=== PATIENT | female | born 1955 | race Caucasian/White ===

== ENCOUNTER → 2018-01-25 15:55 | Outpatient (CLI) | payer SELFPAY | PROVIDERS: Family Provider Physician Assistant; PCP Physician Assistant; Visit Provider Physician Assistant | DX: R30.0 Dysuria (principal) | CPT/HCPCS: 87077; 87086; 87186 ==

== ENCOUNTER → 2018-02-18 15:07 | Outpatient (CLI) | payer SELFPAY | PROVIDERS: Family Provider Physician Assistant; PCP Physician Assistant; Visit Provider Physician Assistant | DX: R30.0 Dysuria (principal); R31.9 Hematuria, unspecified | CPT/HCPCS: 87077; 87086; 87186 ==

== ENCOUNTER → 2019-03-09 11:35 | Outpatient (CLI) | payer OTHER, SELFPAY ==
[2019-03-09 11:50] LABS: Bacteria Urine None Seen; RBC Urine None Seen (0-5/HPF)
[2019-03-09 12:36] LABS: Appearance Urine UA CLEAR; Bilirubin Urine UA NEGATIVE (NEGATIVE); Color Urine UA YELLOW; Glucose Urine UA NEGATIVE (Negative); Ketones Urine UA NEGATIVE (NEGATIVE); Leukocyte Esterase Urine UA NEGATIVE (NEGATIVE); Nitrite Urine UA NEGATIVE (Negative); Occult Blood Urine UA NEGATIVE (Negative); Protein Urine UA NEGATIVE (Negative); Specific Gravity Urine UA >=1.030 (1.000-1.035); Urobilinogen Urine UA 0.2 E.U./dL (0.2)
[2019-03-09 12:46] LABS: Add Manual Diff / Slide Review NO; Basophils Absolute Auto 0 /uL (0-100); Basophils Percent Auto 0.2 % (0-2); Eosinophils Absolute Auto 100 /uL (0-450); Eosinophils Percent Auto 1.2 % (2-4); Hematocrit 41.6 % (36-46); Hemoglobin 14.1 g/dL (12.0-16.0); Lymphocytes Absolute Auto 2500 /uL (1100-4500); Lymphocytes Percent Auto 31.1 % (25-40); Mean Corpuscular HGB Conc 33.9 % (30-36); Mean Corpuscular Hemoglobin 29.9 PG (26-34); Mean Corpuscular Volume 88.2 fL (80-100); Monocytes Absolute Auto 500 /uL (0-900); Monocytes Percent Auto 6.1 % (3-14); Neutrophils Absolute Auto 5000 /uL (1500-7000); Neutrophils Percent Auto 61.4 % (50-75); Platelet Count 252 X10^3/uL (150-400); Red Blood Cell Count 4.71 X10^6/uL (4.0-5.2); White Blood Cell Count 8.2 X10^3/uL (4.5-11.0)
[2019-03-09 13:10] LABS: Squamous Epithelial Cell Urine 0-1 /HPF (0-5/HPF); WBC Urine 0-1/HPF (0-5/HPF)
[2019-03-09 13:11] LABS: Amorphous Sediment Urine 1+; Culture Indicated Urine Cult Not Indicated; Mucus Urine 1+ (Negative)
[2019-03-09 13:36] LABS: BUN Creatinine Ratio 27.1 (6-22); Blood Urea Nitrogen 19 mg/dL (7-17); Calcium 10.1 mg/dL (8.4-10.2); Carbon Dioxide 25 mmol/L (22-32); Chloride 104 mmol/L (98-107); Estimated Glomerular Filt Rate > 60.0 mL/min (>60); Glucose 103 mg/dL (80-110); HEMOLYSIS < 15 (0-50); Potassium 4.2 mmol/L (3.4-5.1); Sodium 139 mmol/L (137-145)
[2019-03-09 13:45] LABS: Hemoglobin A1C% w Est Avg Glu 5.5 % (4.0-6.0)
== END ==
PROVIDERS: Family Provider Physician Assistant; PCP Physician Assistant; Visit Provider Orthopaedic Surgery
DX: Z01.818 Encounter for other preprocedural examination (principal); Z01.812 Encounter for preprocedural laboratory examination; N39.9 Disorder of urinary system, unspecified; Z13.1 Encounter for screening for diabetes mellitus; R73.9 Hyperglycemia, unspecified
CPT/HCPCS: 36415; 80048; 81001; 83036; 85025; 93005; 93010

== ENCOUNTER → 2019-03-22 10:21 | Outpatient (CLI) | payer OTHER, SELFPAY ==
[2019-03-22 13:03] LABS: TSH w/ Reflex to FT4 < 0.02 uIU/mL (0.47-4.68)
[2019-03-22 13:30] LABS: Free T4, Direct Thyroxine 2.42 ng/dL (0.78-2.19)
== END ==
PROVIDERS: Family Provider Physician Assistant; PCP Physician Assistant; Referring Provider Internal Medicine Cardiovascular Disease; Visit Provider Internal Medicine Cardiovascular Disease
DX: E05.90 Thyrotoxicosis, unspecified without thyrotoxic crisis or storm (principal)
CPT/HCPCS: 36415; 84439; 84443

== ENCOUNTER 2019-06-04 09:38 | Emergency (ER) | payer OTHER, SELFPAY ==
[2019-06-04 09:40] VITALS: BP 159/91; PULSE 108; RESP 15; TEMP 36.9; O2SAT 97; BMI 24.7
--- NOTE | 2019-06-04 09:42 | ED.BACK ---
HPI - Back Pain/Injury General Chief Complaint: Back Pain/Injury Stated Complaint: low back pain Time Seen by Provider: 06/04/19 09:42 Source: patient and old records reviewed Mode of arrival: Ambulatory Limitations: no limitations History of Present Illness HPI Narrative: This is a 64-year-old female comes to the emergency department complaint of low back pain bilaterally. Patient states that she has a history of chronic left hip pain and was scheduled for hip replacement on May 16 but this was deferred secondary to the current covid pandemic. Patient states that she has been off work for about a month she does low back to work in the last week. She states that she started having increasing pain in her low back sort of midline but radiates to both sides. She denies any radiation down her legs. She denies any fevers or chills. She denies any chest pain shortness of breath. No nausea, no vomiting, no loss of bowel or bladder control. No saddle anesthesia. She denies any numbness or tingling down her extremities. Her left hip does still give her pain but she states that is been well-controlled. She has been taking 800 mg of ibuprofen as well as 2 Tylenol in the morning which is her usual regimen for her hip. This has not been controlling her back pain. She states she does not recall injuring it. She states that she thinks it may be from sitting around too much rather than actually repetitive injury as it started causing pain while she was at home on isolation and off work. 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 She does have a history of hyperthyroidism and is on methimazole and a beta juan. Patient states this is been well-controlled. She was not able to go to the walk-in clinic today because it is currently closed although she did try. Related Data Home Medications Medication Instructions Recorded Confirmed multivitamin [Multiple Vitamins] 1 tab PO QDAY #0 01/01/16 02/02/19 Probiotic See Rx Instructions .ROUTE .COMPLEX 01/25/18 02/02/19 Previous Rx's Medication Instructions Recorded ipratropium 20 mcg-albuterol 100 1 puff INHALATION Q6H #4 gram 08/25/18 mcg/actuation mist for inhalation hydrocodone 5 mg-acetaminophen 325 1 tab PO Q4-6H PRN #45 tab 02/02/19 mg tablet albuterol sulfate 90 mcg/actuation 1 puff INHALATION Q4-6H PRN #8 gram 03/04/19 aerosol inhaler ibuprofen 800 mg tablet 800 mg PO BID-TID PRN #90 tab 05/12/19 cyclobenzaprine 10 mg PO TID PRN #15 tab 06/04/19 hydrocodone-acetaminophen [Riverside] 1 tab PO Q6H PRN #10 tab 06/04/19 Allergies Allergy/AdvReac Type Severity Reaction Status Date / Time Sulfa (Sulfonamide Allergy Severe SOB/DYSPNEA Verified 06/04/19 09:45 Antibiotics) alprazolam AdvReac Severe MANIC Verified 06/04/19 09:45 SYMPTOMS codeine AdvReac Severe NAUSEA/VOMI Verified 06/04/19 09:45 TING amoxicillin [From AUGMENTIN] AdvReac Intermediate Nausea Verified 06/04/19 09:45 clavulanic acid AdvReac Intermediate Nausea Verified 06/04/19 09:45 [From AUGMENTIN] Review of Systems Review of Systems ROS Unobtainable: All systems reviewed & are unremarkable except as noted in HPI and below Patient History Medical History Depression (Chronic) GERD (gastroesophageal reflux disease) (Chronic) Hip pain (Chronic) Hyperthyroidism (Chronic) Migraines (Chronic) Osteoarthritis (Chronic) Shoulder pain (Resolved ~06/2012) Skin cancer (Resolved 09/2016) Surgical History History of hip replacement (2004) History of tonsillectomy (1959) Status post appendectomy (1988) Social History Smoking Status: Current every day smoker (1 PPD) Tobacco: How many years used: 50 second hand exposure: Yes alcohol intake: never Smoking Status: Current every day smoker (1 PPD) Exam Narrative Exam Narrative: GENERAL: Alert and oriented x three, well-nourished, well-appearing female in mild distress HEENT: Head normocephalic, atraumatic, EOMI, pupils reactive, face symmetric, moist mucous membranes NECK: Supple, full range of motion CARDIOVASCULAR: Regular rate and rhythm without murmurs, rubs or gallops. RESPIRATORY: Breath sounds equal bilaterally, no wheezes rales or rhonchi. ABDOMEN: Soft, nontender. Normoactive bowel sounds all 4 quadrants. No guarding or rebound, rigidity, no mass : No CVA tenderness BACK: No cervical, thoracic or lumbar vertebral point tenderness. Patient has normal range of motion. Patient's gait is normal. Rectal exam is deferred. Muscle strength is 5/5 in lower extremities, DTRs are 2/4 and lower extremities. Dorsalis pedis and tibialis pulses are 2+ and lower extremities. Sensation is intact in the lower extremities. Patient does have some increased pain with straight leg raise bilaterally. EXTREMITIES: Normal range of motion, no clubbing or edema. Neurovascularly intact NEUROLOGICAL: Cranial nerves II through XII grossly intact. Moving all extremities SKIN: Warm, dry, no petechiae, no rashes or lesions. Initial Vital Signs Initial Vital Signs: Vital Signs Temperature 98.5 F 06/04/19 09:40 Pulse Rate 108 H 06/04/19 09:40 Respiratory Rate 15 06/04/19 09:40 Blood Pressure 159/91 H 06/04/19 09:40 Pulse Oximetry 97 06/04/19 09:40 Course Orders Ordered: ED Orders 06/04/19 09:52 XR lumbar spine 2-3V Stat Discontinued Medications Ketorolac Tromethamine (Toradol) 30 mg IM NOW ONE Stop: 06/04/19 09:53 Last Admin: 06/04/19 09:57 Dose: 30 mg Documented by: DORI Vital Signs Vital signs: Vital Signs - 8 hr 06/04/19 09:40 06/04/19 10:37 Temperature 98.5 F Pulse Rate 108 H 87 Respiratory Rate 15 16 Blood Pressure 159/91 H Blood Pressure [Left Arm] 122/64 Pulse Oximetry 97 98 MDM - Back Pain/Injury Imaging Data Lumbar x-ray: Radiologist's Impression: [address] [address] XRay Report Signed Patient: Katlyn Pichardo PRIETOR#: [id number] : 7Acct:[id number] Age/Sex: 64 / FDate of Service: 06/04/19 Loc: ED Accession Number: [id number] Procedure: XR lumbar spine 2-3V Ordering Provider: Brielle Ferreira D.O. PROCEDURE: XR LUMBAR SPINE 2-3V INDICATIONS: low back pain, no trauma, worsening over weeks TECHNIQUE: 3 views of the lumbar spine were acquired. COMPARISON: None. FINDINGS: Bones: There are 5 lumbar-type vertebral bodies. The lowest intervertebral disk space is designated as L5-S1. The vertebral body heights are well-maintained without evidence to suggest an acute compression fracture. The bone mineralization is within normal limits. Mild to moderate degenerative changes involving the mid to lower lumbar facet joints are present. Anterior disc osteophyte complexes at the lumbosacral junction are noted. Mild degenerative changes of the sacroiliac joints appear to be present. Soft tissues: The soft tissues of the imaged abdomen and pelvis are within normal limits. IMPRESSION: [id number] degenerative changes of the lumbar spine. No fractures. Dictated by: Ariel Stiles M.D. on 06/04/2019 at 9:16 Approved by: Ariel Stiles M.D. on 06/04/2019 at 9:17 MDM Narrative Medical decision making narrative: Patient did drive herself today. Was given a single dose of Toradol IM. Xray shows degenerative changes, no fracture or sign of compression fracture. Patient was given a prescription for Flexeril she also requests a prescription for a narcotic and was given a short course of Riverside. Patient was encouraged to follow-up with her primary care for recheck if she is not improving and discussed red flag symptoms. Discharge Plan Departure Patient Disposition: Home Clinical Impression: Low back pain Qualifiers: Chronicity: acute Back pain laterality: bilateral Sciatica presence: without sciatica Qualified Code(s): M54.5 - Low back pain Discharge Date/Time: 06/04/19 10:47 Instructions: DI for Low Back Pain Activity Restrictions/Additional Instructions: Follow-up with your physician in the next week if your symptoms have not started to improve. You may continue taking ibuprofen as needed for pain. Take muscle relaxer every 8 hours as needed, this medication can make you sleepy so do not drive, perform hazardous activities or make any major decisions while taking it. Return to the ER for fevers greater 100.4 F, rapidly worsening pain, loss of bowel or bladder control, new weakness, numbness or loss of sensation or inability your extremities, passing out, persistent vomiting or other new or concerning symptoms. Prescriptions: New cyclobenzaprine 10 mg tablet 10 mg PO TID PRN (Reason: muscle spasm) Qty: 15 RF: 0 hydrocodone-acetaminophen [Riverside] 5-325 mg tablet 1 tab PO Q6H PRN (Reason: pain) Qty: 10 RF: 0 No Action Probiotic See Rx Instructions .ROUTE .COMPLEX RF: 0 multivitamin [Multiple Vitamins] 1 EACH tablet 1 tab PO QDAY Qty: 0 RF: 0 albuterol sulfate [Ventolin HFA] 90 mcg/actuation HFA aerosol inhaler 1 puff INHALATION Q4-6H PRN (Reason: asthma) Qty: 8 RF: 6 ibuprofen 800 mg tablet 800 mg PO BID-TID PRN (Reason: pain) Qty: 90 RF: 1 ipratropium-albuterol 20-100 mcg/actuation mist 1 puff INHALATION Q6H Qty: 4 RF: 3 hydrocodone-acetaminophen 5-325 mg tablet 1 tab PO Q4-6H PRN (Reason: pain) Qty: 45 RF: 0 Referrals: Yuliya Gbibons PA-C [Primary Care Provider] -
--- NOTE | 2019-06-04 09:47 | PC.NURSE ---
pt reports, mid lower back pain sxs for 2 weeks, has been taking tylenol and ibuprofen, denies injury or trauma. denies bladder or bowel issue. ambulate slow but steady.
--- NOTE | 2019-06-04 09:52 | DI.RAD.S_ITS ---
PROCEDURE: XR LUMBAR SPINE 2-3V INDICATIONS: low back pain, no trauma, worsening over weeks TECHNIQUE: 3 views of the lumbar spine were acquired. COMPARISON: None. FINDINGS: Bones: There are 5 lumbar-type vertebral bodies. The lowest intervertebral disk space is designated as L5-S1. The vertebral body heights are well-maintained without evidence to suggest an acute compression fracture. The bone mineralization is within normal limits. Mild to moderate degenerative changes involving the mid to lower lumbar facet joints are present. Anterior disc osteophyte complexes at the lumbosacral junction are noted. Mild degenerative changes of the sacroiliac joints appear to be present. Soft tissues: The soft tissues of the imaged abdomen and pelvis are within normal limits. IMPRESSION: [id number]-[id number] degenerative changes of the lumbar spine. No fractures. Dictated by: Ariel Stiles M.D. on 06/04/2019 at 9:16 Approved by: Ariel Stiles M.D. on 06/04/2019 at 9:17
[2019-06-04] MEDS: KETOROLAC 60 MG/2 ML VIAL 30 MG IM (09:57)
[2019-06-04 10:37] VITALS: BP 122/64; PULSE 87; RESP 16; O2SAT 98
== END 2019-06-04 10:47 | disposition home or self-care (01) ==
PROVIDERS: Emergency Provider Emergency Medicine; Family Provider Physician Assistant; PCP Physician Assistant
DX: M54.5 Low back pain (principal)
CPT/HCPCS: 72100; 96372; 99283; J1885

== ENCOUNTER → 2019-07-12 15:11 | Outpatient (CLI) | payer OTHER, SELFPAY ==
[2019-07-12 15:59] LABS: Add Manual Diff / Slide Review NO; Basophils Absolute Auto 0 /uL (0-100); Basophils Percent Auto 0.3 % (0-2); Eosinophils Absolute Auto 100 /uL (0-450); Eosinophils Percent Auto 1.1 % (2-4); Hematocrit 40.3 % (36-46); Hemoglobin 13.7 g/dL (12.0-16.0); Lymphocytes Absolute Auto 3300 /uL (1100-4500); Lymphocytes Percent Auto 35.8 % (25-40); Mean Corpuscular Hemoglobin 30.6 PG (26-34); Mean Corpuscular Volume 90.2 fL (80-100); Monocytes Absolute Auto 400 /uL (0-900); Monocytes Percent Auto 4.8 % (3-14); Neutrophils Absolute Auto 5400 /uL (1500-7000); Platelet Count 279 X10^3/uL (150-400); Red Blood Cell Count 4.47 X10^6/uL (4.0-5.2); Red Cell Distribution Width 14.7 % (11.6-14.8); White Blood Cell Count 9.2 X10^3/uL (4.5-11.0)
[2019-07-12 16:33] LABS: BUN Creatinine Ratio 20.5 (6-22); Blood Urea Nitrogen 16 mg/dL (7-17); Calcium 9.7 mg/dL (8.4-10.2); Carbon Dioxide 25 mmol/L (22-32); Chloride 103 mmol/L (98-107); Cholesterol 240 mg/dL (140-199); Estimated Glomerular Filt Rate > 60.0 mL/min (>60); Glucose 88 mg/dL (80-110); HDL Cholesterol 57 mg/dL (40-60); HEMOLYSIS < 15 (0-50); LDL Cholesterol Calculated 154 mg/dL (<100); Potassium 4.3 mmol/L (3.4-5.1); Sodium 137 mmol/L (137-145); Triglycerides 147 mg/dL (35-150)
[2019-07-12 16:50] LABS: Free T4, Direct Thyroxine 0.66 ng/dL (0.78-2.19)
== END ==
PROVIDERS: Family Provider Physician Assistant; Referring Provider Nurse Practitioner; Visit Provider Nurse Practitioner
DX: Z00.00 Encounter for general adult medical examination without abnormal findings (principal); I42.9 Cardiomyopathy, unspecified; E05.90 Thyrotoxicosis, unspecified without thyrotoxic crisis or storm
CPT/HCPCS: 36415; 80048; 80061; 84439; 84443; 85025

== ENCOUNTER → 2019-07-13 06:53 | Outpatient (CLI) | payer OTHER, SELFPAY ==
--- NOTE | 2019-07-13 | DI.ECHO.S_ITS ---
[facility] +---------+ : : [address] [place] [address] : : : : [id number] : : : : Phone: [phone]+ Echocardiogram Report + + :Name: DUSTIN ESPINOZA Study Date: 07/13/2019 Height: 64 in : :[facility] Weight: 145 lb : : Gender: Female BSA: 1.7 m2 : :: 1955 Age: 64 yrs BP: 120/82 mmHg: :Reason For Study: Cardiomyopathy : :Ordering Physician: Mignon Kebede : :Dwain Performed By: Julianna Zapien : :Referring: MIGNON PRAKASH : + + Interpretation Summary 1) Normal left ventricular size with moderately to severely reduced systolic function (EF 30-35%). 2) There is moderate global hypokinesis of the left ventricle. Septal motion is consistent with conduction abnormality. 3) There is mild aortic regurgitation. 4) Sinus rhythm with heart rates in the high 70s-80s range present during the study. 5) Compared to the Echo done 04/05/2019, no significant change in cardiac structure. Procedure: A two-dimensional transthoracic echocardiogram with color flow and Doppler was performed. The study quality was technically adequate. Comparison is made with the echocardiogram of 04/05/2019. Most of the acoustic windows were suboptimal, but the best imaging was obtained from the apical window. The patient was in normal sinus rhythm during the exam. The heart rate ranged between 78-83 bpm during the study. Left Ventricle: The left ventricle is normal in size and wall thickness. The ejection fraction is estimated to be 30-35%. Septal motion is consistent with conduction abnormality. Diastolic parameters suggest a relaxation abnormality of the left ventricle, consistent with probable normal filling pressures. Right Ventricle: The right ventricle is normal in size and function. Atria: Both atria are normal in size. There is no Doppler evidence for an interatrial shunt. Mitral Valve: The mitral valve is normal in structure and function. There is trace mitral regurgitation. Aortic Valve: The aortic valve is trileaflet. The aortic valve opens well. There is no aortic valve stenosis. There is mild aortic regurgitation. Tricuspid Valve: The tricuspid valve is normal in structure and function. There is a trace or physiologic amount of tricuspid regurgitation. Pulmonary artery pressures cannot be estimated because of the lack of a measurable TR jet velocity but the IVC suggests a CVP of around 3 mmHg. Pulmonic Valve: The pulmonic valve is not well visualized. There is no pulmonic valvular regurgitation. Great Vessels: The aortic root is normal size. The ascending aorta could not be visualized. The IVC is of normal diameter and collapses greater than 50% with a sniff. This suggests a low right atrial pressure of 3 mm Hg. Pericardium/ Pleura There is no pericardial effusion. There is no pleural effusion. MMode/2D Measurements & Calculations LVIDd: 4.9 cm LVOT diam: 2.1 cm LVIDs: 4.3 cm Ao root diam: 3.1 cm FS: 13.7 % Ao Arch Diam (Prox Trans): 2.6 cm EPSS: 1.4 cm IVSd: 0.93 cm LVPWd: 0.94 cm LV dejesus. diameter/BSA (cm/m^2): 2.9 LV sys. diameter/BSA (cm/m^2): 2.5 LA A2 area: 18.5 cm2 RA long axis: 4.4 cm LA A4 area: 12.9 cm2 RA area: 15.6 cm2 LA length (vol): 4.9 cm RA vol: 46.8 ml LA vol: 41.2 ml RA : 27.4 ml/m2 LA vol index: 24.2 ml/m2 IVC diam: 1.8 cm RVD1 (basal): 2.9 cm TAPSE: 2.1 cm Doppler Measurements & Calculations Ao V2 max: 152.5 cm/sec LVOT Max Sergio: 103.7 cm/sec Ao V2 mean: 103.5 cm/sec LV V1 max P.3 mmHg Ao max P.3 mmHg LV V1 VTI: 19.6 cm Ao mean P.9 mmHg LEATHA(I,D): 2.5 cm2 Ao V2 VTI: 26.9 cm LEATHA(V,D): 2.3 cm2 sev ratio: 0.73 LEATHA indexed to BSA (cm^2/m^2): 1.5 AI P1/2t: 591.0 msec AI dec slope: 221.6 cm/sec2 MV E max sergio: 69.2 cm/sec PA V2 max: 79.0 cm/sec MV A max sergio: 97.9 cm/sec PA V2 mean: 50.9 cm/sec MV E/A: 0.71 PA mean P.2 mmHg Med Peak E' Sergio: 4.0 cm/sec PA pr(Accel): 38.5 mmHg E/E' med: 17.3 Lat Peak E' Sergio: 6.7 cm/sec E/E' lat: 10.3 E/e' average: 13.8 MV dec time: 0.30 sec SV(LVOT): 67.0 ml Reading Physician:04:53 PM
== END ==
PROVIDERS: Family Provider Physician Assistant; Referring Provider Internal Medicine Cardiovascular Disease; Visit Provider Internal Medicine Cardiovascular Disease
DX: I35.1 Nonrheumatic aortic (valve) insufficiency (principal); I42.9 Cardiomyopathy, unspecified
CPT/HCPCS: 93306

== ENCOUNTER → 2019-07-18 15:57 | Outpatient (CLI) | payer OTHER, SELFPAY ==
[2019-07-19 11:07] LABS: COVID19 Sendout Not Detected (Not Detect)
== END ==
PROVIDERS: Family Provider Physician Assistant; Visit Provider Registered Nurse
DX: Z01.812 Encounter for preprocedural laboratory examination (principal)
CPT/HCPCS: 87635

== ENCOUNTER 2019-07-21 09:57 | Inpatient (IN) | payer OTHER, SELFPAY ==
[2019-07-18 10:47] VITALS: BMI 25.2
[2019-07-21] VITALS (14 sets, daily range): BP systolic 100–122; BP diastolic 52–76; PULSE 71–94; RESP 9–24; TEMP 36.2–37.4; O2SAT 9–98; BMI 25.2
--- NOTE | 2019-07-21 | DI.RAD.S_ITS ---
PROCEDURE: XR HIP W PEL IF DONE LT 2V INDICATIONS: ANTERIOR HIP ARTHROPLASTY LT TECHNIQUE: AP pelvis and lateral view of the left hip acquired. COMPARISON: [facility], CR, [id number] W PEL IF PERFORMED, 08/01/2015, 9:01. FINDINGS: Bones: The patient is undergoing left total hip arthroplasty and this intraoperative examination shows expected alignment in preparation in preparation for placement of final components of left total hip arthroplasty. Soft tissues: Overlying postoperative changes are noted. No suspicious soft tissue densities. IMPRESSION: Left total hip arthroplasty, intraoperative stage, additional followup immediate postoperative imaging is anticipated. Dictated by: Ramos Romano M.D. on 07/21/2019 at 16:50 Approved by: Ramos Romano M.D. on 07/21/2019 at 16:51
--- NOTE | 2019-07-21 06:00 | DI.RAD.S_ITS ---
PROCEDURE: XR HIP W PEL IF DONE LT 2V INDICATIONS: postop TECHNIQUE: AP pelvis with lateral view(s) of the left hip . [facility]/2019, 14:40. [facility], [facility], [id number] W PEL IF PERFORMED, 08/01/2015, 9:01. FINDINGS: Bones: No fractures or dislocations immediately after left total hip arthroplasty performed earlier today. Normal alignment established. Pelvic ring appears intact. No suspicious bony lesions. Soft tissues: The visualized bowel gas pattern is normal. No suspicious soft tissue calcifications. IMPRESSION: Normal alignment present, after left total hip arthroplasty earlier today. Prior right total hip arthroplasty is normal in appearance. Dictated by: Ramos Romano M.D. on 07/21/2019 at 16:36 Approved by: Ramos Romano M.D. on 07/21/2019 at 16:37
[2019-07-21] MEDS: VANCOMYCIN 1,000 MG/200 ML PIGGYBACK 200 MG IV (10:18)
[2019-07-21] MEDS: LACTATED RINGERS 1,000 ML 42 ML IV ×2 (10:18→14:55)
[2019-07-21] MEDS: ACETAMINOPHEN 325 MG TABLET 975 MG PO (10:20)
[2019-07-21] MEDS: GABAPENTIN 300 MG CAPSULE PO (10:21)
[2019-07-21] MEDS: MELOXICAM 7.5 MG TABLET 15 MG PO (10:21)
--- NOTE | 2019-07-21 11:04 | PM.PREOP ---
Pre-operative Note COVID-19 COVID-19 status: Negative Interval Note History & Physical reviewed/Exam performed by Physician: No Changes to H&P: No
--- NOTE | 2019-07-21 11:05 | PM.OP.1 ---
Operative Date/Time/Diagnoses Date of procedure: 07/21/19 Time of procedure: 11:59 Pre-op diagnosis: left hip OA Post-op diagnosis: same Procedure & Clinicians Procedure: Left total hip replacement anterior approach Same procedure as scheduled: Yes Indications: The patient has had progressively worsening left hip pain with radiographic changes consistent with arthritis. Non-operative management has failed and the patient has requested total hip replacement. The risks, benefits and alternatives to surgery were discussed with the patient prior to proceeding. Risks discussed included, but were not limited to, failure to relieve pain, leg length discrepancy, dislocation, stiffness, infection, nerve damage, deep venous thrombosis, pulmonary embolism, stroke, coma, heart attack, permanent paralysis and , as well as the potential need for eventual revision of the prosthetic. Surgeon: Norma Matthews Pipe Stem Sawyer: Carlos Calderon Anesthesia Type: General and Spinal Operative Notes Findings: Severe left hip osteoarthritis, good stability Closure Type: primary Specimen(s): none sent Prosthetic devices, grafts, tissues, transplants, or devices: Matthews [employer]hew R3 54, anthology size 6, 36 by 0 oxinium, neutral Estimated Blood Loss (mL): 250 Blood products transfused: none Procedure in detail: The patient was brought to the operating room. Patient was carefully positioned in the supine position. Time-out was performed and antibiotics were given. Anesthesia was induced. She was positioned in the on the table in order to allow hyperextension of the hip. The left lower extremity was prepped and draped in a standard sterile fashion. An anterior left hip incision was made 1 fingerbreadth lateral to the anterior superior iliac spine and extended distally towards the greater trochanter. Dissection was carried out through skin and subcutaneous tissues. The skin and subcutaneous tissues were carefully injected with Lidocaine with epi. Superficial hemostasis was achieved. The fascia over the tensor fascia valarie was defined and incised with a knife. Two Allis clamps were used to grasp the fascia. Tensor fascia valarie was retracted laterally. A gelpi retractor was placed. Dissection was carried out down along the neck. The circumflex vessels were carefully identified and cauterized with the Aqua Mantis. There was good visualization of the femoral neck. A Cobra was placed superior to the neck and the gluteus fibers were carefully stripped from that superior aspect of the capsule. A 2nd retractor was placed along the inferior aspect of the neck. The rectus insertion along the capsule was partially released. A 3rd retractor that was then gently placed over the rim of the acetabulum under the rectus. Capsule was carefully incised and released from the intertrochanteric line circumferentially superior to the mid sagittal line and inferiorly to the mid sagittal line until the lesser trochanter was palpable. A tag stitch was placed both in the superior and inferior limb of the capsular insertion. Along the acetabulum capsule was also released up to the mid sagittal 12:00 position. A portion of the labrum was resected. A saw was used to perform an osteotomy at the level of the intertrochanteric line and the junction of the superior femoral neck leaving approximately 1 finger breath of residual inferior neck above the lesser trochanter. A 2nd cut was made along the femoral neck at the base of the head and a napkin ring of neck was removed. Corkscrew was placed in the femoral head and the head was removed without difficulty. Retractors were then repositioned around the acetabulum. Residual labrum was resected and additional osteophytes were removed. A reamer that was 4 mm below the templated size was placed by hand in the acetabulum and it was reamed to centralize the acetabulum. It was then reamed up to 2 under the templated size and fluoroscopy was brought in to confirm the position of the reaming and depth of reaming. I reamed 1 under the anticipated size and touched the rim with line to line reaming. A trial cup was placed and noted that it was appropriately sized and fluoroscopy confirmed position and depth. The component was open and inserted without difficulty fluoroscopic imaging was used to confirm that the cup had been adequately seated and was well positioned. The cup was tested and noted to be stable. Final liner was inserted. Attention was then directed to the femur. The femur was gently hyperextended additional capsular release was performed as needed in order to allow adequate visualization of the proximal femur with elevation of the femur. Patient was placed in a hyperextended slightly adducted position with maximum external rotation. Box osteotome was used to check for any residual neck as well as sclerotic bone along the trochanter. [place] pepper was placed in the femur. Additional broaching was performed. Canal finder was used to determine the alignment of the canal and position. Size 1 broach was placed. The canal was then appropriately broached up to the templated size as long as there was adequate stability of the broach and serial advancement of the broach without excessive impingement. Specific attention was directed at avoiding varus attempting to direct the distal aspect of the broach more anteriorly and avoiding excessive anteversion. Trial reduction showed acceptable range of motion, good stability, no posterior impingement, samaritan of leg length and appropriate lateral shuck. I also hyperflexed the hip and checked that there was no impingement anteriorly and there was good stability with flexion, adduction and internal rotation. Marcaine and Exparel were injected. The stem was placed without difficulty. Repeat trial reduction and x-ray showed acceptable overall position, length, and no evidence of the femoral fracture. Final head was placed. Wound was meticulously irrigated with normal saline. The hip was reduced and additional Exparel and Marcaine were injected. The capsule was closed with interrupted nonabsorbable sutures. The fascia of the tensor was closed with interrupted and running Vicryl. No drain was placed. Any tensor fascia valarie muscle that appeared to be contused or injured which was a minimal amount was carefully resected. Capsule around the tensor was injected with Exparel and Marcaine. The skin was closed with barbed stitches for the subcutaneous tissue and skin. We also used surgical glue. The wound was dressed sterilely. Brief Betadine soak was also used and was meticulously irrigated with normal saline. Patient was transferred to recovery room in satisfactory condition. Complications: none Post-operative Condition: stable Disposition: Acute Care Plan for aftercare: The patient will be maintained on a standard total hip replacement protocol with weight bearing as tolerated and anterior hip precautions. The patient will receive Aspirin and sequential compression devices for DVT prophylaxis. The patient will be discharged home when safe for the home environment.
[2019-07-21] MEDS: CEFAZOLIN 2 GM/100 ML FROZ.PIGGY IV ×2 (11:55→19:29)
[2019-07-21] MEDS: TRANEXAMIC ACID 1,000 MG VIAL 1000 MG INJ ×2 (12:30→15:03)
--- NOTE | 2019-07-21 12:45 | SUR.OPER ---
Supine on padded [place] table with bilateral legs secured in padded positioning boots and suspended in positioning spars, operative leg in traction per surgeon. Head on one pillow. Arm on non-operative side secured on padded armboard <90 degrees abduction. Arm on operative side padded and resting across chest then secured with tape over sheet. Padded perineal post in place per surgeon.
[2019-07-21] MEDS: BUPIVACAINE LIPOSOME 266 MG/20 ML VIAL INJ (12:49)
[2019-07-21] MEDS: BUPIVACAINE 0.25% W/ EPI 30 ML VIAL 60 ML INJ (12:50)
[2019-07-21] MEDS: SODIUM CHLORIDE IRRIG SOLUTION 250 ML, POVIDONE-IODINE SPONGE STICKS 1 APPLIC IRR (12:51)
[2019-07-21] MEDS: LACTATED RINGERS 1,000 ML 120 ML IV (15:13)
--- NOTE | 2019-07-21 16:03 | SUR.PHASEI ---
1555 Report called to floor, L hip x-ray taken; denies nausea 1603 HOB elevated, ice chips given. oriented, pt removed O2 (had desat to 89% when dozing)
[2019-07-21] MEDS: IBUPROFEN 400 MG TABLET PO ×2 (16:56→22:02)
[2019-07-21] MEDS: LACTATED RINGERS 1,000 ML 100 ML IV (16:57)
[2019-07-21] MEDS: ONDANSETRON 4 MG/2 ML INJ IV (19:35)
[2019-07-21] MEDS: ACETAMINOPHEN 325 MG TABLET 650 MG PO (20:44)
[2019-07-21] MEDS: METOPROLOL ER 50 MG TABLET PO (20:45)
[2019-07-21] MEDS: ASPIRIN EC 81 MG TABLET PO (20:48)
[2019-07-21] MEDS: ATORVASTATIN 20 MG TABLET 40 MG PO (20:48)
[2019-07-21] MEDS: DOCUSATE 100 MG CAPSULE PO (20:49)
[2019-07-22 00:09] VITALS: BP 93/53; PULSE 74; RESP 16; TEMP 36.8; O2SAT 93
[2019-07-22] MEDS: CEFAZOLIN 2 GM/100 ML FROZ.PIGGY IV (03:51)
[2019-07-22] MEDS: LACTATED RINGERS 1,000 ML 100 ML IV (03:52)
[2019-07-22] MEDS: OXYCODONE IR 5 MG TABLET PO ×2 (05:01→08:09)
[2019-07-22] MEDS: IBUPROFEN 400 MG TABLET PO ×2 (05:01→08:09)
[2019-07-22 05:03] LABS: Hematocrit 30.6 % (36-46); Hemoglobin 10.5 g/dL (12.0-16.0)
[2019-07-22 05:15] VITALS: BP 93/46; PULSE 76; RESP 16; TEMP 36.5; O2SAT 94
[2019-07-22 08:07] VITALS: BP 101/53; PULSE 70; RESP 16; TEMP 36.4; O2SAT 97
[2019-07-22] MEDS: methIMAzole 5 MG TABLET 10 MG PO (08:07)
[2019-07-22] MEDS: ACETAMINOPHEN 325 MG TABLET 650 MG PO (08:08)
[2019-07-22] MEDS: MULTIVITAMIN 1 TABLET 1 TAB PO (08:08)
[2019-07-22] MEDS: ASPIRIN EC 81 MG TABLET PO (08:08)
[2019-07-22] MEDS: METOPROLOL ER 50 MG TABLET PO (08:08)
[2019-07-22] MEDS: DOCUSATE 100 MG CAPSULE PO (08:09)
--- NOTE | 2019-07-22 10:11 | PC.NURSE ---
PATIENT MOVING WELL, CLEARED PHYSICAL THERAPY FOR DC HOME. PAIN WELL CONTROLLED. AQUACEL CDI. DR. BLISS AWARE OF BP TRENDS, GIVE BETA FILOMENA ORDERED. PATIENT LEFT W/ ALL BELONGINGS AND PAPERWORK IN NO S/SX'S OF DISTRESS WITH HER FAMILY MEMBER TO DRIVE HER HOME. SCRIPTS WITH PATIENT. INSTRUCTED PATIENT TO CALL DR BLISS'S OFFICE WHEN SHE GETS HOME TO ARRANGE HER F/U APPT. PATIENT CONFIRMS UNDERSTANDING OF ALL DC INSTRUCTIONS.
--- NOTE | 2019-07-22 10:49 | PT.IIE ---
Current Diagnoses Unilateral primary osteoarthritis, left hip (07/21/19) Surgery Performed Operation Date: 05/17/19 07:45 <No data on this case meets the specified criteria> Operation Date: 07/21/19 11:45 Actual Procedures p Total Hip Arthroplasty/Anterior Approach(Left) - Norma Matthews MD Surgical History (Last Updated 07/18/19 @ 11:21 by Lina Bojorquez, RN) History of hip replacement (2004) History of surgery (Acute ~2009) History of tonsillectomy (1959) Hx of cardiac cath (Acute 04/06/19) Status post appendectomy (1988) Medical History (Last Updated 07/18/19 @ 11:23 by Lina Bojorquez RN) Cardiomyopathy (Acute) Current every day smoker (Acute) Depression (Chronic) GERD (gastroesophageal reflux disease) (Chronic) Hip pain (Chronic) Hyperthyroidism (Chronic) Juvenile rheumatoid arthritis (Acute) LBBB (left bundle branch block) (Acute) Migraines (Chronic) Osteoarthritis (Chronic) Shoulder pain (Resolved ~06/2012) Skin cancer (Resolved 09/2016) Physical Therapy Inpatient Evaluation/Re-Eval M1 PT/OT-IP Prior Functional Status Start: 07/22/19 08:28 Freq: NEEDED Status: Discharge Protocol: Document 07/22/19 08:55 (Rec: 07/22/19 10:49 [id number]) Medical Review Prior Functional Status Medical History Reviewed Yes Diet/Fluid Consistency Regular Communication no deficits noted Mobility and Gait independent for mobility but limited walking distance d/t hip pain. Prefer to lean on shopping cart for grocery shopping. 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 Activities of Daily Living and IADL's independent for all ADLs IADLs without AD. Able to drive Social History Household Members none Living Arrangements Apartment/Condo Number of Floors (Floors) One Floor Number of Stairs To Enter/Railing? 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 M2 PT-IP Current Condition Start: 07/22/19 08:28 Freq: NEEDED Status: Discharge Protocol: Document 07/22/19 08:55 HH (Rec: 07/22/19 10:49 [email or web address]) Physical Therapy Current Condition Current Condition Evaluation Date 07/22/19 Treatment Diagnosis L GLORIA (Post), difficulty in walking Onset Date 07/21/19 Precautions Anterior Hip Precautions No Hip Extension,No Hip External Rotation Weight Bearing Status Weight Bearing Status Weight Bear as Tolerated M3 PT-IP Subjective Start: 07/22/19 08:28 Freq: NEEDED Status: Discharge Protocol: Document 07/22/19 08:55 (Rec: 07/22/19 10:49 [email or web address]) Subjective Physical Therapy Visit Type Type Initial Evaluation Visit Start Time 08:55 Visit Stop Time 09:20 Total Visit Minutes 25 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 Therapy Pain Assessment Pain When Pain Assessed During Mobility Pain Present Pain Present Pain Reported Location Left Hip Intensity 2 Scale Used Numeric (1 - 10) Description Aching Pain Management Techniques Apply Cold,Timing of Activity with Medications M4 PT-IP Mobility and Gait Start: 07/22/19 08:28 Freq: NEEDED Status: Discharge Protocol: Document 07/22/19 08:55 (Rec: 07/22/19 10:49 [email or web address]) PT-Transfer Assessment Sit to and From Stand Sit to and from Stand Independent Equipment Transfer Assistive Device Gait Belt Orthotic/Prosthetic Devices or Brace: No Transfers Transfer Destination Chair Transfer Technique with FWW Transfer Ability Level of Assist Independent Comments Mobility Comments Pt was abmulating with FWW in her room upon PT arrival. No discomfort noted. She then cont to amb with this PT out of the room to hallway. Pt initially started with forefoot strike for initial contact but was able to adjust to heel strike after instruction. Pt tends to amb with lack of L knee flexion during swing phase but also improved after demonstration. She was able to amb close to normal pattern after practicing gait mechanics for 120 ft. She then amb back to her and sat in room chair. She demonstrated safe transfer with proper use of chair armrests for descend. She did not have any c/o disomfort and felt ready and safe to be d/c . Notified RN and SW after. Gait Assessment Gait Gait Assistance Required: Independent Distance (Feet) 250 Able to Maintain Weight Bearing Status Yes During Gait Assistive Devices Assistive Device Gait Belt,Front Wheeled Walker Orthotic/Prosthetic Devices or Brace: No Gait Deviations General Gait Pattern Antalgic,Decreased Stride Length,Decreased Feet Clearance Factors Limiting Gait Function Factors Limiting Gait Function Decreased Activity Tolerance, Decreased Strength,Limited Range of Motion,Pain Comments Gait Comments see mobility comments Stair Climbing Assessment Evaluation Level of Assist On Stairs Independent Devices Stair Climbing Assistive Devices Front Wheel Walker Technique/Endurance Stair Climbing Direction Ascend and Descend Stair Climbing Technique Step to Step Number of Steps Climbed 1 Query Text: Stair Climbing Set # Repetitions (reps) 1 Comments Stair Climbing Comments able to negotiate 4' step with safe mechanics ( lead with R to go up, down with L) PT-Balance Assessment Sitting Balance and Reactions Static Sitting Balance Ability Normal Dynamic Sitting Balance Ability Normal Standing Balance and Reactions Static Standing Balance Ability Normal Dynamic Standing Balance Ability Normal Device Used FWW M5 PT-IP Objective Assessments Start: 07/22/19 08:28 Freq: NEEDED Status: Discharge Protocol: Document 07/22/19 08:55 (Rec: 07/22/19 10:49 [email or web address]) Orientation Orientation/Cognition Level of Alertness Alert Orientation Name,Age,Birthday,Month,Date, Year,Day of Week,Place, Situation Language Function Ability No Deficits Noted Safety Awareness Understands Safety Issues Memory Description No Deficits Noted Gross Range of Motion Upper Extremity ROM Assessment Within Functional Limits Lower Extremity ROM Assessment Within Functional Limits Strength Upper Extremity Strength Assessment Within Functional Limits Lower Extremity Strength Assessment Left Impaired Hip 4+/5 Knee 5/5 Coordination Assessment Gross Coordination Gross Coordination WNL Sensation Assessment Sensation Gross Sensation WNL Muscle Tone Muscle Tone WNL Yes M6 PT-IP Treatment Start: 07/22/19 08:28 Freq: NEEDED Status: Discharge Protocol: Document 07/22/19 08:55 (Rec: 07/22/19 10:49 [email or web address]) Physical Therapy Treatment Exercises Exercises Ankle Pumps,Gluteal Sets,Quad Sets,Heel Slides,Straight Leg Raises Education Education Provided Precautions,Weight Bearing Status,Post-Op Packet,Safety M7 PT-IP Assessment and Plan Start: 07/22/19 08:28 Freq: NEEDED Status: Discharge Protocol: Document 07/22/19 08:55 (Rec: 07/22/19 10:49 [email or web address]) PT Summary Assessment and Plan Potential Rehabilitation Potential Excellent Status of Condition at Evaluation Stable Summary Impairments Pain,ROM,Strength,Gait, Activity Tolerance Progress Towards Goals Safe For Discharge Assessment Summary This is a low complexity eval for this 64 yo female s/p POD 1 L GLORIA with anterior approach . Upon assessment, pt was very independent for overall mobility with good safety awareness without c/o discomfort. Educated pt on gait mechanics and she was able to leanr and retain information very well. Pt also has good family and friends support to assist as needed. She is now safe to go home and participating outpt PT to improve her functinoal mobility and strength. Frequency of Treatment Frequency Of Treatment Discharge Recommendations To Nursing Amount of Assist Needed 1 Person Assist Discharge Recommendations PT Discharge Recommendations Home,Outpatient PT Transportation Needs at Discharge Private Vehicle
--- NOTE | 2019-07-22 14:13 | CM.IDA ---
Initial DCP Assessment Note: Pt is a 64 yo female, resident of [place], now POD#1 from Left hip surgery w/ Dr Matthews PCP: ANUSHA Szymanski Payer: Anjelica Reviewed chart, pt discussed in multidisciplinary rounds this morning. Therapy has cleared pt for return home w/family to assist and pt has planned for home, DC order from Ortho has already been initiated this morning. No needs expected from DC planning team although will remain available in case this changes today. EMMY Herron
== END 2019-07-22 09:50 | disposition home or self-care (01) | DRG 470 ==
PROVIDERS: Admitting Provider Orthopaedic Surgery; Family Provider Physician Assistant; Referring Provider Orthopaedic Surgery; Visit Provider Orthopaedic Surgery
PROC: 0SRB06A Replacement of Left Hip Joint with Oxidized Zirconium on Polyethylene Synthetic Substitute, Uncemented, Open Approach (ICD-10-PCS; CPT 27130; principal; 2019-07-21 11:45)
DX: M16.12 Unilateral primary osteoarthritis, left hip (principal); I42.9 Cardiomyopathy, unspecified; Z96.641 Presence of right artificial hip joint; F17.210 Nicotine dependence, cigarettes, uncomplicated; E03.9 Hypothyroidism, unspecified; J44.9 Chronic obstructive pulmonary disease, unspecified; I44.7 Left bundle-branch block, unspecified
CPT/HCPCS: 36415; 73502; 76000; 85014; 85018; 94762; 97116; 97161; C1776; C9290; J0690; J2274; J2405; J2704

== ENCOUNTER 2019-12-04 13:11 | Emergency (ER) | payer OTHER, SELFPAY ==
[2019-07-21 17:47] VITALS: BMI 25.2
[2019-12-04 13:18] VITALS: BP 167/79; PULSE 89; O2SAT 99
[2019-12-04 13:20] VITALS: BP 167/79; PULSE 90; RESP 18; TEMP 36.6; O2SAT 100; BMI 24.0
[2019-12-04 13:30] VITALS: BP 150/67
--- NOTE | 2019-12-04 13:35 | PC.NURSE ---
three weeks of Migraine not going away I am just tired Reports nausea often worse than pain patient states she only gets severe migraines like this every other year or so.
--- NOTE | 2019-12-04 13:40 | DI.CT.S_ITS ---
PROCEDURE: CT HEAD/BRAIN WO CON INDICATIONS: persistant headache TECHNIQUE: Noncontrast 4.5 mm thick angled axial sections acquired from the foramen magnum to the vertex, with coronal and sagittal reformats. For radiation dose reduction, the following was used: automated exposure control, adjustment of mA and/or kV according to patient size. COMPARISON: [facility], CT, HEAD WITHOUT CONTRAST, 12/04/2007, 10:18. FINDINGS: Image quality: Excellent. CSF spaces: Basal cisterns are patent. No extra-axial fluid collections. Ventricles are normal in size and shape. Brain: No midline shift. No intracranial masses or hemorrhage. Hudson-white matter interface is normal. Skull and face: Calvarium and visualized facial bones are intact, without suspicious lesions. Sinuses: Left maxillary sinus air-fluid level. Other paranasal sinuses and mastoids are clear. IMPRESSION: 1. Acute left maxillary sinusitis. 2. No evidence acute stroke, hemorrhage, or mass. Dictated by: Sunadr Martin M.D. on 12/04/2019 at 14:12 Approved by: Sundar Martin M.D. on 12/04/2019 at 14:13
--- NOTE | 2019-12-04 13:40 | DI.RAD.S_ITS ---
PROCEDURE: XR CHEST 1V INDICATIONS: chest pain TECHNIQUE: One view of the chest was acquired. COMPARISON: [facility], , CHEST 2 VIEW, 09/05/2013, 12:01. FINDINGS: Surgical changes and devices: None. Lungs and pleura: Lungs are clear. No pleural effusions or pneumothorax. Mediastinum: Mediastinal contours appear normal. Heart size is normal. Bones and chest wall: No suspicious bony lesions. Overlying soft tissues appear unremarkable. IMPRESSION: No evidence acute pulmonary process. Dictated by: Sundar Martin M.D. on 12/04/2019 at 14:36 Approved by: Sundar Martin M.D. on 12/04/2019 at 14:36
--- NOTE | 2019-12-04 13:44 | ED_ITS ---
HPI - Headache General Chief Complaint: Headache Stated Complaint: migraine/ heart issue Time Seen by Provider: 12/04/19 13:15 Source: patient Mode of arrival: Ambulatory Limitations: no limitations History of Present Illness HPI Narrative: Patient is a 64-year-old female who presents with right he of complaints. She says she has a history of migraines and has had a headache ongoing for the last 3 weeks. She says that is all over her head she is sensitive to noise but not slight. She denies any fever. She also feels like she has had some heart palpitations and some chest heaviness also ongoing for couple of weeks. At her symptoms do not seem to be getting any better but they are any worse today. Complaint: headache Related Data Home Medications Medication Instructions Recorded Confirmed multivitamin [Multiple Vitamins] 1 tab PO QDAY #0 01/01/16 11/12/19 Probiotic See Rx Instructions .ROUTE .COMPLEX 01/25/18 11/12/19 ibuprofen 800 mg PO DAILY PRN 07/18/19 11/12/19 metoprolol succinate 50 mg PO BID 07/19/19 11/12/19 Previous Rx's Medication Instructions Recorded albuterol sulfate 90 mcg/actuation 1 puff INHALATION Q4-6H PRN #8 gram 03/04/19 aerosol inhaler azithromycin 250 mg tablet See Rx Instructions PO .COMPLEX #6 11/12/19 tab ondansetron 4 mg PO Q8H PRN #10 tab 12/04/19 Allergies Allergy/AdvReac Type Severity Reaction Status Date / Time Sulfa (Sulfonamide Allergy Severe SOB/DYSPNEA Verified 11/12/19 13:24 Antibiotics) alprazolam AdvReac Severe MANIC Verified 11/12/19 13:24 SYMPTOMS codeine AdvReac Severe NAUSEA/VOMI Verified 11/12/19 13:24 TING amoxicillin [From AUGMENTIN] AdvReac Intermediate Nausea Verified 11/12/19 13:24 clavulanic acid AdvReac Intermediate Nausea Verified 11/12/19 13:24 [From AUGMENTIN] Review of Systems Review of Systems Narrative: GENERAL: Denies chills, fatigue, malaise, fever, sweats, travel HEENT: Denies sinus pain, ear pain, sore throat, difficulty swallowing, neck pain RESPIRATORY: Denies dyspnea, cough, wheezing, hemoptysis, sputum. CARDIOVASCULAR: See HPI GASTROINTESTINAL: Denies nausea, vomiting, abdominal pain, diarrhea, constipation, melena. : Denies dysuria, frequency, incontinence, hematuria, urinary retention, flank pain. MUSCULOSKELETAL: Denies weakness, joint pain, or bony pain SKIN: No rash, no erythema, no pruritus NEUROLOGIC: + see HPI PSYCHIATRIC: No concerning psychosocial issues. 12 point review of systems is negative except for those stated above and HPI Patient History Medical History Cardiomyopathy (Acute) Current every day smoker (Acute) Depression (Chronic) GERD (gastroesophageal reflux disease) (Chronic) Hip pain (Chronic) Hyperthyroidism (Chronic) Juvenile rheumatoid arthritis (Acute) LBBB (left bundle branch block) (Acute) Migraines (Chronic) Osteoarthritis (Chronic) Shoulder pain (Resolved ~06/2012) Skin cancer (Resolved 09/2016) Surgical History History of hip replacement (2004) History of surgery (Acute ~2009) History of tonsillectomy (1959) Hx of cardiac cath (Acute 04/06/19) Status post appendectomy (1988) Family History Mother Heart disease Personal history of stroke with residual effects Father No problems noted. Social History household members: none Smoking Status: Current every day smoker Tobacco: How many years used: 50 second hand exposure: Yes alcohol intake: never Smoking Status: Current every day smoker alcohol intake frequency: holidays/special occasions only Substance Use Type: marijuana Exam Initial Vital Signs Initial Vital Signs: Vital Signs Pulse Rate 89 12/04/19 13:18 Blood Pressure 167/79 H 12/04/19 13:18 Pulse Oximetry 99 12/04/19 13:18 GENERAL: Well-appearing, well-nourished and in no acute distress. HEENT: Head atraumatic,EOMI, pupils reactive, face symmetric, moist mucous membranes CARDIOVASCULAR: Regular rate and rhythm without murmurs, rubs or gallops. RESPIRATORY: Breath sounds equal bilaterally, no wheezes rales or rhonchi. ABDOMEN: Soft, nontender. Normoactive bowel sounds all 4 quadrants. No guardi ng or rebound. EXTREMITIES: Normal range of motion, no clubbing or edema. Neurovascularly intact NEUROLOGICAL: Alert and oriented x4.Normal gait and speech. Cranial nerves II through XII grossly intact. [employer] strength equal bilaterally SKIN: Warm, dry, no laceration, no petechiae, no rashes or lesions. Scores NIH Stroke Scale Level of Conciousness: Alert, keenly responsive Ask month/age: Answers both questions correctly. Open/close eyes, close hand: Performs both tasks correctly Best gaze horizontal: Normal Visual preciado: No visual loss Facial palsy: Normal symetrical movement Left arm drift: No drift for full 10 sec Right arm drift: No drift for full 10 sec Left leg drift: No drift for full 5 sec Right leg drift: No drift for full 5 sec Limb ataxia: Absent Sensory on face/arms/legs: Normal, no sensory loss Best language: No aphasia, normal Dysarthria: Normal Extinction or inattention: No abnormality Total NIH Stroke scale score: 0 Course Orders Ordered: ED Orders 12/04/19 13:20 EKG-12 Lead Stat 12/04/19 13:30 Complete Blood Count AUTO DIFF Stat Comprehensive Metabolic Panel Stat Lipase Stat Troponin & CK Cardiac Panel Stat 12/04/19 13:40 CT head/brain wo con Stat XR chest 1V Stat Discontinued Medications Sodium Chloride (Normal Saline 0.9%) 1,000 mls @ 1,000 mls/hr IV CONT MICA Last Infusion: 12/04/19 15:15 Dose: 1,000 mls/hr Documented by: Admin: 12/04/19 14:14 Dose: 1,000 mls/hr Documented by: BARB Ketorolac Tromethamine (Toradol) 30 mg IV NOW ONE Stop: 12/04/19 13:41 Last Admin: 12/04/19 14:13 Dose: 30 mg Documented by: BARB Ondansetron HCl (Zofran) 4 mg IV NOW ONE Stop: 12/04/19 13:41 Last Admin: 12/04/19 14:13 Dose: 4 mg Documented by: BARB Vital Signs Vital signs: Vital Signs - 8 hr 12/04/19 13:18 12/04/19 13:20 12/04/19 13:30 Temperature 97.8 F Pulse Rate 89 90 Respiratory Rate 18 Blood Pressure 167/79 H 167/79 H 150/67 H Pulse Oximetry 99 100 12/04/19 14:00 12/04/19 14:30 12/04/19 15:00 Temperature Pulse Rate 81 75 74 Respiratory Rate 13 12 22 Blood Pressure Pulse Oximetry 99 97 99 MDM - Headache Lab Data Attestation: I reviewed the patient's lab results. Result diagrams: 12/04/19 13:30 12/04/19 13:30 Labs: Lab Results 12/04/19 12/04/19 Range/Units 13:30 13:30 WBC 8.8 (4.5-11.0) X10^3/uL RBC 4.60 (4.0-5.2) X10^6/uL Hgb 13.7 (12.0-16.0) g/dL Hct 40.8 (36-46) % MCV 88.8 (80-100) fL MCH 29.8 (26-34) PG MCHC 33.6 (30-36) % RDW 13.5 (11.6-14.8) % Plt Count 272 (150-400) X10^3/uL Neut % (Auto) 58.8 (50-75) % Lymph % (Auto) 32.5 (25-40) % [place] % (Auto) 6.2 (3-14) % Eos % (Auto) 1.8 L (2-4) % Baso % (Auto) 0.7 (0-2) % Neut # (Auto) 5200 (9673-2036) /uL Lymph # (Auto) 2800 (7334-1138) /uL [place] # (Auto) 500 (0-900) /uL Eos # (Auto) 200 (0-450) /uL Baso # (Auto) 100 (0-100) /uL Sodium 139 (137-145) mmol/L Potassium 3.9 (3.4-5.1) mmol/L Chloride 106 (98-107) mmol/L Carbon Dioxide 29 (22-32) mmol/L BUN 15 (7-17) mg/dL Creatinine 0.66 (0.52-1.04) mg/dL Estimated GFR > 60.0 (>60) mL/min BUN/Creatinine Ratio 22.7 H (6-22) Glucose 99 (80-110) mg/dL Calcium 9.6 (8.4-10.2) mg/dL Total Bilirubin 0.4 (0.2-1.3) mg/dL AST 31 (14-36) IU/L ALT 18 (<35) IU/L Alkaline Phosphatase 82 (38-126) U/L Total Creatine Kinase 45 (30-135) U/L CK-MB (CK-2) TNP CK-MB (CK-2) Rel Index TNP Troponin I < 0.012 (0.01-0.034) ng/mL Total Protein 7.7 (6.3-8.2) g/dL Albumin 4.5 (3.5-5.0) g/dL Globulin 3.2 (1.7-4.1) g/dL Albumin/Globulin Ratio 1.4 (1.0-2.8) Lipase 136 (23-300) U/L Imaging Data CT scan - head: Radiologist's Impression: PROCEDURE: CT HEAD/BRAIN WO CON INDICATIONS: persistant headache TECHNIQUE: Noncontrast 4.5 mm thick angled axial sections acquired from the foramen magnum to the vertex, with coronal and sagittal reformats. For radiation dose reduction, the following was used: automated exposure control, adjustment of mA and/or kV according to patient size. COMPARISON: [facility], CT, HEAD WITHOUT CONTRAST, 12/04/2007, 10:18. FINDINGS: Image quality: Excellent. CSF spaces: Basal cisterns are patent. No extra-axial fluid collections. Ventricles are normal in size and shape. Brain: No midline shift. No intracranial masses or hemorrhage. Hudson-white matter interface is normal. Skull and face: Calvarium and visualized facial bones are intact, without suspicious lesions. Sinuses: Left maxillary sinus air-fluid level. Other paranasal sinuses and mastoids are clear. IMPRESSION: 1. Acute left maxillary sinusitis. 2. No evidence acute stroke, hemorrhage, or mass. Dictated by: Sundar Martin M.D. on 12/04/2019 at 14:12 Chest x-ray: Radiologist's Impression: PROCEDURE: XR CHEST 1V INDICATIONS: chest pain TECHNIQUE: One view of the chest was acquired. COMPARISON: [facility], [place], CHEST 2 VIEW, 09/05/2013, 12:01. FINDINGS: Surgical changes and devices: None. Lungs and pleura: Lungs are clear. No pleural effusions or pneumothorax. Mediastinum: Mediastinal contours appear normal. Heart size is normal. Bones and chest wall: No suspicious bony lesions. Overlying soft tissues appear unremarkable. IMPRESSION: No evidence acute pulmonary process. Dictated by: Sundar Martin M.D. on 12/04/2019 at 14:36 ECG Data Attestation: I personally reviewed and interpreted this ECG as follows: Prior ECG tracings: available for review Interpretation: Normal sinus rhythm Rate 84 p.r. interval 176 QRS [address] changes or T-wave inversions MDM Narrative Medical decision making narrative: Patient has no focal deficits she has overall is feeling better after Toradol. She says that she has Tylenol at home she is requesting nausea medication. EKG and troponin are negative. Discharge Plan Departure Patient Disposition: Home Clinical Impression: Headache, migraine Qualifiers: Migraine type: without aura Status migrainosus presence: without status migrain osus Intractability: not intractable Qualified Code(s): G43.009 - Migraine without aura, not intractable, without status migrainosus Discharge Date/Time: 12/04/19 15:24 Activity Restrictions/Additional Instructions: *You have been diagnosed with migraine headache heart palpitations *What to do: Recommend resting increase fluid intake *Continue to take medications as directed Tylenol 650 mg every 4-6 hours if needed for kftn-to-kkixwjao pain Ibuprofen 600 mg every 6-8 hours need for duam-ys-jdcptjne pain Zofran 4 mg every 8 hours if needed for nausea or vomiting *Follow up with your primary care provider in 2-3 days *Return to ER if you should have worsening headache, chest pain, dizziness passing out or any new, worsening or concerning symptoms Prescriptions: New ondansetron 4 mg tablet,disintegrating 4 mg PO Q8H PRN (Reason: nausea and vomiting) Qty: 10 RF: 0 No Action Probiotic See Rx Instructions .ROUTE .COMPLEX RF: 0 azithromycin 250 mg tablet See Rx Instructions PO .COMPLEX Qty: 6 RF: 0 multivitamin [Multiple Vitamins] 1 EACH tablet 1 tab PO QDAY Qty: 0 RF: 0 albuterol sulfate [Ventolin HFA] 90 mcg/actuation HFA aerosol inhaler 1 puff INHALATION Q4-6H PRN (Reason: asthma) Qty: 8 RF: 6 ibuprofen 800 mg tablet 800 mg PO DAILY PRN (Reason: Pain (Scale Score 1-3)) RF: 0 metoprolol succinate 50 mg Tablet Extended Release 24 Hr 50 mg PO BID RF: 0 Referrals: Yuliya Gibbons PA-C [Family Provider] -
[2019-12-04 13:46] LABS: Add Manual Diff / Slide Review NO; Basophils Absolute Auto 100 /uL (0-100); Basophils Percent Auto 0.7 % (0-2); Eosinophils Absolute Auto 200 /uL (0-450); Eosinophils Percent Auto 1.8 % (2-4); Hematocrit 40.8 % (36-46); Hemoglobin 13.7 g/dL (12.0-16.0); Lymphocytes Absolute Auto 2800 /uL (1100-4500); Lymphocytes Percent Auto 32.5 % (25-40); Mean Corpuscular HGB Conc 33.6 % (30-36); Mean Corpuscular Hemoglobin 29.8 PG (26-34); Mean Corpuscular Volume 88.8 fL (80-100); Monocytes Absolute Auto 500 /uL (0-900); Monocytes Percent Auto 6.2 % (3-14); Neutrophils Absolute Auto 5200 /uL (1500-7000); Neutrophils Percent Auto 58.8 % (50-75); Platelet Count 272 X10^3/uL (150-400); Red Cell Distribution Width 13.5 % (11.6-14.8); White Blood Cell Count 8.8 X10^3/uL (4.5-11.0)
[2019-12-04 13:52] LABS: Alanine Aminotransferase 18 IU/L (<35); Albumin 4.5 g/dL (3.5-5.0); Albumin Globulin Ratio 1.4 (1.0-2.8); Alkaline Phosphatase 82 U/L (38-126); Aspartate Aminotransferase 31 IU/L (14-36); BUN Creatinine Ratio 22.7 (6-22); Bilirubin Total 0.4 mg/dL (0.2-1.3); Blood Urea Nitrogen 15 mg/dL (7-17); Calcium 9.6 mg/dL (8.4-10.2); Carbon Dioxide 29 mmol/L (22-32); Chloride 106 mmol/L (98-107); Creatine Kinase 45 U/L (30-135); Estimated Glomerular Filt Rate > 60.0 mL/min (>60); Globulin 3.2 g/dL (1.7-4.1); Glucose 99 mg/dL (80-110); HEMOLYSIS < 15 (0-50); Lipase 136 U/L (23-300); Potassium 3.9 mmol/L (3.4-5.1); Sodium 139 mmol/L (137-145); Total Protein 7.7 g/dL (6.3-8.2)
[2019-12-04 14:00] VITALS: PULSE 81; RESP 13; O2SAT 99
[2019-12-04 14:04] LABS: Troponin I < 0.012 ng/mL (0.01-0.034)
[2019-12-04] MEDS: ONDANSETRON 4 MG/2 ML INJ IV (14:13)
[2019-12-04] MEDS: KETOROLAC 60 MG/2 ML VIAL 30 MG IV (14:13)
[2019-12-04] MEDS: SODIUM CHLORIDE 0.9% 1,000 ML 1000 ML IV (14:14)
[2019-12-04 14:30] VITALS: PULSE 75; RESP 12; O2SAT 97
[2019-12-04 15:00] VITALS: PULSE 74; RESP 22; O2SAT 99
== END 2019-12-04 15:24 | disposition home or self-care (01) ==
PROVIDERS: Emergency Provider Emergency Medicine; Family Provider Physician Assistant
DX: G43.009 Migraine without aura, not intractable, without status migrainosus (principal); R07.9 Chest pain, unspecified
CPT/HCPCS: 36415; 70450; 71045; 80053; 82550; 83690; 84484; 85025; 93005; 93010; 96361; 96374; 96375; 99284; J1885; J2405

== ENCOUNTER 2020-02-24 11:53 | Emergency (ER) | payer OTHER, SELFPAY ==
[2019-07-21 17:47] VITALS: BMI 25.2
[2020-02-24] VITALS (7 sets, daily range): BP systolic 109–136; BP diastolic 56–81; PULSE 71–91; RESP 12–21; TEMP 36.9; O2SAT 96–99; BMI 22.6
--- NOTE | 2020-02-24 17:06 | ED_ITS ---
HPI - Abdominal Pain General Chief Complaint: Abdominal Pain Stated Complaint: stomach pain/loosing weight/cant eat Time Seen by Provider: 02/24/20 16:54 Source: patient Mode of arrival: Ambulatory Limitations: no limitations History of Present Illness HPI narrative: 64-year-old woman with a history of hypertension presents with 4- 5 months of early satiety, weight loss (she is unsure of how much as she does not typically weigh herself, she does note she has gone down two belt buckle holes) and diffuse abdominal pain. She is a lifelong smoker complains of no specific cough. She has had no recent fevers, headaches, chest pain, skin changes. She describes no changes to her bowels and no dysuria. No pelvic pain she does have questions about a couple of different skin lesions. She also reports that she was recently diagnosed with hyperthyroidism was treated for that and then told that she was hypothyroid and her physician wanted her to start thyroid medication, she declined until she was able to speak with his announcer. Related Data Home Medications Medication Instructions Recorded Confirmed multivitamin [Multiple Vitamins] 1 tab PO QDAY #0 01/01/16 11/12/19 Probiotic See Rx Instructions .ROUTE .COMPLEX 01/25/18 11/12/19 ibuprofen 800 mg PO DAILY PRN 07/18/19 11/12/19 metoprolol succinate 50 mg PO BID 07/19/19 11/12/19 Previous Rx's Medication Instructions Recorded albuterol sulfate 90 mcg/actuation 1 puff INHALATION Q4-6H PRN #8 gram 03/04/19 aerosol inhaler azithromycin 250 mg tablet See Rx Instructions PO .COMPLEX #6 11/12/19 tab ondansetron 4 mg PO Q8H PRN #10 tab 12/04/19 Allergies Allergy/AdvReac Type Severity Reaction Status Date / Time Sulfa (Sulfonamide Allergy Severe SOB/DYSPNEA Verified 02/24/20 12:31 Antibiotics) alprazolam AdvReac Severe MANIC Verified 02/24/20 12:31 SYMPTOMS codeine AdvReac Severe NAUSEA/VOMI Verified 02/24/20 12:31 TING amoxicillin [From AUGMENTIN] AdvReac Intermediate Nausea Verified 02/24/20 12:31 clavulanic acid AdvReac Intermediate Nausea Verified 02/24/20 12:31 [From AUGMENTIN] Review of Systems Review of Systems Narrative: Remainder of review of systems including constitutional, ENT, cardiovascular, respiratory, GI, , musculoskeletal, skin, neurologic and psychiatric systems reviewed and are unremarkable except as noted in HPI. Patient History Medical History (Updated 02/24/20 @ 20:14 by Jazzy Pizarro MD) Cardiomyopathy Current every day smoker Depression GERD (gastroesophageal reflux disease) Hip pain Hyperthyroidism Juvenile rheumatoid arthritis LBBB (left bundle branch block) Migraines Osteoarthritis Shoulder pain (~06/2012) Skin cancer (09/2016) Surgical History History of hip replacement (2004) History of surgery (~2009) History of tonsillectomy (1959) Hx of cardiac cath (04/06/19) Status post appendectomy (1988) Family History Mother Heart disease Personal history of stroke with residual effects Father No problems noted. Social History household members: none Smoking Status: Current every day smoker Tobacco: How many years used: 50 second hand exposure: Yes alcohol intake: never Smoking Status: Current every day smoker alcohol intake frequency: other Substance Use Type: marijuana Exam Narrative Exam Narrative: General: Healthy appearing, in no acute distress. Able to give a complete and coherent history. Well-nourished well-developed HEENT: Moist mucous membranes, normal sclera with reactive pupils, no cervical adenopathy Neck: No JVD, supple, no supraclavicular adenopathy Respiratory: Lungs with scattered wheezes but no rales, no rhonchi. Full and symmetrical air movement Chest: Bilateral breast exam reveals normal breasts without masses, nipple re traction or version or discharge Cardiac: Regular rate and rhythm no murmurs no bruits Abdomen: Soft nontender good bowel tones, no flank pain Skin: Warm and dry, no rashes, stating to 1st digits from for smoking. Over the bridge of her nose she has a dry area that is suspicious for of basal cell cancer. Over her mid breath she has a colored seborrheic keratosis right mid axillary line that is not particularly concerning. She has a 3 mm dark Mai to go mid axillary line on the right side that is dark enough to be of some concern. She has a 2 cm diameter nonhealing ulcer to the back of her right calf that she has had previously biopsied and was told that it was a basal cell cancer Neurologic: Grossly neurologically intact with no obvious asymmetries or abnormalities Extremities: No trauma, well perfused Psych: Cooperative, appropriate insight and affect Initial Vital Signs Initial Vital Signs: Vital Signs Temperature 98.4 F 02/24/20 12:30 Pulse Rate 91 H 02/24/20 12:30 Respiratory Rate 14 02/24/20 12:30 Blood Pressure 136/81 02/24/20 12:30 Pulse Oximetry 96 02/24/20 12:30 Course Orders Ordered: ED Orders 02/24/20 12:38 EKG-12 Lead Stat 02/24/20 17:20 Complete Blood Count AUTO DIFF Stat Comprehensive Metabolic Panel Stat Lipase Stat Partial Thromboplastin Time Stat Prothrombin Time INR Stat TSH w/ Reflex to FT4 Stat 02/24/20 17:30 CT abdomen pelvis w con Stat 02/24/20 17:31 XR chest 2V Stat Vital Signs Vital signs: Vital Signs - 8 hr 02/24/20 12:30 02/24/20 17:30 02/24/20 17:44 Temperature 98.4 F Pulse Rate 91 H 80 81 Respiratory Rate 14 18 21 Blood Pressure 136/81 118/62 123/73 Pulse Oximetry 96 99 97 02/24/20 18:00 02/24/20 18:30 02/24/20 19:00 Temperature Pulse Rate 73 71 79 Respiratory Rate 12 14 Blood Pressure 111/73 109/56 L Pulse Oximetry 98 97 98 02/24/20 20:05 Temperature Pulse Rate 71 Respiratory Rate 17 Blood Pressure 116/56 L Pulse Oximetry 96 MDM - Abdominal Pain Medical Records Attestation: I reviewed the patient's medical records. Lab Data Attestation: I reviewed the patient's lab results. Result diagrams: 02/24/20 17:20 02/24/20 17:20 Labs: Lab Results 02/24/20 02/24/20 02/24/20 Range/Units 17:20 17:20 17:20 WBC 8.1 (4.5-11.0) X10^3/uL RBC 4.55 (4.0-5.2) X10^6/uL Hgb 14.0 (12.0-16.0) g/dL Hct 41.4 (36-46) % MCV 91.0 (80-100) fL MCH 30.9 (26-34) PG MCHC 33.9 (30-36) % RDW 13.0 (11.6-14.8) % Plt Count 275 (150-400) X10^3/uL Neut % (Auto) 51.4 (50-75) % Lymph % (Auto) 40.5 H (25-40) % [place] % (Auto) 5.6 (3-14) % Eos % (Auto) 1.7 L (2-4) % Baso % (Auto) 0.8 (0-2) % Neut # (Auto) 4200 (1670-4157) /uL Lymph # (Auto) 3300 (3774-3257) /uL [place] # (Auto) 500 (0-900) /uL Eos # (Auto) 100 (0-450) /uL Baso # (Auto) 100 (0-100) /uL PT 11.0 (10.1-12.7) SECONDS INR 1.0 (0.9-1.3) APTT 30 (26.4-36.2) SECONDS Sodium 137 (137-145) mmol/L Potassium 3.9 (3.4-5.1) mmol/L Chloride 102 (98-107) mmol/L Carbon Dioxide 31 (22-32) mmol/L BUN 12 (7-17) mg/dL Creatinine 0.68 (0.52-1.04) mg/dL Estimated GFR > 60.0 (>60) mL/min BUN/Creatinine Ratio 17.6 (6-22) Glucose 90 (80-110) mg/dL Calcium 9.7 (8.4-10.2) mg/dL Total Bilirubin 0.4 (0.2-1.3) mg/dL AST 33 (14-36) IU/L ALT 20 (<35) IU/L Alkaline Phosphatase 77 (38-126) U/L Total Protein 7.8 (6.3-8.2) g/dL Albumin 4.6 (3.5-5.0) g/dL Globulin 3.2 (1.7-4.1) g/dL Albumin/Globulin Ratio 1.4 (1.0-2.8) Lipase 71 (23-300) U/L Point of care testing: Urine Dip Bedside Urine Glucose Negative Bedside Urine Bilirubin - Negative Bedside Urine Ketone - Negative Urine Specific [place] 1.015 Bedside Urine Occult Blood - Negative Bedside Urine pH 6 Bedside Urine Protein - Negative Bedside Urine Urobilinogen - Negative Bedside Urine Nitrite - Negative Bedside Urine Leukocytes - Negative Esterase Imaging Data Chest x-ray: Radiologist's Impression: FINDINGS: Surgical changes and devices: None. Lungs and pleura: Scattered subsegmental scarring and/or atelectasis. No acute consolidation. No pleural effusions or pneumothorax. Mediastinum: Mediastinal contours are normal. Heart size is normal. Bones and chest wall: No suspicious bony abnormalities. Soft tissues appear unremarkable. IMPRESSION: No acute disease. Dictated by: Nilesh Martin M.D. on 02/24/2020 at 17:45 CT scan - abdomen/pelvis: Radiologist's Impression: FINDINGS: Image quality: Excellent. ABDOMEN: Lung bases: Lung bases are clear. Heart size is normal. Subcentimeter hepatic foci are statistically cysts or hemangiomas, although technically too small to characterize accurately and therefore nonspecific. The gallbladder is grossly unremarkable. Biliary system is non dilated. Pancreas enhances normally. Spleen is normal in size and enhancement. No adrenal nodules. Kidneys de monstrate normal size and enhancement, without hydronephrosis. Peritoneum and bowel: Bowel loops demonstrate normal wall thickness and caliber. No free fluid or air. Appendix is not clearly identified however no suspicious pericecal inflammatory changes are seen. Diffuse moderate stool. Nodes and vessels: No retroperitoneal or mesenteric adenopathy by size criteria. Aorta and inferior vena cava are normal in size. Scattered vascular calcifications seen in the aorta. Miscellaneous: No ventral hernias. PELVIS: Bladder is partially obscured by streak artifact from bilateral hip arthroplasties. Miscellaneous: No inguinal hernias or adenopathy. Bones: No suspicious bony lesions. No vertebral body compression fractures. IMPRESSION: Overall, no acute abnormality identified Dictated by: Nilesh Martin M.D. on 02/24/2020 at 19:28 MDM Narrative Medical decision making narrative: 64-year-old woman with multiple constitutional symptoms concerning for neoplasm. Labs, chest x-ray and abdominal CT scan are all unremarkable. At this point she is reassured and I suggested she follow-up with her primary care physician. After thyroid therapy last TSH and free T4 were drawn in June. She was mildly hypothyroid at that time. Her history with weight loss and decreased appetite is more consistent with hyper thyroidism and there clearly is no evidence of myxedematous coma at this time. Will add thyroid studies to her blood work and asked her to follow- up with her primary care physician. She is reassured questions are answered and she is safe for home discharge Discharge Plan Departure Patient Disposition: Home Clinical Impression: Abnormal weight loss Abdominal pain Qualifiers: Abdominal location: generalized Qualified Code(s): R10.84 - Generalized abdominal pain Instructions: DI for Abdominal Pain-Adult Activity Restrictions/Additional Instructions: Thank you for coming in today I did not find any life-threatening issues with your workup today. Specifically your blood work was normal, no signs of anemia or infection. Your kidney function and liver function were reassuring. Your chest x-ray did not show any specific abnormalities and the CT scan of your abdomen did not show any infections, masses or tumors. Thyroid studies have been added to your emergency room blood work but are not immediately available. I am going to suggest that you call our health resource room special education teacher at [phone] to see if you can connect with the primary care physician. Even though I did not find an obvious abnormality in the emergency department, your symptoms still deserve further investigation. If you have new or changing symptoms, please feel free to return to the emergenc y department for further evaluation Prescriptions: No Action Probiotic See Rx Instructions .ROUTE .COMPLEX RF: 0 azithromycin 250 mg tablet See Rx Instructions PO .COMPLEX Qty: 6 RF: 0 multivitamin [Multiple Vitamins] 1 EACH tablet 1 tab PO QDAY Qty: 0 RF: 0 albuterol sulfate [Ventolin HFA] 90 mcg/actuation HFA aerosol inhaler 1 puff INHALATION Q4-6H PRN (Reason: asthma) Qty: 8 RF: 6 ibuprofen 800 mg tablet 800 mg PO DAILY PRN (Reason: Pain (Scale Score 1-3)) RF: 0 metoprolol succinate 50 mg Tablet Extended Release 24 Hr 50 mg PO BID RF: 0 ondansetron 4 mg tablet,disintegrating 4 mg PO Q8H PRN (Reason: nausea and vomiting) Qty: 10 RF: 0
--- NOTE | 2020-02-24 17:30 | DI.CT.S_ITS ---
PROCEDURE: CT ABDOMEN PELVIS W CON INDICATIONS: weight loss, early satiety, abd pain TECHNIQUE: After the administration of intravenous contrast, 5 mm thick sections acquired from the diaphragm to the symphysis. 5 mm coronal and sagittal reformats were acquired. For radiation dose reduction, the following was used: automated exposure control, adjustment of mA and/or kV according to patient size. COMPARISON: None. FINDINGS: Image quality: Excellent. ABDOMEN: Lung bases: Lung bases are clear. Heart size is normal. Subcentimeter hepatic foci are statistically cysts or hemangiomas, although technically too small to characterize accurately and therefore nonspecific. The gallbladder is grossly unremarkable. Biliary system is non dilated. Pancreas enhances normally. Spleen is normal in size and enhancement. No adrenal nodules. Kidneys demonstrate normal size and enhancement, without hydronephrosis. Peritoneum and bowel: Bowel loops demonstrate normal wall thickness and caliber. No free fluid or air. Appendix is not clearly identified however no suspicious pericecal inflammatory changes are seen. Diffuse moderate stool. Nodes and vessels: No retroperitoneal or mesenteric adenopathy by size criteria. Aorta and inferior vena cava are normal in size. Scattered vascular calcifications seen in the aorta. Miscellaneous: No ventral hernias. PELVIS: Bladder is partially obscured by streak artifact from bilateral hip arthroplasties. Miscellaneous: No inguinal hernias or adenopathy. Bones: No suspicious bony lesions. No vertebral body compression fractures. IMPRESSION: Overall, no acute abnormality identified Dictated by: Nilesh Martin M.D. on 02/24/2020 at 19:28 Approved by: Nilesh Martin M.D. on 02/24/2020 at 19:31
--- NOTE | 2020-02-24 17:31 | DI.RAD.S_ITS ---
PROCEDURE: XR CHEST 2V INDICATIONS: weight loss, early satiety TECHNIQUE: 2 views of the chest were acquired. COMPARISON: [facility], , XR CHEST 1V, 12/04/2019, 13:31. FINDINGS: Surgical changes and devices: None. Lungs and pleura: Scattered subsegmental scarring and/or atelectasis. No acute consolidation. No pleural effusions or pneumothorax. Mediastinum: Mediastinal contours are normal. Heart size is normal. Bones and chest wall: No suspicious bony abnormalities. Soft tissues appear unremarkable. IMPRESSION: No acute disease. Dictated by: Nilesh Martin M.D. on 02/24/2020 at 17:45 Approved by: Nilesh Martin M.D. on 02/24/2020 at 17:45
[2020-02-24 17:33] LABS: Add Manual Diff / Slide Review NO; Basophils Absolute Auto 100 /uL (0-100); Basophils Percent Auto 0.8 % (0-2); Eosinophils Absolute Auto 100 /uL (0-450); Eosinophils Percent Auto 1.7 % (2-4); Hematocrit 41.4 % (36-46); Lymphocytes Absolute Auto 3300 /uL (1100-4500); Lymphocytes Percent Auto 40.5 % (25-40); Mean Corpuscular HGB Conc 33.9 % (30-36); Mean Corpuscular Hemoglobin 30.9 PG (26-34); Monocytes Absolute Auto 500 /uL (0-900); Monocytes Percent Auto 5.6 % (3-14); Neutrophils Absolute Auto 4200 /uL (1500-7000); Neutrophils Percent Auto 51.4 % (50-75); Platelet Count 275 X10^3/uL (150-400); Red Blood Cell Count 4.55 X10^6/uL (4.0-5.2); White Blood Cell Count 8.1 X10^3/uL (4.5-11.0)
[2020-02-24 18:01] LABS: PTT Partial Thromboplastin Tim 30 SECONDS (26.4-36.2)
[2020-02-24 18:09] LABS: Alanine Aminotransferase 20 IU/L (<35); Albumin 4.6 g/dL (3.5-5.0); Albumin Globulin Ratio 1.4 (1.0-2.8); Alkaline Phosphatase 77 U/L (38-126); Aspartate Aminotransferase 33 IU/L (14-36); BUN Creatinine Ratio 17.6 (6-22); Bilirubin Total 0.4 mg/dL (0.2-1.3); Blood Urea Nitrogen 12 mg/dL (7-17); Calcium 9.7 mg/dL (8.4-10.2); Carbon Dioxide 31 mmol/L (22-32); Chloride 102 mmol/L (98-107); Estimated Glomerular Filt Rate > 60.0 mL/min (>60); Globulin 3.2 g/dL (1.7-4.1); Glucose 90 mg/dL (80-110); HEMOLYSIS < 15 (0-50); Lipase 71 U/L (23-300); Potassium 3.9 mmol/L (3.4-5.1); Sodium 137 mmol/L (137-145); Total Protein 7.8 g/dL (6.3-8.2)
[2020-02-24 20:50] LABS: TSH w/ Reflex to FT4 0.67 uIU/mL (0.47-4.68)
== END 2020-02-24 20:19 | disposition home or self-care (01) ==
PROVIDERS: Emergency Medicine; Emergency Provider Emergency Medicine; Family Provider Physician Assistant
DX: R63.4 Abnormal weight loss (principal); R10.84 Generalized abdominal pain; F17.200 Nicotine dependence, unspecified, uncomplicated; E05.90 Thyrotoxicosis, unspecified without thyrotoxic crisis or storm; J44.9 Chronic obstructive pulmonary disease, unspecified; I42.9 Cardiomyopathy, unspecified; I10 Essential (primary) hypertension; R68.81 Early satiety
CPT/HCPCS: 36415; 71046; 74177; 80053; 81003; 83690; 84443; 85025; 85610; 85730; 93005; 99284

== ENCOUNTER 2020-07-08 13:34 | Emergency (ER) | payer OTHER, SELFPAY ==
[2019-07-21 17:47] VITALS: BMI 25.2
[2020-07-08 13:56] VITALS: BP 147/69; PULSE 74; RESP 16; TEMP 37.1; O2SAT 99; BMI 21.4
== END 2020-07-08 15:20 | disposition left against medical advice (07) ==
PROVIDERS: Emergency Provider Emergency Medicine; Family Provider Physician Assistant
CPT/HCPCS: 99281

== ENCOUNTER → 2020-08-16 13:50 | Outpatient (CLI) | payer OTHER, SELFPAY ==
[2019-07-21 17:47] VITALS: BMI 25.2
[2020-08-16 14:27] LABS: Add Manual Diff / Slide Review NO; Basophils Absolute Auto 0 /uL (0-100); Basophils Percent Auto 0.5 % (0-2); Eosinophils Absolute Auto 100 /uL (0-450); Eosinophils Percent Auto 1.3 % (2-4); Hematocrit 41.8 % (36-46); Hemoglobin 13.6 g/dL (12.0-16.0); Lymphocytes Absolute Auto 2600 /uL (1100-4500); Lymphocytes Percent Auto 33.2 % (25-40); Mean Corpuscular HGB Conc 32.5 % (30-36); Mean Corpuscular Hemoglobin 29.7 PG (26-34); Mean Corpuscular Volume 91.5 fL (80-100); Monocytes Absolute Auto 500 /uL (0-900); Monocytes Percent Auto 6.4 % (3-14); Neutrophils Absolute Auto 4600 /uL (1500-7000); Neutrophils Percent Auto 58.6 % (50-75); Platelet Count 233 X10^3/uL (150-400); Red Blood Cell Count 4.57 X10^6/uL (4.0-5.2); Red Cell Distribution Width 13.3 % (11.6-14.8); White Blood Cell Count 7.9 X10^3/uL (4.5-11.0)
[2020-08-16 14:44] LABS: Lipase 149 U/L (23-300)
[2020-08-16 15:01] LABS: Free T4, Direct Thyroxine 1.34 ng/dL (0.78-2.19)
[2020-08-16 15:15] LABS: Thyroid Stimulating Hormone 0.849 uIU/mL (0.47-4.68)
[2020-08-16 16:22] LABS: UR Morphine/Opiate cutoff 300 Negative (Negative); Ur Creatinine Normal (Normal); Ur Specific Gravity Normal (Normal); Urine Amphetamines Negative (Negative); Urine Barbiturates Negative (Negative); Urine Benzodiazepines Negative (Negative); Urine Cocaine Negative (Negative); Urine MDMA Negative (Negative); Urine Methadone Negative (Negative); Urine Methamphetamines Negative (Negative); Urine Oxycodone Negative (Negative); Urine Phencyclidine Negative (Negative); Urine Tetrahydrocannabinol Negative (Negative); Urine Tricyclic Antidepressant Negative (Negative); Urine pH Normal (Normal)
== END ==
PROVIDERS: Family Provider Physician Assistant; PCP Registered Nurse; Referring Provider Registered Nurse; Visit Provider Registered Nurse
DX: E05.90 Thyrotoxicosis, unspecified without thyrotoxic crisis or storm (principal); R63.4 Abnormal weight loss; R10.9 Unspecified abdominal pain; F90.9 Attention-deficit hyperactivity disorder, unspecified type
CPT/HCPCS: 36415; 80305; 83690; 84439; 84443; 85025

== ENCOUNTER → 2020-08-17 07:33 | Outpatient (CLI) | payer OTHER, SELFPAY ==
[2019-07-21 17:47] VITALS: BMI 25.2
[2020-08-17 08:21] LABS: Alanine Aminotransferase 19 IU/L (<35); Albumin 4.2 g/dL (3.5-5.0); Albumin Globulin Ratio 1.5 (1.0-2.8); Alkaline Phosphatase 60 U/L (38-126); Aspartate Aminotransferase 29 IU/L (14-36); Bilirubin Total 0.3 mg/dL (0.2-1.3); Blood Urea Nitrogen 14 mg/dL (7-17); Calcium 9.4 mg/dL (8.4-10.2); Carbon Dioxide 26 mmol/L (22-32); Chloride 109 mmol/L (98-107); Cholesterol 205 mg/dL (140-199); Estimated Glomerular Filt Rate > 60.0 mL/min (>60); Globulin 2.8 g/dL (1.7-4.1); Glucose 104 mg/dL (80-110); HDL Cholesterol 63 mg/dL (40-60); HEMOLYSIS < 15 (0-50); LDL Cholesterol Calculated 121 mg/dL (<100); Potassium 4.8 mmol/L (3.4-5.1); Sodium 141 mmol/L (137-145); Triglycerides 104 mg/dL (35-150)
== END ==
PROVIDERS: Family Provider Physician Assistant; PCP Registered Nurse; Referring Provider Registered Nurse; Visit Provider Registered Nurse
DX: R10.9 Unspecified abdominal pain (principal); R63.4 Abnormal weight loss; E78.5 Hyperlipidemia, unspecified
CPT/HCPCS: 36415; 80053; 80061

== ENCOUNTER → 2020-09-05 09:00 | Outpatient (CLI) | payer OTHER, SELFPAY ==
[2019-07-21 17:47] VITALS: BMI 25.2
--- NOTE | 2020-09-05 09:00 | DI.US.S_ITS ---
PROCEDURE: US ABDOMEN COMPLETE INDICATIONS: PAIN TECHNIQUE: Real-time scanning was performed of the abdominal and retroperitoneal organs, with image documentation. COMPARISON: [facility], US, ABDOMEN COMPLETE, 11/04/2011, 8:09. FINDINGS: Liver: Liver is normal in size and homogeneous in echotexture. Gallbladder: Gallbladder is distended. No gallstone is seen. No gallbladder wall thickening or pericholecystic fluid. Biliary ducts: Intrahepatic bile ducts are non-dilated. Extrahepatic bile duct caliber measures 4.6 mm. Normal is 6-7 mm or less in diameter, or 10 mm or less post-cholecystectomy. Pancreas: Visualized portions of the pancreas are sonographically normal. Spleen: Spleen is normal in size and homogeneous in echotexture. Kidneys: Kidneys are normal in size and echotexture. Right kidney measures 11.1 cm long; left kidney measures 11.1 cm long. No hydronephrosis or nephrolithiasis. No solid masses. Aorta: Visualized aorta is normal in caliber at less than 3 cm. Iliacs: Proximal common iliac arteries are normal in caliber at less than 2.5 cm. IVC: Intrahepatic inferior vena cava is patent. Miscellaneous: No free abdominal fluid. IMPRESSION: Normal ultrasound examination of abdomen. Dictated by: Jhoan Breaux M.D. on 09/05/2020 at 11:33 Approved by: Jhoan Breaux M.D. on 09/05/2020 at 11:34
== END ==
PROVIDERS: Family Provider Physician Assistant; PCP Registered Nurse; Referring Provider Registered Nurse; Visit Provider Registered Nurse
DX: R10.9 Unspecified abdominal pain (principal)
CPT/HCPCS: 76700

== ENCOUNTER 2020-09-07 12:01 | Emergency (ER) | payer OTHER, SELFPAY ==
[2019-07-21 17:47] VITALS: BMI 25.2
[2020-09-07 12:03] VITALS: BP 119/60; PULSE 102; RESP 14; TEMP 36.8; O2SAT 99; BMI 21.2
[2020-09-07] MEDS: PROPARACAINE 0.5% OPHTH SOL 1 DROPS EYE-LEFT (14:25)
[2020-09-07] MEDS: FLUORESCEIN 1 MG STRIP EYE-LEFT (14:26)
[2020-09-07] MEDS: TET,DIPH,PERTUSS(ACELL),VAC/PF 0.5 ML SYRINGE IM (14:34)
--- NOTE | 2020-09-07 14:35 | ED_ITS ---
HPI - Eye Problem General Chief complaint: Eye Problems Stated complaint: punch in eye yesterday/pain Time Seen by Provider: 09/07/20 14:13 Source: patient Mode of arrival: Ambulatory Limitations: no limitations History of Present Illness HPI Narrative: 65-year-old female daily smoker with noncontributory medical history presents with a chief complaint of the sensation of a foreign body in her left eye. She was playing card games with her granddaughter and she was celebrating and rapidly lifted her hands/arms in celebration and accidentally struck her in the left eye. She has had pain and discomfort and feels like there is a scratch. She does not wear contacts and states her tetanus is not up-to-date. She denies any obvious visit change but feels like there is a film. She denies any painful extraocular motion. She is otherwise well and free of complaint Related Data Home Medications Medication Instructions Recorded Confirmed multivitamin (Multiple Vitamins) 1 tab PO QDAY #0 01/01/16 08/16/20 ibuprofen 800 mg tablet 800 mg PO DAILY PRN 07/18/19 08/16/20 metoprolol succinate 50 mg 50 mg PO BID 07/19/19 08/16/20 tablet,extended release 24 hr Previous Rx's Medication Instructions Recorded albuterol sulfate 90 mcg/actuation 1 puff INHALATION Q4-6H PRN #8 gram 08/16/20 aerosol inhaler (Ventolin HFA) dextroamphetamine-amphetamine 5 mg 5 mg PO DAILY #30 tab 08/16/20 tablet ofloxacin 0.3 % eye drops 2 drp EYE-LEFT Q6H 7 Days #5 ml 09/07/20 Allergies Allergy/AdvReac Type Severity Reaction Status Date / Time Sulfa (Sulfonamide Allergy Severe SOB/DYSPNEA Verified 09/07/20 12:03 Antibiotics) alprazolam AdvReac Severe MANIC Verified 09/07/20 12:03 SYMPTOMS codeine AdvReac Severe NAUSEA/VOMI Verified 09/07/20 12:03 TING amoxicillin [From AUGMENTIN] AdvReac Intermediate Nausea Verified 09/07/20 12:03 clavulanic acid AdvReac Intermediate Nausea Verified 09/07/20 12:03 [From AUGMENTIN] Review of Systems Review of Systems Narrative: GENERAL: Denies chills, fatigue, malaise, fever, sweats. HEENT: See HPI RESPIRATORY: Denies dyspnea, cough, wheezing, hemoptysis, sputum. CARDIOVASCULAR: Denies chest pain, palpitations, orthopnea, edema, GASTROINTESTINAL: Denies nausea, vomiting, abdominal pain, diarrhea, constipation, melena. : Denies dysuria, frequency, incontinence, hematuria, urinary retention. MUSCULOSKELETAL: denies weakness, joint pain, or bony pain SKIN: Denies rash, skin lesions, or other NEUROLOGIC: Denies weakness, headache, numbness, change in speech, confusion, seizures, incoordination. PSYCHIATRIC: No concerning psychosocial issues. 12 point review of systems is negative except for those stated above Patient History Medical History Abdominal pain Abdominal pain Cardiomyopathy Current every day smoker Depression GERD (gastroesophageal reflux disease) Hip pain Hyperthyroidism Juvenile rheumatoid arthritis LBBB (left bundle branch block) Migraines Osteoarthritis Screening for malignant neoplasm of colon Shoulder pain (~06/2012) Skin cancer (09/2016) Weight loss Surgical History History of hip replacement (2004) History of surgery (~2009) History of tonsillectomy (1959) Hx of cardiac cath (04/06/19) Status post appendectomy (1988) Family History Mother Heart disease Personal history of stroke with residual effects Father No problems noted. Social History household members: none Smoking Status: Current every day smoker Tobacco: How many years used: 50 second hand exposure: Yes alcohol intake: never substance use type: marijuana Smoking Status: Current every day smoker alcohol intake frequency: holidays/special occasions only Substance Use Type: marijuana Exam Narrative Exam Narrative: GEN: AOx3 and in mild distress EYES: Pupils are equal, round, and reactive to light and accommodation. Extraoccular muscles are intact bilaterally. There is no subconjunctival hemorrhage or exudate. No foreign body noted, upper lid everted. No hyphema. Near complete resolution of symptoms after use of proparacaine. Visual acuity: OS 20/40, OD 20/20, OU 20/20. Perhaps a minimal amount of dye uptake at the 9 o'clock position. No obvious or significant abrasion CHEST: Lungs are clear to auscultation bilaterally and free of wheezes, rales, or rhonchi. Heart rate is regular rhythm, there are no murmurs, clicks, rubs, or gallops. There is no chest wall tenderness. ABD: Abdomen is soft and nontender. There is no guarding or rebound. Bowel sounds are normal in all 4 quadrants. There is no mass or organomegaly. EXT: Full painless ROM of all extremities with no loss of sensation or strength. SKIN: Warm, pink, and dry. No erythema or rash Initial Vital Signs Initial Vital Signs: Vital Signs Temperature 98.2 F 09/07/20 12:03 Pulse Rate 102 H 09/07/20 12:03 Respiratory Rate 14 09/07/20 12:03 Blood Pressure 119/60 09/07/20 12:03 Pulse Oximetry 99 09/07/20 12:03 Course Orders Ordered: Discontinued Medications Diphtheria/Tetanus/Acell Pertussis (Tet,Diph,Pertuss(Acell),Vac/Pf 0.5 Ml Syringe) 0.5 ml IM .ONCE ONE Stop: 09/07/20 14:30 Fluorescein Sodium (Fluorescein 1 Mg Strip) 1 mg EYE-LEFT NOW ONE Stop: 09/07/20 14:16 Last Admin: 09/07/20 14:26 Dose: 1 mg Documented by: CRISTIAN Proparacaine HCl (Proparacaine 0.5% Ophth Radha) 1 drops EYE-LEFT NOW ONE Stop: 09/07/20 14:16 Last Admin: 09/07/20 14:25 Dose: 1 drop Documented by: CRISTIAN Vital Signs Vital signs: Vital Signs - 8 hr 09/07/20 12:03 Temperature 98.2 F Pulse Rate 102 H Respiratory Rate 14 Blood Pressure 119/60 Pulse Oximetry 99 MDM - Eye Problem MDM Narrative Medical decision making narrative: Patient with a very reassuring physical exam and history. Her description is suggestive of a minor abrasion though no significant fluorescein uptake is noted. This is most likely a superficial injury given her response to proparacaine. Contusion considered, no hyphema noted. Very low suspicion for retinal injury or retrobulbar hematoma. Return precautions given, questions answered to her apparent satisfaction Discharge Plan Departure Patient Disposition: Home Clinical Impression: Contusion of eye, Corneal abrasion Instructions: DI for Eye Contusion Activity Restrictions/Additional Instructions: *You have been diagnosed with [left eye injury, likely contusion with possible very minor abrasion. No foreign body noted] *What to do: *Please continue to take your regular medications as directed. [ x] New medication prescriptions sent to your pharmacy: [[facility]] [ ] New medication written as a paper prescription [x ] New medications given: I gave you a bottle of diluted (0.05%) Properacaine. You may use 1-2 drops in your left eye every 30 minutes as needed for pain. *Please follow up with your Eye Doctor in 2-3 days, call for an appointment. Let them know you were seen in the Emergency Department and that we ask that you be seen in follow up. We will electronically transmit a record of today's note if your PCP is in our system. If you don't have an eye doctor I gave you the number of our group down below. *If you do not have a primary care provider please contact the [facility] Resource line at [phone]. They will ask some questions about your medical history and help get you set up with a doctor in the community. *Return to Emergency Department if you should have any new, worsening or concerning symptoms, such as [fever greater than 101 F, shaking chills, worsening pain, persistent vomiting or other bothersome symptoms] Prescriptions: New ofloxacin 0.3 % drops 2 drp EYE-LEFT Q6H 7 Days Qty: 5 RF: 0 No Action multivitamin [Multiple Vitamins] 1 EACH tablet 1 tab PO QDAY Qty: 0 RF: 0 albuterol sulfate [Ventolin HFA] 90 mcg/actuation HFA aerosol inhaler 1 puff INHALATION Q4-6H PRN (Reason: asthma) Qty: 8 RF: 3 dextroamphetamine-amphetamine 5 mg tablet 5 mg PO DAILY Qty: 30 RF: 0 ibuprofen 800 mg tablet 800 mg PO DAILY PRN (Reason: Pain (Scale Score 1-3)) RF: 0 metoprolol succinate 50 mg Tablet Extended Release 24 Hr 50 mg PO BID RF: 0 Referrals: Rose Davalos ARNP [Primary Care Provider] - Rza Lambert MD [Physician] -
[2020-09-07 14:39] VITALS: BP 120/72; PULSE 95; RESP 16; O2SAT 98
== END 2020-09-07 14:39 | disposition home or self-care (01) ==
PROVIDERS: Emergency Provider Emergency Medicine; Family Provider Physician Assistant; PCP Registered Nurse
DX: S05.02XA Injury of conjunctiva and corneal abrasion without foreign body, left eye, initial encounter (principal); S05.10XA Contusion of eyeball and orbital tissues, unspecified eye, initial encounter; W51.XXXA Accidental striking against or bumped into by another person, initial encounter; Z23 Encounter for immunization
CPT/HCPCS: 90471; 99283; 90715

== ENCOUNTER → 2020-10-15 13:10 | Outpatient (CLI) | payer OTHER, SELFPAY ==
[2019-07-21 17:47] VITALS: BMI 25.2
[2020-10-15 15:54] LABS: COVID19 -Nasal RAPID Negative (Negative)
== END ==
PROVIDERS: PCP Registered Nurse; Visit Provider Physician Assistant
DX: Z20.822 Contact with and (suspected) exposure to COVID-19 (principal); J02.9 Acute pharyngitis, unspecified
CPT/HCPCS: 87635

== ENCOUNTER → 2021-04-11 08:35 | Outpatient (CLI) | payer OTHER, SELFPAY ==
[2019-07-21 17:47] VITALS: BMI 25.2
[2021-04-11 09:39] LABS: Alanine Aminotransferase 17 IU/L (<35); Albumin 4.4 g/dL (3.5-5.0); Albumin Globulin Ratio 1.6 (1.0-2.8); Alkaline Phosphatase 53 U/L (38-126); Aspartate Aminotransferase 30 IU/L (14-36); BUN Creatinine Ratio 26.6 (6-22); Bilirubin Total 0.4 mg/dL (0.2-1.3); Blood Urea Nitrogen 17 mg/dL (7-17); Calcium 9.4 mg/dL (8.4-10.2); Carbon Dioxide 28 mmol/L (22-32); Chloride 106 mmol/L (98-107); Cholesterol 207 mg/dL (140-199); Estimated Glomerular Filt Rate > 60.0 mL/min (>60); Globulin 2.8 g/dL (1.7-4.1); Glucose 108 mg/dL (80-110); HDL Cholesterol 76 mg/dL (40-60); HEMOLYSIS < 15 (0-50); LDL Cholesterol Calculated 113 mg/dL (<100); Potassium 4.7 mmol/L (3.4-5.1); Sodium 138 mmol/L (137-145); Total Protein 7.2 g/dL (6.3-8.2); Triglycerides 90 mg/dL (35-150)
== END ==
PROVIDERS: PCP Registered Nurse; Referring Provider Registered Nurse; Visit Provider Registered Nurse
DX: F90.9 Attention-deficit hyperactivity disorder, unspecified type (principal); E78.5 Hyperlipidemia, unspecified
CPT/HCPCS: 36415; 80053; 80061

== ENCOUNTER → 2021-04-15 15:50 | Outpatient (CLI) | payer OTHER, SELFPAY ==
[2019-07-21 17:47] VITALS: BMI 25.2
--- NOTE | 2021-04-15 15:53 | DI.RAD.S_ITS ---
PROCEDURE: XR RIBS BI MIN 4V W CXR1V INDICATIONS: upper back and right posterior rib pain TECHNIQUE: 2 views of the right and left ribs were acquired, along with a single view chest. COMPARISON: [facility], CR, XR THORACIC SPINE 2V, 04/15/2021, 16:07. [facility], CT, CT ABDOMEN PELVIS W CON, 02/24/2020, 18:49. FINDINGS: Surgical changes and devices: None. Bones and chest wall: No fractures or dislocations. No suspicious bony lesions. Overlying soft tissues appear unremarkable. Lungs and pleura: No pleural effusions or pneumothorax. Lungs appear clear. Mediastinum: Mediastinal contours appear normal. Heart size is normal. IMPRESSION: No displaced rib fracture seen. Lungs are clear. Dictated by: Jayant Medel M.D. on 04/15/2021 at 17:30 Approved by: Jayant Medel M.D. on 04/15/2021 at 17:32
--- NOTE | 2021-04-15 15:53 | DI.RAD.S_ITS ---
PROCEDURE: XR THORACIC SPINE 2V INDICATIONS: upper back and right posterior rib pain TECHNIQUE: To views of the thoracic spine were acquired. COMPARISON: None. FINDINGS: Bones: Images are suboptimal due to patient motion and x-ray technique. No definite acute fractures or dislocations. No suspicious bony lesions. Twelve pairs of ribs are noted, and appear intact where visualized. Soft tissues: No paravertebral stripe thickening. IMPRESSION: No acute thoracic spine fracture or subluxation, although images are suboptimal due to respiratory motion and radiographic technique. Dictated by: Shahid Foster M.D. on 04/15/2021 at 17:06 Approved by: Shahid Foster M.D. on 04/15/2021 at 17:07
== END ==
PROVIDERS: PCP Registered Nurse; Referring Provider Registered Nurse; Visit Provider Registered Nurse
DX: R07.81 Pleurodynia (principal); M54.6 Pain in thoracic spine
CPT/HCPCS: 71111; 72070

== ENCOUNTER → 2021-06-10 14:33 | Outpatient (CLI) | payer OTHER, SELFPAY ==
[2019-07-21 17:47] VITALS: BMI 25.2
[2021-06-10 15:10] LABS: Add Manual Diff / Slide Review NO; Basophils Absolute Auto 100 /uL (0-100); Basophils Percent Auto 0.7 % (0-2); Eosinophils Absolute Auto 100 /uL (0-450); Eosinophils Percent Auto 1.3 % (2-4); Hematocrit 40.3 % (36-46); Hemoglobin 13.4 g/dL (12.0-16.0); Lymphocytes Absolute Auto 2700 /uL (1100-4500); Lymphocytes Percent Auto 31.1 % (25-40); Mean Corpuscular HGB Conc 33.3 % (30-36); Mean Corpuscular Hemoglobin 30.3 PG (26-34); Monocytes Absolute Auto 500 /uL (0-900); Monocytes Percent Auto 5.7 % (3-14); Neutrophils Absolute Auto 5400 /uL (1500-7000); Neutrophils Percent Auto 61.2 % (50-75); Platelet Count 240 X10^3/uL (150-400); Red Blood Cell Count 4.43 X10^6/uL (4.0-5.2); Red Cell Distribution Width 13.4 % (11.6-14.8); White Blood Cell Count 8.8 X10^3/uL (4.5-11.0)
[2021-06-10 15:22] LABS: Alanine Aminotransferase 19 IU/L (<35); Albumin 4.6 g/dL (3.5-5.0); Albumin Globulin Ratio 1.4 (1.0-2.8); Alkaline Phosphatase 59 U/L (38-126); Aspartate Aminotransferase 34 IU/L (14-36); BUN Creatinine Ratio 21.5 (6-22); Bilirubin Total 0.4 mg/dL (0.2-1.3); Blood Urea Nitrogen 17 mg/dL (7-17); Calcium 9.3 mg/dL (8.4-10.2); Carbon Dioxide 30 mmol/L (22-32); Chloride 105 mmol/L (98-107); Cholesterol 222 mg/dL (140-199); Estimated Glomerular Filt Rate > 60 mL/min (>60); Globulin 3.3 g/dL (1.7-4.1); Glucose 91 mg/dL (80-110); HDL Cholesterol 76 mg/dL (40-60); HEMOLYSIS < 15 (0-50); LDL Cholesterol Calculated 128 mg/dL (<100); Potassium 4.3 mmol/L (3.4-5.1); Sodium 140 mmol/L (137-145); Total Protein 7.9 g/dL (6.3-8.2); Triglycerides 90 mg/dL (35-150)
[2021-06-10 16:14] LABS: TSH w/ Reflex to FT4 0.73 uIU/mL (0.47-4.68)
[2021-06-10 18:37] LABS: Creatinine Urine Random 190.8 mg/dL
[2021-06-10 18:44] LABS: Microalbumi Creatinin Ratio Ur 8.3 ug/mg CR (<30); Microalbumin Urine Random 1.6 mg/dL (0-1.6)
== END ==
PROVIDERS: PCP Family Medicine; Referring Provider Family Medicine; Visit Provider Family Medicine
DX: C44.719 Basal cell carcinoma of skin of left lower limb, including hip (principal); E05.90 Thyrotoxicosis, unspecified without thyrotoxic crisis or storm; E78.5 Hyperlipidemia, unspecified; F90.9 Attention-deficit hyperactivity disorder, unspecified type; R63.4 Abnormal weight loss; Z12.11 Encounter for screening for malignant neoplasm of colon; Z12.39 Encounter for other screening for malignant neoplasm of breast; R10.84 Generalized abdominal pain
CPT/HCPCS: 36415; 80053; 80061; 82043; 82570; 84443; 85025

== ENCOUNTER → 2021-11-06 08:57 | Outpatient (CLI) | payer OTHER, SELFPAY ==
[2021-11-04 11:51] VITALS: BMI 25.2
--- NOTE | 2021-11-06 08:59 | DI.RAD.S_ITS ---
PROCEDURE: XR SHOULDER LT MIN 2V INDICATIONS: Progressive left shoulder pain TECHNIQUE: Three views of the shoulder were acquired. COMPARISON: [facility], , SHOULDER MINIMUM 2VIEW RIGHT, 08/04/2012, 8:11. FINDINGS: Bones: No fractures or dislocations. No suspicious bony lesions. Mild humeral head marginal spurring. Mild degenerative joint space loss at the acromioclavicular joint. Visualized ribs appear intact. Soft tissues: No suspicious soft tissue calcifications. IMPRESSION: 1. Mild glenohumeral joint and AC joint degeneration. Dictated by: Dana Villarreal M.D. on 11/06/2021 at 12:54 Approved by: Dana Villarreal M.D. on 11/06/2021 at 12:55
== END ==
PROVIDERS: PCP Family Medicine; Referring Provider Family Medicine; Visit Provider Family Medicine
DX: M75.82 Other shoulder lesions, left shoulder (principal); M19.012 Primary osteoarthritis, left shoulder
CPT/HCPCS: 73030

== ENCOUNTER 2022-02-09 09:04 | Emergency (ER) | payer OTHER, SELFPAY ==
[2021-11-04 11:51] VITALS: BMI 25.2
--- NOTE | 2022-02-09 09:11 | DI.RAD.S_ITS ---
PROCEDURE: XR LUMBAR SPINE 2-3V INDICATIONS: fall with midline pain TECHNIQUE: 3 views of the lumbar spine were acquired. COMPARISON: [facility], CR, XR THORACIC SPINE 2V, 04/15/2021, 16:07. [facility], CT, CT ABDOMEN PELVIS W CON, 02/24/2020, 18:49. [facility], CR, XR SACRUM COCCYX MIN 2V, 02/09/2022, 9:16. [facility], CR, XR LUMBAR SPINE 2-3V, 06/04/2019, 9:49. FINDINGS: Bones: 5 [id number] vertebrae are present. There is normal bony alignment. No vertebral body compression fractures. No suspicious bony lesions. There is moderate disc space narrowing seen at the T12-L1 level, with associated endplate irregularity and sclerosis. The disc heights are otherwise well preserved. Lower lumbar spine facet arthropathy is seen. Bilateral hip arthroplasty hardware is partially seen. Soft tissues: Overlying bowel gas pattern is normal. No suspicious soft tissue calcifications. IMPRESSION: Negative for acute fracture by plain film. If there is point tenderness (or other clinical suspicion for a fracture not seen on these images) then a dedicated CT could be considered for further evaluation, if clinically appropriate. Focal T12-L1 degenerative change. Dictated by: Hamilton Franco M.D. on 02/09/2022 at 8:38 Approved by: Hamilton Franco M.D. on 02/09/2022 at 8:41
--- NOTE | 2022-02-09 09:11 | DI.RAD.S_ITS ---
PROCEDURE: XR SACRUM COCCYX MIN 2V INDICATIONS: fall with midline pain TECHNIQUE: 3 views of the sacrum and coccyx acquired. COMPARISON: [facility], CT, CT ABDOMEN PELVIS W CON, 02/24/2020, 18:49. [facility], CR, XR LUMBAR SPINE 2-3V, 02/09/2022, 9:16. FINDINGS: Bones: No fractures or dislocations. No suspicious bony lesions. Bilateral hip arthroplasty hardware is partially seen. Generalized degenerative changes are seen, including lower lumbar spine facet arthropathy and sclerosis of the sacroiliac joints. Soft tissues: Visualized bowel gas pattern is normal. No suspicious soft tissue densities. IMPRESSION: Negative for acute fracture by plain film. Dictated by: Hamilton Franco M.D. on 02/09/2022 at 8:42 Approved by: Hamilton Franco M.D. on 02/09/2022 at 8:42
[2022-02-09 09:12] VITALS: BP 129/69; PULSE 95; RESP 16; TEMP 36.9; O2SAT 97; BMI 23.0
--- NOTE | 2022-02-09 09:34 | ED_ITS ---
HPI - Fall General Chief Complaint: Fall Stated Complaint: fell t-2/tailbone,lower back,RT shoulder hurting Time Seen by Provider: 02/09/22 09:11 History of Present Illness HPI Narrative: 66-year-old female smoker with noncontributory medical history presents with a chief complaint of a slip on the ice a few days ago resulting in low back pain. She states she was getting out of her car and slipped on the ice and landed on her tailbone and now has pain with range of motion. She denies any head neck or back pain. She states she may have injured her right shoulder but has full range of motion. She denies any numbness, tingling or weakness. She denies any prodromal symptoms contributing to her fall. She denies any loss of control of bowel or bladder. She has no radiation of pain. She denies any lower extremity numbness, tingling or weakness. Related Data Home Medications Medication Instructions Recorded Confirmed multivitamin (Multiple Vitamins 1 tab PO QDAY ##0 01/01/16 01/28/22 tablet) metoprolol succinate 50 mg 50 mg PO BID 07/19/19 01/28/22 tablet,extended release 24 hr Previous Rx's Medication Instructions Recorded ibuprofen 800 mg tablet 800 mg PO DAILY PRN Pain (Scale 12/20/20 Score 1-3) #90 tabs albuterol sulfate 90 mcg/actuation 1 puff inhalation Q4-6H PRN asthma 04/11/21 aerosol inhaler (Ventolin HFA) #8 grams hydrocodone 5 mg-acetaminophen 325 1 tab PO BEDTIME PRN pain #20 tabs 11/06/21 mg tablet azithromycin 250 mg tablet See Rx Instructions PO .COMPLEX #6 01/21/22 tabs methylprednisolone 4 mg tablets in See Rx Instructions PO PER PKG DIR 01/21/22 a dose pack (Medrol (Claude)) #21 ea cyclobenzaprine 10 mg tablet 10 mg PO TID PRN muscle spasm #14 02/09/22 tabs hydrocodone 5 mg-acetaminophen 325 1 tab PO Q4-6H PRN pain #10 tabs 02/09/22 mg tablet ibuprofen 800 mg tablet 800 mg PO Q8H PRN pain #20 tabs 02/09/22 Allergies Allergy/AdvReac Type Severity Reaction Status Date / Time Sulfa (Sulfonamide Allergy Severe SOB/DYSPNEA Verified 01/28/22 10:23 Antibiotics) alprazolam AdvReac Severe MANIC Verified 01/28/22 10:23 SYMPTOMS codeine AdvReac Severe NAUSEA/VOMI Verified 01/28/22 10:23 TING amoxicillin [From AUGMENTIN] AdvReac Intermediate Nausea Verified 01/28/22 10:23 clavulanic acid AdvReac Intermediate Nausea Verified 01/28/22 10:23 [From AUGMENTIN] Review of Systems Review of Systems Narrative: GENERAL: Denies chills, fatigue, malaise, fever, sweats. HEENT: Denies sinus pain, ear pain, sore throat, difficulty swallowing, dizziness. RESPIRATORY: Denies dyspnea, cough, wheezing, hemoptysis, sputum. CARDIOVASCULAR: Denies chest pain, palpitations, orthopnea, edema, GASTROINTESTINAL: Denies nausea, vomiting, abdominal pain, diarrhea, constipation, melena. : Denies dysuria, frequency, incontinence, hematuria, urinary retention. MUSCULOSKELETAL: See HPI SKIN: Denies rash, skin lesions, or other NEUROLOGIC: Denies weakness, headache, numbness, change in speech, confusion, seizures, incoordination. PSYCHIATRIC: No concerning psychosocial issues. 12 point review of systems is negative except for those stated above Patient History Medical History Abdominal pain Abdominal pain Back pain Cardiomyopathy Current every day smoker Depression Discoloration of skin of foot GERD (gastroesophageal reflux disease) Hip pain Hyperthyroidism Juvenile rheumatoid arthritis LBBB (left bundle branch block) Migraines Osteoarthritis Pain in toes of both feet Rib pain on right side Screening for malignant neoplasm of colon Shoulder pain (~06/2012) Skin cancer (09/2016) Tendinitis of left rotator cuff Weight loss Surgical History History of hip replacement (2004) History of surgery (~2009) History of tonsillectomy (1959) Hx of cardiac cath (04/06/19) Status post appendectomy (1988) Family History Mother Heart disease Personal history of stroke with residual effects Father No problems noted. Social History household members: none Smoking Status: Current every day smoker Tobacco: How many years used: 50 second hand exposure: Yes alcohol intake: never substance use type: marijuana Smoking Status: Current every day smoker alcohol intake frequency: holidays/special occasions only Substance Use Type: marijuana Exam Narrative Exam Narrative: GENERAL: [66] year old patient appears stated age. Well-developed patient, in mild distress. HEAD: Atraumatic. Normocephalic. EYES: Pupils equal round and reactive. Extraocular motions intact. No scleral icterus. No injection or drainage. ENT: Nose without bleeding, purulent drainage. Throat without erythema, tonsillar hypertrophy or exudate. Airway patent. NECK: Trachea midline. Non tender CARDIOVASCULAR: Regular rate and rhythm without murmurs, gallops, or rubs. RESPIRATORY: Clear to auscultation. Breath sounds equal bilaterally. No wheezes, rales, or rhonchi. GASTROINTESTINAL: Abdomen soft, non-tender, nondistended. EXTREMITIES: No edema or joint tenderness. BACK: Midline lumbar tenderness without step-offs or crepitance, no saddle anesthesia, no obvious measurable lower extremity numbness, tingling or weakness. NEURO: AOx3. SKIN: No rash or erythema of visible areas Initial Vital Signs Initial Vital Signs: Vital Signs Temperature 98.4 F 02/09/22 09:12 Pulse Rate 95 H 02/09/22 09:12 Respiratory Rate 16 02/09/22 09:12 Blood Pressure 129/69 02/09/22 09:12 Pulse Oximetry 97 02/09/22 09:12 Oxygen Delivery Method 02/09/22 09:12 Course Orders Ordered: Discontinued Medications Hydrocodone Bitart/Acetaminophen (Hydrocodone/Acet 5/325 Prepack) 1 bottle MISC SEEINSTR ONE Stop: 02/09/22 09:54 Last Admin: 02/09/22 10:06 Dose: 1 bottle Documented By: CHIQUI Cyclobenzaprine HCl (Cyclobenzaprine 10 Mg Prepack) 1 bottle MISC SEEINSTR ONE Stop: 02/09/22 09:54 Last Admin: 02/09/22 10:06 Dose: 1 bottle Documented By: CHIQUI Vital Signs Vital signs: Vital Signs - 8 hr 02/09/22 09:12 Temperature 98.4 F Pulse Rate 95 H Respiratory Rate 16 Blood Pressure 129/69 Pulse Oximetry 97 Oxygen Delivery Method Room Air MDM - Fall Imaging Data LSpine: Radiologist's Impression: Katlyn Pichardo??66??F??1955 ? Allergy/Adv: Sulfa (Sulfonamide Antibiotics), alprazolam, codeine, amoxicillin, clavulanic acid (More??) Close Sacrum and Coccyx X-Ray (Signed) Hamilton Franco - 02/09/22 Lumbar Spine X-Ray (Signed) Hamilton Franco - 02/09/22 Shoulder X-Ray (Signed) Dana Villarreal - 11/06/21 Thoracic Spine X-Ray (Signed) Shahid Foster - 04/15/21 Ribs w/Chest X-Ray (Signed) Jayant Medel - 04/15/21 Abdomen Ultrasound (Signed) Jhoan Breaux - 09/05/20 Chest X-Ray (Signed) Nilesh Martin - 02/24/20 Abdomen/Pelvis CT (Signed) Nilesh Martin - 02/24/[address] (Signed) Sundar Martin - 12/04/19 Chest X-Ray (Signed) Sundar Martin - 12/04/19 Hip X-Ray (Signed) Ramos Romano - 07/21/19 Hip X-Ray (Signed) Ramos Romano - 07/21/19 Echocardiogram Ultrasound (Signed) Sonia Prakash - 07/13/19 Lumbar Spine X-Ray (Signed) Ariel Stiles - 06/04/19 EKG Rpt. 06/08/13 Launch?Image [address] [address] XRay Report Signed Patient: Katlyn Pichardo MR#: [id number] : 1955 Acct:[id number] Age/Sex: 66 / F Date of Service: 02/09/22 Loc: ED Accession Number: [id number] ?? Procedure: XR lumbar spine 2-3V Ordering Provider: Ant Carey D.O. PROCEDURE:? XR LUMBAR SPINE 2-3V ? INDICATIONS:? fall with midline pain ? TECHNIQUE:? 3 views of the lumbar spine were acquired.? ? COMPARISON:? [facility], CR, XR THORACIC SPINE 2V, 04/15/2021, 16:07.? [facility], CT, CT ABDOMEN PELVIS W CON, 02/24/2020, 18:49.? [facility], CR, XR SACRUM COCCYX MIN 2V, 02/09/2022, 9:16.? [facility], CR, XR LUMBAR SPINE 2-3V, 06/04/2019, 9:49. ? FINDINGS:? ? Bones:? 5 [id number] vertebrae are present.? There is normal bony alignment.? No vertebral body compression fractures.? No suspicious bony lesions.? ? There is moderate disc space narrowing seen at the T12-L1 level, with associated endplate irregularity and sclerosis.? The disc heights are otherwise well preserved. Lower lumbar spine facet arthropathy is seen.? ? Bilateral hip arthroplasty hardware is partially seen. ? Soft tissues:? Overlying bowel gas pattern is normal.? No suspicious soft tissue calcifications.? ? ? IMPRESSION:? Negative for acute fracture by plain film. ? If there is point tenderness (or other clinical suspicion for a fracture not seen on these images) then a dedicated CT could be considered for further evaluation, if clinically appropriate. ? Focal T12-L1 degenerative change.? ? Dictated by: Hamilton Franco M.D. on 02/09/2022 at 8:38 ? ? Approved by: Hamilton Franco M.D. on 02/09/2022 at 8:41 ? Sacrum Xray: Radiologist's Impression: Katlyn Pichardo??66??F??1955 ? Allergy/Adv: Sulfa (Sulfonamide Antibiotics), alprazolam, codeine, amoxicillin, clavulanic acid (More??) Close Sacrum and Coccyx X-Ray (Signed) Hamilton Franco - 02/09/22 Lumbar Spine X-Ray (Signed) Hamilton Franco - 02/09/22 Shoulder X-Ray (Signed) Dana Villarreal - 11/06/21 Thoracic Spine X-Ray (Signed) Shahid Foster - 04/15/21 Ribs w/Chest X-Ray (Signed) Jayant Medel - 04/15/21 Abdomen Ultrasound (Signed) Jhoan Breaux - 09/05/20 Chest X-Ray (Signed) Nilesh Martin - 02/24/20 Abdomen/Pelvis CT (Signed) Nilesh Martin - 02/24/[address] (Signed) Xander Martinderic - 12/04/19 Chest X-Ray (Signed) MarioSundar - 12/04/19 Hip X-Ray (Signed) Ramos Romano - 07/21/19 Hip X-Ray (Signed) Ramos Romano - 07/21/19 Echocardiogram Ultrasound (Signed) Asher Prakashnaveen - 07/13/19 Lumbar Spine X-Ray (Signed) Ariel Stiles - 06/04/19 EKG Rpt. 06/08/13 Launch?Image [address] [address] XRay Report Signed Patient: Katlyn Pichardo MR#: [id number] : 1955 Acct:[id number] Age/Sex: 66 / F Date of Service: 02/09/22 Loc: ED Accession Number: [id number] ?? Procedure: XR sacrum coccyx min 2V Ordering Provider: Ant Carey D.O. PROCEDURE:? XR SACRUM COCCYX MIN 2V ? INDICATIONS:? fall with midline pain ? TECHNIQUE:? 3 views of the sacrum and coccyx acquired.? ? COMPARISON:? [facility], CT, CT ABDOMEN PELVIS W CON, 02/24/2020, 18:49.? [facility], CR, XR LUMBAR SPINE 2-3V, 02/09/2022, 9:16. ? FINDINGS:? ? Bones:? No fractures or dislocations.? No suspicious bony lesions.? ? Bilateral hip arthroplasty hardware is partially seen.? Generalized degenerative changes are seen, including lower lumbar spine facet arthropathy and sclerosis of the sacroiliac joints. ? Soft tissues:? Visualized bowel gas pattern is normal.? No suspicious soft tissue densities.? IMPRESSION:? Negative for acute fracture by plain film. ? ? Dictated by: Hamilton Franco M.D. on 02/09/2022 at 8:42 ? ? Approved by: Hamilton Franco M.D. on 02/09/2022 at 8:42 ? Discharge Plan Departure Patient Disposition: Home Clinical Impression: Back pain Instructions: DI for Low Back Pain Activity Restrictions/Additional Instructions: *You have been diagnosed with [low back pain. As we discussed your x-rays are reassuring and there is no evidence of fracture or dislocation] *What to do: *Please continue to take your regular medications as directed. [ x] New medication prescriptions sent to your pharmacy: [ [facility]] [ ] New medication written as a paper prescription [ ] No new medications given *Please follow up with your primary care provider in 2-3 days, call for an appointment. Let them know you were seen in the Emergency Department and that we ask that you be seen in follow up. We will electronically transmit a record of today's note if your PCP is in our system *Return to Emergency Department if you should have any new, worsening or concerning symptoms, such as [fever greater than 101 F, shaking chills, worsening pain, persistent vomiting or other bothersome symptoms] You have been prescribed a short course of narcotic medications. These are potentially dangerous and addictive medications that should be used carefully. While on these medications you cannot drive or operate heavy machinery. Additionally, you cannot sign legal documents or perform any duties such as this. 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 Please understand that we cannot provide further refills of narcotics or controlled substances through the ED and your pain management will need to be through your Primary Care Provider Prescriptions: New cyclobenzaprine 10 mg tablet 10 mg PO TID PRN (Reason: muscle spasm) Qty: 14 0RF hydrocodone-acetaminophen 5-325 mg tablet 1 tab PO Q4-6H PRN (Reason: pain) Qty: 10 0RF ibuprofen 800 mg tablet 800 mg PO Q8H PRN (Reason: pain) Qty: 20 0RF No Action azithromycin 250 mg tablet See Rx Instructions PO .COMPLEX Qty: 6 0RF Rx Instructions: For 250 mg dose pack: take 500 mg today (day 1), then 250 mg for 4 days (days 2-5) PO methylprednisolone [Medrol (Claude)] 4 mg tablets,dose pack See Rx Instructions PO PER PKG DIR Qty: 21 0RF Rx Instructions: PO PER PKG DIR multivitamin [Multiple Vitamins] 1 EACH tablet 1 tab PO QDAY Qty: 0 ibuprofen 800 mg tablet 800 mg PO DAILY PRN (Reason: Pain (Scale Score 1-3)) Qty: 90 3RF Rx Instructions: Please establish with new primary care physician prior to further refills. albuterol sulfate [Ventolin HFA] 90 mcg/actuation HFA aerosol inhaler 1 puff INHALATION Q4-6H PRN (Reason: asthma) Qty: 8 3RF Rx Instructions: administer with spacer as needed for wheezing hydrocodone-acetaminophen 5-325 mg tablet 1 tab PO BEDTIME PRN (Reason: pain) Qty: 20 0RF metoprolol succinate 50 mg Tablet Extended Release 24 Hr 50 mg PO BID Referrals: Zelda Mills DO [Primary Care Provider] - Visit Report Forms: Patient Portal/API
[2022-02-09] MEDS: CYCLOBENZAPRINE 10 MG PREPACK 1 BOTTLE MISC (10:06)
[2022-02-09] MEDS: HYDROCODONE/ACET 5/325 PREPACK 1 BOTTLE MISC (10:06)
== END 2022-02-09 10:11 | disposition home or self-care (01) ==
PROVIDERS: Emergency Provider Emergency Medicine; PCP Family Medicine
DX: M54.50 Low back pain, unspecified (principal); W00.0XXA Fall on same level due to ice and snow, initial encounter
CPT/HCPCS: 72100; 72220; 99283; 99284

== ENCOUNTER → 2022-03-31 09:36 | Outpatient (CLI) | payer OTHER, SELFPAY ==
[2021-11-04 11:51] VITALS: BMI 25.2
[2022-03-31 10:25] LABS: Add Manual Diff / Slide Review NO; Basophils Absolute Auto 0 /uL (0-100); Basophils Percent Auto 0.3 % (0-2); Eosinophils Absolute Auto 100 /uL (0-450); Hematocrit 39.9 % (36-46); Hemoglobin 13.4 g/dL (12.0-16.0); Lymphocytes Absolute Auto 1900 /uL (1100-4500); Lymphocytes Percent Auto 24.2 % (25-40); Mean Corpuscular HGB Conc 33.6 % (30-36); Mean Corpuscular Hemoglobin 30.8 PG (26-34); Mean Corpuscular Volume 91.4 fL (80-100); Monocytes Absolute Auto 600 /uL (0-900); Monocytes Percent Auto 7.2 % (3-14); Neutrophils Absolute Auto 5200 /uL (1500-7000); Neutrophils Percent Auto 67.3 % (50-75); Platelet Count 212 X10^3/uL (150-400); Red Blood Cell Count 4.36 X10^6/uL (4.0-5.2); White Blood Cell Count 7.7 X10^3/uL (4.5-11.0)
[2022-03-31 11:06] LABS: Alanine Aminotransferase 20 IU/L (<35); Albumin 4.3 g/dL (3.5-5.0); Albumin Globulin Ratio 1.5 (1.0-2.8); Alkaline Phosphatase 63 U/L (38-126); Aspartate Aminotransferase 30 IU/L (14-36); BUN Creatinine Ratio 21.4 (6-22); Bilirubin Total 0.5 mg/dL (0.2-1.3); Blood Urea Nitrogen 15 mg/dL (7-17); Carbon Dioxide 27 mmol/L (22-32); Chloride 102 mmol/L (98-107); Estimated Glomerular Filt Rate > 60 mL/min (>60); Globulin 2.8 g/dL (1.7-4.1); Glucose 94 mg/dL (80-110); HEMOLYSIS < 15 (0-50); Lipase 134 U/L (23-300); Potassium 4.4 mmol/L (3.4-5.1); Sodium 138 mmol/L (137-145); Total Protein 7.1 g/dL (6.3-8.2)
== END ==
PROVIDERS: PCP Family Medicine; Referring Provider Family Medicine; Visit Provider Family Medicine
DX: R10.9 Unspecified abdominal pain (principal)
CPT/HCPCS: 36415; 80053; 83690; 85025

== ENCOUNTER → 2022-04-01 15:12 | Outpatient (CLI) | payer OTHER, SELFPAY ==
[2021-11-04 11:51] VITALS: BMI 25.2
[2022-04-02 14:25] LABS: Fecal Immunochemical Test Negative (Negative)
== END ==
PROVIDERS: PCP Family Medicine; Referring Provider Family Medicine; Visit Provider Family Medicine
DX: Z12.11 Encounter for screening for malignant neoplasm of colon (principal)
CPT/HCPCS: 82274

== ENCOUNTER → 2022-04-04 16:42 | Outpatient (CLI) | payer OTHER, SELFPAY ==
[2021-11-04 11:51] VITALS: BMI 25.2
[2022-04-04 17:11] LABS: Appearance Urine UA CLEAR; Bilirubin Urine UA 1+ (NEGATIVE); Color Urine UA YELLOW; Glucose Urine UA NEGATIVE (Negative); Ketones Urine UA NEGATIVE (NEGATIVE); Leukocyte Esterase Urine UA NEGATIVE (NEGATIVE); Nitrite Urine UA NEGATIVE (Negative); Occult Blood Urine UA NEGATIVE (Negative); Protein Urine UA NEGATIVE (Negative); Specific Gravity Urine UA 1.025 (1.000-1.035); Urobilinogen Urine UA 0.2 E.U./dL (0.2)
[2022-04-04 17:23] LABS: pH Urine UA 5.5 (4.5-8.0)
[2022-04-04 17:28] LABS: Ictotest Urine Negative (Negative)
[2022-04-04 17:29] LABS: Amorphous Sediment Urine 1+; Bacteria Urine Occasional (0-1); Mucus Urine 1+ (Negative); RBC Urine None Seen (0-5/HPF); Squamous Epithelial Cell Urine 1-5 /HPF (0-5/HPF); WBC Urine 1-5/HPF (0-5/HPF)
[2022-04-04 17:30] LABS: Culture Indicated Urine Cult Not Indicated
== END ==
PROVIDERS: PCP Family Medicine; Referring Provider Family Medicine; Visit Provider Family Medicine
DX: R10.9 Unspecified abdominal pain (principal)
CPT/HCPCS: 36415; 81001

== ENCOUNTER → 2022-06-04 16:22 | Outpatient (CLI) | payer OTHER, SELFPAY ==
[2021-11-04 11:51] VITALS: BMI 25.2
[2022-06-05 10:13] LABS: UR Morphine/Opiate cutoff 300 Negative (Negative); Ur Creatinine Normal (Normal); Ur Specific Gravity Normal (Normal); Urine Amphetamines Negative (Negative); Urine Barbiturates Negative (Negative); Urine Benzodiazepines Negative (Negative); Urine Cocaine Negative (Negative); Urine MDMA Negative (Negative); Urine Methadone Negative (Negative); Urine Methamphetamines Negative (Negative); Urine Oxycodone Negative (Negative); Urine Phencyclidine Negative (Negative); Urine Tetrahydrocannabinol Negative (Negative); Urine Tricyclic Antidepressant Negative (Negative); Urine pH Normal (Normal)
== END ==
PROVIDERS: PCP Family Medicine; Referring Provider Family Medicine; Visit Provider Family Medicine
DX: F90.9 Attention-deficit hyperactivity disorder, unspecified type (principal)
CPT/HCPCS: 80305

== ENCOUNTER 2022-06-19 17:55 | Emergency (ER) | payer OTHER, SELFPAY ==
[2021-11-04 11:51] VITALS: BMI 25.2
[2022-06-19] VITALS (9 sets, daily range): BP systolic 110–129; BP diastolic 56–64; PULSE 70–90; RESP 18–20; TEMP 36.8; O2SAT 95–99; BMI 19.7
--- NOTE | 2022-06-19 18:22 | DI.RAD.S_ITS ---
PROCEDURE: XR CHEST 1V INDICATIONS: Shortness of breath TECHNIQUE: One view of the chest was acquired. COMPARISON: [facility], CR, XR CHEST 2V, 02/24/2020, 17:35. FINDINGS: Surgical changes and devices: None. Lungs and pleura: Linear left basilar opacity likely atelectasis. No pleural effusions or pneumothorax. Mediastinum: Mediastinal contours appear normal. Heart size is enlarged. Bones and chest wall: No suspicious bony lesions. Overlying soft tissues appear unremarkable. IMPRESSION: No acute pulmonary process. Dictated by: Nya Rodriguez M.D. on 06/19/2022 at 18:52 Approved by: Nya Rodriguez M.D. on 06/19/2022 at 18:52
[2022-06-19 18:44] LABS: Add Manual Diff / Slide Review NO; Basophils Absolute Auto 100 /uL (0-100); Basophils Percent Auto 1.1 % (0-2); Eosinophils Absolute Auto 0 /uL (0-450); Eosinophils Percent Auto 0.1 % (2-4); Hematocrit 39.7 % (36-46); Hemoglobin 13.6 g/dL (12.0-16.0); Lymphocytes Absolute Auto 1700 /uL (1100-4500); Lymphocytes Percent Auto 20.7 % (25-40); Mean Corpuscular HGB Conc 34.2 % (30-36); Mean Corpuscular Volume 90.6 fL (80-100); Monocytes Absolute Auto 300 /uL (0-900); Monocytes Percent Auto 3.2 % (3-14); Neutrophils Absolute Auto 6300 /uL (1500-7000); Neutrophils Percent Auto 74.9 % (50-75); Platelet Count 240 X10^3/uL (150-400); Red Blood Cell Count 4.39 X10^6/uL (4.0-5.2); Red Cell Distribution Width 13.2 % (11.6-14.8); White Blood Cell Count 8.4 X10^3/uL (4.5-11.0)
[2022-06-19 18:49] LABS: Prothrombin Time 11.1 SECONDS (10.1-12.7)
[2022-06-19 18:54] LABS: COVID19 -Nasal RAPID Negative (Negative); Lactate (Lactic Acid) 0.9 mmol/L (0.7-2.1)
[2022-06-19 18:55] LABS: Alanine Aminotransferase 23 IU/L (<35); Albumin 4.6 g/dL (3.5-5.0); Albumin Globulin Ratio 1.4 (1.0-2.8); Alkaline Phosphatase 56 U/L (38-126); Aspartate Aminotransferase 38 IU/L (14-36); BUN Creatinine Ratio 36.5 (6-22); Bilirubin Total 0.6 mg/dL (0.2-1.3); Blood Urea Nitrogen 23 mg/dL (7-17); Calcium 9.1 mg/dL (8.4-10.2); Carbon Dioxide 23 mmol/L (22-32); Chloride 103 mmol/L (98-107); Estimated Glomerular Filt Rate > 60 mL/min (>60); Globulin 3.4 g/dL (1.7-4.1); Glucose 109 mg/dL (80-110); Potassium 4.7 mmol/L (3.4-5.1); Sodium 135 mmol/L (137-145)
[2022-06-19 18:58] LABS: HEMOLYSIS 79 (0-50)
[2022-06-19 19:07] LABS: NT-proBNP (BNP-Adult 18+) 1650 pg/mL (<125); Troponin I < 0.012 ng/mL (0.01-0.034)
--- NOTE | 2022-06-19 22:35 | ED.URI ---
HPI - URI/Sore Throat General Chief Complaint: Upper Respiratory Symptoms Stated Complaint: is sick x 10 days Time Seen by Provider: 06/19/22 22:34 Source: patient Mode of arrival: Ambulatory Limitations: no limitations History of Present Illness HPI Narrative: This is a 67-year-old female with known COPD and prior arrhythmia. Patient states about a week and half ago she developed a lot of nasal congestion, cough cold that moved into her chest. She is had persistent chest congestion. She states she is felt short of breath she denies any chest pain or pressure. Patient states no fevers. She is had persistent nasal drainage since then her cough is sometimes clear and sometimes pea soup colored. She states no hemoptysis. No nausea vomiting or other GI or urinary symptoms. Patient was seen at the walk-in clinic this Thursday she was given prednisone which has been helpful, some nasal spray and antitussive medications which she has not been using. Patient also supposed to be on a steroid inhaler but does not use it regularly. She does use her albuterol once daily. She states she tries to avoid using it more frequently. She states the congestion has continued to be persistent without improvement. She does not know any new swelling in her extremities. She states she is known COPD she is been a smoker for 30+ years. She states she is on metoprolol daily for rhythm issue that she is unsure of the name but sounds like might be an SVT. She is had her hip replaced 2 years ago. Allergic to sulfa. She smokes a pack per day, no alcohol, occasional THC no other illicit. States she is normally quite active. Dr. Callaway is her PCP. Related Data Home Medications Medication Instructions Recorded Confirmed multivitamin (Multiple Vitamins 1 tab PO QDAY ##0 01/01/16 06/16/22 tablet) metoprolol succinate 50 mg 50 mg PO BID 07/19/19 06/16/22 tablet,extended release 24 hr Previous Rx's Medication Instructions Recorded albuterol sulfate 90 mcg/actuation 1 puff inhalation Q4-6H PRN asthma 02/25/22 aerosol inhaler (Ventolin HFA) #8 grams ibuprofen 800 mg tablet 800 mg PO Q8H PRN pain #90 tabs 02/25/22 fluticasone propionate 110 1 - 2 inh inhalation BID #12 grams 03/31/22 mcg/actuation HFA aerosol inhaler (Flovent HFA) dextroamphetamine-amphetamine ER 10 mg PO DAILY 30 days #30 caps 06/06/22 10 mg 24hr capsule,extend release (Adderall XR) benzonatate 100 mg capsule 100 mg PO BID PRN cough #20 caps 06/16/22 fluticasone propionate 50 1 spray intranasal Q12H #16 grams 06/16/22 mcg/actuation nasal spray,suspension (Flonase Allergy Relief) prednisone 20 mg tablet 40 mg PO DAILY #8 tabs 06/16/22 azithromycin 250 mg tablet See Rx Instructions PO .COMPLEX #4 06/19/22 tabs Allergies Allergy/AdvReac Type Severity Reaction Status Date / Time Sulfa (Sulfonamide Allergy Severe SOB/DYSPNEA Verified 06/19/22 18:22 Antibiotics) alprazolam AdvReac Severe MANIC Verified 06/19/22 18:22 SYMPTOMS codeine AdvReac Severe NAUSEA/VOMI Verified 06/19/22 18:22 TING amoxicillin [From [facility]] AdvReac Intermediate Nausea Verified 06/19/22 18:22 clavulanic acid AdvReac Intermediate Nausea Verified 06/19/22 18:22 [From [facility]] Review of Systems Review of Systems ROS Unobtainable: All systems reviewed & are unremarkable except as noted in HPI and below Patient History Medical History Abdominal pain Abdominal pain Back pain Cardiomyopathy Current every day smoker Depression Discoloration of skin of foot GERD (gastroesophageal reflux disease) Hip pain Hyperthyroidism Juvenile rheumatoid arthritis LBBB (left bundle branch block) Migraines Osteoarthritis Pain in toes of both feet Rib pain on right side Screening for malignant neoplasm of colon Shoulder pain (~06/2012) Skin cancer (09/2016) Tendinitis of left rotator cuff Weight loss Surgical History History of hip replacement (2004) History of surgery (~2009) History of tonsillectomy (1959) Hx of cardiac cath (04/06/19) Status post appendectomy (1988) Family History Mother Heart disease Personal history of stroke with residual effects Father No problems noted. Social History household members: none Smoking Status: Current every day smoker Tobacco: How many years used: 50 second hand exposure: Yes alcohol intake: never substance use type: marijuana Smoking Status: Current every day smoker alcohol intake frequency: holidays/special occasions only Substance Use Type: marijuana Exam Narrative Exam Narrative: GEN: well nourished, female, alert and oriented x 3, patient appears to be in mild distress. HEENT: Atraumatic, pupils are equal round reactive to light, extraocular movements are intact, nares congested bilaterally. Throat is clear without any exudates, erythema, tonsillar enlargement or uvular deviation HEART: Regular rate and rhythm without murmur, clicks, rubs. LUNGS:Lungs breath sounds equal bilaterally, slightly coarse, no wheezes, rales, crackles, chest moves symmetrically, no tachypnea or accessory muscle use ABD:bowel sounds normal, soft, non-tender, no guarding, rebound, rigidity, no masses noted, no hepatosplenomegaly :No CVA tenderness MSCL: Non-tender, no muscle atrophy, muscles strength 5/5 upper and lower extremities, full range of motion, normal gait NEURO:CN 2-12 intact, sensation normal SKIN: No rash, erythema or other skin changes. Initial Vital Signs Initial Vital Signs: Vital Signs Temperature 98.2 F 06/19/22 18:17 Pulse Rate 90 06/19/22 18:17 Respiratory Rate 18 06/19/22 18:17 Blood Pressure 110/64 06/19/22 18:17 Pulse Oximetry 96 06/19/22 18:17 Oxygen Delivery Method Room Air 06/19/22 18:17 Course Orders Ordered: Discontinued Medications Azithromycin (Azithromycin 250 Mg Tablet) 500 mg PO NOW ONE Stop: 06/19/22 22:59 Last Admin: 06/19/22 23:09 Dose: 500 mg Documented By: PRADEEP Vital Signs Vital signs: Vital Signs - 8 hr 06/19/22 18:17 06/19/22 20:27 06/19/22 20:38 Temperature 98.2 F Pulse Rate 90 86 75 Respiratory Rate 18 20 Blood Pressure 110/64 129/62 Pulse Oximetry 96 97 97 Oxygen Delivery Method Room Air Room Air 06/19/22 21:00 06/19/22 21:30 06/19/22 22:00 Temperature Pulse Rate 75 78 70 Respiratory Rate 18 Blood Pressure Pulse Oximetry 96 95 97 Oxygen Delivery Method 06/19/22 22:30 Temperature Pulse Rate 75 Respiratory Rate 18 Blood Pressure Pulse Oximetry 96 Oxygen Delivery Method MDM - URI/Sore Throat Lab Data 06/19/22 18:30 06/19/22 18:30 Labs: Lab Results 06/19/22 06/19/22 06/19/22 Range/Units 18:30 18:30 18:30 WBC 8.4 (4.5-11.0) X10^3/uL RBC 4.39 (4.0-5.2) X10^6/uL Hgb 13.6 (12.0-16.0) g/dL Hct 39.7 (36-46) % MCV 90.6 (80-100) fL MCH 31.0 (26-34) PG MCHC 34.2 (30-36) % RDW 13.2 (11.6-14.8) % Plt Count 240 (150-400) X10^3/uL Neut % (Auto) 74.9 (50-75) % Lymph % (Auto) 20.7 L (25-40) % [place] % (Auto) 3.2 (3-14) % Eos % (Auto) 0.1 L (2-4) % Baso % (Auto) 1.1 (0-2) % Neut # (Auto) 6300 (6160-7712) /uL Lymph # (Auto) 1700 (0416-4133) /uL [place] # (Auto) 300 (0-900) /uL Eos # (Auto) 0 (0-450) /uL Baso # (Auto) 100 (0-100) /uL PT 11.1 (10.1-12.7) SECONDS INR 1.0 (0.9-1.3) Sodium 135 L (137-145) mmol/L Potassium 4.7 (3.4-5.1) mmol/L Chloride 103 (98-107) mmol/L Carbon Dioxide 23 (22-32) mmol/L BUN 23 H (7-17) mg/dL Creatinine 0.63 (0.52-1.04) mg/dL Estimated GFR > 60 (>60) mL/min BUN/Creatinine Ratio 36.5 H (6-22) Glucose 109 (80-110) mg/dL Lactate (0.7-2.1) mmol/L Calcium 9.1 (8.4-10.2) mg/dL Total Bilirubin 0.6 (0.2-1.3) mg/dL AST 38 H (14-36) IU/L ALT 23 (<35) IU/L Alkaline Phosphatase 56 (38-126) U/L Troponin I < 0.012 (0.01-0.034) ng/mL NT-Pro-B Natriuret Pep 1650 H (<125) pg/mL Total Protein 8.0 (6.3-8.2) g/dL Albumin 4.6 (3.5-5.0) g/dL Globulin 3.4 (1.7-4.1) g/dL Albumin/Globulin Ratio 1.4 (1.0-2.8) SARS-CoV-2 (PCR) (Negative) 06/19/22 06/19/22 Range/Units 18:30 18:30 WBC (4.5-11.0) X10^3/uL RBC (4.0-5.2) X10^6/uL Hgb (12.0-16.0) g/dL Hct (36-46) % MCV (80-100) fL MCH (26-34) PG MCHC (30-36) % RDW (11.6-14.8) % Plt Count (150-400) X10^3/uL Neut % (Auto) (50-75) % Lymph % (Auto) (25-40) % [place] % (Auto) (3-14) % Eos % (Auto) (2-4) % Baso % (Auto) (0-2) % Neut # (Auto) (5662-4689) /uL Lymph # (Auto) (5349-8990) /uL [place] # (Auto) (0-900) /uL Eos # (Auto) (0-450) /uL Baso # (Auto) (0-100) /uL PT (10.1-12.7) SECONDS INR (0.9-1.3) Sodium (137-145) mmol/L Potassium (3.4-5.1) mmol/L Chloride (98-107) mmol/L Carbon Dioxide (22-32) mmol/L BUN (7-17) mg/dL Creatinine (0.52-1.04) mg/dL Estimated GFR (>60) mL/min BUN/Creatinine Ratio (6-22) Glucose (80-110) mg/dL Lactate 0.9 (0.7-2.1) mmol/L Calcium (8.4-10.2) mg/dL Total Bilirubin (0.2-1.3) mg/dL AST (14-36) IU/L ALT (<35) IU/L Alkaline Phosphatase (38-126) U/L Troponin I (0.01-0.034) ng/mL NT-Pro-B Natriuret Pep (<125) pg/mL Total Protein (6.3-8.2) g/dL Albumin (3.5-5.0) g/dL Globulin (1.7-4.1) g/dL Albumin/Globulin Ratio (1.0-2.8) SARS-CoV-2 (PCR) Negative (Negative) Imaging Data Chest x-ray: Radiologist's Impression: [address] [address] XRay Report Signed Patient: Katlyn Pichardo MR#: [id number] : 1955 Acct:[id number] Age/Sex: 67 / F Date of Service: 06/19/22 Loc: ED Accession Number: [id number] ?? Procedure: XR chest 1V Ordering Provider: Brielle Ferreira D.O. PROCEDURE:? XR CHEST 1V ? INDICATIONS:? Shortness of breath ? TECHNIQUE:? One view of the chest was acquired.? ? COMPARISON:? [facility], , XR CHEST 2V, 02/24/2020, 17:35. ? FINDINGS:? ? Surgical changes and devices:? None.? ? Lungs and pleura:? Linear left basilar opacity likely atelectasis.? No pleural effusions or pneumothorax.? ? Mediastinum:? Mediastinal contours appear normal.? Heart size is enlarged. ? Bones and chest wall:? No suspicious bony lesions.? Overlying soft tissues appear unremarkable.? ? IMPRESSION:? No acute pulmonary process. ? ? Dictated by: Nya Rodriguez M.D. on 06/19/2022 at 18:52 ? ? Approved by: Nya Rodriguez M.D. on 06/19/2022 at 18:52?? ECG Data Attestation: I personally reviewed and interpreted this ECG as follows: Interpretation: Sinus rhythm left axis deviation, left bundle-branch block. Rate of 72 MN 180 QRS of 148 QTC of 534. Patient has prior from February 24, 2020 no acute changes. [facility] Narrative Medical decision making narrative: This is a 67-year-old female with known chronic COPD not on a daily steroid inhaler but does use albuterol as needed and metoprolol for arrhythmia possibly SVT. Patient has had recent upper respiratory congestion which is likely developed some bronchitis she is not actively wheezy on exam. She is actually been on prednisone and does have albuterol at home. She is not using her steroid inhaler regularly. Patient has had a week and a half of symptoms without any improvement despite alternative therapy. Labs including CBC, CMP, troponin are negative, BNP is elevated, COVID negative, chest x-ray is clear, patient does not have crackles on exam or other clinical history suggestive for acute CHF exacerbation. Discussed with patient I would probably treat her for bronchitis and has a smoker azithromycin on top of steroids in her inhaler but discussed she needs to follow up with Dr. Springer if her symptoms are improving even after all of her congestion is resolved she may need some additional workup or echo and diuretics. #116 - Avoidance of Antibiotic Treatment for Acute Bronchitis/Bronchiolitis [] The patient has acute bronchitis/bronchiolitis and antibiotics were not prescribed or dispensed today. [SATISFIES MIPS PERFORMANCE] [x] The patient has acute bronchitis/ bronchiolitis. Antibiotics were prescribed or dispensed because the patient meets one of the following: [MIPS PERFORMANCE EXCEPTION/EXCLUSION] [x] Patient has a medical reason for prescribing or dispensing an antibiotic. That reason is [COPD, chronic tobacco abuse with persistent symptoms beyond 10 days] (ex. COPD, bacterial infection, acute sinusitis, etc.). [] Patient is currently on antibiotics or has been in the last 30 days. [] Patient?s visit resulted in an inpatient admission. [] The patient has acute bronchitis/ bronchiolitis and antibiotics were prescribed or dispensed today. [DOES NOT SATISFY MIPS PERFORMANCE] Discharge Plan Departure Patient Disposition: Home Clinical Impression: Bronchitis Instructions: DI for Acute Bronchitis Activity Restrictions/Additional Instructions: Follow-up with Dr. Chamberlain, please call us have been appointment. You do not have a clear pneumonia on her chest x-ray but I suspect you have bronchitis secondary to her chronic tobacco use and recent upper respiratory infection. Some people will respond to antibiotics better, continue the steroids until gone and continue using your albuterol as needed. I would recommend taking your steroid inhaler daily. [facility] [place] If you are having persistent symptoms you should follow-up, your BNP was elevated today this can sometimes reflect some fluid overload and may need further workup or respond to diuretics. Please return for new chest pain, worsening shortness of breath, lightheadedness or passing out coughing up blood, new swelling in her extremities, persistent vomiting or other new or concerning changes. Prescriptions: New azithromycin 250 mg tablet See Rx Instructions .ROUTE .COMPLEX Qty: 4 0RF Rx Instructions: For 250 mg dose pack: take then 250 mg for 4 days (days 2-5). Patient had 500mg po in ED 06/19/22. No Action benzonatate 100 mg capsule 100 mg PO BID PRN (Reason: cough) Qty: 20 0RF fluticasone propionate [Flonase Allergy Relief] 50 mcg/actuation spray,suspension 1 spray intranasal Q12H Qty: 16 0RF Rx Instructions: administer into each nostril prednisone 20 mg tablet 40 mg PO DAILY Qty: 8 0RF multivitamin [Multiple Vitamins] 1 EACH tablet 1 tab PO QDAY Qty: 0 dextroamphetamine-amphetamine [Adderall XR] 10 mg capsule,extended release 24hr 10 mg PO DAILY 30 Days Qty: 30 0RF albuterol sulfate [Ventolin HFA] 90 mcg/actuation HFA aerosol inhaler 1 puff INHALATION Q4-6H PRN (Reason: asthma) Qty: 8 11RF Rx Instructions: administer with spacer as needed for wheezing ibuprofen 800 mg tablet 800 mg PO Q8H PRN (Reason: pain) Qty: 90 3RF fluticasone propionate [Flovent HFA] 110 mcg/actuation HFA aerosol inhaler 1 - 2 inh inhalation BID Qty: 12 11RF metoprolol succinate 50 mg Tablet Extended Release 24 Hr 50 mg PO BID Referrals: Tasha Chamberlain DO [Primary Care Provider] - Stand Alone Forms: Patient Portal/API
[2022-06-19] MEDS: AZITHROMYCIN 250 MG TABLET 500 MG PO (23:09)
== END 2022-06-19 23:16 | disposition home or self-care (01) ==
PROVIDERS: Emergency Provider Emergency Medicine; PCP Family Medicine
DX: J20.9 Acute bronchitis, unspecified (principal); R06.02 Shortness of breath; Z20.822 Contact with and (suspected) exposure to COVID-19
CPT/HCPCS: 36415; 71045; 80053; 83605; 83880; 84484; 85025; 85610; 87635; 93005; 99283; 99284; C9803

== ENCOUNTER 2023-01-16 11:55 | Emergency (ER) | payer OTHER, SELFPAY ==
[2021-11-04 11:51] VITALS: BMI 25.2
[2023-01-16] VITALS (13 sets, daily range): BP systolic 108–175; BP diastolic 56–74; PULSE 88–105; RESP 0–25; TEMP 37.6; O2SAT 93–100; BMI 18.8
--- NOTE | 2023-01-16 12:24 | DI.RAD.S_ITS ---
PROCEDURE: XR CHEST 1V INDICATIONS: sob TECHNIQUE: One view of the chest was acquired. COMPARISON: [facility], CR, XR CHEST 1V, 06/19/2022, 18:32. FINDINGS: Surgical changes and devices: None. Lungs and pleura: Mild pulmonary vascular congestion is seen. No definite focal infiltrate. No pleural effusions or pneumothorax. Mediastinum: Mildly tortuous thoracic aorta is seen. Heart size is enlarged. Bones and chest wall: No suspicious bony lesions. Overlying soft tissues appear unremarkable. IMPRESSION: Cardiomegaly and mild congestion. No focal infiltrate, pleural effusion or pneumothorax. Dictated by: Jhoan Breaux M.D. on 01/16/2023 at 13:25 Approved by: Jhoan Breaux M.D. on 01/16/2023 at 13:32
--- NOTE | 2023-01-16 12:32 | ED_ITS ---
HPI - General Adult General Chief complaint: Shortness of Breath/Dyspnea Stated complaint: SOB/ COLD T-7 Time Seen by Provider: 01/16/23 12:23 Source: patient Mode of arrival: Ambulatory History of Present Illness HPI narrative: Patient is a 67-year-old female. Is a smoker. No diagnosis of COPD or emphysema. Does have an albuterol nebulizer at home which she uses occasionally. Approximately 10 days ago was seen in the walk-in clinic for evaluation of was diagnosed has a respiratory infection. Not placed on antibiotics. Is here because now she is having problems breathing. Heaviness in her chest. Coughing. Short of breath with exertion. No swelling in her legs. Related Data Home Medications Medication Instructions Recorded Confirmed multivitamin (Multiple Vitamins 1 tab PO QDAY ##0 01/01/16 01/09/23 tablet) metoprolol succinate 50 mg 50 mg PO BID 07/19/19 01/09/23 tablet,extended release 24 hr Previous Rx's Medication Instructions Recorded albuterol sulfate 90 mcg/actuation 1 puff inhalation Q4-6H PRN asthma 02/25/22 aerosol inhaler (Ventolin HFA) #8 grams ibuprofen 800 mg tablet 800 mg PO Q8H PRN pain #90 tabs 02/25/22 fluticasone propionate 50 1 spray intranasal Q12H #16 grams 06/16/22 mcg/actuation nasal spray,suspension (Flonase Allergy Relief) dextroamphetamine-amphetamine 10 10 mg PO BID 30 days #60 tabs 12/09/22 mg tablet (Adderall) fluticasone propionate 50 1 spray intranasal Q12H #16 grams 01/09/23 mcg/actuation nasal spray,suspension (Flonase Allergy Relief) dextroamphetamine-amphetamine 10 10 mg PO BID 30 days #60 tabs 01/16/23 mg tablet (Adderall) furosemide 20 mg tablet (Lasix) 20 mg PO DAILY #30 tabs 01/16/23 Allergies Allergy/AdvReac Type Severity Reaction Status Date / Time Sulfa (Sulfonamide Allergy Severe SOB/DYSPNEA Verified 01/09/23 13:20 Antibiotics) alprazolam AdvReac Severe MANIC Verified 01/09/23 13:20 SYMPTOMS codeine AdvReac Severe NAUSEA/VOMI Verified 01/09/23 13:20 TING Review of Systems Constitutional Constitutional: Reports system reviewed and no additional complaints, except as documented Cardiovascular Cardiovascular: Reports system reviewed and no additional complaints, except as documented Respiratory Respiratory: Reports system reviewed and no additional complaints, except as documented Gastrointestinal Gastrointestinal: Reports system reviewed and no additional complaints, except as documented Musculoskeletal Musculoskeletal: Reports system reviewed and no additional complaints, except as documented Neurologic Neurologic: Reports system reviewed and no additional complaints, except as documented Hematologic/Lymphatic On Anticoagulants: No Patient History Medical History Tobacco dependence Juvenile rheumatoid arthritis Current every day smoker LBBB (left bundle branch block) Cardiomyopathy Hip pain Shoulder pain (~06/2012) GERD (gastroesophageal reflux disease) Hyperthyroidism Depression Migraines Osteoarthritis Skin cancer (09/2016) Surgical History History of surgery (~2009) Hx of cardiac cath (04/06/19) History of tonsillectomy (1959) Status post appendectomy (1988) History of hip replacement (2004) Family History Mother Heart disease Personal history of stroke with residual effects Father No problems noted. Social History household members: none Smoking Status: Current every day smoker Tobacco: How many years used: 50 second hand exposure: Yes alcohol intake: never substance use type: marijuana Smoking Status: Current every day smoker alcohol intake frequency: holidays/special occasions only Substance Use Type: marijuana Exam Initial Vital Signs Initial Vital Signs: Vital Signs Temperature 99.6 F 01/16/23 12:10 Pulse Rate 102 H 01/16/23 12:10 Respiratory Rate 25 H 01/16/23 12:10 Blood Pressure 175/59 H 01/16/23 12:10 Pulse Oximetry 99 01/16/23 12:10 Oxygen Delivery Method Room Air 01/16/23 12:10 HENMT Head: normal to inspection and normocephalic Resp Effort & Inspection: no respiratory distress, no retractions and tachypneic Auscultation: clear to auscultation bilaterally, no rhonchi and no wheezes Cardio Rate: regular rate Rhythm: regular rhythm Skin General: no rashes or lesions noted Neuro General: patient alert, patient awake, patient oriented x3 and moves all extremities Speech: speech normal Extrem General: normal to inspection and capillary refill normal Course Orders Ordered: ED Orders 01/16/23 12:18 Respiratory Panel (Film Array) Stat 01/16/23 12:24 XR chest 1V Stat EKG-12 Lead Stat 01/16/23 12:40 Complete Blood Count AUTO DIFF Stat Comprehensive Metabolic Panel Stat D Dimer Stat Lipase Stat NT-proBNP (BNP-Adult 18+) Stat Troponin & CK Cardiac Panel Stat 01/16/23 14:40 Troponin & CK Cardiac Panel Stat 01/16/23 15:17 CT angio chest PE protocol Stat Discontinued Medications Albuterol/Ipratropium (Albuterol/Ipratropium 3 Ml Ampul) 3 ml INH NOW ONE Stop: 01/16/23 12:31 Last Admin: 01/16/23 12:51 Dose: 3 ml Documented By: ALONA Aspirin (Aspirin 81 Mg Chew Tab) 324 mg PO NOW ONE Stop: 01/16/23 16:22 Last Admin: 01/16/23 16:42 Dose: 324 mg Documented By: RENATA Furosemide (Furosemide 40 Mg/4 Ml Vial) 40 mg IV NOW ONE Stop: 01/16/23 13:27 Last Admin: 01/16/23 13:39 Dose: 40 mg Documented By: ALONA Vital Signs Vital signs: Vital Signs - 8 hr 01/16/23 12:10 01/16/23 12:25 01/16/23 12:25 Temperature 99.6 F Pulse Rate 102 H 105 H Respiratory Rate 25 H Blood Pressure 175/59 H 147/65 H Pulse Oximetry 99 99 Oxygen Delivery Method Room Air 01/16/23 12:30 01/16/23 12:30 01/16/23 13:00 Temperature Pulse Rate 101 H 92 H Respiratory Rate Blood Pressure 131/63 Pulse Oximetry 99 98 Oxygen Delivery Method Room Air 01/16/23 13:04 01/16/23 13:04 01/16/23 13:30 Temperature Pulse Rate 92 H 93 H Respiratory Rate 17 Blood Pressure 118/56 L Pulse Oximetry 98 93 Oxygen Delivery Method 01/16/23 13:30 01/16/23 14:30 01/16/23 15:00 Temperature Pulse Rate 92 H 88 Respiratory Rate 0 L 14 Blood Pressure 128/74 Pulse Oximetry 98 Oxygen Delivery Method 01/16/23 15:35 01/16/23 15:35 01/16/23 16:00 Temperature Pulse Rate 94 H 90 Respiratory Rate 17 17 Blood Pressure 108/68 Pulse Oximetry 95 96 Oxygen Delivery Method 01/16/23 16:00 01/16/23 16:30 01/16/23 16:30 Temperature Pulse Rate 93 H Respiratory Rate 23 Blood Pressure 116/64 122/69 Pulse Oximetry 96 Oxygen Delivery Method 01/16/23 16:41 01/16/23 16:41 01/16/23 17:02 Temperature Pulse Rate 101 H 101 H Respiratory Rate 24 20 Blood Pressure 122/72 122/72 Pulse Oximetry 99 100 Oxygen Delivery Method Room Air Medical Decision Making Lab Data Lab results reviewed: Yes I reviewed the patient's lab results. 01/16/23 12:40 01/16/23 12:40 Labs: Lab Results 01/16/23 01/16/23 01/16/23 Range/Units 12:18 12:40 14:40 WBC 7.5 (4.5-11.0) X10^3/uL RBC 4.55 (4.0-5.2) X10^6/uL Hgb 14.1 (12.0-16.0) g/dL Hct 42.5 (36-46) % MCV 93.3 (80-100) fL MCH 31.0 (26-34) PG MCHC 33.2 (30-36) % RDW 13.6 (11.6-14.8) % Plt Count 207 (150-400) X10^3/uL Neut % (Auto) 73.2 (50-75) % Lymph % (Auto) 18.0 L (25-40) % [facility] % (Auto) 7.3 (3-14) % Eos % (Auto) 0.9 L (2-4) % Baso % (Auto) 0.6 (0-2) % Neut # (Auto) 5500 (5195-1846) /uL Lymph # (Auto) 1400 (1489-5113) /uL [facility] # (Auto) 500 (0-900) /uL Eos # (Auto) 100 (0-450) /uL Baso # (Auto) 0 (0-100) /uL D-Dimer 1173 H (<500) ng/ml Sodium 136 L (137-145) mmol/L Potassium 4.7 (3.4-5.1) mmol/L Chloride 105 (98-107) mmol/L Carbon Dioxide 24 (22-32) mmol/L BUN 18 H (7-17) mg/dL Creatinine 0.49 L (0.52-1.04) mg/dL Estimated GFR > 60 (>60) mL/min BUN/Creatinine Ratio 36.7 H (6-22) Glucose 119 H (80-110) mg/dL Calcium 9.5 (8.4-10.2) mg/dL Total Bilirubin 0.9 (0.2-1.3) mg/dL AST 72 H (14-36) IU/L ALT 57 H (<35) IU/L Alkaline Phosphatase 62 (38-126) U/L Total Creatine Kinase 52 50 (30-135) U/L Troponin I 0.120 H 0.125 H* (0.01-0.034) ng/mL NT-Pro-B Natriuret Pep 43856 H (<125) pg/mL Total Protein 7.4 (6.3-8.2) g/dL Albumin 4.2 (3.5-5.0) g/dL Globulin 3.2 (1.7-4.1) g/dL Albumin/Globulin Ratio 1.3 (1.0-2.8) Lipase 84 (23-300) U/L Chlamy pneumoniae PCR Not detected (Not Detect) Adenovirus (PCR) Not detected (Not Detect) B.parapertussis DNA PCR Not detected (Not Detecte) Coronavirus OC43 (PCR) Not detected (Not Detect) Coronavirus HKU1 (PCR) Not detected (Not Detect) Coronavirus 229E (PCR) Not detected (Not Detect) SARS-CoV-2 (PCR) Not detected (Not Detecte) Coronavirus NL63 (PCR) Not detected (Not Detect) Human Metapneumovir PCR Not detected (Not Detect) Influenza Type A (PCR) Not detected (Not Detect) Influenza Type B (PCR) Not detected (Not Detect) M. pneumoniae (PCR) Not detected (Not Detect) Parainfluenza 1 (PCR) Not detected (Not Detect) Parainfluenza 2 (PCR) Not detected (Not Detect) Parainfluenza 3 (PCR) Not detected (Not Detect) Parainfluenza 4 (PCR) Not detected (Not Detect) RSV (PCR) Not detected (Not Detect) Entero/Rhino (PCR) Detected H (Not Detect) Imaging Data Chest x-ray: Radiologist's Impression: ROCEDURE: XR CHEST 1V INDICATIONS: sob TECHNIQUE: One view of the chest was acquired. COMPARISON: [facility], XR CHEST 1V, 06/19/2022, 18:32. FINDINGS: Surgical changes and devices: None. Lungs and pleura: Mild pulmonary vascular congestion is seen. No definite focal infiltrate. No pleural effusions or pneumothorax. Mediastinum: Mildly tortuous thoracic aorta is seen. Heart size is enlarged. Bones and chest wall: No suspicious bony lesions. Overlying soft tissues appear unremarkable. IMPRESSION: Cardiomegaly and mild congestion. No focal infiltrate, pleural effusion or pneumothorax. CT scan - chest: Radiologist's Impression: ROCEDURE: CT ANGIO CHEST PE PROTOCOL INDICATIONS: Chest pain, shortness of breath, tachycardia TECHNIQUE: After the administration of intravenous contrast, 2 mm thick sections acquired from the pulmonary apices to the posterior costophrenic angles. 3-dimensional maximum intensity projection (MIP) coronal and sagittal reformats were then acquired through the thorax. For radiation dose reduction, the following was used: automated exposure control, adjustment of mA and/or kV according to patient size. COMPARISON: [facility], XR CHEST 1V, 01/16/2023, 12:53. [facility], XR CHEST 1V, 06/19/2022, 18:32. [facility], XR CHEST 2V, 02/24/2020, 17:35. [facility], CHEST 2 VIEW, 09/05/2013, 12:01. FINDINGS: Image quality: Diagnostic. Pulmonary arteries: Pulmonary arteries are normal in size, and demonstrate no intraluminal filling defects to suggest central pulmonary embolism. Lungs and pleura: Lungs are clear. No pleural effusions or pneumothorax. Central and peripheral airways are patent. Mediastinum: Heart size is mildly enlarged predominantly associated with global left ventriculomegaly, without pericardial effusion. No mediastinal or hilar adenopathy. Thoracic aorta is normal in caliber and enhancement. Esophagus is normal in caliber, without hiatal hernia. Bones and chest wall: No suspicious bony lesions. Ribs and thoracic spine appear intact throughout. No axillary or supraclavicular adenopathy. No thyroid nodules which require sonographic follow up, per consensus guidelines. Upper Abdomen: Visualized upper abdominal solid organs appear normal in the early arterial phase of enhancement. IMPRESSION: No pulmonary embolus. Global left ventriculomegaly, causing mild to moderate cardiac enlargement. No pleural effusion or pericardial effusion associated. Slight posterior lung base atelectasis, right greater than left. This appearance was not present 06/19/22. ECG Data Attestation: I personally reviewed and interpreted this ECG as follows: Interpretation: Sinus rhythm Ventricular rate 92 LVH QRS 1 for 4 milliseconds Left bundle-branch block Unchanged from EKG dated 06/19/2022 [facility] Narrative Medical decision making narrative: Patient did not receive some nebulizers here in the ER and she states she feels much better. He is no history of heart failure. No history of ACS. Troponin is at the borderline of the acute myocardial infarction cut off. Relatively unchanged with repeat. Does have an elevated BNP. CT scan shows new signs of pulmonary embolism. Patient is not hypoxic. He is not had risk stratification of coronary artery disease. I did discuss the case with Dr. Rogers on-call for cardiology who recommended admission, diuresis and echocardiogram and further testing based on this. I discuss this with the patient. We discussed the importance of being admitted to the hospital. The patient does not want to be admitted to the hospital. She says she would rather do all of the workup as an outpatient. I did inform her of my concern about the elevated troponin in the symptoms she presents with today that this could be a heart attack. Patient expressed understanding of this. She was alert and oriented x3. In my opinion has capacity make decisions. Not clinically intoxicated. GCS of 15. She was given strict return precautions. She expressed understanding and agreement with plan. Discharge Plan Departure Patient Disposition: Left Against Medical Advice Clinical Impression: Shortness of breath, Elevated troponin Activity Restrictions/Additional Instructions: Despite our recommendation you opted to leave against medical advice. I do recommend that you take Lasix on a daily basis. Also an aspirin on a daily basis. 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 Please return to the emergency department for new or worsening symptoms. Prescriptions: New furosemide [Lasix] 20 mg tablet 20 mg PO DAILY Qty: 30 0RF No Action fluticasone propionate [Flonase Allergy Relief] 50 mcg/actuation spray,suspension 1 spray intranasal Q12H Qty: 16 0RF Rx Instructions: administer into each nostril fluticasone propionate [Flonase Allergy Relief] 50 mcg/actuation spray,suspension 1 spray intranasal Q12H Qty: 16 0RF Rx Instructions: administer into each nostril multivitamin [Multiple Vitamins] 1 EACH tablet 1 tab PO QDAY Qty: 0 dextroamphetamine-amphetamine [Adderall] 10 mg tablet 10 mg PO BID 30 Days Qty: 60 0RF Rx Instructions: rx 2/3 dextroamphetamine-amphetamine [Adderall] 10 mg tablet 10 mg PO BID 30 Days Qty: 60 0RF Rx Instructions: rx 3/3 albuterol sulfate [Ventolin HFA] 90 mcg/actuation HFA aerosol inhaler 1 puff INHALATION Q4-6H PRN (Reason: asthma) Qty: 8 11RF Rx Instructions: administer with spacer as needed for wheezing ibuprofen 800 mg tablet 800 mg PO Q8H PRN (Reason: pain) Qty: 90 3RF metoprolol succinate 50 mg Tablet Extended Release 24 Hr 50 mg PO BID Referrals: Tasha Chamberlain DO [Primary Care Provider] - Stand Alone Forms: Patient Portal/API, Against Medical Advice
[2023-01-16 12:48] LABS: Add Manual Diff / Slide Review NO; Basophils Absolute Auto 0 /uL (0-100); Basophils Percent Auto 0.6 % (0-2); Eosinophils Absolute Auto 100 /uL (0-450); Eosinophils Percent Auto 0.9 % (2-4); Hematocrit 42.5 % (36-46); Hemoglobin 14.1 g/dL (12.0-16.0); Lymphocytes Absolute Auto 1400 /uL (1100-4500); Mean Corpuscular HGB Conc 33.2 % (30-36); Mean Corpuscular Volume 93.3 fL (80-100); Monocytes Absolute Auto 500 /uL (0-900); Monocytes Percent Auto 7.3 % (3-14); Neutrophils Absolute Auto 5500 /uL (1500-7000); Neutrophils Percent Auto 73.2 % (50-75); Platelet Count 207 X10^3/uL (150-400); Red Blood Cell Count 4.55 X10^6/uL (4.0-5.2); Red Cell Distribution Width 13.6 % (11.6-14.8); White Blood Cell Count 7.5 X10^3/uL (4.5-11.0)
[2023-01-16] MEDS: ALBUTEROL/IPRATROPIUM 3 ML AMPUL INH (12:51)
[2023-01-16 13:00] LABS: Alanine Aminotransferase 57 IU/L (<35); Albumin 4.2 g/dL (3.5-5.0); Albumin Globulin Ratio 1.3 (1.0-2.8); Alkaline Phosphatase 62 U/L (38-126); Aspartate Aminotransferase 72 IU/L (14-36); BUN Creatinine Ratio 36.7 (6-22); Bilirubin Total 0.9 mg/dL (0.2-1.3); Blood Urea Nitrogen 18 mg/dL (7-17); Calcium 9.5 mg/dL (8.4-10.2); Carbon Dioxide 24 mmol/L (22-32); Chloride 105 mmol/L (98-107); Creatine Kinase 52 U/L (30-135); Estimated Glomerular Filt Rate > 60 mL/min (>60); Globulin 3.2 g/dL (1.7-4.1); Glucose 119 mg/dL (80-110); HEMOLYSIS 40 (0-50); Lipase 84 U/L (23-300); Potassium 4.7 mmol/L (3.4-5.1); Sodium 136 mmol/L (137-145); Total Protein 7.4 g/dL (6.3-8.2)
[2023-01-16 13:12] LABS: NT-proBNP (BNP-Adult 18+) 12200 pg/mL (<125)
[2023-01-16 13:14] LABS: Adenovirus Not Detected (Not Detect); B. parapertussis Not Detected (Not Detecte); Bordetella pertussis Not Detected (Not Detect); Chlamydophila pneumoniae Not Detected (Not Detect); Coronavirus 229E Not Detected (Not Detect); Coronavirus HKU1 Not Detected (Not Detect); Coronavirus NL 63 Not Detected (Not Detect); Coronavirus OC43 Not Detected (Not Detect); Human Metapneumovirus Not Detected (Not Detect); Human Rhinovirus/Enterovirus Detected (Not Detect); Influenza A Not Detected (Not Detect); Influenza B Not Detected (Not Detect); Mycoplasma pneumoniae Not Detected (Not Detect); Parainfluenza Virus 1 Not Detected (Not Detect); Parainfluenza Virus 2 Not Detected (Not Detect); Parainfluenza Virus 3 Not Detected (Not Detect); Parainfluenza Virus 4 Not Detected (Not Detect); Respiratory Syncytial Virus Not Detected (Not Detect); SARS- CoV-2 Not Detected (Not Detecte)
[2023-01-16] MEDS: FUROSEMIDE 40 MG/4 ML VIAL IV (13:39)
[2023-01-16 15:00] LABS: Creatine Kinase 50 U/L (30-135)
[2023-01-16 15:03] LABS: D Dimer 1173 ng/ml (<500)
--- NOTE | 2023-01-16 15:17 | DI.CT.S_ITS ---
PROCEDURE: CT ANGIO CHEST PE PROTOCOL INDICATIONS: Chest pain, shortness of breath, tachycardia TECHNIQUE: After the administration of intravenous contrast, 2 mm thick sections acquired from the pulmonary apices to the posterior costophrenic angles. 3-dimensional maximum intensity projection (MIP) coronal and sagittal reformats were then acquired through the thorax. For radiation dose reduction, the following was used: automated exposure control, adjustment of mA and/or kV according to patient size. COMPARISON: [facility], CR, XR CHEST 1V, 01/16/2023, 12:53. [facility], CR, XR CHEST 1V, 06/19/2022, 18:32. [facility], CR, XR CHEST 2V, 02/24/2020, 17:35. [facility], CR, CHEST 2 VIEW, 09/05/2013, 12:01. FINDINGS: Image quality: Diagnostic. Pulmonary arteries: Pulmonary arteries are normal in size, and demonstrate no intraluminal filling defects to suggest central pulmonary embolism. Lungs and pleura: Lungs are clear. No pleural effusions or pneumothorax. Central and peripheral airways are patent. Mediastinum: Heart size is mildly enlarged predominantly associated with global left ventriculomegaly, without pericardial effusion. No mediastinal or hilar adenopathy. Thoracic aorta is normal in caliber and enhancement. Esophagus is normal in caliber, without hiatal hernia. Bones and chest wall: No suspicious bony lesions. Ribs and thoracic spine appear intact throughout. No axillary or supraclavicular adenopathy. No thyroid nodules which require sonographic follow up, per consensus guidelines. Upper Abdomen: Visualized upper abdominal solid organs appear normal in the early arterial phase of enhancement. IMPRESSION: No pulmonary embolus. Global left ventriculomegaly, causing mild to moderate cardiac enlargement. No pleural effusion or pericardial effusion associated. Slight posterior lung base atelectasis, right greater than left. This appearance was not present 06/19/22. Dictated by: Ramos Romano M.D. on 01/16/2023 at 15:54 Approved by: Ramos Romano M.D. on 01/16/2023 at 15:57
[2023-01-16 15:18] LABS: Troponin I 0.125 ng/mL (0.01-0.034)
[2023-01-16] MEDS: ASPIRIN 81 MG CHEW TAB 324 MG PO (16:42)
== END 2023-01-16 17:09 | disposition left against medical advice (07) ==
PROVIDERS: Emergency Provider Emergency Medicine; PCP Family Medicine
DX: R06.02 Shortness of breath (principal); R79.89 Other specified abnormal findings of blood chemistry; Z53.29 Procedure and treatment not carried out because of patient's decision for other reasons
CPT/HCPCS: 36415; 71045; 71275; 80053; 82550; 83690; 83880; 84484; 85025; 85379; 87633; 93005; 96374; 99285; J1940; Q9967

== ENCOUNTER 2023-02-19 19:58 | Emergency (ER) | payer OTHER, SELFPAY ==
[2021-11-04 11:51] VITALS: BMI 25.2
[2023-02-19 20:12] VITALS: BP 123/63; PULSE 113; RESP 16; TEMP 37; O2SAT 98; BMI 18.1
--- NOTE | 2023-02-19 21:55 | ED_ITS ---
HPI - Back Pain/Injury General Chief Complaint: Back Pain/Injury Stated Complaint: back is all messed up Time Seen by Provider: 02/19/23 21:30 Source: patient History of Present Illness HPI Narrative: 67-year-old female who presents with right-sided paraspinal lumbar pain for 2-3 months that is worse with bending, twisting and range of motion. 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 Ibuprofen/acetaminophen use occasionally for symptom relief. No other complaints or associated symptoms noted. Patient arrives via private vehicle. The patient is ambulatory awake, alert, in no apparent distress and maintaining her own airway. Related Data Home Medications Medication Instructions Recorded Confirmed multivitamin (Multiple Vitamins 1 tab PO QDAY ##0 01/01/16 03/18/23 tablet) spironolactone 25 mg tablet 12.5 mg PO DAILY 03/18/23 04/01/23 Previous Rx's Medication Instructions Recorded ibuprofen 800 mg tablet 800 mg PO Q8H PRN pain #90 tabs 02/25/22 fluticasone propionate 50 1 spray intranasal Q12H #16 grams 01/09/23 mcg/actuation nasal spray,suspension (Flonase Allergy Relief) furosemide 20 mg tablet (Lasix) 20 mg PO DAILY #30 tabs 01/16/23 lidocaine 5 % topical patch 1 patch topical DAILY #15 ea 02/19/23 (Lidoderm) metoprolol succinate 25 mg 12.5 mg (1/2 x 25 mg) PO BID #30 03/01/23 tablet,extended release 24 hr tabs albuterol sulfate 90 mcg/actuation 1 - 2 puff inhalation Q4-6H PRN 03/03/23 aerosol inhaler (Ventolin HFA) asthma #8 grams lidocaine 5 % topical patch 1 patch topical DAILY #15 ea 03/28/23 methocarbamol 500 mg tablet 500 mg PO TID #30 tabs 04/01/23 tramadol 50 mg tablet 50 mg PO TID PRN pain #30 tabs 04/01/23 Allergies Allergy/AdvReac Type Severity Reaction Status Date / Time Sulfa (Sulfonamide Allergy Severe SOB/DYSPNEA Verified 04/01/23 09:30 Antibiotics) alprazolam AdvReac Severe MANIC Verified 04/01/23 09:30 SYMPTOMS codeine AdvReac Severe NAUSEA/VOMI Verified 04/01/23 09:30 TING Review of Systems Review of Systems Narrative: See HPI for pertinent positives otherwise review of systems negative Patient History Medical History CHF (congestive heart failure) Claudication of both lower extremities Tobacco dependence Juvenile rheumatoid arthritis Current every day smoker LBBB (left bundle branch block) Cardiomyopathy Hip pain Shoulder pain (~06/2012) GERD (gastroesophageal reflux disease) Hyperthyroidism Depression Migraines Osteoarthritis Skin cancer (09/2016) Surgical History History of surgery (~2009) Hx of cardiac cath (04/06/19) History of tonsillectomy (1959) Status post appendectomy (1988) History of hip replacement (2004) Family History Mother Heart disease Personal history of stroke with residual effects Father No problems noted. Social History household members: none Smoking Status: Current every day smoker Tobacco: How many years used: 50 second hand exposure: Yes alcohol intake: never substance use type: marijuana Smoking Status: Current every day smoker alcohol intake frequency: holidays/special occasions only Substance Use Type: marijuana Exam Narrative Exam Narrative: General: Awake, alert, in no apparent distress HEENT: Normocephalic, atraumatic, pupils equal and reactive to light, oropharynx clear, oral mucosa moist Neck: Supple Cardiovascular: 2+ radial bilateral, regular rhythm/rate Pulmonary: Regular respirations, no respiratory distress Abdominal: Soft, nontender, nondistended : Exam deferred Back: Nontender, normal motion Extremities: No tenderness of bilateral upper/lower extremities Skin: Warm, dry, intact, no rashes Neuro: No focal neurological deficits, moving all 4 extremities equally, normal speech Psych: Normal mood, normal affect Initial Vital Signs Initial Vital Signs: Vital Signs Temperature 98.6 F 02/19/23 20:12 Pulse Rate 113 H 02/19/23 20:12 Respiratory Rate 16 02/19/23 20:12 Blood Pressure 123/63 02/19/23 20:12 Pulse Oximetry 98 02/19/23 20:12 Oxygen Delivery Method Room Air 02/19/23 20:12 Course Orders Ordered: Discontinued Medications Lidocaine (Lidocaine 5% Patch) 1 each TOP NOW ONE Stop: 02/19/23 21:55 Last Admin: 02/19/23 22:04 Dose: 1 each Documented By: RENATA Oxycodone/Acetaminophen (Oxycodone/Acetaminophen 5/325 Tablet) 1 tab PO NOW ONE Stop: 02/19/23 21:55 Last Admin: 02/19/23 22:04 Dose: 1 tab Documented By: RENATA Vital Signs Vital signs: Vital Signs - 8 hr 02/19/23 20:12 Temperature 98.6 F Pulse Rate 113 H Respiratory Rate 16 Blood Pressure 123/63 Pulse Oximetry 98 Oxygen Delivery Method Room Air MDM - Back Pain/Injury Differential Diagnosis Differential diagnosis: Likely lumbar radiculopathy, sciatica, strain of lumbar region, renal colic, pyelonephritis, thoracic back pain and discitis MDM Narrative Medical decision making narrative: Patient presents with symptoms suggestive of lumbar radiculopathy. Patient appears clinically well and comfort. Clinical exam does not show 1 weakness in emergent imaging is not warranted at this time. Patient denies recent fall or injury. Discussed management of lumbar radiculopathy with patient. Return precautions PCP follow-up recommended within week. Patient able to ambulate well without assistance at time of discharge. Discharge Plan Departure Patient Disposition: Home Clinical Impression: Lumbar radiculopathy, acute Instructions: DI for Low Back Pain Prescriptions: New lidocaine [Lidoderm] 5 % adhesive patch,medicated 1 patch topical DAILY Qty: 15 0RF Rx Instructions: leave on most painful area for up to 12 hrs No Action fluticasone propionate [Flonase Allergy Relief] 50 mcg/actuation spray,suspension 1 spray intranasal Q12H Qty: 16 0RF Rx Instructions: administer into each nostril multivitamin [Multiple Vitamins] 1 EACH tablet 1 tab PO QDAY Qty: 0 spironolactone 25 mg tablet 12.5 mg PO DAILY ibuprofen 800 mg tablet 800 mg PO Q8H PRN (Reason: pain) Qty: 90 3RF albuterol sulfate [Ventolin HFA] 90 mcg/actuation HFA aerosol inhaler 1 - 2 puff INHALATION Q4-6H PRN (Reason: asthma) Qty: 8 11RF Rx Instructions: administer with spacer as needed for wheezing tramadol 50 mg tablet 50 mg PO TID PRN (Reason: pain) Qty: 30 0RF methocarbamol 500 mg tablet 500 mg PO TID Qty: 30 0RF furosemide [Lasix] 20 mg tablet 20 mg PO DAILY Qty: 30 0RF metoprolol succinate 25 mg Tablet Extended Release 24 Hr 12.5 mg PO BID Qty: 30 0RF lidocaine 5 % adhesive patch,medicated 1 patch topical DAILY Qty: 15 0RF Rx Instructions: leave on most painful area for up to 12 hrs Referrals: Tasha Chamberlain DO [Primary Care Provider] - 7-10 days Stand Alone Forms: Patient Portal/API
[2023-02-19] MEDS: LIDOCAINE 5% PATCH 1 EACH TOP (22:04)
[2023-02-19] MEDS: OXYCODONE/ACETAMINOPHEN 5/325 TABLET 1 TAB PO (22:04)
[2023-02-19 22:12] VITALS: BP 131/64; PULSE 108; RESP 18; O2SAT 98
== END 2023-02-19 22:13 | disposition home or self-care (01) ==
PROVIDERS: Emergency Provider Emergency Medicine; PCP Family Medicine
DX: M54.16 Radiculopathy, lumbar region (principal)
CPT/HCPCS: 99283

== ENCOUNTER 2023-02-28 05:07 | Inpatient (IN) | payer OTHER, SELFPAY ==
[2021-11-04 11:51] VITALS: BMI 25.2
[2023-02-28] VITALS (26 sets, daily range): BP systolic 94–128; BP diastolic 45–90; PULSE 94–117; RESP 14–28; TEMP 36.2–36.8; O2SAT 89–98; BMI 18.9
--- NOTE | 2023-02-28 05:22 | ED.SOB ---
HPI - SOB/Dyspnea <Roseanna Hayes, DO - Last Filed: 02/28/23 19:40> General Chief Complaint: Shortness of Breath/Dyspnea Stated Complaint: SOB Time Seen by Provider: 02/28/23 05:22 History of Present Illness HPI Narrative: Patient 67-year-old female history of COPD, hypertension, cardiomyopathy presenting today with increasing shortness of breath. She said she was doing well until this evening when she woke up suddenly very short of breath. She denies any chest pain or cough no fever. She said that she was doing well until earlier today. No abdominal pain nausea or vomiting. She was seen and evaluated for shortness of breath on January 16 she was found to have elevated troponin possibly CHF. It was recommended that she be admitted to the hospital however she requested go home. He has had increasing fatigue for awhile. He was significant swelling. She continues to smoke. She tried using her albuterol inhaler tonight but it did not quite help. Related Data Home Medications Medication Instructions Recorded Confirmed multivitamin (Multiple Vitamins 1 tab PO QDAY ##0 01/01/16 02/28/23 tablet) metoprolol succinate 50 mg 50 mg PO BID 07/19/19 02/28/23 tablet,extended release 24 hr Previous Rx's Medication Instructions Recorded albuterol sulfate 90 mcg/actuation 1 puff inhalation Q4-6H PRN asthma 02/25/22 aerosol inhaler (Ventolin HFA) #8 grams ibuprofen 800 mg tablet 800 mg PO Q8H PRN pain #90 tabs 02/25/22 fluticasone propionate 50 1 spray intranasal Q12H #16 grams 01/09/23 mcg/actuation nasal spray,suspension (Flonase Allergy Relief) furosemide 20 mg tablet (Lasix) 20 mg PO DAILY #30 tabs 01/16/23 tiotropium bromide 2.5 2 puff inhalation DAILY copd #4 02/18/23 mcg/actuation mist for inhalation grams (Spiriva Respimat) lidocaine 5 % topical patch 1 patch topical DAILY #15 ea 02/19/23 (Lidoderm) Allergies Allergy/AdvReac Type Severity Reaction Status Date / Time Sulfa (Sulfonamide Allergy Severe SOB/DYSPNEA Verified 02/19/23 20:18 Antibiotics) alprazolam AdvReac Severe MANIC Verified 02/19/23 20:18 SYMPTOMS codeine AdvReac Severe NAUSEA/VOMI Verified 02/19/23 20:18 TING Patient History <Roseanna Hayes DO - Last Filed: 02/28/23 19:40> Medical History (Updated 02/28/23 @ 08:11 by Brielle Ferreira DO) Claudication of both lower extremities Tobacco dependence Juvenile rheumatoid arthritis Current every day smoker LBBB (left bundle branch block) Cardiomyopathy Hip pain Shoulder pain (~06/2012) GERD (gastroesophageal reflux disease) Hyperthyroidism Depression Migraines Osteoarthritis Skin cancer (09/2016) Surgical History History of surgery (~2009) Hx of cardiac cath (04/06/19) History of tonsillectomy (1959) Status post appendectomy (1988) History of hip replacement (2004) Family History Mother Heart disease Personal history of stroke with residual effects Father No problems noted. Social History household members: none Smoking Status: Current every day smoker Tobacco: How many years used: 50 second hand exposure: Yes alcohol intake: never substance use type: marijuana Smoking Status: Current every day smoker alcohol intake frequency: holidays/special occasions only Substance Use Type: marijuana Exam <Roseanna Hayes DO - Last Filed: 02/28/23 19:40> Initial Vital Signs Initial Vital Signs: Vital Signs Temperature 97.8 F 02/28/23 05:10 Pulse Rate 116 H 02/28/23 05:10 Respiratory Rate 24 02/28/23 05:10 Blood Pressure 122/90 02/28/23 05:10 Pulse Oximetry 96 02/28/23 05:10 Oxygen Delivery Method Room Air 02/28/23 05:10 GENERAL: Alert 67-year-old female appears older than stated age HEENT: Head atraumatic,EOMI, pupils reactive, face symmetric, moist mucous membranes CARDIOVASCULAR: Tachycardic regular no murmur RESPIRATORY: Tachypnea mild conversational dyspnea clear bilaterally wheezing or rales mildly diminished ABDOMEN: Soft, nontender. Normoactive bowel sounds all 4 quadrants. No guarding or rebound. EXTREMITIES: Normal range of motion, no clubbing or edema. Neurovascularly intact NEUROLOGICAL: Alert and oriented x4.Normal gait and speech. SKIN: Warm, dry, no laceration, no petechiae, no rashes or lesions. <Brielle Ferreira, DO - Last Filed: 02/28/23 19:06> Initial Vital Signs Initial Vital Signs: Vital Signs Temperature 97.8 F 02/28/23 05:10 Pulse Rate 116 H 02/28/23 05:10 Respiratory Rate 24 02/28/23 05:10 Blood Pressure 122/90 02/28/23 05:10 Pulse Oximetry 96 02/28/23 05:10 Oxygen Delivery Method Room Air 02/28/23 05:10 Course <Roseanna Hayes, DO - Last Filed: 02/28/23 19:40> Orders Ordered: Acetaminophen (Acetaminophen 325 Mg Tablet) 650 mg PO Q6H PRN PRN Reason: Fever/Mild Pain (1-3) Albuterol (Albuterol 2.5 Mg/3 Ml Neb (Adult)) 2.5 mg INH Q4H PRN PRN Reason: asthma Calcium Carbonate (Calcium Carbonate 500 Mg Tab) 1,000 mg PO Q4HR PRN PRN Reason: Dyspepsia Enoxaparin Sodium (Enoxaparin 40 Mg/0.4 Ml Syringe) 40 mg SUBCUT DAILY [facility] Last Admin: 02/28/23 13:02 Dose: 40 mg Documented By: HCW Furosemide (Furosemide 20 Mg/2 Ml Vial) 20 mg IV 1600 [facility] Last Admin: 02/28/23 17:37 Dose: 20 mg Documented By: HCW Ipratropium [place] (Ipratropium 0.5 Mg/2.5 Ml Neb) 0.5 mg INH [id number] [facility] Last Admin: 02/28/23 19:31 Dose: 0.5 mg Documented By: WPerlita Admin: 02/28/23 15:35 Dose: 0.5 mg Documented By: JZF Metoprolol Succinate (Metoprolol Er 50 Mg Tablet) 50 mg PO BID [facility] Last Admin: 02/28/23 17:19 Dose: Not Given Documented By: HCW Naloxone HCl (Naloxone 0.4 Mg/Ml Vial) 0.2 mg IV Q2MIN PRN PRN Reason: Opiate Reversal Nicotine (Nicotine 21 Mg Patch) 21 mg TOP DAILY [facility] Last Admin: 02/28/23 12:25 Dose: 21 mg Documented By: HCW Discontinued Medications Albuterol (Albuterol Hfa Mdi 60 Puff/8 Gm Inhaler) 1 puff INH Q4-6H PRN PRN Reason: asthma Albuterol/Ipratropium (Albuterol/Ipratropium 3 Ml Ampul) 3 ml INH NOW ONE Stop: 02/28/23 05:25 Last Admin: 02/28/23 05:26 Dose: 3 ml Documented By: LISSET Aspirin (Aspirin Ec 325 Mg Tablet) 325 mg PO NOW ONE Stop: 02/28/23 05:46 Last Admin: 02/28/23 05:50 Dose: 325 mg Documented By: BETSY Furosemide (Furosemide 40 Mg/4 Ml Vial) 40 mg IV NOW ONE Stop: 02/28/23 06:10 Last Admin: 02/28/23 06:17 Dose: 40 mg Documented By: BETSY Furosemide (Furosemide 40 Mg/4 Ml Vial) 40 mg IV 1600 [facility] Last Admin: 02/28/23 18:01 Dose: Not Given Documented By: HCW Methylprednisolone (Methylprednisolone 125 Mg/2 Ml Vial) 125 mg IV NOW ONE Stop: 02/28/23 05:27 Last Admin: 02/28/23 05:38 Dose: 125 mg Documented By: BETSY Non-Formulary Medication (Tiotropium [place] [Spiriva Respimat]) 2 puff INHALATION DAILY [facility] Last Admin: 02/28/23 13:11 Dose: Not Given Documented By: HCW Vital Signs Vital signs: Vital Signs - 8 hr 02/28/23 05:10 02/28/23 05:19 02/28/23 05:26 Temperature 97.8 F Pulse Rate 116 H 113 H 106 H Respiratory Rate 24 23 26 H Blood Pressure 122/90 122/90 Pulse Oximetry 96 98 97 Oxygen Delivery Method Room Air Room Air Room Air Oxygen Flow Rate 0 Fraction of Inspired Oxygen 21 02/28/23 05:30 02/28/23 05:34 02/28/23 05:34 Temperature Pulse Rate 106 H 106 H Respiratory Rate 21 28 H Blood Pressure 116/69 Pulse Oximetry 97 96 Oxygen Delivery Method Room Air Room Air Oxygen Flow Rate Fraction of Inspired Oxygen 02/28/23 06:00 02/28/23 06:00 02/28/23 06:30 Temperature Pulse Rate 102 H Respiratory Rate 18 Blood Pressure 128/74 121/70 Pulse Oximetry 96 Oxygen Delivery Method Room Air Oxygen Flow Rate Fraction of Inspired Oxygen 02/28/23 06:30 02/28/23 07:00 02/28/23 07:00 Temperature Pulse Rate 100 H 100 H Respiratory Rate 21 16 Blood Pressure 125/71 Pulse Oximetry 93 93 Oxygen Delivery Method Room Air Room Air Oxygen Flow Rate Fraction of Inspired Oxygen 02/28/23 07:30 02/28/23 07:54 02/28/23 08:00 Temperature Pulse Rate 103 H 97 H Respiratory Rate 16 Blood Pressure 122/67 Pulse Oximetry 94 90 L Oxygen Delivery Method Room Air Room Air Oxygen Flow Rate Fraction of Inspired Oxygen 02/28/23 08:00 Temperature Pulse Rate 99 H Respiratory Rate 15 Blood Pressure Pulse Oximetry 89 L Oxygen Delivery Method Room Air Oxygen Flow Rate Fraction of Inspired Oxygen <Brielle Ferreira, - Last Filed: 02/28/23 19:06> Orders Ordered: Acetaminophen (Acetaminophen 325 Mg Tablet) 650 mg PO Q6H PRN PRN Reason: Fever/Mild Pain (1-3) Albuterol (Albuterol 2.5 Mg/3 Ml Neb (Adult)) 2.5 mg INH Q4H PRN PRN Reason: asthma Calcium Carbonate (Calcium Carbonate 500 Mg Tab) 1,000 mg PO Q4HR PRN PRN Reason: Dyspepsia Enoxaparin Sodium (Enoxaparin 40 Mg/0.4 Ml Syringe) 40 mg SUBCUT DAILY [facility] Last Admin: 02/28/23 13:02 Dose: 40 mg Documented By: HCW Furosemide (Furosemide 20 Mg/2 Ml Vial) 20 mg IV 1600 [facility] Last Admin: 02/28/23 17:37 Dose: 20 mg Documented By: HCW Ipratropium [place] (Ipratropium 0.5 Mg/2.5 Ml Neb) 0.5 mg INH [id number] [facility] Last Admin: 02/28/23 19:31 Dose: 0.5 mg Documented By: Admin: 02/28/23 15:35 Dose: 0.5 mg Documented By: JOSE MIGUEL Metoprolol Succinate (Metoprolol Er 50 Mg Tablet) 50 mg PO BID [facility] Last Admin: 02/28/23 17:19 Dose: Not Given Documented By: HCW Naloxone HCl (Naloxone 0.4 Mg/Ml Vial) 0.2 mg IV Q2MIN PRN PRN Reason: Opiate Reversal Nicotine (Nicotine 21 Mg Patch) 21 mg TOP DAILY [facility] Last Admin: 02/28/23 12:25 Dose: 21 mg Documented By: HCW Discontinued Medications Albuterol (Albuterol Hfa Mdi 60 Puff/8 Gm Inhaler) 1 puff INH Q4-6H PRN PRN Reason: asthma Albuterol/Ipratropium (Albuterol/Ipratropium 3 Ml Ampul) 3 ml INH NOW ONE Stop: 02/28/23 05:25 Last Admin: 02/28/23 05:26 Dose: 3 ml Documented By: LISSET Aspirin (Aspirin Ec 325 Mg Tablet) 325 mg PO NOW ONE Stop: 02/28/23 05:46 Last Admin: 02/28/23 05:50 Dose: 325 mg Documented By: BETSY Furosemide (Furosemide 40 Mg/4 Ml Vial) 40 mg IV NOW ONE Stop: 02/28/23 06:10 Last Admin: 02/28/23 06:17 Dose: 40 mg Documented By: BETSY Furosemide (Furosemide 40 Mg/4 Ml Vial) 40 mg IV 1600 [facility] Last Admin: 02/28/23 18:01 Dose: Not Given Documented By: HCW Methylprednisolone (Methylprednisolone 125 Mg/2 Ml Vial) 125 mg IV NOW ONE Stop: 02/28/23 05:27 Last Admin: 02/28/23 05:38 Dose: 125 mg Documented By: BETSY Non-Formulary Medication (Tiotropium [place] [Spiriva Respimat]) 2 puff INHALATION DAILY [facility] Last Admin: 02/28/23 13:11 Dose: Not Given Documented By: HCW Vital Signs Vital signs: Vital Signs - 8 hr 02/28/23 05:10 02/28/23 05:19 02/28/23 05:26 Temperature 97.8 F Pulse Rate 116 H 113 H 106 H Respiratory Rate 24 23 26 H Blood Pressure 122/90 122/90 Pulse Oximetry 96 98 97 Oxygen Delivery Method Room Air Room Air Room Air Oxygen Flow Rate 0 Fraction of Inspired Oxygen 21 02/28/23 05:30 02/28/23 05:34 02/28/23 05:34 Temperature Pulse Rate 106 H 106 H Respiratory Rate 21 28 H Blood Pressure 116/69 Pulse Oximetry 97 96 Oxygen Delivery Method Room Air Room Air Oxygen Flow Rate Fraction of Inspired Oxygen 02/28/23 06:00 02/28/23 06:00 02/28/23 06:30 Temperature Pulse Rate 102 H Respiratory Rate 18 Blood Pressure 128/74 121/70 Pulse Oximetry 96 Oxygen Delivery Method Room Air Oxygen Flow Rate Fraction of Inspired Oxygen 02/28/23 06:30 02/28/23 07:00 02/28/23 07:00 Temperature Pulse Rate 100 H 100 H Respiratory Rate 21 16 Blood Pressure 125/71 Pulse Oximetry 93 93 Oxygen Delivery Method Room Air Room Air Oxygen Flow Rate Fraction of Inspired Oxygen 02/28/23 07:30 02/28/23 07:54 02/28/23 08:00 Temperature Pulse Rate 103 H 97 H Respiratory Rate 16 Blood Pressure 122/67 Pulse Oximetry 94 90 L Oxygen Delivery Method Room Air Room Air Oxygen Flow Rate Fraction of Inspired Oxygen 02/28/23 08:00 Temperature Pulse Rate 99 H Respiratory Rate 15 Blood Pressure Pulse Oximetry 89 L Oxygen Delivery Method Room Air Oxygen Flow Rate Fraction of Inspired Oxygen MDM - SOB/Dyspnea <Roseanna Hayes, DO - Last Filed: 02/28/23 19:40> Lab Data 02/28/23 05:18 02/28/23 05:18 Labs: Lab Results 02/28/23 02/28/23 Range/Units 05:18 07:03 WBC 9.5 (4.5-11.0) X10^3/uL RBC 4.62 (4.0-5.2) X10^6/uL Hgb 14.5 (12.0-16.0) g/dL Hct 44.1 (36-46) % MCV 95.5 (80-100) fL MCH 31.4 (26-34) PG MCHC 32.8 (30-36) % RDW 14.6 (11.6-14.8) % Plt Count 260 (150-400) X10^3/uL Neut % (Auto) 69.9 (50-75) % Lymph % (Auto) 21.8 L (25-40) % [place] % (Auto) 6.7 (3-14) % Eos % (Auto) 1.1 L (2-4) % Baso % (Auto) 0.5 (0-2) % Neut # (Auto) 6700 (2766-2198) /uL Lymph # (Auto) 2100 (2589-9205) /uL [place] # (Auto) 600 (0-900) /uL Eos # (Auto) 100 (0-450) /uL Baso # (Auto) 0 (0-100) /uL PT 10.8 (9.4-12.5) SECONDS INR 0.9 (0.9-1.3) APTT 25 L (25.1-36.5) SECONDS Sodium 139 (137-145) mmol/L Potassium 4.0 (3.4-5.1) mmol/L Chloride 105 (98-107) mmol/L Carbon Dioxide 28 (22-32) mmol/L BUN 16 (7-17) mg/dL Creatinine 0.77 (0.52-1.04) mg/dL Estimated GFR > 60 (>60) mL/min BUN/Creatinine Ratio 20.8 (6-22) Glucose 131 H (80-110) mg/dL Calcium 9.3 (8.4-10.2) mg/dL Total Bilirubin 0.7 (0.2-1.3) mg/dL AST 103 H (14-36) IU/L ALT 80 H (<35) IU/L Alkaline Phosphatase 68 (38-126) U/L Total Creatine Kinase 81 (30-135) U/L Troponin I 0.059 H 0.049 H (0.01-0.034) ng/mL NT-Pro-B Natriuret Pep 9520 H (<125) pg/mL Total Protein 7.6 (6.3-8.2) g/dL Albumin 4.3 (3.5-5.0) g/dL Globulin 3.3 (1.7-4.1) g/dL Albumin/Globulin Ratio 1.3 (1.0-2.8) Lipase 164 (23-300) U/L Procalcitonin 0.05 (<0.5) ng/mL ECG Data Interpretation: EKG 1. Concern for ST-elevation V3 V4 with T-wave inversion in V6, left bundle-branch block present LVH change from previous EKGs. Prior EKGs does show left bundle-branch block EKG 2. Sinus rhythm rate 1 0 NM interval 188 QRS 140 [address] depression V5 with T-wave inversions in the 6 no Sgarbossa criteria present MDM Narrative Medical decision making narrative: Patient is a 67-year-old female history of COPD presenting today with increasing shortness of breath. She has had some ongoing fatigue. She denies any chest pain no fever or cough. On exam she is mildly dyspneic without hypoxia EKG does reveal probably LVH strain without evidence of ST elevation or Sgarbossa criteria EKGs change from previous left bundle-branch block is consistent Chest x-ray does show some cardiomegaly Blood work reviewed indeterminate troponin 0.059 which is down from previous, BNP is elevated 9520 previously 12,000, kidney function with a creatinine of 0.7 normal electrolytes no anemia or leukocytosis I suspect the patient probably had a cardiac event in January. It took her awhile to follow-up with her primary she has not yet had an echocardiogram. Long discussion with her post staying in hospital, it does make her quite anxious but she is agreeable to it. At this time I do suspect she has congestive heart failure will wait for repeat troponin. Patient signed out to Dr. Ferreira <Brielle Ferreira, - Last Filed: 02/28/23 19:06> Lab Data Labs: Lab Results 02/28/23 02/28/23 Range/Units 05:18 07:03 WBC 9.5 (4.5-11.0) X10^3/uL RBC 4.62 (4.0-5.2) X10^6/uL Hgb 14.5 (12.0-16.0) g/dL Hct 44.1 (36-46) % MCV 95.5 (80-100) fL MCH 31.4 (26-34) PG MCHC 32.8 (30-36) % RDW 14.6 (11.6-14.8) % Plt Count 260 (150-400) X10^3/uL Neut % (Auto) 69.9 (50-75) % Lymph % (Auto) 21.8 L (25-40) % [place] % (Auto) 6.7 (3-14) % Eos % (Auto) 1.1 L (2-4) % Baso % (Auto) 0.5 (0-2) % Neut # (Auto) 6700 (1965-9158) /uL Lymph # (Auto) 2100 (9321-9663) /uL [place] # (Auto) 600 (0-900) /uL Eos # (Auto) 100 (0-450) /uL Baso # (Auto) 0 (0-100) /uL PT 10.8 (9.4-12.5) SECONDS INR 0.9 (0.9-1.3) APTT 25 L (25.1-36.5) SECONDS Sodium 139 (137-145) mmol/L Potassium 4.0 (3.4-5.1) mmol/L Chloride 105 (98-107) mmol/L Carbon Dioxide 28 (22-32) mmol/L BUN 16 (7-17) mg/dL Creatinine 0.77 (0.52-1.04) mg/dL Estimated GFR > 60 (>60) mL/min BUN/Creatinine Ratio 20.8 (6-22) Glucose 131 H (80-110) mg/dL Calcium 9.3 (8.4-10.2) mg/dL Total Bilirubin 0.7 (0.2-1.3) mg/dL AST 103 H (14-36) IU/L ALT 80 H (<35) IU/L Alkaline Phosphatase 68 (38-126) U/L Total Creatine Kinase 81 (30-135) U/L Troponin I 0.059 H 0.049 H (0.01-0.034) ng/mL NT-Pro-B Natriuret Pep 9520 H (<125) pg/mL Total Protein 7.6 (6.3-8.2) g/dL Albumin 4.3 (3.5-5.0) g/dL Globulin 3.3 (1.7-4.1) g/dL Albumin/Globulin Ratio 1.3 (1.0-2.8) Lipase 164 (23-300) U/L Procalcitonin 0.05 (<0.5) ng/mL Imaging Data Chest x-ray: Radiologist's Impression: cardiomegaly with pulmonary edema. No focal consolidation s present, possible small pleural effusions. MDM Narrative Medical decision making narrative: Patient is a 67-year-old female history of COPD presenting today with increasing shortness of breath. She has had some ongoing fatigue. She denies any chest pain no fever or cough. On exam she is mildly dyspneic without hypoxia EKG does reveal probably LVH strain without evidence of ST elevation or Sgarbossa criteria EKGs change from previous left bundle-branch block is consistent Chest x-ray does show some cardiomegaly Blood work reviewed indeterminate troponin 0.059 which is down from previous, BNP is elevated 9520 previously 12,000, kidney function with a creatinine of 0.7 normal electrolytes no anemia or leukocytosis I suspect the patient probably had a cardiac event in January. It took her awhile to follow-up with her primary she has not yet had an echocardiogram. Long discussion with her post staying in hospital, it does make her quite anxious but she is agreeable to it. At this time I do suspect she has congestive heart failure will wait for repeat troponin. Patient signed out to Dr. Ferreira 02/28/23 Dr. Ferreira. Patient signed out to myself by Dr. Hayes. Patient presents today with increasing shortness of breath history of COPD and she states no hypertension, dyslipidemia but is on metoprolol for intermittent elevated heart rate. Patient states she has had increasing exertional dyspnea and fatigue. Labs were reviewed, troponin today is indeterminate trended down words slightly on repeat, BNP is 9520 [place] [address] on 01/16 23. Patient at that time did have positive troponins that were trending upwards. She left Against Medical Advice at that time but also had CT angio which showed left global ventriculomegaly. CXR today shows pulmonary edema with appearance of cardiomegaly. Patient's also has new EKG changes with prior left bundle-branch block but new ST depressions V5 6 and some elevation V2 3 but does not appear to meet Sgarbossa criteria. Patient does not appear fluid overloaded initially on examination. She has had about 1800mL out after 40 mg of Lasix. She has had some improvement. O2 has been down to 90% during her stay but is known COPD. Spoke with Dr. Desir, hospitalist: Feels patient would likely be a candidate for potential cardiac catheterization access to speak with Cardiology. Spoke with Dr. Prakash, cardiology [facility]: Patient recommendations include echo, gentle diuresis and is worsening or new changes potential transfer for cardiac catheterization versus outpatient. Spoke with Dr. Desir, hospitalist: Reviewed recommendations from Dr. Prakash. Asks for admission. Reviewed current treatments. Discharge Plan Departure Patient Disposition: Admitted As Inpatient Clinical Impression: Acute exacerbation of CHF (congestive heart failure) Admit Date/Time: 02/28/23 08:22 Admit Provider: Joey Desir
[2023-02-28] MEDS: ALBUTEROL/IPRATROPIUM 3 ML AMPUL INH (05:26)
--- NOTE | 2023-02-28 05:26 | DI.RAD.S_ITS ---
PROCEDURE: XR CHEST 1V INDICATIONS: short of breath TECHNIQUE: One view of the chest was acquired. COMPARISON: [facility], CR, XR CHEST 1V, 01/16/2023, 12:53. FINDINGS: Surgical changes and devices: None. Lungs and pleura: Mild pulmonary vascular congestion is seen. No definite focal infiltrate. No pleural effusions or pneumothorax. Mediastinum: Mediastinal contours appear normal. Heart size is enlarged. Bones and chest wall: No suspicious bony lesions. Overlying soft tissues appear unremarkable. IMPRESSION: Cardiomegaly and mild congestion. No definite focal infiltrate. No pleural effusion or pneumothorax. No significant discrepancies from preliminary reading. Dictated by: Jhoan Breaux M.D. on 02/28/2023 at 8:06 Approved by: Jhoan Breaux M.D. on 02/28/2023 at 8:06
[2023-02-28] MEDS: methylPREDNISolone 125 MG/2 ML VIAL IV (05:38)
[2023-02-28 05:48] LABS: Add Manual Diff / Slide Review NO; Basophils Absolute Auto 0 /uL (0-100); Basophils Percent Auto 0.5 % (0-2); Eosinophils Absolute Auto 100 /uL (0-450); Eosinophils Percent Auto 1.1 % (2-4); Hematocrit 44.1 % (36-46); Hemoglobin 14.5 g/dL (12.0-16.0); Lymphocytes Absolute Auto 2100 /uL (1100-4500); Lymphocytes Percent Auto 21.8 % (25-40); Mean Corpuscular HGB Conc 32.8 % (30-36); Mean Corpuscular Hemoglobin 31.4 PG (26-34); Mean Corpuscular Volume 95.5 fL (80-100); Monocytes Absolute Auto 600 /uL (0-900); Monocytes Percent Auto 6.7 % (3-14); Neutrophils Absolute Auto 6700 /uL (1500-7000); Neutrophils Percent Auto 69.9 % (50-75); Platelet Count 260 X10^3/uL (150-400); Red Blood Cell Count 4.62 X10^6/uL (4.0-5.2); Red Cell Distribution Width 14.6 % (11.6-14.8); White Blood Cell Count 9.5 X10^3/uL (4.5-11.0)
[2023-02-28] MEDS: ASPIRIN EC 325 MG TABLET PO (05:50)
[2023-02-28 05:53] LABS: INR 0.9 (0.9-1.3); Prothrombin Time 10.8 SECONDS (9.4-12.5)
[2023-02-28 05:55] LABS: Alanine Aminotransferase 80 IU/L (<35); Albumin 4.3 g/dL (3.5-5.0); Albumin Globulin Ratio 1.3 (1.0-2.8); Alkaline Phosphatase 68 U/L (38-126); Aspartate Aminotransferase 103 IU/L (14-36); BUN Creatinine Ratio 20.8 (6-22); Bilirubin Total 0.7 mg/dL (0.2-1.3); Blood Urea Nitrogen 16 mg/dL (7-17); Calcium 9.3 mg/dL (8.4-10.2); Carbon Dioxide 28 mmol/L (22-32); Chloride 105 mmol/L (98-107); Creatine Kinase 81 U/L (30-135); Estimated Glomerular Filt Rate > 60 mL/min (>60); Globulin 3.3 g/dL (1.7-4.1); Glucose 131 mg/dL (80-110); HEMOLYSIS 28 (0-50); Lipase 164 U/L (23-300); Sodium 139 mmol/L (137-145); Total Protein 7.6 g/dL (6.3-8.2)
[2023-02-28 05:56] LABS: PTT Partial Thromboplastin Tim 25 SECONDS (25.1-36.5)
[2023-02-28 06:07] LABS: NT-proBNP (BNP-Adult 18+) 9520 pg/mL (<125); Troponin I 0.059 ng/mL (0.01-0.034)
[2023-02-28 06:11] LABS: Procalcitonin 0.05 ng/mL (<0.5)
--- NOTE | 2023-02-28 06:15 | DI.ECHO.S_ITS ---
[place] +---------+ [facility] +---------+ : : [address] : : : : [address] : : : : Phone: [phone]+ Echocardiogram Report + + :Name: DUSTIN ESPINOZA Study Date: 02/28/2023 Height: 63 in : :[facility] ReadingLocation: Weight: 107 lb : : Gender: Female BSA: 1.5 m2 : :: 1955 Age: 67 yrs BP: 117/66 mmHg: :Reason For Study: Cardiomyopathy : : Performed By: Linda Enciso : :Referring: REINA FIGUEROA : + + Interpretation Summary 1) Markedly dilated left ventricle with severely reduced systolic function (EF 15-20%). 2) Grossly, normal right ventricular size and function. 3) There is moderate to severe mitral regurgitation. 4) There is moderate aortic regurgitation. 5) There is mild to moderate tricuspid regurgitation. 6) The right ventricular systolic pressure is estimated to be at least 52 mmHg based on an estimated right atrial pressure of 15 mm Hg. 7) Compared to the Echo 07/13/2019, LVEF has decreased from 30-35% to 15-20% on this study. Procedure: A two-dimensional transthoracic echocardiogram with color flow and Doppler was performed. The study quality was technically good. Comparison is made with the echocardiogram of 5-27-20. The heart rate ranged between 98- 99 bpm during the study. Left Ventricle: The left ventricle is markedly dilated. There is normal left ventricular wall thickness. The ejection fraction is estimated to be 15-20%. There is severe global hypokinesis of the left ventricle. There is a severe dyssynchronous contraction pattern, consistent with a conduction abnormality. Diastolic function could not be accurately assessed due to tachycardia. Right Ventricle: The right ventricle grossly appears normal in size with probable normal systolic function. Atria: The left atrium is severely dilated. Right atrial size is normal. The interatrial septum grossly appears intact with no obvious evidence for an atrial septal defect. Mitral Valve: The mitral valve leaflets appear moderately thickened, but open well. There is moderate to severe mitral regurgitation. Aortic Valve: The aortic valve is trileaflet. The aortic valve opens well. There is moderate aortic regurgitation. Tricuspid Valve: The tricuspid valve leaflets are thin and pliable. The tricuspid valve leaflets are thickened and/or calcified, but open well. There is mild to moderate tricuspid regurgitation. The right ventricular systolic pressure is estimated to be at least 52 mmHg based on an estimated right atrial pressure of 15 mm Hg. Pulmonic Valve: The pulmonic valve is not well seen, but is grossly normal. There is a trace or physiologic amount of pulmonic regurgitation. Great Vessels: The aortic root is normal size. The ascending aorta is at the upper limits of normal in size. The aortic arch is normal in size. The IVC is dilated (diameter is greater than 2.1 cm) and it collapses less than 50% with a sniff. This suggests a high right atrial pressure of 15 mm Hg. Pericardium/ Pleura There is a small pericardial effusion noted. There is no pleural effusion. MMode/2D Measurements & Calculations LVIDd: 6.8 cm LVOT diam: 1.9 cm LVIDs: 5.9 cm Ao root diam: 3.2 cm FS: 13.7 % asc Aorta Diam: 3.7 cm EPSS: 2.4 cm Ao Arch Diam (Prox Trans): 3.0 cm IVSd: 0.73 cm LVPWd: 1.0 cm LV dejesus. diameter/BSA (cm/m^2): 4.6 LV sys. diameter/BSA (cm/m^2): 4.0 LA A2 area: 22.5 cm2 RA long axis: 4.5 cm LA A4 area: 22.6 cm2 RA area: 15.3 cm2 LA length (vol): 5.6 cm RA vol: 44.4 ml LA vol: 76.6 ml RA : 30.0 ml/m2 LA vol index: 51.6 ml/m2 IVC diam: 2.2 cm RVD1 (basal): 2.3 cm TAPSE: 2.1 cm Doppler Measurements & Calculations Ao V2 max: 178.0 cm/sec LVOT Max Sergio: 105.9 cm/sec Ao V2 mean: 108.2 cm/sec LV V1 max P.5 mmHg Ao max P.7 mmHg LV V1 VTI: 15.2 cm Ao mean P.5 mmHg LEATHA(I,D): 1.5 cm2 Ao V2 VTI: 29.3 cm LEATHA(V,D): 1.8 cm2 sev ratio: 0.52 LEATHA indexed to BSA (cm^2/m^2): 1.0 AI P1/2t: 249.9 msec AI dec slope: 509.5 cm/sec2 MVA(VTI): 2.1 cm2 TR max sergio: 304.1 cm/sec TR max P.0 mmHg PA V2 max: 88.9 cm/sec PA V2 mean: 55.2 cm/sec PA mean P.5 mmHg PA pr(Accel): 25.9 mmHg MV V2 mean: 106.5 cm/sec MR PISA: 4.9 cm2 MV mean P.8 mmHg MR flow rate: 172.2 cm3/sec MV V2 VTI: 21.6 cm MR PISA radius: 0.89 cm SV(LVOT): 44.8 ml Reading Physician:10:54 AM
[2023-02-28] MEDS: FUROSEMIDE 40 MG/4 ML VIAL IV (06:17)
[2023-02-28 07:33] LABS: Troponin I 0.049 ng/mL (0.01-0.034)
[2023-02-28] MEDS: NICOTINE 21 MG PATCH TOP (12:25)
--- NOTE | 2023-02-28 12:30 | P.HP_ITS ---
History of Present Illness History of Present Illness Chief complaint: SOB Narrative: This is a pleasant 67-year-old female with a history of COPD, hypertension, and nonischemic cardiomyopathy with an echo several years ago revealing an EF of 35%. She presents now with shortness of breath which has been progressive for the last several days. She woke this morning with severe orthopnea. She is also describing increased fatigue with any exertion as well as exertional dyspnea for the past 1-2 weeks. An echo in the past revealed a global hypokinesis and cardiomyopathy. She relates having an angiogram at [facility] which revealed normal arteries per her report. She was seen in January for shortness of breath and left Against Medical Advice. She had a minimally elevated troponin at that time. Today she had a minimally elevated troponin. The emergency physician did discuss this with Dr. Prakash, cardiology at [facility]. He recommended diuresis and outpatient follow-up. She was taking metoprolol 50 mg daily but ran out of this several weeks ago. She also notes the possibility of having other medications proposed but not wanting to take a bunch of medications. She smokes a pack of cigarettes a day. She drinks alcohol very rarely, about once a year. She used to take medications for ADHD. She denies any illicit drug use but does use marijuana occasionally. She denies any exertional chest pain, recent URI symptoms. No fevers or chills. No difficulty with bowel or bladder. Echo today reveals an EF of 15-20% with global hypokinesis. [facility] Medical History (Updated 02/28/23 @ 08:11 by Brielle Ferreira DO) Claudication of both lower extremities Tobacco dependence Juvenile rheumatoid arthritis Current every day smoker LBBB (left bundle branch block) Cardiomyopathy Hip pain Shoulder pain (~06/2012) GERD (gastroesophageal reflux disease) Hyperthyroidism Depression Migraines Osteoarthritis Skin cancer (09/2016) Surgical History History of surgery (~2009) Hx of cardiac cath (04/06/19) History of tonsillectomy (1959) Status post appendectomy (1988) History of hip replacement (2004) Family History Mother Heart disease Personal history of stroke with residual effects Father No problems noted. Social History household members: none Smoking Status: Current every day smoker Tobacco: How many years used: 50 second hand exposure: Yes alcohol intake: never substance use type: marijuana Meds Home Medications and Allergies Home Medications Medication Instructions Recorded Confirmed Type multivitamin (Multiple Vitamins 1 tab PO QDAY ##0 01/01/16 02/28/23 History tablet) metoprolol succinate 50 mg 50 mg PO BID 07/19/19 02/28/23 History tablet,extended release 24 hr albuterol sulfate 90 mcg/actuation 1 puff inhalation Q4-6H PRN asthma 02/25/22 02/28/23 Rx aerosol inhaler (Ventolin HFA) #8 grams ibuprofen 800 mg tablet 800 mg PO Q8H PRN pain #90 tabs 02/25/22 02/28/23 Rx fluticasone propionate 50 1 spray intranasal Q12H #16 grams 01/09/23 02/28/23 Rx mcg/actuation nasal spray,suspension (Flonase Allergy Relief) furosemide 20 mg tablet (Lasix) 20 mg PO DAILY #30 tabs 01/16/23 02/28/23 Rx tiotropium bromide 2.5 2 puff inhalation DAILY copd #4 02/18/23 02/28/23 Rx mcg/actuation mist for inhalation grams (Spiriva Respimat) lidocaine 5 % topical patch 1 patch topical DAILY #15 ea 02/19/23 02/28/23 Rx (Lidoderm) Allergies Allergy/AdvReac Type Severity Reaction Status Date / Time Sulfa (Sulfonamide Allergy Severe SOB/DYSPNEA Verified 02/19/23 20:18 Antibiotics) alprazolam AdvReac Severe MANIC Verified 02/19/23 20:18 SYMPTOMS codeine AdvReac Severe NAUSEA/VOMI Verified 02/19/23 20:18 TING Review of Systems Review of Systems Narrative: All else reviewed and otherwise unremarkable other than as noted in the H$P. Exam Vital Signs (past 8 hours): - 02/28/23 05:10 02/28/23 05:19 02/28/23 05:26 Temperature 97.8 F Pulse Rate 116 H 113 H 106 H Respiratory Rate 24 23 26 H Blood Pressure 122/90 122/90 Pulse Oximetry 96 98 97 Oxygen Delivery Method Room Air Room Air Room Air Oxygen Flow Rate 0 Fraction of Inspired Oxygen 21 02/28/23 05:30 02/28/23 05:34 02/28/23 05:34 Temperature Pulse Rate 106 H 106 H Respiratory Rate 21 28 H Blood Pressure 116/69 Pulse Oximetry 97 96 Oxygen Delivery Method Room Air Room Air Oxygen Flow Rate Fraction of Inspired Oxygen 02/28/23 06:00 02/28/23 06:00 02/28/23 06:30 Temperature Pulse Rate 102 H Respiratory Rate 18 Blood Pressure 128/74 121/70 Pulse Oximetry 96 Oxygen Delivery Method Room Air Oxygen Flow Rate Fraction of Inspired Oxygen 02/28/23 06:30 02/28/23 07:00 02/28/23 07:00 Temperature Pulse Rate 100 H 100 H Respiratory Rate 21 16 Blood Pressure 125/71 Pulse Oximetry 93 93 Oxygen Delivery Method Room Air Room Air Oxygen Flow Rate Fraction of Inspired Oxygen 02/28/23 07:30 02/28/23 07:54 02/28/23 08:00 Temperature Pulse Rate 103 H 97 H Respiratory Rate 16 Blood Pressure 122/67 Pulse Oximetry 94 90 L Oxygen Delivery Method Room Air Room Air Oxygen Flow Rate Fraction of Inspired Oxygen 02/28/23 08:00 02/28/23 08:25 02/28/23 08:30 Temperature Pulse Rate 99 H Respiratory Rate 15 14 Blood Pressure 117/66 Pulse Oximetry 89 L 90 L Oxygen Delivery Method Room Air Room Air Oxygen Flow Rate Fraction of Inspired Oxygen 02/28/23 08:30 02/28/23 09:00 02/28/23 09:00 Temperature Pulse Rate 97 H 98 H Respiratory Rate 17 17 Blood Pressure 104/55 L Pulse Oximetry 90 L 91 Oxygen Delivery Method Room Air Room Air Oxygen Flow Rate Fraction of Inspired Oxygen 02/28/23 09:22 02/28/23 09:26 02/28/23 09:26 Temperature Pulse Rate 98 H Respiratory Rate 17 23 Blood Pressure 105/72 Pulse Oximetry 92 93 Oxygen Delivery Method Room Air Room Air Oxygen Flow Rate Fraction of Inspired Oxygen 02/28/23 09:30 02/28/23 09:53 Temperature 97.6 F Pulse Rate 107 H 101 H Respiratory Rate 19 Blood Pressure 110/63 103/60 Pulse Oximetry 93 Oxygen Delivery Method Oxygen Flow Rate 0 Fraction of Inspired Oxygen Fraction of Inspired Oxygen 21 SaO2/FiO2 Ratio 461 Oxygen Delivery Method Room Air Oxygen Flow Rate 0 Narrative Exam Narrative: She has in no acute distress, speaking easily, little anxious. Normocephalic head, atraumatic. Pupils are symmetric, EOMI. Anicteric sclera. Oropharynx is unremarkable. Neck is supple, midline trachea. Normal range of motion. Lungs are clear, some basilar rales bilaterally. Normal effort and rate. Heart is regular, no murmur or gallop. Abdomen is soft, nontender. Nondistended. Extremities are free of edema. Good pedal pulses. She has have a chronic skin lesion on the medial aspect of her lower extremity which is irregular in appearance, pale and rough to touch. She has no facial droop. Normal judgment. The patient has normal motor strength in arms and legs. Skin is otherwise free of rash or lesions. Objective ECG Impression: EKG 1. Concern for ST-elevation V3 V4 with T-wave inversion in V6, left bundle- branch block present LVH change from previous EKGs. Prior EKGs does show left bundle-branch block EKG 2. Sinus rhythm rate 1 0 DC interval 188 QRS 140 [address] depression V5 with T-wave inversions in the 6 no Sgarbossa criteria present Imaging Chest x-ray: Radiologist's impression: Cardiomegaly and mild congestion. No definite focal infiltrate. No pleural effusion or pneumothorax. No significant discrepancies from preliminary reading. Echo: Radiologist's impression: 1) Markedly dilated left ventricle with severely reduced systolic function (EF 15-20%). 2) Grossly, normal right ventricular size and function. 3) There is moderate to severe mitral regurgitation. 4) There is moderate aortic regurgitation. 5) There is mild to moderate tricuspid regurgitation. 6) The right ventricular systolic pressure is estimated to be at least 52 mmHg based on an estimated right atrial pressure of 15 mm Hg. 7) Compared to the Echo 07/13/2019, LVEF has decreased from 30-35% to 15-20% on this study. Labs 02/28/23 05:18 02/28/23 05:18 Labs: Laboratory Results - last 24 hr 02/28/23 02/28/23 05:18 07:03 WBC 9.5 RBC 4.62 Hgb 14.5 Hct 44.1 MCV 95.5 MCH 31.4 MCHC 32.8 RDW 14.6 Plt Count 260 Neut % (Auto) 69.9 Lymph % (Auto) 21.8 L [place] % (Auto) 6.7 Eos % (Auto) 1.1 L Baso % (Auto) 0.5 Neut # (Auto) 6700 Lymph # (Auto) 2100 [place] # (Auto) 600 Eos # (Auto) 100 Baso # (Auto) 0 PT 10.8 INR 0.9 APTT 25 L Sodium 139 Potassium 4.0 Chloride 105 Carbon Dioxide 28 BUN 16 Creatinine 0.77 Estimated GFR > 60 BUN/Creatinine Ratio 20.8 Glucose 131 H Calcium 9.3 Total Bilirubin 0.7 AST 103 H ALT 80 H Alkaline Phosphatase 68 Total Creatine Kinase 81 Troponin I 0.059 H 0.049 H NT-Pro-B Natriuret Pep 9520 H Total Protein 7.6 Albumin 4.3 Globulin 3.3 Albumin/Globulin Ratio 1.3 Lipase 164 Procalcitonin 0.05 Assessment & Plan Assessment & Plan narrative: 1. Acute on chronic systolic heart failure, POA and active. 2. Elevated troponin, secondary to ACS verses CHF with demand sichemia. 3. Tobacco dependence, .POA and active. Plan: -Diuresis with BID IV lasix. -restart metoprolol. -trend troponin. -discuss again after ECHO with Dr Prakash (cardiology). Full code, discussed. Proxy is children, No DPOA Time Spent With Patient Time with patient: 30 to 49 minutes with 50% spent counseling/coordinating care Quality MIPS - Admit I confirm the patient?s Advance Care Plan is present, Code status is documented, Surrogate decision maker is in patient?s record [If Yes, STOP here]: Yes
[2023-02-28] MEDS: ENOXAPARIN 40 MG/0.4 ML SYRINGE SUBCUT (13:02)
[2023-02-28 13:25] LABS: Troponin I 0.058 ng/mL (0.01-0.034)
[2023-02-28] MEDS: IPRATROPIUM 0.5 MG/2.5 ML NEB INH ×3 (15:35→22:05)
[2023-02-28] MEDS: FUROSEMIDE 20 MG/2 ML VIAL IV (17:37)
[2023-02-28 21:08] LABS: Troponin I 0.078 ng/mL (0.01-0.034)
[2023-02-28] MEDS: MELATONIN 3 MG TABLET PO (21:36)
[2023-03-01] VITALS (7 sets, daily range): BP systolic 101–158; BP diastolic 55–80; PULSE 88–103; RESP 16–20; TEMP 35.9–37.1; O2SAT 94–100
[2023-03-01] MEDS: IPRATROPIUM 0.5 MG/2.5 ML NEB INH (07:31)
[2023-03-01] MEDS: METOPROLOL ER 25 MG TABLET 12.5 MG PO (08:03)
[2023-03-01] MEDS: ENOXAPARIN 40 MG/0.4 ML SYRINGE SUBCUT (08:04)
[2023-03-01] MEDS: NICOTINE 21 MG PATCH TOP (08:04)
[2023-03-01 09:25] LABS: BUN Creatinine Ratio 44.3 (6-22); Blood Urea Nitrogen 31 mg/dL (7-17); Calcium 9.1 mg/dL (8.4-10.2); Carbon Dioxide 30 mmol/L (22-32); Chloride 100 mmol/L (98-107); Estimated Glomerular Filt Rate > 60 mL/min (>60); Glucose 152 mg/dL (80-110); HEMOLYSIS 16 (0-50); Potassium 3.3 mmol/L (3.4-5.1); Sodium 136 mmol/L (137-145)
[2023-03-01] MEDS: FUROSEMIDE 40 MG TABLET PO (10:16)
--- NOTE | 2023-03-01 10:23 | PM.DS.1 ---
History of Present Illness History of Present Illness Chief complaint: SOB Narrative: This is a pleasant 67-year-old female with a history of COPD, hypertension, and nonischemic cardiomyopathy with an echo several years ago revealing an EF of 35%. She presents now with shortness of breath which has been progressive for the last several days. She woke this morning with severe orthopnea. She is also describing increased fatigue with any exertion as well as exertional dyspnea for the past 1-2 weeks. An echo in the past revealed a global hypokinesis and cardiomyopathy. She relates having an angiogram at [facility] which revealed normal arteries per her report. She was seen in January for shortness of breath and left Against Medical Advice. She had a minimally elevated troponin at that time. Today she had a minimally elevated troponin. The emergency physician did discuss this with Dr. Prakash, cardiology at [facility]. He recommended diuresis and outpatient follow-up. She was taking metoprolol 50 mg daily but ran out of this several weeks ago. She also notes the possibility of having other medications proposed but not wanting to take a bunch of medications. She smokes a pack of cigarettes a day. She drinks alcohol very rarely, about once a year. She used to take medications for ADHD. She denies any illicit drug use but does use marijuana occasionally. She denies any exertional chest pain, recent URI symptoms. No fevers or chills. No difficulty with bowel or bladder. Echo today reveals an EF of 15-20% with global hypokinesis. Discharge Providers Provider Date of admission: 02/28/23 08:22 Discharge Date: 03/01/23 Primary care physician: Tasha Chamberlain DO Consults: Telephone discussion with Dr. Prakash, her primary triage assistant at [facility]. Discharge provider: Joey Desir MD Summary Hospital Course Discharge Diagnosis: 1. Acute on chronic systolic heart failure with worsening function, present on admission and improved. 2. Demand ischemia, present on admission and stable. 3. COPD, present on admission and stable. Hospital Course: Patient presented with acute dyspnea was found to have pulmonary edema. The patient had a mildly elevated troponin. Cardiac echo revealed a decrease in function with an LVEF of 15-20% from 35% previously. She was diuresed with prompt improvement of symptoms. She was started on low-dose metoprolol. Her case was discussed with Dr. Prakash at [facility] Cardiology. He has seen her in the past. He did review the echo and EKG which reveals a left bundle branch block. He stressed the importance of close follow-up with Cardiology, as well as adherence to metoprolol in the interim and Lasix daily. He feels the patient may be a candidate for cardiac resynchronization therapy with a Bi V pacemaker. This is all she with the patient as well as instructions for a 1 L fluid restriction and low salt diet. I will contact Dr. Prakash to expedite a follow-up appointment Cardiology. In the meantime she will continue activities as tolerated but avoid strenuous activities. Status at Discharge Cognitive/behavioral status at discharge: oriented Functional status at discharge: independent ambulation Overall status at discharge: patient is back to baseline Time Spent with Patient Time spent: Greater than 30 minutes Exam Vital Signs (past 8 hours): - 03/01/23 04:00 03/01/23 07:00 03/01/23 07:32 Temperature 97.6 F Pulse Rate 103 H 98 H Respiratory Rate 17 18 Blood Pressure 101/55 L Pulse Oximetry 95 94 Oxygen Delivery Method Room Air Room Air Oxygen Flow Rate 0 0 Fraction of Inspired Oxygen 21 03/01/23 08:00 03/01/23 08:03 03/01/23 08:13 Temperature 98.7 F 98.3 F Pulse Rate 88 98 H 98 H Respiratory Rate 16 20 Blood Pressure 158/80 H 106/63 106/63 Pulse Oximetry 95 100 Oxygen Delivery Method Oxygen Flow Rate Fraction of Inspired Oxygen 03/01/23 10:17 Temperature Pulse Rate 90 Respiratory Rate Blood Pressure Pulse Oximetry Oxygen Delivery Method Oxygen Flow Rate Fraction of Inspired Oxygen Fraction of Inspired Oxygen 21 SaO2/FiO2 Ratio 447 Oxygen Delivery Method Room Air Oxygen Flow Rate 0 Narrative Exam Narrative: he has in no acute distress, speaking easily, little anxious. Normocephalic head, atraumatic. Pupils are symmetric, EOMI. Anicteric sclera. Neck is supple, midline trachea. Normal range of motion. Lungs are clear. Normal effort and rate. Heart is regular, no murmur or gallop. Abdomen is soft, non-tender. Non-distended. Extremities are free of edema. Objective ECG Impression: NSR, LBBB Imaging Chest x-ray: Radiologist's impression: Cardiomegaly and mild congestion. No definite focal infiltrate. No pleural effusion or pneumothorax. Echo: Radiologist's impression: 1) Markedly dilated left ventricle with severely reduced systolic function (EF 15-20%). 2) Grossly, normal right ventricular size and function. 3) There is moderate to severe mitral regurgitation. 4) There is moderate aortic regurgitation. 5) There is mild to moderate tricuspid regurgitation. 6) The right ventricular systolic pressure is estimated to be at least 52 mmHg based on an estimated right atrial pressure of 15 mm Hg. 7) Compared to the Echo 07/13/2019, LVEF has decreased from 30-35% to 15-20% on this study. Labs 02/28/23 05:18 03/01/23 08:45 Labs: Laboratory Results - last 24 hr 02/28/23 02/28/23 03/01/23 12:50 20:34 08:45 Sodium 136 L Potassium 3.3 L Chloride 100 Carbon Dioxide 30 BUN 31 H Creatinine 0.70 Estimated GFR > 60 BUN/Creatinine Ratio 44.3 H Glucose 152 H Calcium 9.1 Troponin I 0.058 H 0.078 H [facility] Medical History Claudication of both lower extremities Tobacco dependence Juvenile rheumatoid arthritis Current every day smoker LBBB (left bundle branch block) Cardiomyopathy Hip pain Shoulder pain (~06/2012) GERD (gastroesophageal reflux disease) Hyperthyroidism Depression Migraines Osteoarthritis Skin cancer (09/2016) Surgical History History of surgery (~2009) Hx of cardiac cath (04/06/19) History of tonsillectomy (1959) Status post appendectomy (1988) History of hip replacement (2004) Family History Mother Heart disease Personal history of stroke with residual effects Father No problems noted. Social History household members: none Smoking Status: Current every day smoker Tobacco: How many years used: 50 second hand exposure: Yes alcohol intake: never substance use type: marijuana Discharge Assessment & Plan Assessment and Plan Assessment: 1. Acute on chronic systolic heart failure with worsening function, present on admission and improved. 2. Demand ischemia, present on admission and stable. 3. COPD, present on admission and stable. Plan of Treatment: Discharge today. Low-sodium diet. 1 L fluid restriction. Cardiology follow up within 2 weeks. We will send message to Dr. Prakash to expedite. Consideration of [employer]. Metoprolol 12.5 b.i.d., no relatively low blood pressure here. Continue Lasix 20 mg p.o. daily, previous medication. Discharge Plan Discharge Plan Patient Disposition: Home Provider Discharge Comment: Will arrange cardiology follow up within 2 weeks, Dr. Prakash ([facility]) Discharge orders & Medications Prescriptions: New metoprolol succinate 25 mg Tablet Extended Release 24 Hr 12.5 mg PO BID Qty: 30 0RF Continued fluticasone propionate [Flonase Allergy Relief] 50 mcg/actuation spray,suspension 1 spray intranasal Q12H Qty: 16 0RF Rx Instructions: administer into each nostril multivitamin [Multiple Vitamins] 1 EACH tablet 1 tab PO QDAY Qty: 0 albuterol sulfate [Ventolin HFA] 90 mcg/actuation HFA aerosol inhaler 1 puff INHALATION Q4-6H PRN (Reason: asthma) Qty: 8 11RF Rx Instructions: administer with spacer as needed for wheezing ibuprofen 800 mg tablet 800 mg PO Q8H PRN (Reason: pain) Qty: 90 3RF Spiriva Respimat 2.5 mcg/actuation mist 2 puff inhalation DAILY Qty: 4 11RF Patient Comments: pt has not taken due to the cost of medication furosemide [Lasix] 20 mg tablet 20 mg PO DAILY Qty: 30 0RF lidocaine [Lidoderm] 5 % adhesive patch,medicated 1 patch topical DAILY Qty: 15 0RF Rx Instructions: leave on most painful area for up to 12 hrs Discontinued metoprolol succinate 50 mg Tablet Extended Release 24 Hr 50 mg PO BID Medication counseling provided by Pharmacist: No Follow up/Referrals: Tasha Chamberlain DO [Primary Care Provider] - Diet/Activity/Treatments Diet: Low-sodium Diet comment: 1 liter fluid restriction daily Activity: as tolerated Visit Report/Discharge Packet Instructions: DI for Heart Failure Stand Alone Forms: Congestive Heart Failure, Patient Portal/API Discharge Data Primary Care Provider: Tasha Chamberlain
--- NOTE | 2023-03-01 11:30 | CM.DANOTE ---
DCP: Case received, EMR reviewed and met with patient. Introduced self and role. Was able to obtain information regarding patient's baseline activity status prior to hospitalization. DCP assessment completed with information currently available. Patient is a 67 year old female who admitted yesterday morning to the care of the hospitalist team. PCP: Dr. Chamberlain. Payer: confirmed: [facility]. Patient came to the hospital via private vehicle secondary to shortness of breath. Patient has history of COPD, cardiomyopathy, HTN. Notes indicate that patient had been to the ER on 01/16, with shortness of breath, and had noted increased troponin, possibly CHF. Patient is a current everyday smoker. Patient was diagnosed with acute on chronic systolic heart failure. Met with patient in her room. She was sitting up in bed, alert. Confirmed that she resides here in [place], and that her primary care provider is Dr. Chamberlain. She is employed at [employer]. She is hoping to go home. P: Patient has discharge orders for home today. Hospitalist will contact Dr. Prakash to expedite a follow up appointment to cardiology. Radha Valentino RN/Tube Backer Discharge Planning/Care Management CM Discharge Assessment Start: 03/01/23 11:29 Freq: Status: Discharge Protocol: Document 03/01/23 11:29 (Rec: 03/01/23 11:30 [id number]) Discharge Planning Assessment Assigned Field Care Advocate Radha Valentino RN/Tube Backer Advance Directives? No History Provided By Patient,Medical Record Prior Living Arrangements Apartment/Condo Household Members none Type of transporation used prior to Drives own vehicle admit Independent with ADL's Yes Is patient alert and oriented? Yes Caregiver for Another No Barriers to Discharge No Discharge Plan Home Transportation Arrangement Self or friend Referrals Initiated None needed Whiteboard Updated in Patient Room with Yes name and ext. # of Field Care Advocate Review Status In Process Next Review Type Continued Stay Review
== END 2023-03-01 10:55 | disposition home or self-care (01) | DRG 291 ==
LOC: ED 08:11 → AC 08:27
PROVIDERS: Emergency Medicine; Admitting Provider Hospitalist; Emergency Provider Emergency Medicine; PCP Family Medicine; Referring Provider Emergency Medicine; Visit Provider Hospitalist
DX: I11.0 Hypertensive heart disease with heart failure (principal); I50.23 Acute on chronic systolic (congestive) heart failure; I24.89 Other forms of acute ischemic heart disease; F17.210 Nicotine dependence, cigarettes, uncomplicated; J44.9 Chronic obstructive pulmonary disease, unspecified
CPT/HCPCS: 36415; 71045; 80048; 80053; 82550; 83690; 83880; 84145; 84484; 85025; 85610; 85730; 93005; 93010; 93306; 94640; 94762; 96374; 96375; 99285; J1650; J1940; J2930

== ENCOUNTER → 2023-03-09 16:02 | Outpatient (CLI) | payer OTHER, SELFPAY ==
[2023-02-28 12:08] VITALS: BMI 18.9
== END ==
PROVIDERS: PCP Family Medicine; Referring Provider Internal Medicine Cardiovascular Disease; Visit Provider Internal Medicine Cardiovascular Disease
DX: E05.90 Thyrotoxicosis, unspecified without thyrotoxic crisis or storm (principal)
CPT/HCPCS: 36415; 84443

== ENCOUNTER 2023-03-28 17:23 | Emergency (ER) | payer OTHER, SELFPAY ==
[2023-02-28 12:08] VITALS: BMI 18.9
[2023-03-28 17:26] VITALS: BP 132/59; PULSE 108; RESP 18; TEMP 36.6; O2SAT 96; BMI 18.3
[2023-03-28 17:59] LABS: Add Manual Diff / Slide Review NO; Basophils Absolute Auto 100 /uL (0-100); Basophils Percent Auto 0.7 % (0-2); Eosinophils Absolute Auto 0 /uL (0-450); Eosinophils Percent Auto 0.5 % (2-4); Hematocrit 43.9 % (36-46); Hemoglobin 14.5 g/dL (12.0-16.0); Lymphocytes Absolute Auto 2100 /uL (1100-4500); Lymphocytes Percent Auto 26.7 % (25-40); Mean Corpuscular HGB Conc 33.1 % (30-36); Mean Corpuscular Volume 93.8 fL (80-100); Monocytes Absolute Auto 500 /uL (0-900); Monocytes Percent Auto 6.5 % (3-14); Neutrophils Absolute Auto 5200 /uL (1500-7000); Neutrophils Percent Auto 65.6 % (50-75); Platelet Count 227 X10^3/uL (150-400); Red Blood Cell Count 4.68 X10^6/uL (4.0-5.2); Red Cell Distribution Width 13.8 % (11.6-14.8); White Blood Cell Count 7.9 X10^3/uL (4.5-11.0)
[2023-03-28 18:11] LABS: Alanine Aminotransferase 25 IU/L (<35); Albumin 4.8 g/dL (3.5-5.0); Albumin Globulin Ratio 1.3 (1.0-2.8); Alkaline Phosphatase 61 U/L (38-126); Aspartate Aminotransferase 42 IU/L (14-36); Bilirubin Total 0.7 mg/dL (0.2-1.3); Blood Urea Nitrogen 27 mg/dL (7-17); Calcium 9.9 mg/dL (8.4-10.2); Carbon Dioxide 28 mmol/L (22-32); Chloride 101 mmol/L (98-107); Estimated Glomerular Filt Rate > 60 mL/min (>60); Globulin 3.6 g/dL (1.7-4.1); Glucose 92 mg/dL (80-110); HEMOLYSIS < 15 (0-50); Lipase 135 U/L (23-300); Potassium 3.9 mmol/L (3.4-5.1); Sodium 140 mmol/L (137-145); Total Protein 8.4 g/dL (6.3-8.2)
[2023-03-28 18:29] LABS: Bacteria Urine Few (2-10); RBC Urine 1-5/HPF (0-5/HPF); Squamous Epithelial Cell Urine 1-5 /HPF (0-5/HPF); Urine Volume 10mL (spun); WBC Urine 1-5/HPF (0-5/HPF)
[2023-03-28 18:30] LABS: Culture Indicated Urine Cult Not Indicated
[2023-03-28 18:40] VITALS: PULSE 92; O2SAT 96
[2023-03-28 18:49] VITALS: O2SAT 96
--- NOTE | 2023-03-28 18:49 | ED_ITS ---
HPI - General Adult General Chief complaint: Abdominal Pain Stated complaint: pain lower back Time Seen by Provider: 03/28/23 17:51 Source: patient Mode of arrival: Ambulatory History of Present Illness HPI narrative: Patient is a 68-year-old female who is here for evaluation of approximately 3 months of lower back discomfort. It is bilateral but is right worse than left. She also states that occasionally moves into her abdomen. She has tried Tylenol at home. She states that there was not 1 specific incident that started the discomfort however she thought that it was when she started a new job and having to stand and doing some repetitive motions. She stated that the back discomfort did seem to be worse when she was doing these motions. No urinary symptoms. No change in bowel habits. No fevers. Has not seen her primary doctor. Related Data Home Medications Medication Instructions Recorded Confirmed multivitamin (Multiple Vitamins 1 tab PO QDAY ##0 01/01/16 03/18/23 tablet) spironolactone 25 mg tablet 12.5 mg PO DAILY 03/18/23 03/18/23 Previous Rx's Medication Instructions Recorded ibuprofen 800 mg tablet 800 mg PO Q8H PRN pain #90 tabs 02/25/22 fluticasone propionate 50 1 spray intranasal Q12H #16 grams 01/09/23 mcg/actuation nasal spray,suspension (Flonase Allergy Relief) furosemide 20 mg tablet (Lasix) 20 mg PO DAILY #30 tabs 01/16/23 lidocaine 5 % topical patch 1 patch topical DAILY #15 ea 02/19/23 (Lidoderm) metoprolol succinate 25 mg 12.5 mg (1/2 x 25 mg) PO BID #30 03/01/23 tablet,extended release 24 hr tabs albuterol sulfate 90 mcg/actuation 1 - 2 puff inhalation Q4-6H PRN 03/03/23 aerosol inhaler (Ventolin HFA) asthma #8 grams tiotropium bromide 2.5 2 puff inhalation DAILY copd #4 03/03/23 mcg/actuation mist for inhalation grams (Spiriva Respimat) oxycodone-acetaminophen 5 mg-325 1 tab PO Q4-6H PRN pain #20 tabs 03/09/23 mg tablet (Percocet) lidocaine 5 % topical patch 1 patch topical DAILY #15 ea 03/28/23 Allergies Allergy/AdvReac Type Severity Reaction Status Date / Time Sulfa (Sulfonamide Allergy Severe SOB/DYSPNEA Verified 03/28/23 17:32 Antibiotics) alprazolam AdvReac Severe MANIC Verified 03/28/23 17:32 SYMPTOMS codeine AdvReac Severe NAUSEA/VOMI Verified 03/28/23 17:32 TING Review of Systems Cardiovascular Cardiovascular: Reports system reviewed and no additional complaints, except as documented Respiratory Respiratory: Reports system reviewed and no additional complaints, except as documented Gastrointestinal Gastrointestinal: Reports system reviewed and no additional complaints, except as documented Musculoskeletal Musculoskeletal: Reports system reviewed and no additional complaints, except as documented Integumentary/Breasts Skin/Breast: Reports system reviewed and no additional complaints, except as documented Patient History Medical History CHF (congestive heart failure) Claudication of both lower extremities Tobacco dependence Juvenile rheumatoid arthritis Current every day smoker LBBB (left bundle branch block) Cardiomyopathy Hip pain Shoulder pain (~06/2012) GERD (gastroesophageal reflux disease) Hyperthyroidism Depression Migraines Osteoarthritis Skin cancer (09/2016) Surgical History History of surgery (~2009) Hx of cardiac cath (04/06/19) History of tonsillectomy (1959) Status post appendectomy (1988) History of hip replacement (2004) Family History Mother Heart disease Personal history of stroke with residual effects Father No problems noted. Social History household members: none Smoking Status: Current every day smoker Tobacco: How many years used: 50 second hand exposure: Yes alcohol intake: never substance use type: marijuana Smoking Status: Current every day smoker tobacco type: cigarettes alcohol intake frequency: holidays/special occasions only Substance Use Type: marijuana Exam Initial Vital Signs Initial Vital Signs: Vital Signs Temperature 98 F 03/28/23 17:26 Pulse Rate 108 H 03/28/23 17:26 Respiratory Rate 18 03/28/23 17:26 Blood Pressure 132/59 L 03/28/23 17:26 Pulse Oximetry 96 03/28/23 17:26 Oxygen Delivery Method Room Air 03/28/23 17:26 Resp Effort & Inspection: normal respiratory effort Cardio Rate: regular rate GI Inspection: non-distended Back/Spine/Pelvis Thoracic/Lumbar Spine: paraspinal tenderness, No thoracic spinal tenderness and No lumbar spinal tenderness Skin General: no rashes or lesions noted Course Orders Ordered: ED Orders 03/28/23 17:30 Urine Culture Stat Urine Microscopic Stat 03/28/23 17:45 Complete Blood Count AUTO DIFF Stat Comprehensive Metabolic Panel Stat Lipase Stat Discontinued Medications Ondansetron HCl (Ondansetron 4 Mg/2 Ml Inj) 4 mg IV NOW PRN PRN Reason: Nausea And Vomiting Ondansetron HCl (Ondansetron 4 Mg Odt) 4 mg PO NOW PRN PRN Reason: Nausea And Vomiting Vital Signs Vital signs: Vital Signs - 8 hr 03/28/23 17:26 03/28/23 18:40 03/28/23 18:49 Temperature 98 F Pulse Rate 108 H 92 H Respiratory Rate 18 Blood Pressure 132/59 L Pulse Oximetry 96 96 96 Oxygen Delivery Method Room Air Room Air 03/28/23 18:50 Temperature Pulse Rate Respiratory Rate Blood Pressure 123/60 Pulse Oximetry Oxygen Delivery Method Medical Decision Making Lab Data Lab results reviewed: Yes I reviewed the patient's lab results. 03/28/23 17:45 03/28/23 17:45 Labs: Lab Results 03/28/23 03/28/23 Range/Units 17:30 17:45 WBC 7.9 (4.5-11.0) X10^3/uL RBC 4.68 (4.0-5.2) X10^6/uL Hgb 14.5 (12.0-16.0) g/dL Hct 43.9 (36-46) % MCV 93.8 (80-100) fL MCH 31.0 (26-34) PG MCHC 33.1 (30-36) % RDW 13.8 (11.6-14.8) % Plt Count 227 (150-400) X10^3/uL Neut % (Auto) 65.6 (50-75) % Lymph % (Auto) 26.7 (25-40) % [place] % (Auto) 6.5 (3-14) % Eos % (Auto) 0.5 L (2-4) % Baso % (Auto) 0.7 (0-2) % Neut # (Auto) 5200 (8483-7627) /uL Lymph # (Auto) 2100 (2428-3222) /uL [place] # (Auto) 500 (0-900) /uL Eos # (Auto) 0 (0-450) /uL Baso # (Auto) 100 (0-100) /uL Sodium 140 (137-145) mmol/L Potassium 3.9 (3.4-5.1) mmol/L Chloride 101 (98-107) mmol/L Carbon Dioxide 28 (22-32) mmol/L BUN 27 H (7-17) mg/dL Creatinine 0.87 (0.52-1.04) mg/dL Estimated GFR > 60 (>60) mL/min BUN/Creatinine Ratio 31.0 H (6-22) Glucose 92 (80-110) mg/dL Calcium 9.9 (8.4-10.2) mg/dL Total Bilirubin 0.7 (0.2-1.3) mg/dL AST 42 H (14-36) IU/L ALT 25 (<35) IU/L Alkaline Phosphatase 61 (38-126) U/L Total Protein 8.4 H (6.3-8.2) g/dL Albumin 4.8 (3.5-5.0) g/dL Globulin 3.6 (1.7-4.1) g/dL Albumin/Globulin Ratio 1.3 (1.0-2.8) Lipase 135 (23-300) U/L Urine RBC 1-5/hpf (0-5/HPF) Urine WBC 1-5/hpf (0-5/HPF) Ur Squamous Epith Cells 1-5 /hpf (0-5/HPF) Urine Bacteria Few (2-10) H (None) Ur Culture Indicated? Cult not indicated Vol Urine Centrifuged 10ml (spun) Urine Dip Bedside Urine Glucose Negative Bedside Urine Bilirubin - Negative Bedside Urine Ketone - Negative Urine Specific [place] 1.025 Bedside Urine Occult Blood +/- Bedside Urine pH 5.5 Bedside Urine Protein - Negative Bedside Urine Urobilinogen - Negative Bedside Urine Nitrite - Negative Bedside Urine Leukocytes +/- 15 Esterase Point of care testing: Urine Dip Bedside Urine Glucose Negative Bedside Urine Bilirubin - Negative Bedside Urine Ketone - Negative Urine Specific [place] 1.025 Bedside Urine Occult Blood +/- Bedside Urine pH 5.5 Bedside Urine Protein - Negative Bedside Urine Urobilinogen - Negative Bedside Urine Nitrite - Negative Bedside Urine Leukocytes +/- 15 Esterase MDM Narrative Medical decision making narrative: Patient has had symptoms for the past 3 months. Her labs are unremarkable. She does have bacteria in her urine but no UTI like symptoms. We will wait for the urine culture to resolve before treat him with any antibiotics. Patient was informed of this. I have low suspicion for fracture. No indication for radiologic studies. No skin changes concerning for zoster. No other red flag symptoms that would make me concern for cauda equina. Advised the patient that she continue with conservative measures to include Tylenol and ibuprofen and also heat/ice/stretching. Also provided a prescription for lidocaine patches. She does not need to follow-up with her primary care doctor to discuss further evaluation and treatment. Discharge Plan Departure Patient Disposition: Home Clinical Impression: Lower back pain Instructions: Low Back Pain Activity Restrictions/Additional Instructions: Continue to take all of your medications as directed. I recommend that you start on a regular course of Tylenol and ibuprofen. Be sure that you were taking these with food has a can upset your stomach. I also recommend that at the beginning of next week you contact your primary doctor for a follow-up to discuss further evaluation and treatment to include potential referral to see Physical therapy. Prescriptions: New lidocaine 5 % adhesive patch,medicated 1 patch topical DAILY Qty: 15 0RF Rx Instructions: leave on most painful area for up to 12 hrs No Action fluticasone propionate [Flonase Allergy Relief] 50 mcg/actuation spray,suspension 1 spray intranasal Q12H Qty: 16 0RF Rx Instructions: administer into each nostril multivitamin [Multiple Vitamins] 1 EACH tablet 1 tab PO QDAY Qty: 0 spironolactone 25 mg tablet 12.5 mg PO DAILY ibuprofen 800 mg tablet 800 mg PO Q8H PRN (Reason: pain) Qty: 90 3RF albuterol sulfate [Ventolin HFA] 90 mcg/actuation HFA aerosol inhaler 1 - 2 puff INHALATION Q4-6H PRN (Reason: asthma) Qty: 8 11RF Rx Instructions: administer with spacer as needed for wheezing Spiriva Respimat 2.5 mcg/actuation mist 2 puff inhalation DAILY Qty: 4 11RF Patient Comments: pt has not taken due to the cost of medication oxycodone-acetaminophen [Percocet] 5-325 mg tablet 1 tab PO Q4-6H PRN (Reason: pain) Qty: 20 0RF furosemide [Lasix] 20 mg tablet 20 mg PO DAILY Qty: 30 0RF metoprolol succinate 25 mg Tablet Extended Release 24 Hr 12.5 mg PO BID Qty: 30 0RF lidocaine [Lidoderm] 5 % adhesive patch,medicated 1 patch topical DAILY Qty: 15 0RF Rx Instructions: leave on most painful area for up to 12 hrs Referrals: Tasha Chamberlain DO [Primary Care Provider] - Stand Alone Forms: Patient Portal/API
[2023-03-28 18:50] VITALS: BP 123/60
== END 2023-03-28 19:11 | disposition home or self-care (01) ==
PROVIDERS: Emergency Medicine; Emergency Provider Emergency Medicine; PCP Family Medicine
DX: M54.50 Low back pain, unspecified (principal)
CPT/HCPCS: 36415; 80053; 81003; 81015; 83690; 85025; 87086; 99283

== ENCOUNTER → 2023-04-01 10:16 | Outpatient (CLI) | payer OTHER, SELFPAY ==
[2023-02-28 12:08] VITALS: BMI 18.9
== END ==
PROVIDERS: PCP Family Medicine; Visit Provider Physician Assistant
DX: M54.50 Low back pain, unspecified (principal); R31.9 Hematuria, unspecified
CPT/HCPCS: 87086

== ENCOUNTER → 2023-04-01 10:35 | Outpatient (CLI) | payer OTHER, SELFPAY ==
[2023-02-28 12:08] VITALS: BMI 18.9
--- NOTE | 2023-04-01 10:38 | DI.RAD.S_ITS ---
PROCEDURE: XR THORACIC SPINE 3V INDICATIONS: microscopic hematuria, back pain, possible stones TECHNIQUE: 3 views of the thoracic spine were acquired. COMPARISON: [facility], CR, XR THORACIC SPINE 2V, 04/15/2021, 16:07. FINDINGS: Bones: No fractures or dislocations. No suspicious bony lesions. 12 pairs of ribs are noted, and appear intact where visualized. There is diffuse intervertebral disc space narrowing and osteophytosis. Soft tissues: No paravertebral stripe thickening. IMPRESSION: No acute bony abnormality. Mild degenerative change. Dictated by: Albertina Dunn M.D. on 04/01/2023 at 12:11 Approved by: Albertina Dunn M.D. on 04/01/2023 at 12:11
--- NOTE | 2023-04-01 10:38 | DI.RAD.S_ITS ---
PROCEDURE: XR LUMBAR SPINE 2-3V INDICATIONS: microscopic hematuria, back pain, possible stones TECHNIQUE: 2 views of the lumbar spine were acquired. COMPARISON: [facility], CR, XR LUMBAR SPINE 2-3V, 02/09/2022, 9:16. FINDINGS: Bones: 5 [id number] vertebrae are present. There is normal bony alignment. Degenerative endplate changes and loss of disc height throughout lumbar spine is seen more notably at L4-5 and L5-S1 levels. Bilateral facet arthrosis at L4-5 and L5-S1 levels are also seen. No vertebral body compression fractures. No suspicious bony lesions. Soft tissues: Overlying bowel gas pattern is normal. No suspicious soft tissue calcifications. IMPRESSION: [id number] degenerative disc disease throughout lumbar spine. No acute compression fracture or significant spondylolisthesis. Dictated by: Jhoan Breaux M.D. on 04/01/2023 at 11:13 Approved by: Jhoan Breaux M.D. on 04/01/2023 at 11:14
== END ==
LOC: LAB 10:36 → RAD 10:37
PROVIDERS: PCP Family Medicine; Referring Provider Physician Assistant; Visit Provider Physician Assistant
DX: M51.36 Other intervertebral disc degeneration, lumbar region (principal); M51.37 Other intervertebral disc degeneration, lumbosacral region; M47.816 Spondylosis without myelopathy or radiculopathy, lumbar region; M47.817 Spondylosis without myelopathy or radiculopathy, lumbosacral region; R31.9 Hematuria, unspecified; M54.50 Low back pain, unspecified; M62.838 Other muscle spasm
CPT/HCPCS: 72072; 72100; 87086

== ENCOUNTER 2023-04-21 11:49 | Emergency (ER) | payer OTHER, SELFPAY ==
[2023-02-28 12:08] VITALS: BMI 18.9
[2023-04-21] VITALS (13 sets, daily range): BP systolic 97–112; BP diastolic 51–73; PULSE 78–92; RESP 17–31; TEMP 36.3; O2SAT 92–99; BMI 18.4
--- NOTE | 2023-04-21 12:06 | DI.RAD.S_ITS ---
PROCEDURE: XR CHEST 1V INDICATIONS: chest pain TECHNIQUE: One view of the chest was acquired. COMPARISON: [facility], CR, XR CHEST 1V, 02/28/2023, 5:28. FINDINGS: Surgical changes and devices: None. Lungs and pleura: Resolution previous mild interstitial pulmonary edema. No pleural effusions or pneumothorax. Mediastinum: Mediastinal contours appear normal. Moderate to severe cardiomegaly, slightly diminished from the previous study. Bones and chest wall: No suspicious bony lesions. Overlying soft tissues appear unremarkable. IMPRESSION: Slight interval improvement. There is moderate to severe cardiomegaly, slightly diminished. Previous interstitial pulmonary edema is not present. Dictated by: Sundar Martin M.D. on 04/21/2023 at 12:54 Approved by: Sundar Martin M.D. on 04/21/2023 at 12:57
[2023-04-21] MEDS: ONDANSETRON 4 MG/2 ML INJ IV (13:07)
[2023-04-21] MEDS: PANTOPRAZOLE 40 MG VIAL 80 MG IV (13:07)
[2023-04-21 13:10] LABS: Add Manual Diff / Slide Review NO; Basophils Absolute Auto 0 /uL (0-100); Basophils Percent Auto 0.5 % (0-2); Eosinophils Absolute Auto 0 /uL (0-450); Eosinophils Percent Auto 0.4 % (2-4); Hematocrit 44.5 % (36-46); Lymphocytes Absolute Auto 1200 /uL (1100-4500); Lymphocytes Percent Auto 20.3 % (25-40); Mean Corpuscular HGB Conc 33.7 % (30-36); Mean Corpuscular Hemoglobin 31.8 PG (26-34); Mean Corpuscular Volume 94.5 fL (80-100); Monocytes Absolute Auto 400 /uL (0-900); Monocytes Percent Auto 6.3 % (3-14); Neutrophils Absolute Auto 4200 /uL (1500-7000); Neutrophils Percent Auto 72.5 % (50-75); Platelet Count 235 X10^3/uL (150-400); Red Blood Cell Count 4.71 X10^6/uL (4.0-5.2); Red Cell Distribution Width 13.4 % (11.6-14.8); White Blood Cell Count 5.8 X10^3/uL (4.5-11.0)
[2023-04-21 13:11] LABS: Prothrombin Time 11.6 SECONDS (9.4-12.5)
[2023-04-21 13:14] LABS: PTT Partial Thromboplastin Tim 31 SECONDS (25.1-36.5)
[2023-04-21 13:17] LABS: Bacteria Urine Moderate (10-30); Culture Indicated Urine Cult Not Indicated; RBC Urine None Seen (0-5/HPF); Squamous Epithelial Cell Urine 0-1 /HPF (0-5/HPF); Urine Volume 10mL (spun); WBC Urine None Seen (0-5/HPF)
[2023-04-21 13:19] LABS: Alanine Aminotransferase 39 IU/L (<35); Albumin 4.6 g/dL (3.5-5.0); Albumin Globulin Ratio 1.4 (1.0-2.8); Alkaline Phosphatase 74 U/L (38-126); Aspartate Aminotransferase 53 IU/L (14-36); BUN Creatinine Ratio 23.7 (6-22); Bilirubin Total 0.8 mg/dL (0.2-1.3); Blood Urea Nitrogen 18 mg/dL (7-17); Calcium 9.7 mg/dL (8.4-10.2); Carbon Dioxide 31 mmol/L (22-32); Chloride 103 mmol/L (98-107); Creatine Kinase 44 U/L (30-135); Estimated Glomerular Filt Rate > 60 mL/min (>60); Globulin 3.4 g/dL (1.7-4.1); Glucose 103 mg/dL (80-110); HEMOLYSIS < 15 (0-50); Lipase 119 U/L (23-300); Magnesium 1.9 mg/dL (1.6-2.3); Potassium 4.4 mmol/L (3.4-5.1); Sodium 139 mmol/L (137-145)
[2023-04-21 13:28] LABS: Troponin I 0.021 ng/mL (0.01-0.034)
--- NOTE | 2023-04-21 15:36 | ED.CHESTPAIN ---
HPI - Chest Pain General Chief Complaint: Chest Pain Stated Complaint: chest pressure, heartburn, nausea Time Seen by Provider: 04/21/23 14:27 Source: patient Mode of arrival: Ambulatory Limitations: no limitations History of Present Illness HPI narrative: 68-year-old female with history of CHF, smoking, anxiety, ADHD, hyperlipidemia, COPD, hypothyroidism presents with epigastric pain. History clarified from triage. Patient states her outpatient physician wants her to see GI, but she has not had endoscopy or colonoscopy yet. She notes in the last roughly 3 days on clarification days having epigastric burning, nonradiating, associated with nausea, no vomiting, but dark stools. History clarified and these are NOT melanotic. She denies lightheadedness or syncope. No lower abdominal pain. No chest pain on clarification. No flank pain. No dysuria, hematuria, urinary frequency. No other new symptoms. Per chart review, she has history of CHF, COPD, smoking, cardiomyopathy, left bundle-branch block. She had cardiac catheterization in 2019, reportedly with no obstructive CAD at the time (note from Dr. Prakash). This patient was seen in a time of substantial ER overcrowding in the setting of understaffing. She was seen as quickly as possible by myself in the setting of multiple critically ill patients. Related Data Home Medications Medication Instructions Recorded Confirmed multivitamin (Multiple Vitamins 1 tab PO QDAY ##0 01/01/16 04/15/23 tablet) spironolactone 25 mg tablet 12.5 mg PO DAILY 03/18/23 04/15/23 Previous Rx's Medication Instructions Recorded fluticasone propionate 50 1 spray intranasal Q12H #16 grams 01/09/23 mcg/actuation nasal spray,suspension (Flonase Allergy Relief) furosemide 20 mg tablet (Lasix) 20 mg PO DAILY #30 tabs 01/16/23 lidocaine 5 % topical patch 1 patch topical DAILY #15 ea 02/19/23 (Lidoderm) metoprolol succinate 25 mg 12.5 mg (1/2 x 25 mg) PO BID #30 03/01/23 tablet,extended release 24 hr tabs albuterol sulfate 90 mcg/actuation 1 - 2 puff inhalation Q4-6H PRN 03/03/23 aerosol inhaler (Ventolin HFA) asthma #8 grams lidocaine 5 % topical patch 1 patch topical DAILY #15 ea 03/28/23 methocarbamol 500 mg tablet 500 mg PO TID #30 tabs 04/01/23 tramadol 50 mg tablet 50 mg PO TID PRN pain #30 tabs 04/01/23 fluticasone propionate 115 2 puff inhalation BID #12 grams 04/15/23 mcg-salmeterol 21 mcg/actuation HFA inhaler (Advair HFA) ibuprofen 800 mg tablet 800 mg PO Q8H PRN pain #90 tabs 04/15/23 dicyclomine 10 mg capsule 10 mg PO TID PRN abdominal pain 04/21/23 #14 caps ondansetron 4 mg disintegrating 4 mg PO Q8H PRN nausea and 04/21/23 tablet vomiting #10 tabs pantoprazole 40 mg tablet,delayed 40 mg PO DAILY #14 tabs 04/21/23 release Allergies Allergy/AdvReac Type Severity Reaction Status Date / Time Sulfa (Sulfonamide Allergy Severe SOB/DYSPNEA Verified 04/15/23 15:27 Antibiotics) alprazolam AdvReac Severe MANIC Verified 04/15/23 15:27 SYMPTOMS codeine AdvReac Severe NAUSEA/VOMI Verified 04/15/23 15:27 TING Review of Systems Review of Systems Narrative: Constitutional: no fever, no chills Eyes: no visual disturbance, no discharge Ears, Nose, Mouth, Throat: no rhinorrhea, no sore throat Cardiovascular: no chest pain, no palpitations Respiratory: no cough, no shortness of breath Gastrointestinal: + abdominal pain, no vomiting, no diarrhea Genitourinary: no dysuria, no hematuria Musculoskeletal: no back pain, no neck stiffness Skin: no rash, no wound Neurological: no focal weakness, no focal numbness Patient History Medical History CHF (congestive heart failure) Claudication of both lower extremities Tobacco dependence Juvenile rheumatoid arthritis Current every day smoker LBBB (left bundle branch block) Cardiomyopathy Hip pain Shoulder pain (~06/2012) GERD (gastroesophageal reflux disease) Hyperthyroidism Depression Migraines Osteoarthritis Skin cancer (09/2016) Surgical History History of surgery (~2009) Hx of cardiac cath (04/06/19) History of tonsillectomy (1959) Status post appendectomy (1988) History of hip replacement (2004) Family History Mother Heart disease Personal history of stroke with residual effects Father No problems noted. Social History household members: none Smoking Status: Current every day smoker Tobacco: How many years used: 50 second hand exposure: Yes alcohol intake: never substance use type: marijuana Smoking Status: Current every day smoker tobacco type: cigarettes alcohol intake frequency: holidays/special occasions only Substance Use Type: marijuana Exam Narrative Exam Narrative: Const: no acute distress, non toxic appearing; anxious, remains conversant, pleasant Eyes: PERRLA, EOMI ENT: mucous membranes moist Neck: supple, non-tender Resp: no respiratory distress, clear to auscultation bilaterally Card: regular rate and rhythm, no murmurs Abd: +epigastric tenderness that patient states reproduces her pain, negative Morgan's sign, no other tenderness, no rigidity or rebound or guarding Back: no T or L spine tenderness, no CVA tenderness bilaterally Extrem: no deformities, no swelling bilateral lower extremities Neuro: ANOx4, stiff neck loader grossly intact, grossly intact sensation and strength all extremities Skin: no rash, warm and dry Initial Vital Signs Initial Vital Signs: Vital Signs Temperature 97.4 F L 04/21/23 11:57 Pulse Rate 89 04/21/23 11:57 Respiratory Rate 22 04/21/23 11:57 Blood Pressure 112/65 04/21/23 11:57 Pulse Oximetry 99 04/21/23 11:57 Oxygen Delivery Method Room Air 04/21/23 11:57 Course Course Course Narrative: This presentation is currently most suggestive of epigastric pain, with peptic ulcer disease, gastritis, esophagitis, esophageal mass, pancreatitis seeming most likely based on history, with hepatitis, biliary colic, cholecystitis, ACS, pneumothorax, pneumonia considered but seeming less likely at this time. Patient appears to have ongoing cardiac workups, and I strongly considered cardiac etiology; we will trend EKG and troponins. However, her focal epigastric pain, description of her symptoms is highly suggestive of GI cause, and patient states outpatient physicians want her to have an endoscopy. Giving fluids, nausea medication, GI cocktail, pantoprazole and will closely reassess. EKG normal sinus rhythm without clear acute ischemia; there is QTC prolongation of the setting of probable LVH/left bundle branch block. Note morphology overall similar to February 28, 2023 EKG. Per chart review, patient has history from 2019 cardiology consult of cardiomyopathy, left bundle-branch block. Reportedly she had catheterization in the past with no clear obstructive CAD. CBC with no leukocytosis, anemia, thrombocytopenia. INR within normal limits. CMP grossly reassuring. Mild AST and ALT elevation, though she has had similar in the past. Troponin within normal limits and trended and remains reassuring. CK within normal limits. Lipase reassuring. UA with bacteria but no clear symptoms of infection, no white blood cells. Radiology review of imaging below, which I agree with on my independent review: CXR: FINDINGS: Surgical changes and devices: None. Lungs and pleura: Resolution previous mild interstitial pulmonary edema. No pleural effusions or pneumothorax. Mediastinum: Mediastinal contours appear normal. Moderate to severe cardiomegaly, slightly diminished from the previous study. Bones and chest wall: No suspicious bony lesions. Overlying soft tissues appear unremarkable. IMPRESSION: Slight interval improvement. There is moderate to severe cardiomegaly, slightly diminished. Previous interstitial pulmonary edema is not present. Dictated by: Sundar Martin M.D. on 04/21/2023 at 12:54 Repeat EKG: Repeat EKG is grossly unchanged from prior, normal sinus rhythm with consistent conduction delay, no clear acute ischemia, interval prolongation in this setting. Repeat troponin reassuring. Patient had complete resolution of symptoms with GI cocktail. This remains highly suggestive of GI cause such as gastritis, peptic ulcer disease, esophagitis or similar. I do feel strongly she needs endoscopy, however she appears stable and appropriate for outpatient follow up for this. She has no evidence of upper GI bleed here currently. Lack of anemia or elevated BUN to suggest digestion of blood also argues against upper GI bleed. I discussed with patient, and she is very comfortable with additional referral to GI, outpatient pantoprazole prescription and strict return precautions. I offered to speak with family, however she declines this. She is tolerating p.o., well-perfused, currently with benign abdomen and no symptoms. In this setting, she appears stable for discharge. Gen Surg (Dr. Massey, who by report here performs endoscopy) referral sent. Pantoprazole prescribed. Zofran prescribed. Bentyl prescribed. Repeat exam and vital signs reassuring. Note patient not tachypneic on multiple assessments; recorded elevated RR is an error. Questions answered. Plan reviewed. Patient discharged in stable condition. Orders Ordered: ED Orders 04/21/23 12:06 XR chest 1V Stat 04/21/23 12:12 EKG-12 Lead Stat 04/21/23 12:41 Complete Blood Count AUTO DIFF Stat Comprehensive Metabolic Panel Stat Lipase Stat Magnesium Stat PTT Partial Thromboplastin Jaret Stat Prothrombin Time INR Stat Troponin & CK Cardiac Panel Stat Type and Screen Stat Urine Microscopic Stat 04/21/23 16:00 EKG-12 Lead Stat 04/21/23 16:03 Troponin I Stat Discontinued Medications Aspirin (Aspirin 81 Mg Chew Tab) 324 mg PO NOW ONE Stop: 04/21/23 12:07 Last Admin: 04/21/23 12:30 Dose: Not Given Documented By: CHIQUI Al Hydrox/Mg Hydrox/Simethicone 20 ml/ Lidocaine HCl 15 ml 0 ml PO NOW ONE Stop: 04/21/23 15:18 Last Admin: 04/21/23 15:48 Dose: 35 ml Documented By: ANDER Ondansetron HCl (Ondansetron 4 Mg/2 Ml Inj) 4 mg IV NOW PRN PRN Reason: Nausea And Vomiting Last Admin: 04/21/23 13:07 Dose: 4 mg Documented By: CHIQUI Ondansetron HCl (Ondansetron 4 Mg/2 Ml Inj) 4 mg IV Q2HR PRN PRN Reason: Nausea And Vomiting Pantoprazole Sodium (Pantoprazole 40 Mg Vial) 80 mg IV NOW ONE Stop: 04/21/23 12:45 Last Admin: 04/21/23 13:07 Dose: 80 mg Documented By: CHIQUI Pantoprazole Sodium (Pantoprazole 40 Mg Vial) 40 mg IV NOW ONE Stop: 04/21/23 15:18 Last Admin: 04/21/23 15:40 Dose: Not Given Documented By: ANDRE Vital Signs Vital signs: Vital Signs - 8 hr 04/21/23 13:35 04/21/23 13:36 04/21/23 13:36 Pulse Rate 82 83 Respiratory Rate Blood Pressure 99/51 L Pulse Oximetry 93 94 04/21/23 14:00 04/21/23 14:00 04/21/23 14:30 Pulse Rate 80 Respiratory Rate 20 Blood Pressure 97/55 L 100/56 L Pulse Oximetry 94 04/21/23 14:30 04/21/23 15:00 04/21/23 15:00 Pulse Rate 80 78 Respiratory Rate 18 19 Blood Pressure 99/57 L Pulse Oximetry 96 93 04/21/23 15:30 04/21/23 15:30 04/21/23 16:00 Pulse Rate 83 84 Respiratory Rate 17 21 Blood Pressure 105/57 L Pulse Oximetry 94 04/21/23 16:30 04/21/23 17:00 04/21/23 17:30 Pulse Rate 83 92 H 83 Respiratory Rate 20 31 H 29 H Blood Pressure Pulse Oximetry 93 92 93 04/21/23 17:46 04/21/23 17:47 Pulse Rate 85 Respiratory Rate 20 Blood Pressure 107/73 Pulse Oximetry 92 MDM - Chest Pain Lab Data 04/21/23 12:41 04/21/23 12:41 Labs: Lab Results 04/21/23 04/21/23 Range/Units 12:41 16:03 WBC 5.8 (4.5-11.0) X10^3/uL RBC 4.71 (4.0-5.2) X10^6/uL Hgb 15.0 (12.0-16.0) g/dL Hct 44.5 (36-46) % MCV 94.5 (80-100) fL MCH 31.8 (26-34) PG MCHC 33.7 (30-36) % RDW 13.4 (11.6-14.8) % Plt Count 235 (150-400) X10^3/uL Neut % (Auto) 72.5 (50-75) % Lymph % (Auto) 20.3 L (25-40) % Gladwin % (Auto) 6.3 (3-14) % Eos % (Auto) 0.4 L (2-4) % Baso % (Auto) 0.5 (0-2) % Neut # (Auto) 4200 (6107-5664) /uL Lymph # (Auto) 1200 (8420-1943) /uL Gladwin # (Auto) 400 (0-900) /uL Eos # (Auto) 0 (0-450) /uL Baso # (Auto) 0 (0-100) /uL PT 11.6 (9.4-12.5) SECONDS INR 1.0 (0.9-1.3) APTT 31 (25.1-36.5) SECONDS Sodium 139 (137-145) mmol/L Potassium 4.4 (3.4-5.1) mmol/L Chloride 103 (98-107) mmol/L Carbon Dioxide 31 (22-32) mmol/L BUN 18 H (7-17) mg/dL Creatinine 0.76 (0.52-1.04) mg/dL Estimated GFR > 60 (>60) mL/min BUN/Creatinine Ratio 23.7 H (6-22) Glucose 103 (80-110) mg/dL Calcium 9.7 (8.4-10.2) mg/dL Magnesium 1.9 (1.6-2.3) mg/dL Total Bilirubin 0.8 (0.2-1.3) mg/dL AST 53 H (14-36) IU/L ALT 39 H (<35) IU/L Alkaline Phosphatase 74 (38-126) U/L Total Creatine Kinase 44 (30-135) U/L Troponin I 0.021 0.023 (0.01-0.034) ng/mL Total Protein 8.0 (6.3-8.2) g/dL Albumin 4.6 (3.5-5.0) g/dL Globulin 3.4 (1.7-4.1) g/dL Albumin/Globulin Ratio 1.4 (1.0-2.8) Lipase 119 (23-300) U/L Urine RBC None seen (0-5/HPF) Urine WBC None seen (0-5/HPF) Ur Squamous Epith Cells 0-1 /hpf (0-5/HPF) Urine Bacteria Moderate (10-30) H (None) Ur Culture Indicated? Cult not indicated Vol Urine Centrifuged 10ml (spun) Blood Type O Positive Antibody Screen Negative Urine Dip Bedside Urine Glucose Negative Bedside Urine Bilirubin - Negative Bedside Urine Ketone - Negative Urine Specific Colbert 1.025 Bedside Urine Occult Blood +/- Bedside Urine pH 5.5 Bedside Urine Protein - Negative Bedside Urine Urobilinogen - Negative Bedside Urine Nitrite - Negative Bedside Urine Leukocytes - Negative Esterase Discharge Plan Departure Patient Disposition: Home Clinical Impression: Acute epigastric pain Instructions: DI for Epigastric Pain Activity Restrictions/Additional Instructions: It was a pleasure taking care of you today. It is important to fully read and understand the below. Please ask us if you have any questions. We think the most likely cause of your pain is related to your stomach or esophagus, such as an ulcer, esophagitis or similar. You felt much better here with treatment. I am referring you to our general surgeon, who can perform endoscopies. I am prescribing you pantoprazole and Zofran and Bentyl. No tests or assessments are perfect, and your condition could liner roll changer time. If your symptoms change or worsen, it is very important you immediately seek medical care. If you have any new or worsening pain, black in your stool, lightheadedness or passing out, shortness of breath, fever, vomiting, confusion, numbness, weakness, or anything else that concerns you, please immediately seek medical care. If you have been prescribed any medications: please read the drug package inserts on how to properly use the medication and any potential side effects. If you had labs (blood tests) or imaging (CT scan or x-rays) done during your visit: please follow up on the results of these with your primary care doctor, as discussed. In addition, please know the results we received today may be preliminary. Our usual practice is to follow up on tests within a few days of a patient's discharge from the Emergency Department and notify you of any changes. These may lead to changes to your treatment plan. However, the best way to obtain and interpret these test results is through your Primary Care Provider. If you need to update your contact information, please stop by the senior front end engineer and alert the Registration personnel before you leave the Emergency Department. Thank you for the opportunity to participate in your healthcare. We are always here and happy to see you in the future. --- PLEASE TAKE THE ATTACHED IMAGING TO YOUR DOCTORS: CXR: FINDINGS: Surgical changes and devices: None. Lungs and pleura: Resolution previous mild interstitial pulmonary edema. No pleural effusions or pneumothorax. Mediastinum: Mediastinal contours appear normal. Moderate to severe cardiomegaly, slightly diminished from the previous study. Bones and chest wall: No suspicious bony lesions. Overlying soft tissues appear unremarkable. IMPRESSION: Slight interval improvement. There is moderate to severe cardiomegaly, slightly diminished. Previous interstitial pulmonary edema is not present. Dictated by: Sundar Martin M.D. on 04/21/2023 at 12:54 Prescriptions: New pantoprazole 40 mg tablet,delayed release (DR/EC) 40 mg PO DAILY Qty: 14 0RF ondansetron 4 mg tablet,disintegrating 4 mg PO Q8H PRN (Reason: nausea and vomiting) Qty: 10 0RF dicyclomine 10 mg capsule 10 mg PO TID PRN (Reason: abdominal pain) Qty: 14 0RF No Action fluticasone propionate [Flonase Allergy Relief] 50 mcg/actuation spray,suspension 1 spray intranasal Q12H Qty: 16 0RF Rx Instructions: administer into each nostril multivitamin [Multiple Vitamins] 1 EACH tablet 1 tab PO QDAY Qty: 0 spironolactone 25 mg tablet 12.5 mg PO DAILY fluticasone propion-salmeterol [Advair HFA] 115-21 mcg/actuation HFA aerosol inhaler 2 puff inhalation BID Qty: 12 11RF ibuprofen 800 mg tablet 800 mg PO Q8H PRN (Reason: pain) Qty: 90 3RF Rx Instructions: with food albuterol sulfate [Ventolin HFA] 90 mcg/actuation HFA aerosol inhaler 1 - 2 puff INHALATION Q4-6H PRN (Reason: asthma) Qty: 8 11RF Rx Instructions: administer with spacer as needed for wheezing tramadol 50 mg tablet 50 mg PO TID PRN (Reason: pain) Qty: 30 0RF methocarbamol 500 mg tablet 500 mg PO TID Qty: 30 0RF furosemide [Lasix] 20 mg tablet 20 mg PO DAILY Qty: 30 0RF metoprolol succinate 25 mg Tablet Extended Release 24 Hr 12.5 mg PO BID Qty: 30 0RF lidocaine 5 % adhesive patch,medicated 1 patch topical DAILY Qty: 15 0RF Rx Instructions: leave on most painful area for up to 12 hrs lidocaine [Lidoderm] 5 % adhesive patch,medicated 1 patch topical DAILY Qty: 15 0RF Rx Instructions: leave on most painful area for up to 12 hrs Referrals: Tasha Chamberlain DO [Primary Care Provider] - Stand Alone Forms: Patient Portal/API
[2023-04-21] MEDS: MAG HYDROX/ALUMINUM/SIMETH SUS 20 ML, LIDOCAINE VISCOUS 2% 15 ML PO (15:48)
[2023-04-21 16:47] LABS: Troponin I 0.023 ng/mL (0.01-0.034)
== END 2023-04-21 18:12 | disposition home or self-care (01) ==
PROVIDERS: Emergency Provider Emergency Medicine; PCP Family Medicine
DX: R10.13 Epigastric pain (principal); Z79.899 Other long term (current) drug therapy
CPT/HCPCS: 36415; 71045; 80053; 81003; 81015; 82550; 83690; 83735; 84484; 85025; 85610; 85730; 86850; 86900; 86901; 93005; 93010; 96374; 96375; 99284; C9113; J2405

== ENCOUNTER 2023-06-01 12:12 | Emergency (ER) | payer OTHER, SELFPAY ==
[2023-02-28 12:08] VITALS: BMI 18.9
[2023-06-01 12:24] VITALS: BP 107/54; PULSE 89; RESP 20; TEMP 36.4; O2SAT 99; BMI 17.8
--- NOTE | 2023-06-01 12:30 | DI.RAD.S_ITS ---
PROCEDURE: XR CHEST 1V INDICATIONS: Shortness of breath TECHNIQUE: One view of the chest was acquired. COMPARISON: [facility], CR, XR CHEST 1V, 04/21/2023, 12:18. FINDINGS: Surgical changes and devices: None. Lungs and pleura: Hyperinflated, hyperlucent lungs. No dense consolidation, effusion, or pneumothorax. Mediastinum: Moderate, stable cardiomegaly. Stable aortic contour. No significant central vascular congestion. Bones and chest wall: No suspicious bony lesions. Overlying soft tissues appear unremarkable. IMPRESSION: No acute cardiopulmonary abnormality is seen. Hyperinflated lungs suggesting emphysema. Stable cardiomegaly. Dictated by: Dana Villarreal M.D. on 06/01/2023 at 14:01 Approved by: Dana Villarreal M.D. on 06/01/2023 at 14:01
[2023-06-01 12:53] LABS: Add Manual Diff / Slide Review NO; Basophils Absolute Auto 0 /uL (0-100); Basophils Percent Auto 0.6 % (0-2); Eosinophils Absolute Auto 100 /uL (0-450); Eosinophils Percent Auto 0.9 % (2-4); Hematocrit 45.1 % (36-46); Lymphocytes Absolute Auto 1800 /uL (1100-4500); Lymphocytes Percent Auto 24.3 % (25-40); Mean Corpuscular HGB Conc 33.3 % (30-36); Mean Corpuscular Hemoglobin 31.7 PG (26-34); Mean Corpuscular Volume 95.2 fL (80-100); Monocytes Absolute Auto 500 /uL (0-900); Monocytes Percent Auto 6.4 % (3-14); Neutrophils Absolute Auto 4900 /uL (1500-7000); Neutrophils Percent Auto 67.8 % (50-75); Platelet Count 240 X10^3/uL (150-400); Red Blood Cell Count 4.73 X10^6/uL (4.0-5.2); White Blood Cell Count 7.3 X10^3/uL (4.5-11.0)
[2023-06-01 12:59] LABS: INR 0.9 (0.9-1.3); Prothrombin Time 10.4 SECONDS (9.4-12.5)
[2023-06-01 13:04] LABS: Alanine Aminotransferase 39 IU/L (<35); Albumin Globulin Ratio 1.5 (1.0-2.8); Alkaline Phosphatase 77 U/L (38-126); Aspartate Aminotransferase 55 IU/L (14-36); BUN Creatinine Ratio 32.9 (6-22); Bilirubin Total 0.6 mg/dL (0.2-1.3); Blood Urea Nitrogen 23 mg/dL (7-17); Calcium 9.7 mg/dL (8.4-10.2); Carbon Dioxide 32 mmol/L (22-32); Chloride 101 mmol/L (98-107); Estimated Glomerular Filt Rate > 60 mL/min (>60); Globulin 3.4 g/dL (1.7-4.1); Glucose 86 mg/dL (80-110); HEMOLYSIS 21 (0-50); Potassium 4.2 mmol/L (3.4-5.1); Sodium 139 mmol/L (137-145); Total Protein 8.4 g/dL (6.3-8.2)
[2023-06-01 13:16] LABS: NT-proBNP (BNP-Adult 18+) 6010 pg/mL (<125); Troponin I 0.026 ng/mL (0.01-0.034)
[2023-06-01 14:33] VITALS: BP 106/59; PULSE 81; RESP 18; O2SAT 98
[2023-06-01 15:00] VITALS: BP 95/60; PULSE 79; RESP 16; O2SAT 95
[2023-06-01 15:07] LABS: Troponin I 0.026 ng/mL (0.01-0.034)
[2023-06-01 15:30] VITALS: BP 104/62; PULSE 80; RESP 19; O2SAT 94
[2023-06-01 16:00] VITALS: BP 96/62; PULSE 75; RESP 18; O2SAT 93
--- NOTE | 2023-06-01 16:27 | ED.SOB ---
HPI - SOB/Dyspnea General Chief Complaint: Shortness of Breath/Dyspnea Stated Complaint: SOB Time Seen by Provider: 06/01/23 13:33 Source: patient Mode of arrival: Ambulatory Limitations: no limitations History of Present Illness HPI Narrative: 68-year-old female with history of CHF, COPD, anxiety, ADHD, dyslipidemia, hypothyroidism who comes with complaint of increased shortness of breath particularly this morning. Patient states she is always short of breath when she 1st wakes up in the morning she will take her furosemide and after she urinates to 1 or 2 times her breathing improves. She states that did not happen today. She denies any chest pain or pressure no lightheadedness no other GI or urinary symptoms. Patient states she is some chronic mild swelling in her legs but is better than typical. She states she has not had any new medication changes. She is still on her regular medications including Lasix and spironolactone. She does continues tobacco daily, no alcohol, no recreational drugs. Related Data Home Medications Medication Instructions Recorded Confirmed multivitamin (Multiple Vitamins 1 tab PO QDAY ##0 01/01/16 04/15/23 tablet) spironolactone 25 mg tablet 12.5 mg PO DAILY 03/18/23 04/15/23 Previous Rx's Medication Instructions Recorded fluticasone propionate 50 1 spray intranasal Q12H #16 grams 01/09/23 mcg/actuation nasal spray,suspension (Flonase Allergy Relief) furosemide 20 mg tablet (Lasix) 20 mg PO DAILY #30 tabs 01/16/23 lidocaine 5 % topical patch 1 patch topical DAILY #15 ea 02/19/23 (Lidoderm) metoprolol succinate 25 mg 12.5 mg (1/2 x 25 mg) PO BID #30 03/01/23 tablet,extended release 24 hr tabs albuterol sulfate 90 mcg/actuation 1 - 2 puff inhalation Q4-6H PRN 03/03/23 aerosol inhaler (Ventolin HFA) asthma #8 grams lidocaine 5 % topical patch 1 patch topical DAILY #15 ea 03/28/23 methocarbamol 500 mg tablet 500 mg PO TID #30 tabs 04/01/23 tramadol 50 mg tablet 50 mg PO TID PRN pain #30 tabs 04/01/23 fluticasone propionate 115 2 puff inhalation BID #12 grams 04/15/23 mcg-salmeterol 21 mcg/actuation HFA inhaler (Advair HFA) ibuprofen 800 mg tablet 800 mg PO Q8H PRN pain #90 tabs 04/15/23 dicyclomine 10 mg capsule 10 mg PO TID PRN abdominal pain 04/21/23 #14 caps ondansetron 4 mg disintegrating 4 mg PO Q8H PRN nausea and 04/21/23 tablet vomiting #10 tabs pantoprazole 40 mg tablet,delayed 40 mg PO DAILY #14 tabs 04/21/23 release Symbicort 160 mcg-4.5 1 inh inhalation BID #10.2 grams 05/04/23 mcg/actuation HFA aerosol inhaler (budesonide-formoterol) Allergies Allergy/AdvReac Type Severity Reaction Status Date / Time Sulfa (Sulfonamide Allergy Severe SOB/DYSPNEA Verified 06/01/23 12:29 Antibiotics) alprazolam AdvReac Severe MANIC Verified 06/01/23 12:29 SYMPTOMS codeine AdvReac Severe NAUSEA/VOMI Verified 04/15/23 15:27 TING Review of Systems Review of Systems ROS Unobtainable: All systems reviewed & are unremarkable except as noted in HPI and below Patient History Medical History CHF (congestive heart failure) Claudication of both lower extremities Tobacco dependence Juvenile rheumatoid arthritis Current every day smoker LBBB (left bundle branch block) Cardiomyopathy Hip pain Shoulder pain (~06/2012) GERD (gastroesophageal reflux disease) Hyperthyroidism Depression Migraines Osteoarthritis Skin cancer (09/2016) Surgical History History of surgery (~2009) Hx of cardiac cath (04/06/19) History of tonsillectomy (1959) Status post appendectomy (1988) History of hip replacement (2004) Family History Mother Heart disease Personal history of stroke with residual effects Father No problems noted. Social History household members: none Smoking Status: Current every day smoker Tobacco: How many years used: 50 second hand exposure: Yes alcohol intake: never substance use type: marijuana Smoking Status: Current every day smoker tobacco type: cigarettes alcohol intake frequency: holidays/special occasions only Substance Use Type: marijuana Exam Narrative Exam Narrative: GENERAL: Alert and oriented x three, female in mild distress HEENT: Head normocephalic, atraumatic, EOMI, pupils reactive, face symmetric, moist mucous membranes NECK: Supple, full range of motion CARDIOVASCULAR: Regular rate and rhythm without murmurs, rubs or gallops. Edema bilateral lower extremities. Patient has some mild pursed lip breathing, no tachypnea or accessory muscle use. RESPIRATORY: Breath sounds equal bilaterally, no wheezes, patient has some crackles in the base, no rhonchi. ABDOMEN: Soft, nontender. Normoactive bowel sounds all 4 quadrants. No guarding or rebound, rigidity, no mass : No CVA tenderness EXTREMITIES: Normal range of motion, no clubbing or edema. Neurovascularly intact NEUROLOGICAL: Cranial nerves II through XII grossly intact. Moving all extremities SKIN: Warm, dry, no petechiae, no rashes or lesions. Initial Vital Signs Initial Vital Signs: Vital Signs Temperature 97.5 F L 06/01/23 12:24 Pulse Rate 89 06/01/23 12:24 Respiratory Rate 20 06/01/23 12:24 Blood Pressure 107/54 L 06/01/23 12:24 Pulse Oximetry 99 06/01/23 12:24 Oxygen Delivery Method Room Air 06/01/23 12:24 Course Orders Ordered: ED Orders 06/01/23 12:30 XR chest 1V Stat EKG-12 Lead Stat Measure peak expiratory flow ONCE RT Consult Eval and Treat NOW 06/01/23 12:39 Complete Blood Count AUTO DIFF Stat Comprehensive Metabolic Panel Stat Lactate (Lactic Acid) Stat NT-proBNP (BNP-Adult 18+) Stat Prothrombin Time INR Stat Troponin I Stat 06/01/23 14:31 Trop I [Troponin I] Stat 06/01/23 14:38 EKG-12 Lead Routine Vital Signs Vital signs: Vital Signs - 8 hr 06/01/23 12:24 06/01/23 14:33 06/01/23 14:33 Temperature 97.5 F L Pulse Rate 89 81 Respiratory Rate 20 18 Blood Pressure 107/54 L 106/59 L Pulse Oximetry 99 98 Oxygen Delivery Method Room Air 06/01/23 15:00 06/01/23 15:00 06/01/23 15:30 Temperature Pulse Rate 79 Respiratory Rate 16 Blood Pressure 95/60 104/62 Pulse Oximetry 95 Oxygen Delivery Method Room Air 06/01/23 15:30 06/01/23 16:00 06/01/23 16:00 Temperature Pulse Rate 80 75 Respiratory Rate 19 18 Blood Pressure 96/62 Pulse Oximetry 94 93 Oxygen Delivery Method MDM - SOB/Dyspnea Lab Data 06/01/23 12:39 06/01/23 12:39 Labs: Lab Results 06/01/23 06/01/23 Range/Units 12:39 14:31 WBC 7.3 (4.5-11.0) X10^3/uL RBC 4.73 (4.0-5.2) X10^6/uL Hgb 15.0 (12.0-16.0) g/dL Hct 45.1 (36-46) % MCV 95.2 (80-100) fL MCH 31.7 (26-34) PG MCHC 33.3 (30-36) % RDW 14.0 (11.6-14.8) % Plt Count 240 (150-400) X10^3/uL Neut % (Auto) 67.8 (50-75) % Lymph % (Auto) 24.3 L (25-40) % Converse % (Auto) 6.4 (3-14) % Eos % (Auto) 0.9 L (2-4) % Baso % (Auto) 0.6 (0-2) % Neut # (Auto) 4900 (6235-2579) /uL Lymph # (Auto) 1800 (1521-1363) /uL Converse # (Auto) 500 (0-900) /uL Eos # (Auto) 100 (0-450) /uL Baso # (Auto) 0 (0-100) /uL PT 10.4 (9.4-12.5) SECONDS INR 0.9 (0.9-1.3) Sodium 139 (137-145) mmol/L Potassium 4.2 (3.4-5.1) mmol/L Chloride 101 (98-107) mmol/L Carbon Dioxide 32 (22-32) mmol/L BUN 23 H (7-17) mg/dL Creatinine 0.70 (0.52-1.04) mg/dL Estimated GFR > 60 (>60) mL/min BUN/Creatinine Ratio 32.9 H (6-22) Glucose 86 (80-110) mg/dL Lactate 1.0 (0.7-2.1) mmol/L Calcium 9.7 (8.4-10.2) mg/dL Total Bilirubin 0.6 (0.2-1.3) mg/dL AST 55 H (14-36) IU/L ALT 39 H (<35) IU/L Alkaline Phosphatase 77 (38-126) U/L Troponin I 0.026 0.026 (0.01-0.034) ng/mL NT-Pro-B Natriuret Pep 6010 H (<125) pg/mL Total Protein 8.4 H (6.3-8.2) g/dL Albumin 5.0 (3.5-5.0) g/dL Globulin 3.4 (1.7-4.1) g/dL Albumin/Globulin Ratio 1.5 (1.0-2.8) Urine Dip Bedside Urine Glucose Negative Bedside Urine Bilirubin - Negative Bedside Urine Ketone - Negative Urine Specific Webber 1.020 Bedside Urine Occult Blood - Negative Bedside Urine pH 6.0 Bedside Urine Protein - Negative Bedside Urine Urobilinogen - Negative Bedside Urine Nitrite - Negative Bedside Urine Leukocytes - Negative Esterase Imaging Data Chest x-ray: Radiologist's Impression: Close Chest X-Ray (Signed) Dana Villarreal - 06/01/23 Chest X-Ray (Signed) Sundar Martin - 04/21/23 Thoracic Spine X-Ray (Signed) Albertina Dunn - 04/01/23 Lumbar Spine X-Ray (Signed) Jhoan Breaux - 04/01/23 Telemetry Strips 02/28/23 Echocardiogram Ultrasound (Signed) Sonia Prakash - 02/28/23 Chest X-Ray (Signed) Jhoan Breaux - 02/28/23 Chest CTA (Signed) Ramos Romano - 01/16/23 Chest X-Ray (Signed) Jhoan Breaux - 01/16/23 Chest X-Ray (Signed) Nya Rodriguez - 06/19/22 Sacrum and Coccyx X-Ray (Signed) Hamilton Franco - 02/09/22 Lumbar Spine X-Ray (Signed) Hamilton Franco - 02/09/22 Shoulder X-Ray (Signed) Dana Villarreal - 11/06/21 Thoracic Spine X-Ray (Signed) FosterShahid wnig - 04/15/21 Ribs w/Chest X-Ray (Signed) Jayant Medel - 04/15/21 Abdomen Ultrasound (Signed) Jhoan Breaux - 09/05/20 Chest X-Ray (Signed) Nilesh Martin - 02/24/20 Abdomen/Pelvis CT (Signed) Nilesh Martin - 02/24/[address] (Signed) Sundar Martin - 12/04/19 Chest X-Ray (Signed) Sundar Martin - 12/04/19 Hip X-Ray (Signed) Ramos Romano - 07/21/19 Hip X-Ray (Signed) Ramos Romano - 07/21/19 Echocardiogram Ultrasound (Signed) Sonia Prakash - 07/13/19 Lumbar Spine X-Ray (Signed) Ariel Stiles - 06/04/19 Launch?[place] [address] XRay Report Signed Patient: Katlyn Pichardo MR#: [id number] : 1955 Acct:[id number] Age/Sex: 68 / F Date of Service: 06/01/23 Loc: ED Accession Number: [id number] Procedure: XR chest 1V Ordering Provider: Brielle Ferreira D.O. PROCEDURE: XR CHEST 1V INDICATIONS: Shortness of breath TECHNIQUE: One view of the chest was acquired. COMPARISON: Merged With [facility], , XR CHEST 1V, 04/21/2023, 12:18. FINDINGS: Surgical changes and devices: None. Lungs and pleura: Hyperinflated, hyperlucent lungs. No dense consolidation, effusion, or pneumothorax. Mediastinum: Moderate, stable cardiomegaly. Stable aortic contour. No significant central vascular congestion. Bones and chest wall: No suspicious bony lesions. Overlying soft tissues appear unremarkable. IMPRESSION: No acute cardiopulmonary abnormality is seen. Hyperinflated lungs suggesting emphysema. Stable cardiomegaly. Dictated by: Dana Villarreal M.D. on 06/01/2023 at 14:01 Approved by: Dana Villarreal M.D. on 06/01/2023 at 14:01 ECG Data Attestation: I personally reviewed and interpreted this ECG as follows: Interpretation: Sinus rhythm, left axis deviation, left ventricle hypertrophy, patient has prior from 04/21/[address] changes. Sgarbossa? Repeat EKG shows sinus rhythm left axis deviation LVH with repolarization no acute or dynamic changes appreciated from 1st to 2nd EKG. MDM Narrative Medical decision making narrative: 68-year-old with known CHF, COPD who presents with increased shortness of breath. Patient has some crackles but no wheezing on examination personal breathing but no significant tachypnea. Patient has not been hypoxic. CBC shows no acute change, INR 0.9 electrolytes are appropriate, BUN 23 creatinine 0.70, lactate 1, LFTs show AST of 55 ALT of 39 but total bilirubin 0.6, troponin is 0.026 repeat troponin is 0.026. BNP is 6000 is improved from prior which was up to 12,000 in January 2023 and in the 9000 range in February of this year. Chest x-ray shows cardiomegaly but no acute interstitial changes, hyperinflated lungs suggesting emphysema. EKG shows like staff deviation, LVH, EKGs do not show any significant dynamic changes. Discussed with patient she very politely had removed her IV and is requesting to leave. Reviewed her labs and findings her examination she does not appear to be any significant distress but discussed increasing her Lasix for the next several days. Patient to take an extra dose of her oral Lasix at home this afternoon and then we will take 2 tablets in the morning for the next 3 days. She states she is plenty at home recommended to follow up with return precautions. Patient very comfortably ambulated out of the department. Discharge Plan Departure Patient Disposition: Home Clinical Impression: CHF (congestive heart failure) Activity Restrictions/Additional Instructions: Your labs show an elevation in her BNP is improved from priors but is still quite elevated. Take 1 extra tablet this afternoon of your furosemide, then take 2 tablets of furosemide in the morning for 3 days and then returned here normal 1 tablet in the morning. Please return for fevers, new or worsening symptoms, increasing chest pain, shortness of breath, lightheadedness or passing out, new swelling in her extremities or other new or concerning changes. Prescriptions: No Action fluticasone propionate [Flonase Allergy Relief] 50 mcg/actuation spray,suspension 1 spray intranasal Q12H Qty: 16 0RF Rx Instructions: administer into each nostril multivitamin [Multiple Vitamins] 1 EACH tablet 1 tab PO QDAY Qty: 0 budesonide-formoterol [Symbicort] 160-4.5 mcg/actuation HFA aerosol inhaler 1 inh inhalation BID Qty: 10.2 11RF spironolactone 25 mg tablet 12.5 mg PO DAILY fluticasone propion-salmeterol [Advair HFA] 115-21 mcg/actuation HFA aerosol inhaler 2 puff inhalation BID Qty: 12 11RF ibuprofen 800 mg tablet 800 mg PO Q8H PRN (Reason: pain) Qty: 90 3RF Rx Instructions: with food albuterol sulfate [Ventolin HFA] 90 mcg/actuation HFA aerosol inhaler 1 - 2 puff INHALATION Q4-6H PRN (Reason: asthma) Qty: 8 11RF Rx Instructions: administer with spacer as needed for wheezing tramadol 50 mg tablet 50 mg PO TID PRN (Reason: pain) Qty: 30 0RF methocarbamol 500 mg tablet 500 mg PO TID Qty: 30 0RF furosemide [Lasix] 20 mg tablet 20 mg PO DAILY Qty: 30 0RF metoprolol succinate 25 mg Tablet Extended Release 24 Hr 12.5 mg PO BID Qty: 30 0RF lidocaine 5 % adhesive patch,medicated 1 patch topical DAILY Qty: 15 0RF Rx Instructions: leave on most painful area for up to 12 hrs pantoprazole 40 mg tablet,delayed release (DR/EC) 40 mg PO DAILY Qty: 14 0RF ondansetron 4 mg tablet,disintegrating 4 mg PO Q8H PRN (Reason: nausea and vomiting) Qty: 10 0RF dicyclomine 10 mg capsule 10 mg PO TID PRN (Reason: abdominal pain) Qty: 14 0RF lidocaine [Lidoderm] 5 % adhesive patch,medicated 1 patch topical DAILY Qty: 15 0RF Rx Instructions: leave on most painful area for up to 12 hrs Referrals: Tasha Chamberlain DO [Primary Care Provider] - Stand Alone Forms: Patient Portal/API
== END 2023-06-01 16:41 | disposition home or self-care (01) ==
PROVIDERS: Emergency Provider Emergency Medicine; PCP Family Medicine
DX: I50.9 Heart failure, unspecified (principal); R06.02 Shortness of breath
CPT/HCPCS: 36415; 71045; 80053; 81003; 83605; 83880; 84484; 85025; 85610; 93005; 99283; 99284

== ENCOUNTER 2023-06-21 16:22 | Emergency (ER) | payer OTHER, SELFPAY ==
[2023-02-28 12:08] VITALS: BMI 18.9
[2023-06-21 16:36] VITALS: BP 118/76; PULSE 97; RESP 24; TEMP 36.6; O2SAT 97; BMI 18.8
--- NOTE | 2023-06-21 16:39 | ED.SOB ---
HPI - SOB/Dyspnea <Roseanna Hayes, DO - Last Filed: 06/26/23 11:23> General Chief Complaint: Shortness of Breath/Dyspnea Stated Complaint: sob Time Seen by Provider: 06/21/23 16:36 History of Present Illness HPI Narrative: Patient is a 68-year-old female history of congestive heart failure, COPD, ADHD dyslipidemia presenting today with increasing shortness of breath. She reports that over the last 5 days or so she is gained 5 lb her normal weight is 104 today she is 1'9. She does take Lasix daily. Denies any fever chills or chest pain, she denies any sort of leg swelling sore throat or other symptoms. She says that she did take her albuterol at home but was not sure that she was helping. She does have shortness of breath with exertion she denies any sort of orthopnea. Related Data Home Medications Medication Instructions Recorded Confirmed multivitamin (Multiple Vitamins 1 tab PO QDAY ##0 01/01/16 04/15/23 tablet) spironolactone 25 mg tablet 12.5 mg PO DAILY 03/18/23 04/15/23 Previous Rx's Medication Instructions Recorded fluticasone propionate 50 1 spray intranasal Q12H #16 grams 01/09/23 mcg/actuation nasal spray,suspension (Flonase Allergy Relief) furosemide 20 mg tablet (Lasix) 20 mg PO DAILY #30 tabs 01/16/23 lidocaine 5 % topical patch 1 patch topical DAILY #15 ea 02/19/23 (Lidoderm) metoprolol succinate 25 mg 12.5 mg (1/2 x 25 mg) PO BID #30 03/01/23 tablet,extended release 24 hr tabs albuterol sulfate 90 mcg/actuation 1 - 2 puff inhalation Q4-6H PRN 03/03/23 aerosol inhaler (Ventolin HFA) asthma #8 grams lidocaine 5 % topical patch 1 patch topical DAILY #15 ea 03/28/23 methocarbamol 500 mg tablet 500 mg PO TID #30 tabs 04/01/23 tramadol 50 mg tablet 50 mg PO TID PRN pain #30 tabs 04/01/23 fluticasone propionate 115 2 puff inhalation BID #12 grams 04/15/23 mcg-salmeterol 21 mcg/actuation HFA inhaler (Advair HFA) ibuprofen 800 mg tablet 800 mg PO Q8H PRN pain #90 tabs 04/15/23 dicyclomine 10 mg capsule 10 mg PO TID PRN abdominal pain 04/21/23 #14 caps ondansetron 4 mg disintegrating 4 mg PO Q8H PRN nausea and 04/21/23 tablet vomiting #10 tabs pantoprazole 40 mg tablet,delayed 40 mg PO DAILY #14 tabs 04/21/23 release Symbicort 160 mcg-4.5 1 inh inhalation BID #10.2 grams 05/04/23 mcg/actuation HFA aerosol inhaler (budesonide-formoterol) Allergies Allergy/AdvReac Type Severity Reaction Status Date / Time Sulfa (Sulfonamide Allergy Severe SOB/DYSPNEA Verified 06/01/23 12:29 Antibiotics) alprazolam AdvReac Severe MANIC Verified 06/01/23 12:29 SYMPTOMS codeine AdvReac Severe NAUSEA/VOMI Verified 04/15/23 15:27 TING Patient History <Roseanna Hayes DO - Last Filed: 06/26/23 11:23> Medical History CHF (congestive heart failure) Claudication of both lower extremities Tobacco dependence Juvenile rheumatoid arthritis Current every day smoker LBBB (left bundle branch block) Cardiomyopathy Hip pain Shoulder pain (~06/2012) GERD (gastroesophageal reflux disease) Hyperthyroidism Depression Migraines Osteoarthritis Skin cancer (09/2016) Surgical History History of surgery (~2009) Hx of cardiac cath (04/06/19) History of tonsillectomy (1959) Status post appendectomy (1988) History of hip replacement (2004) Family History Mother Heart disease Personal history of stroke with residual effects Father No problems noted. Social History household members: none Smoking Status: Current every day smoker Tobacco: How many years used: 50 second hand exposure: Yes alcohol intake: never substance use type: marijuana Smoking Status: Current every day smoker tobacco type: cigarettes alcohol intake frequency: holidays/special occasions only Substance Use Type: marijuana Exam <Roseanna Hayes DO - Last Filed: 06/26/23 11:23> Initial Vital Signs Initial Vital Signs: Vital Signs Temperature 97.8 F 06/21/23 16:36 Pulse Rate 97 H 06/21/23 16:36 Respiratory Rate 24 06/21/23 16:36 Blood Pressure 118/76 06/21/23 16:36 Pulse Oximetry 97 06/21/23 16:36 Oxygen Delivery Method Room Air 06/21/23 16:36 GENERAL: Alert 68-year-old female appears older than stated age HEENT: Head atraumatic,EOMI, pupils reactive, face symmetric, moist mucous membranes CARDIOVASCULAR: Regular rate and rhythm without murmurs, rubs or gallops. RESPIRATORY: Tachypneic with slight rales bilaterally minimal wheezing mild conversational dyspnea ABDOMEN: Soft, nontender. Normoactive bowel sounds all 4 quadrants. No guarding or rebound. EXTREMITIES: Normal range of motion, no clubbing or edema. Neurovascularly intact NEUROLOGICAL: Alert and oriented x4.Normal gait and speech. SKIN: Warm, dry, no laceration, no petechiae, no rashes or lesions. <Joshua Shaw DO - Last Filed: 06/22/23 00:02> Initial Vital Signs Initial Vital Signs: Vital Signs Temperature 97.8 F 06/21/23 16:36 Pulse Rate 97 H 06/21/23 16:36 Respiratory Rate 24 06/21/23 16:36 Blood Pressure 118/76 06/21/23 16:36 Pulse Oximetry 97 06/21/23 16:36 Oxygen Delivery Method Room Air 06/21/23 16:36 Course <Roseanna Hayes DO - Last Filed: 06/26/23 11:23> Orders Ordered: Discontinued Medications Albuterol/Ipratropium (Albuterol/Ipratropium 3 Ml Ampul) 3 ml INH NOW ONE Stop: 06/21/23 17:27 Last Admin: 06/21/23 17:31 Dose: 3 ml Documented By: JACQUELINE Furosemide (Furosemide 40 Mg/4 Ml Vial) 40 mg IV NOW ONE Stop: 06/21/23 17:27 Last Admin: 06/21/23 17:31 Dose: 40 mg Documented By: JACQUELINE Vital Signs Vital signs: Vital Signs - 8 hr 06/21/23 16:36 06/21/23 19:17 06/21/23 19:52 Temperature 97.8 F Pulse Rate 97 H 85 Respiratory Rate 24 18 Blood Pressure 118/76 101/59 L Pulse Oximetry 97 94 96 Oxygen Delivery Method Room Air Room Air Room Air 06/21/23 19:52 06/21/23 20:29 Temperature 98.1 F Pulse Rate 92 H 92 H Respiratory Rate 18 Blood Pressure 111/56 L Pulse Oximetry 93 93 Oxygen Delivery Method Room Air <Joshua Shaw DO - Last Filed: 06/22/23 00:02> Orders Ordered: Discontinued Medications Albuterol/Ipratropium (Albuterol/Ipratropium 3 Ml Ampul) 3 ml INH NOW ONE Stop: 06/21/23 17:27 Last Admin: 06/21/23 17:31 Dose: 3 ml Documented By: JACQUELINE Furosemide (Furosemide 40 Mg/4 Ml Vial) 40 mg IV NOW ONE Stop: 06/21/23 17:27 Last Admin: 06/21/23 17:31 Dose: 40 mg Documented By: JACQUELINE Vital Signs Vital signs: Vital Signs - 8 hr 06/21/23 16:36 06/21/23 19:17 06/21/23 19:52 Temperature 97.8 F Pulse Rate 97 H 85 Respiratory Rate 24 18 Blood Pressure 118/76 101/59 L Pulse Oximetry 97 94 96 Oxygen Delivery Method Room Air Room Air Room Air 06/21/23 19:52 06/21/23 20:29 Temperature 98.1 F Pulse Rate 92 H 92 H Respiratory Rate 18 Blood Pressure 111/56 L Pulse Oximetry 93 93 Oxygen Delivery Method Room Air MDM - SOB/Dyspnea <Roseanna Hayes DO - Last Filed: 06/26/23 11:23> Lab Data 06/21/23 16:41 06/21/23 16:41 Labs: Lab Results 06/21/23 06/21/23 Range/Units 16:41 19:15 WBC 8.8 (4.5-11.0) X10^3/uL RBC 4.65 (4.0-5.2) X10^6/uL Hgb 14.8 (12.0-16.0) g/dL Hct 44.1 (36-46) % MCV 94.8 (80-100) fL MCH 31.8 (26-34) PG MCHC 33.6 (30-36) % RDW 14.5 (11.6-14.8) % Plt Count 252 (150-400) X10^3/uL Neut % (Auto) 60.3 (50-75) % Lymph % (Auto) 28.8 (25-40) % [place] % (Auto) 8.6 (3-14) % Eos % (Auto) 1.5 L (2-4) % Baso % (Auto) 0.8 (0-2) % Neut # (Auto) 5300 (2327-7361) /uL Lymph # (Auto) 2500 (9233-2886) /uL [place] # (Auto) 800 (0-900) /uL Eos # (Auto) 100 (0-450) /uL Baso # (Auto) 100 (0-100) /uL PT 10.6 (9.4-12.5) SECONDS INR 0.9 (0.9-1.3) Sodium 137 (137-145) mmol/L Potassium 4.6 (3.4-5.1) mmol/L Chloride 103 (98-107) mmol/L Carbon Dioxide 29 (22-32) mmol/L BUN 25 H (7-17) mg/dL Creatinine 0.74 (0.52-1.04) mg/dL Estimated GFR > 60 (>60) mL/min BUN/Creatinine Ratio 33.8 H (6-22) Glucose 92 (80-110) mg/dL Lactate 1.4 (0.7-2.1) mmol/L Calcium 9.6 (8.4-10.2) mg/dL Total Bilirubin 0.7 (0.2-1.3) mg/dL AST 68 H (14-36) IU/L ALT 50 H (<35) IU/L Alkaline Phosphatase 75 (38-126) U/L Total Creatine Kinase 45 (30-135) U/L Troponin I 0.044 H 0.047 H (0.01-0.034) ng/mL NT-Pro-B Natriuret Pep 5300 H (<125) pg/mL Total Protein 7.5 (6.3-8.2) g/dL Albumin 4.7 (3.5-5.0) g/dL Globulin 2.8 (1.7-4.1) g/dL Albumin/Globulin Ratio 1.7 (1.0-2.8) Urine Dip Bedside Urine Glucose Negative Bedside Urine Bilirubin - Negative Bedside Urine Ketone - Negative Urine Specific [place] 1.015 Bedside Urine Occult Blood - Negative Bedside Urine pH 6.0 Bedside Urine Protein - Negative Bedside Urine Urobilinogen - Negative Bedside Urine Nitrite - Negative Bedside Urine Leukocytes - Negative Esterase Imaging Data Chest x-ray: Radiologist's Impression: PROCEDURE: XR CHEST 1V INDICATIONS: Shortness of breath TECHNIQUE: One view of the chest was acquired. COMPARISON: [facility], CR, XR CHEST 1V, 06/01/2023, 12:58. FINDINGS: Surgical changes and devices: None. Lungs and pleura: On this semiupright portable chest examination, no large pneumothorax or large pleural effusions are seen. No focal infiltrates are seen. The lungs are hyperexpanded. Mediastinum: Mediastinal contours appear normal. Heart size is moderately enlarged. Bones and chest wall: No suspicious bony lesions. Age-appropriate bony degenerative changes are seen. Overlying soft tissues appear unremarkable. IMPRESSION: There is moderate cardiomegaly, which appears improved compared to the prior examination. The lungs are hyperexpanded, yet without a focal pulmonary abnormality seen. Dictated by: Hamilton Franco M.D. on 06/21/2023 at 16:16 ECG Data Attestation: I personally reviewed and interpreted this ECG as follows: Prior ECG tracings: available for review Interpretation: Sinus rhythm rate 90 [place] interval 176 QRS 66 QTC [address] elevation in V3 with ST depression in V6 this does look similar MDM Narrative Medical decision making narrative: Patient 68-year-old female history of COPD CHF presenting today with increasing shortness of breath. No fever or chills. She is to be mild we tachypneic with some conversational dyspnea. Blood work reviewed WBC 8.8, hemoglobin 14.8, hematocrit 44.1, sodium 137, potassium 4.6, chloride 103, carbon dioxide 29, BUN 25, creatinine 0.7 lactate 1.4, bilirubin 0.7, AST 68, ALT 50, alk-phos 75, trop 0.044 previously 0.026, BNP is 5300 previously 6000, it is actually the lowest it has been awhile Chest x-ray reviewed there is moderate cardiomegaly which appears improved compared to prior examination She is given DuoNeb treatment and Lasix 40 mg She has been up to the bathroom to urinate times overall feeling a lot better. COPD versus CHF exacerbation Waiting for repeat troponin patient signed out to Dr. Valeria Shaw: Received turned over. Review patient's history and physical and workup up to this point. Second troponin is unchanged from 1st. She has no chest pain. Repeat EKG is unchanged from 1st. She has not clinically in heart failure. She thinks that maybe she improved somewhat after the nebulizer treatment. She has albuterol at home. Patient states she was feeling much better. She ambulated around the emergency department without becoming hypoxic nor having chest pain. Will discharge patient home to follow-up with her primary care doctor. She was given return precautions. She expressed understanding and agreement. <Joshua Shaw, DO - Last Filed: 06/22/23 00:02> Lab Data Labs: Lab Results 06/21/23 06/21/23 Range/Units 16:41 19:15 WBC 8.8 (4.5-11.0) X10^3/uL RBC 4.65 (4.0-5.2) X10^6/uL Hgb 14.8 (12.0-16.0) g/dL Hct 44.1 (36-46) % MCV 94.8 (80-100) fL MCH 31.8 (26-34) PG MCHC 33.6 (30-36) % RDW 14.5 (11.6-14.8) % Plt Count 252 (150-400) X10^3/uL Neut % (Auto) 60.3 (50-75) % Lymph % (Auto) 28.8 (25-40) % [place] % (Auto) 8.6 (3-14) % Eos % (Auto) 1.5 L (2-4) % Baso % (Auto) 0.8 (0-2) % Neut # (Auto) 5300 (0952-8560) /uL Lymph # (Auto) 2500 (7560-1175) /uL [place] # (Auto) 800 (0-900) /uL Eos # (Auto) 100 (0-450) /uL Baso # (Auto) 100 (0-100) /uL PT 10.6 (9.4-12.5) SECONDS INR 0.9 (0.9-1.3) Sodium 137 (137-145) mmol/L Potassium 4.6 (3.4-5.1) mmol/L Chloride 103 (98-107) mmol/L Carbon Dioxide 29 (22-32) mmol/L BUN 25 H (7-17) mg/dL Creatinine 0.74 (0.52-1.04) mg/dL Estimated GFR > 60 (>60) mL/min BUN/Creatinine Ratio 33.8 H (6-22) Glucose 92 (80-110) mg/dL Lactate 1.4 (0.7-2.1) mmol/L Calcium 9.6 (8.4-10.2) mg/dL Total Bilirubin 0.7 (0.2-1.3) mg/dL AST 68 H (14-36) IU/L ALT 50 H (<35) IU/L Alkaline Phosphatase 75 (38-126) U/L Total Creatine Kinase 45 (30-135) U/L Troponin I 0.044 H 0.047 H (0.01-0.034) ng/mL NT-Pro-B Natriuret Pep 5300 H (<125) pg/mL Total Protein 7.5 (6.3-8.2) g/dL Albumin 4.7 (3.5-5.0) g/dL Globulin 2.8 (1.7-4.1) g/dL Albumin/Globulin Ratio 1.7 (1.0-2.8) Urine Dip Bedside Urine Glucose Negative Bedside Urine Bilirubin - Negative Bedside Urine Ketone - Negative Urine Specific [place] 1.015 Bedside Urine Occult Blood - Negative Bedside Urine pH 6.0 Bedside Urine Protein - Negative Bedside Urine Urobilinogen - Negative Bedside Urine Nitrite - Negative Bedside Urine Leukocytes - Negative Esterase MDM Narrative Medical decision making narrative: Patient 68-year-old female history of COPD CHF presenting today with increasing shortness of breath. No fever or chills. She is to be mild we tachypneic with some conversational dyspnea. Blood work reviewed WBC 8.8, hemoglobin 14.8, hematocrit 44.1, sodium 137, potassium 4.6, chloride 103, carbon dioxide 29, BUN 25, creatinine 0.7 lactate 1.4, bilirubin 0.7, AST 68, ALT 50, alk-phos 75, trop 0.044 previously 0.026, BNP is 5300 previously 6000, it is actually the lowest it has been awhile Chest x-ray reviewed there is moderate cardiomegaly which appears improved compared to prior examination She is given DuoNeb treatment and Lasix 40 mg She has been up to the bathroom to urinate times overall feeling a lot better. Waiting for repeat troponin patient signed out to Dr. Valeria Shaw: Received turned over. Review patient's history and physical and workup up to this point. Second troponin is unchanged from 1st. She has no chest pain. Repeat EKG is unchanged from 1st. She has not clinically in heart failure. She thinks that maybe she improved somewhat after the nebulizer treatment. She has albuterol at home. Patient states she was feeling much better. She ambulated around the emergency department without becoming hypoxic nor having chest pain. Will discharge patient home to follow-up with her primary care doctor. She was given return precautions. She expressed understanding and agreement. Discharge Plan Departure Patient Disposition: Home Clinical Impression: Shortness of breath Instructions: How to Manage Shortness of Breath Activity Restrictions/Additional Instructions: Continue to take all of your medications as directed. Recommend that you contact your primary doctor's office tomorrow for a follow-up. Return to the emergency department for new symptoms. Prescriptions: No Action fluticasone propionate [Flonase Allergy Relief] 50 mcg/actuation spray,suspension 1 spray intranasal Q12H Qty: 16 0RF Rx Instructions: administer into each nostril multivitamin [Multiple Vitamins] 1 EACH tablet 1 tab PO QDAY Qty: 0 budesonide-formoterol [Symbicort] 160-4.5 mcg/actuation HFA aerosol inhaler 1 inh inhalation BID Qty: 10.2 11RF spironolactone 25 mg tablet 12.5 mg PO DAILY fluticasone propion-salmeterol [Advair HFA] 115-21 mcg/actuation HFA aerosol inhaler 2 puff inhalation BID Qty: 12 11RF ibuprofen 800 mg tablet 800 mg PO Q8H PRN (Reason: pain) Qty: 90 3RF Rx Instructions: with food albuterol sulfate [Ventolin HFA] 90 mcg/actuation HFA aerosol inhaler 1 - 2 puff INHALATION Q4-6H PRN (Reason: asthma) Qty: 8 11RF Rx Instructions: administer with spacer as needed for wheezing tramadol 50 mg tablet 50 mg PO TID PRN (Reason: pain) Qty: 30 0RF methocarbamol 500 mg tablet 500 mg PO TID Qty: 30 0RF furosemide [Lasix] 20 mg tablet 20 mg PO DAILY Qty: 30 0RF metoprolol succinate 25 mg Tablet Extended Release 24 Hr 12.5 mg PO BID Qty: 30 0RF lidocaine 5 % adhesive patch,medicated 1 patch topical DAILY Qty: 15 0RF Rx Instructions: leave on most painful area for up to 12 hrs pantoprazole 40 mg tablet,delayed release (DR/EC) 40 mg PO DAILY Qty: 14 0RF ondansetron 4 mg tablet,disintegrating 4 mg PO Q8H PRN (Reason: nausea and vomiting) Qty: 10 0RF dicyclomine 10 mg capsule 10 mg PO TID PRN (Reason: abdominal pain) Qty: 14 0RF lidocaine [Lidoderm] 5 % adhesive patch,medicated 1 patch topical DAILY Qty: 15 0RF Rx Instructions: leave on most painful area for up to 12 hrs Referrals: Tasha Chamberlain DO [Primary Care Provider] - Stand Alone Forms: Patient Portal/API
[2023-06-21 17:00] LABS: Add Manual Diff / Slide Review NO; Basophils Absolute Auto 100 /uL (0-100); Basophils Percent Auto 0.8 % (0-2); Eosinophils Absolute Auto 100 /uL (0-450); Eosinophils Percent Auto 1.5 % (2-4); Hematocrit 44.1 % (36-46); Hemoglobin 14.8 g/dL (12.0-16.0); Lymphocytes Absolute Auto 2500 /uL (1100-4500); Lymphocytes Percent Auto 28.8 % (25-40); Mean Corpuscular HGB Conc 33.6 % (30-36); Mean Corpuscular Hemoglobin 31.8 PG (26-34); Mean Corpuscular Volume 94.8 fL (80-100); Monocytes Absolute Auto 800 /uL (0-900); Monocytes Percent Auto 8.6 % (3-14); Neutrophils Absolute Auto 5300 /uL (1500-7000); Neutrophils Percent Auto 60.3 % (50-75); Platelet Count 252 X10^3/uL (150-400); Red Blood Cell Count 4.65 X10^6/uL (4.0-5.2); Red Cell Distribution Width 14.5 % (11.6-14.8); White Blood Cell Count 8.8 X10^3/uL (4.5-11.0)
[2023-06-21 17:01] LABS: INR 0.9 (0.9-1.3); Prothrombin Time 10.6 SECONDS (9.4-12.5)
[2023-06-21 17:06] LABS: Lactate (Lactic Acid) 1.4 mmol/L (0.7-2.1)
[2023-06-21] MEDS: ALBUTEROL/IPRATROPIUM 3 ML AMPUL INH (17:31)
[2023-06-21] MEDS: FUROSEMIDE 40 MG/4 ML VIAL IV (17:31)
[2023-06-21 17:35] LABS: NT-proBNP (BNP-Adult 18+) 5300 pg/mL (<125); Troponin I 0.044 ng/mL (0.01-0.034)
[2023-06-21 17:45] LABS: Alanine Aminotransferase 50 IU/L (<35); Albumin 4.7 g/dL (3.5-5.0); Albumin Globulin Ratio 1.7 (1.0-2.8); Alkaline Phosphatase 75 U/L (38-126); Aspartate Aminotransferase 68 IU/L (14-36); BUN Creatinine Ratio 33.8 (6-22); Bilirubin Total 0.7 mg/dL (0.2-1.3); Blood Urea Nitrogen 25 mg/dL (7-17); Calcium 9.6 mg/dL (8.4-10.2); Carbon Dioxide 29 mmol/L (22-32); Chloride 103 mmol/L (98-107); Estimated Glomerular Filt Rate > 60 mL/min (>60); Globulin 2.8 g/dL (1.7-4.1); Glucose 92 mg/dL (80-110); HEMOLYSIS 44 (0-50); Potassium 4.6 mmol/L (3.4-5.1); Sodium 137 mmol/L (137-145); Total Protein 7.5 g/dL (6.3-8.2)
[2023-06-21 19:17] VITALS: O2SAT 94
--- NOTE | 2023-06-21 19:30 | PC.NURSE ---
Assumed care of pt, pt resting on stretcher, a/o x4, pt walked around unit with wildlife technician - 94% on RA, pt reports feeling lightheaded while ambulating, denies SOB during this time, RR even and unlabored, NAD noted.
[2023-06-21 19:31] LABS: Creatine Kinase 45 U/L (30-135)
[2023-06-21 19:44] LABS: Troponin I 0.047 ng/mL (0.01-0.034)
[2023-06-21 19:52] VITALS: BP 101/59; PULSE 85; PULSE 92; RESP 18; O2SAT 93; O2SAT 96
[2023-06-21 20:29] VITALS: BP 111/56; PULSE 92; TEMP 36.7; O2SAT 93
== END 2023-06-21 20:32 | disposition home or self-care (01) ==
PROVIDERS: Emergency Medicine; Emergency Provider Emergency Medicine; PCP Family Medicine
DX: R06.02 Shortness of breath (principal); Z86.79 Personal history of other diseases of the circulatory system
CPT/HCPCS: 36415; 71045; 80053; 81003; 82550; 83605; 83880; 84484; 85025; 85610; 93005; 96374; 99284; J1940

== ENCOUNTER 2023-08-12 10:10 | Emergency (ER) | payer OTHER, SELFPAY ==
[2023-02-28 12:08] VITALS: BMI 18.9
[2023-08-12] VITALS (7 sets, daily range): BP systolic 101–120; BP diastolic 55–64; PULSE 77–105; RESP 18–26; TEMP 36.6–36.7; O2SAT 91–98; BMI 19.5
--- NOTE | 2023-08-12 10:12 | DI.RAD.S_ITS ---
PROCEDURE: XR CHEST 1V INDICATIONS: Shortness of breath TECHNIQUE: One view of the chest was acquired. COMPARISON: [facility], CR, XR CHEST 1V, 06/21/2023, 16:41. [facility], CT, CT ANGIO CHEST PE PROTOCOL, 01/16/2023, 15:29. FINDINGS: Surgical changes and devices: None. Lungs and pleura: Lungs are clear. No pleural effusions or pneumothorax. Mediastinum: Mediastinal contours appear normal. Moderate to severe cardiomegaly. Bones and chest wall: No suspicious bony lesions. Overlying soft tissues appear unremarkable. IMPRESSION: Moderate to severe cardiomegaly. No evidence acute pulmonary process. Dictated by: Sundar Martin M.D. on 08/12/2023 at 11:52 Approved by: Sundar Martin M.D. on 08/12/2023 at 11:53
--- NOTE | 2023-08-12 10:24 | ED_ITS ---
HPI - General Adult General Chief complaint: Shortness of Breath/Dyspnea Stated complaint: diff breathing, per pt has CHF Time Seen by Provider: 08/12/23 10:11 Source: patient Mode of arrival: Ambulatory Limitations: no limitations History of Present Illness HPI narrative: Patient is a 68-year-old female. History of CHF. Yesterday afternoon started noticing difficulty breathing. She did take her Lasix in the morning yesterday. She actually took an extra dose last evening what she normally does not do. She thinks that it was potentially the amount of salt and some [place] food that she ate yesterday. Denies fevers. No chest pain. No coughing. She states that she has not have any lower extremity edema. She did take her Lasix this morning. She was advised to come to the emergency department by her primary provider. Related Data Home Medications Medication Instructions Recorded Confirmed multivitamin (Multiple Vitamins 1 tab PO QDAY ##0 01/01/16 08/12/23 tablet) spironolactone 25 mg tablet 12.5 mg PO DAILY 03/18/23 08/12/23 Previous Rx's Medication Instructions Recorded fluticasone propionate 50 1 spray intranasal Q12H #16 grams 01/09/23 mcg/actuation nasal spray,suspension (Flonase Allergy Relief) furosemide 20 mg tablet (Lasix) 20 mg PO DAILY #30 tabs 01/16/23 lidocaine 5 % topical patch 1 patch topical DAILY #15 ea 02/19/23 (Lidoderm) metoprolol succinate 25 mg 12.5 mg (1/2 x 25 mg) PO BID #30 03/01/23 tablet,extended release 24 hr tabs albuterol sulfate 90 mcg/actuation 1 - 2 puff inhalation Q4-6H PRN 03/03/23 aerosol inhaler (Ventolin HFA) asthma #8 grams lidocaine 5 % topical patch 1 patch topical DAILY #15 ea 03/28/23 methocarbamol 500 mg tablet 500 mg PO TID #30 tabs 04/01/23 tramadol 50 mg tablet 50 mg PO TID PRN pain #30 tabs 04/01/23 ibuprofen 800 mg tablet 800 mg PO Q8H PRN pain #90 tabs 04/15/23 dicyclomine 10 mg capsule 10 mg PO TID PRN abdominal pain 04/21/23 #14 caps ondansetron 4 mg disintegrating 4 mg PO Q8H PRN nausea and 04/21/23 tablet vomiting #10 tabs pantoprazole 40 mg tablet,delayed 40 mg PO DAILY #14 tabs 04/21/23 release hydroxyzine HCl 10 mg tablet 10 - 20 mg (1 - 2 x 10 mg) PO 07/06/23 DAILY PRN anxiety/panic #30 tabs fluticasone 500 mcg-salmeterol 50 1 inh inhalation BID #60 ea 07/10/23 mcg/dose blistr powdr for inhalation (Advair Diskus) Allergies Allergy/AdvReac Type Severity Reaction Status Date / Time Sulfa (Sulfonamide Allergy Severe SOB/DYSPNEA Verified 08/12/23 09:29 Antibiotics) alprazolam AdvReac Severe MANIC Verified 08/12/23 09:29 SYMPTOMS codeine AdvReac Severe NAUSEA/VOMI Verified 08/12/23 09:29 TING Review of Systems Review of Systems Narrative: See HPI Patient History Medical History CHF (congestive heart failure) Claudication of both lower extremities Tobacco dependence Juvenile rheumatoid arthritis Current every day smoker LBBB (left bundle branch block) Cardiomyopathy Hip pain Shoulder pain (~06/2012) GERD (gastroesophageal reflux disease) Hyperthyroidism Depression Migraines Osteoarthritis Skin cancer (09/2016) Surgical History History of surgery (~2009) Hx of cardiac cath (04/06/19) History of tonsillectomy (1959) Status post appendectomy (1988) History of hip replacement (2004) Family History Mother Heart disease Personal history of stroke with residual effects Father No problems noted. Social History household members: none Smoking Status: Former smoker Tobacco: How many years used: 50 second hand exposure: Yes alcohol intake: never substance use type: marijuana Smoking Status: Former smoker tobacco type: cigarettes alcohol intake frequency: holidays/special occasions only Substance Use Type: marijuana Exam Initial Vital Signs Initial Vital Signs: Vital Signs Temperature 97.9 F 08/12/23 10:23 Pulse Rate 105 H 08/12/23 10:23 Respiratory Rate 26 H 08/12/23 10:23 Blood Pressure 120/59 L 08/12/23 10:23 Pulse Oximetry 97 08/12/23 10:23 Oxygen Delivery Method Room Air 08/12/23 10:23 HENWY Head: normal to inspection and normocephalic Resp Effort & Inspection: no cough, not labored, no respiratory distress and tachypneic Auscultation: clear to auscultation bilaterally Cardio Rate: regular rate Rhythm: regular rhythm Skin General: no rashes or lesions noted Neuro General: patient alert, patient awake and moves all extremities Extrem General: capillary refill normal Course Orders Ordered: ED Orders 08/12/23 10:12 XR chest 1V Stat EKG-12 Lead Stat RT Consult Eval and Treat Now 08/12/23 10:20 Complete Blood Count AUTO DIFF Stat Comprehensive Metabolic Panel Stat Lipase Stat NT-proBNP (BNP-Adult 18+) Stat Troponin & CK Cardiac Panel Stat Vital Signs Vital signs: Vital Signs - 8 hr 08/12/23 10:23 08/12/23 10:29 08/12/23 10:30 Temperature 97.9 F Pulse Rate 105 H 99 H 97 H Respiratory Rate 26 H Blood Pressure 120/59 L Pulse Oximetry 97 97 96 Oxygen Delivery Method Room Air 08/12/23 10:39 08/12/23 10:39 08/12/23 11:00 Temperature Pulse Rate 83 83 Respiratory Rate 22 Blood Pressure 104/55 L 101/57 L Pulse Oximetry 95 92 Oxygen Delivery Method Room Air 08/12/23 11:30 Temperature Pulse Rate 81 Respiratory Rate Blood Pressure 103/56 L Pulse Oximetry 91 Oxygen Delivery Method Room Air Medical Decision Making Medical Records Medical records reviewed: Yes I reviewed the patient's medical records. Lab Data Lab results reviewed: Yes I reviewed the patient's lab results. 08/12/23 10:20 08/12/23 10:20 Labs: Lab Results 08/12/23 Range/Units 10:20 WBC 8.4 (4.5-11.0) X10^3/uL RBC 5.14 (4.0-5.2) X10^6/uL Hgb 16.2 H (12.0-16.0) g/dL Hct 48.6 H (36-46) % MCV 94.6 (80-100) fL MCH 31.6 (26-34) PG MCHC 33.4 (30-36) % RDW 13.4 (11.6-14.8) % Plt Count 226 (150-400) X10^3/uL Neut % (Auto) 71.5 (50-75) % Lymph % (Auto) 21.1 L (25-40) % [place] % (Auto) 6.2 (3-14) % Eos % (Auto) 0.6 L (2-4) % Baso % (Auto) 0.6 (0-2) % Neut # (Auto) 6000 (1140-7715) /uL Lymph # (Auto) 1800 (6379-6297) /uL [place] # (Auto) 500 (0-900) /uL Eos # (Auto) 100 (0-450) /uL Baso # (Auto) 0 (0-100) /uL Sodium 140 (137-145) mmol/L Potassium 4.4 (3.4-5.1) mmol/L Chloride 102 (98-107) mmol/L Carbon Dioxide 32 (22-32) mmol/L BUN 24 H (7-17) mg/dL Creatinine 0.83 (0.52-1.04) mg/dL Estimated GFR > 60 (>60) mL/min BUN/Creatinine Ratio 28.9 H (6-22) Glucose 117 H (80-110) mg/dL Calcium 9.4 (8.4-10.2) mg/dL Total Bilirubin 0.9 (0.2-1.3) mg/dL AST 63 H (14-36) IU/L ALT 50 H (<35) IU/L Alkaline Phosphatase 80 (38-126) U/L Total Creatine Kinase 68 (30-135) U/L Troponin I 0.043 H (0.01-0.034) ng/mL NT-Pro-B Natriuret Pep 8740 H (<125) pg/mL Total Protein 8.9 H (6.3-8.2) g/dL Albumin 5.1 H (3.5-5.0) g/dL Globulin 3.8 (1.7-4.1) g/dL Albumin/Globulin Ratio 1.3 (1.0-2.8) Lipase 122 (23-300) U/L Urine Dip Bedside Urine Glucose Negative Bedside Urine Bilirubin - Negative Bedside Urine Ketone - Negative Urine Specific [place] 1.015 Bedside Urine Occult Blood - Negative Bedside Urine pH 6.0 Bedside Urine Protein - Negative Bedside Urine Urobilinogen - Negative Bedside Urine Nitrite - Negative Bedside Urine Leukocytes - Negative Esterase Point of care testing: Urine Dip Bedside Urine Glucose Negative Bedside Urine Bilirubin - Negative Bedside Urine Ketone - Negative Urine Specific [place] 1.015 Bedside Urine Occult Blood - Negative Bedside Urine pH 6.0 Bedside Urine Protein - Negative Bedside Urine Urobilinogen - Negative Bedside Urine Nitrite - Negative Bedside Urine Leukocytes - Negative Esterase Imaging Data Chest x-ray: Radiologist's Impression: PROCEDURE: XR CHEST 1V INDICATIONS: Shortness of breath TECHNIQUE: One view of the chest was acquired. COMPARISON: [facility], CR, XR CHEST 1V, 06/21/2023, 16:41. [facility], CT, CT ANGIO CHEST PE PROTOCOL, 01/16/2023, 15:29. FINDINGS: Surgical changes and devices: None. Lungs and pleura: Lungs are clear. No pleural effusions or pneumothorax. Mediastinum: Mediastinal contours appear normal. Moderate to severe cardiomegaly. Bones and chest wall: No suspicious bony lesions. Overlying soft tissues appear unremarkable. IMPRESSION: Moderate to severe cardiomegaly. No evidence acute pulmonary process. ECG Data Attestation: I personally reviewed and interpreted this ECG as follows: Interpretation: Sinus rhythm Ventricular rate of [address] T wave changes MDM Narrative Medical decision making narrative: Patient does have an elevation in her BNP. Her chest x-ray shows no signs of pneumonia. Her exam is not consistent with pneumonia. She has no chest pain. I suspect that this is a fluid overload issue. Plan will be to have her continue her Lasix in the morning. She can take an extra dose in the evening. She actually did this yesterday. I did tell her that if this is not working over the next 24-48 hours she could take 2 doses in the morning and 1 in the evening. If her symptoms persist or it gets worse then she does need to return to the emergency department. She expressed understanding and agreement with plan. Discharge Plan Departure Patient Disposition: Home Clinical Impression: CHF (congestive heart failure), Shortness of breath Instructions: Congestive Heart Failure (Alternative Therapy) Activity Restrictions/Additional Instructions: Continue all of your medications as directed however you can increase your Lasix/furosemide from 1 tablet in the morning to 1 tablet in the morning and 1 tablet in the afternoon. Contact your primary doctor for follow-up. Return to the emergency department for new or worsening symptoms. Prescriptions: No Action fluticasone propionate [Flonase Allergy Relief] 50 mcg/actuation spray,suspension 1 spray intranasal Q12H Qty: 16 0RF Rx Instructions: administer into each nostril multivitamin [Multiple Vitamins] 1 EACH tablet 1 tab PO QDAY Qty: 0 fluticasone propion-salmeterol [Advair Diskus] 500-50 mcg/dose blister with device 1 inh inhalation BID Qty: 60 11RF spironolactone 25 mg tablet 12.5 mg PO DAILY ibuprofen 800 mg tablet 800 mg PO Q8H PRN (Reason: pain) Qty: 90 3RF Rx Instructions: with food hydroxyzine HCl 10 mg tablet 10 - 20 mg PO DAILY PRN (Reason: anxiety/panic) Qty: 30 10RF albuterol sulfate [Ventolin HFA] 90 mcg/actuation HFA aerosol inhaler 1 - 2 puff INHALATION Q4-6H PRN (Reason: asthma) Qty: 8 11RF Rx Instructions: administer with spacer as needed for wheezing tramadol 50 mg tablet 50 mg PO TID PRN (Reason: pain) Qty: 30 0RF methocarbamol 500 mg tablet 500 mg PO TID Qty: 30 0RF furosemide [Lasix] 20 mg tablet 20 mg PO DAILY Qty: 30 0RF metoprolol succinate 25 mg Tablet Extended Release 24 Hr 12.5 mg PO BID Qty: 30 0RF lidocaine 5 % adhesive patch,medicated 1 patch topical DAILY Qty: 15 0RF Rx Instructions: leave on most painful area for up to 12 hrs pantoprazole 40 mg tablet,delayed release (DR/EC) 40 mg PO DAILY Qty: 14 0RF ondansetron 4 mg tablet,disintegrating 4 mg PO Q8H PRN (Reason: nausea and vomiting) Qty: 10 0RF dicyclomine 10 mg capsule 10 mg PO TID PRN (Reason: abdominal pain) Qty: 14 0RF lidocaine [Lidoderm] 5 % adhesive patch,medicated 1 patch topical DAILY Qty: 15 0RF Rx Instructions: leave on most painful area for up to 12 hrs Referrals: Tasha Chamberlain DO [Primary Care Provider] - Stand Alone Forms: Patient Portal/API
[2023-08-12 10:35] LABS: Add Manual Diff / Slide Review NO; Basophils Absolute Auto 0 /uL (0-100); Basophils Percent Auto 0.6 % (0-2); Eosinophils Absolute Auto 100 /uL (0-450); Eosinophils Percent Auto 0.6 % (2-4); Hematocrit 48.6 % (36-46); Hemoglobin 16.2 g/dL (12.0-16.0); Lymphocytes Absolute Auto 1800 /uL (1100-4500); Lymphocytes Percent Auto 21.1 % (25-40); Mean Corpuscular HGB Conc 33.4 % (30-36); Mean Corpuscular Hemoglobin 31.6 PG (26-34); Mean Corpuscular Volume 94.6 fL (80-100); Monocytes Absolute Auto 500 /uL (0-900); Monocytes Percent Auto 6.2 % (3-14); Neutrophils Absolute Auto 6000 /uL (1500-7000); Neutrophils Percent Auto 71.5 % (50-75); Platelet Count 226 X10^3/uL (150-400); Red Blood Cell Count 5.14 X10^6/uL (4.0-5.2); Red Cell Distribution Width 13.4 % (11.6-14.8); White Blood Cell Count 8.4 X10^3/uL (4.5-11.0)
--- NOTE | 2023-08-12 10:35 | EKG_ITS ---
[place] [address] [place] [id number] Test Date: 2023-08-12 Pat Name: Katlyn Pichardo Department: [facility] Room: Gender: Female Resident Surgeon: LORNA : 1955 Requested By: Order Number: [id number] Reading MD: Phillip Garnica Measurements Intervals [place] Rate: 90 P: 71 DC: 178 QRS: -65 QRSD: 150 T: 99 QT: 444 QTc: 543 Interpretive Statements Normal sinus rhythm Possible Left atrial enlargement Left axis deviation Left ventricular hypertrophy with QRS widening and repolarization abnormality ( R in aVL , Sokolow-Panchal , Aston product , Romhilt-Sun ) Inferior infarct , age undetermined Electronically Signed On 08-12-2023 19:43:18 PDT by Phillip Garnica
[2023-08-12 10:46] LABS: Alanine Aminotransferase 50 IU/L (<35); Albumin 5.1 g/dL (3.5-5.0); Albumin Globulin Ratio 1.3 (1.0-2.8); Alkaline Phosphatase 80 U/L (38-126); Aspartate Aminotransferase 63 IU/L (14-36); BUN Creatinine Ratio 28.9 (6-22); Bilirubin Total 0.9 mg/dL (0.2-1.3); Blood Urea Nitrogen 24 mg/dL (7-17); Calcium 9.4 mg/dL (8.4-10.2); Carbon Dioxide 32 mmol/L (22-32); Chloride 102 mmol/L (98-107); Creatine Kinase 68 U/L (30-135); Estimated Glomerular Filt Rate > 60 mL/min (>60); Globulin 3.8 g/dL (1.7-4.1); Glucose 117 mg/dL (80-110); HEMOLYSIS < 15 (0-50); Lipase 122 U/L (23-300); Potassium 4.4 mmol/L (3.4-5.1); Sodium 140 mmol/L (137-145); Total Protein 8.9 g/dL (6.3-8.2)
[2023-08-12 10:58] LABS: NT-proBNP (BNP-Adult 18+) 8740 pg/mL (<125); Troponin I 0.043 ng/mL (0.01-0.034)
== END 2023-08-12 12:22 | disposition home or self-care (01) ==
PROVIDERS: Emergency Provider Emergency Medicine; PCP Family Medicine
DX: I50.9 Heart failure, unspecified (principal); R06.02 Shortness of breath; Z79.01 Long term (current) use of anticoagulants
CPT/HCPCS: 36415; 71045; 80053; 81003; 82550; 83690; 83880; 84484; 85025; 93005; 99284

== ENCOUNTER 2023-08-20 03:38 | Emergency (ER) | payer OTHER, SELFPAY ==
[2023-02-28 12:08] VITALS: BMI 18.9
[2023-08-20] VITALS (21 sets, daily range): BP systolic 99–124; BP diastolic 54–69; PULSE 83–99; RESP 15–31; TEMP 36.8–36.9; O2SAT 87–97; BMI 19.5
--- NOTE | 2023-08-20 03:52 | ED_ITS ---
HPI - SOB/Dyspnea <Roseanna Abigail, DO - Last Filed: 08/20/23 20:25> General Chief Complaint: Shortness of Breath/Dyspnea Stated Complaint: SOB Time Seen by Provider: 08/20/23 03:52 Source: patient Mode of arrival: Ambulatory Limitations: no limitations History of Present Illness HPI Narrative: Patient 68-year-old female history of COPD CHF presenting today with increasing shortness of breath. She has been evaluated last week on August 11 in the emergency department for congestive heart failure. Echocardiogram in February showed EF of 15-20% never really has significant peripheral edema in lower extremities her abdomen she does not have any now. She has been taking her Lasix she doubled up for couple days but still is short of breath. No fever or chills no real chest pain just does not feel like she is getting any better. Related Data Home Medications Medication Instructions Recorded Confirmed multivitamin (Multiple Vitamins 1 tab PO QDAY ##0 01/01/16 08/12/23 tablet) spironolactone 25 mg tablet 12.5 mg PO DAILY 03/18/23 08/12/23 Previous Rx's Medication Instructions Recorded fluticasone propionate 50 1 spray intranasal Q12H #16 grams 01/09/23 mcg/actuation nasal spray,suspension (Flonase Allergy Relief) furosemide 20 mg tablet (Lasix) 20 mg PO DAILY #30 tabs 01/16/23 lidocaine 5 % topical patch 1 patch topical DAILY #15 ea 02/19/23 (Lidoderm) metoprolol succinate 25 mg 12.5 mg (1/2 x 25 mg) PO BID #30 03/01/23 tablet,extended release 24 hr tabs albuterol sulfate 90 mcg/actuation 1 - 2 puff inhalation Q4-6H PRN 03/03/23 aerosol inhaler (Ventolin HFA) asthma #8 grams lidocaine 5 % topical patch 1 patch topical DAILY #15 ea 03/28/23 methocarbamol 500 mg tablet 500 mg PO TID #30 tabs 04/01/23 tramadol 50 mg tablet 50 mg PO TID PRN pain #30 tabs 04/01/23 ibuprofen 800 mg tablet 800 mg PO Q8H PRN pain #90 tabs 04/15/23 dicyclomine 10 mg capsule 10 mg PO TID PRN abdominal pain 04/21/23 #14 caps ondansetron 4 mg disintegrating 4 mg PO Q8H PRN nausea and 04/21/23 tablet vomiting #10 tabs pantoprazole 40 mg tablet,delayed 40 mg PO DAILY #14 tabs 04/21/23 release hydroxyzine HCl 10 mg tablet 10 - 20 mg (1 - 2 x 10 mg) PO 07/06/23 DAILY PRN anxiety/panic #30 tabs fluticasone 500 mcg-salmeterol 50 1 inh inhalation BID #60 ea 07/10/23 mcg/dose blistr powdr for inhalation (Advair Diskus) prednisone 20 mg tablet 40 mg (2 x 20 mg) PO DAILY 5 days 08/20/23 #10 tabs Allergies Allergy/AdvReac Type Severity Reaction Status Date / Time Sulfa (Sulfonamide Allergy Severe SOB/DYSPNEA Verified 08/12/23 09:29 Antibiotics) alprazolam AdvReac Severe MANIC Verified 08/12/23 09:29 SYMPTOMS codeine AdvReac Severe NAUSEA/VOMI Verified 08/12/23 09:29 TING Patient History <Roseanna Hayes DO - Last Filed: 08/20/23 20:25> Medical History CHF (congestive heart failure) Claudication of both lower extremities Tobacco dependence Juvenile rheumatoid arthritis Current every day smoker LBBB (left bundle branch block) Cardiomyopathy Hip pain Shoulder pain (~06/2012) GERD (gastroesophageal reflux disease) Hyperthyroidism Depression Migraines Osteoarthritis Skin cancer (09/2016) Surgical History History of surgery (~2009) Hx of cardiac cath (04/06/19) History of tonsillectomy (1959) Status post appendectomy (1988) History of hip replacement (2004) Family History Mother Heart disease Personal history of stroke with residual effects Father No problems noted. Social History household members: none Smoking Status: Former smoker Tobacco: How many years used: 50 second hand exposure: Yes alcohol intake: never substance use type: marijuana Smoking Status: Former smoker tobacco type: cigarettes alcohol intake frequency: holidays/special occasions only Substance Use Type: marijuana Exam <Roseanna Hayes DO - Last Filed: 08/20/23 20:25> Initial Vital Signs Initial Vital Signs: Vital Signs Temperature 98.3 F 08/20/23 03:47 Pulse Rate 99 H 08/20/23 03:47 Respiratory Rate 20 08/20/23 03:47 Blood Pressure 124/66 08/20/23 03:47 Pulse Oximetry 97 08/20/23 03:47 Oxygen Delivery Method Room Air 08/20/23 03:47 GENERAL: Alert pleasant wonderful 68-year-old female minimal respiratory distress HEENT: Head atraumatic,EOMI, pupils reactive, face symmetric, [moist] mucous membranes CARDIOVASCULAR: Regular rate and rhythm without murmurs, rubs or gallops. RESPIRATORY: Mild tachypnea no wheezing decreased breath sounds bilaterally no rales or rhonchi mild conversational dyspnea slight pursed lip breathing ABDOMEN: Soft, nontender. Normoactive bowel sounds all 4 quadrants. No guarding or rebound. EXTREMITIES: Normal range of motion, no clubbing or edema. Neurovascularly intact NEUROLOGICAL: Alert and oriented x4.Normal gait and speech. Cranial nerves II through XII grossly intact. SKIN: Warm, dry, no laceration, no petechiae, no rashes or lesions. <Rl Hoffman MD - Last Filed: 08/21/23 08:39> Initial Vital Signs Initial Vital Signs: Vital Signs Temperature 98.3 F 08/20/23 03:47 Pulse Rate 99 H 08/20/23 03:47 Respiratory Rate 20 08/20/23 03:47 Blood Pressure 124/66 08/20/23 03:47 Pulse Oximetry 97 08/20/23 03:47 Oxygen Delivery Method Room Air 08/20/23 03:47 Course <Roseanna Hayes DO - Last Filed: 08/20/23 20:25> Orders Ordered: Discontinued Medications Albuterol/Ipratropium (Albuterol/Ipratropium 3 Ml Ampul) 3 ml INH NOW ONE Stop: 08/20/23 04:00 Last Admin: 08/20/23 04:21 Dose: 3 ml Documented By: LISSET Albuterol/Ipratropium (Albuterol/Ipratropium 3 Ml Ampul) 3 ml INH NOW ONE Stop: 08/20/23 05:45 Last Admin: 08/20/23 05:55 Dose: 3 ml Documented By: LISSET Albuterol/Ipratropium (Albuterol/Ipratropium 3 Ml Ampul) 3 ml INH NOW ONE Stop: 08/20/23 08:57 Last Admin: 08/20/23 09:07 Dose: 3 ml Documented By: PerlitaZF Furosemide (Furosemide 40 Mg/4 Ml Vial) 40 mg IV NOW ONE Stop: 08/20/23 04:01 Last Admin: 08/20/23 05:37 Dose: 40 mg Documented By: SONAM Methylprednisolone (Methylprednisolone 125 Mg/2 Ml Vial) 125 mg IV NOW ONE Stop: 08/20/23 04:46 Last Admin: 08/20/23 05:37 Dose: 125 mg Documented By: SONAM Vital Signs Vital signs: Vital Signs - 8 hr 08/20/23 03:47 08/20/23 04:21 08/20/23 04:50 Temperature 98.3 F Pulse Rate 99 H 93 H 90 Respiratory Rate 20 20 21 Blood Pressure 124/66 Pulse Oximetry 97 95 93 Oxygen Delivery Method Room Air Room Air Oxygen Flow Rate 0 Fraction of Inspired Oxygen 08/20/23 05:00 08/20/23 05:00 08/20/23 05:30 Temperature Pulse Rate 89 85 Respiratory Rate 16 16 Blood Pressure 114/69 Pulse Oximetry 92 92 Oxygen Delivery Method Oxygen Flow Rate Fraction of Inspired Oxygen 08/20/23 05:30 08/20/23 05:55 08/20/23 06:00 Temperature Pulse Rate 83 Respiratory Rate 16 Blood Pressure 113/65 105/56 L Pulse Oximetry 93 Oxygen Delivery Method Nasal Cannula Oxygen Flow Rate 1 Fraction of Inspired Oxygen 08/20/23 06:00 08/20/23 06:30 08/20/23 07:00 Temperature Pulse Rate 84 86 85 Respiratory Rate 24 17 15 Blood Pressure Pulse Oximetry 92 87 L 91 Oxygen Delivery Method Oxygen Flow Rate Fraction of Inspired Oxygen 08/20/23 07:29 08/20/23 07:29 08/20/23 07:30 Temperature Pulse Rate 84 85 Respiratory Rate 22 19 Blood Pressure 99/54 L Pulse Oximetry 88 L 87 L Oxygen Delivery Method Room Air Nasal Cannula Oxygen Flow Rate 2 Fraction of Inspired Oxygen 08/20/23 07:41 08/20/23 07:45 08/20/23 07:45 Temperature Pulse Rate 85 Respiratory Rate 20 Blood Pressure 107/58 L Pulse Oximetry 91 90 L Oxygen Delivery Method Nasal Cannula Nasal Cannula Oxygen Flow Rate 2 2 Fraction of Inspired Oxygen <Rl Hoffman MD - Last Filed: 08/21/23 08:39> Orders Ordered: Discontinued Medications Albuterol/Ipratropium (Albuterol/Ipratropium 3 Ml Ampul) 3 ml INH NOW ONE Stop: 08/20/23 04:00 Last Admin: 08/20/23 04:21 Dose: 3 ml Documented By: LISSET Albuterol/Ipratropium (Albuterol/Ipratropium 3 Ml Ampul) 3 ml INH NOW ONE Stop: 08/20/23 05:45 Last Admin: 08/20/23 05:55 Dose: 3 ml Documented By: LISSET Albuterol/Ipratropium (Albuterol/Ipratropium 3 Ml Ampul) 3 ml INH NOW ONE Stop: 08/20/23 08:57 Last Admin: 08/20/23 09:07 Dose: 3 ml Documented By: JOSE MIGUEL Furosemide (Furosemide 40 Mg/4 Ml Vial) 40 mg IV NOW ONE Stop: 08/20/23 04:01 Last Admin: 08/20/23 05:37 Dose: 40 mg Documented By: SONAM Methylprednisolone (Methylprednisolone 125 Mg/2 Ml Vial) 125 mg IV NOW ONE Stop: 08/20/23 04:46 Last Admin: 08/20/23 05:37 Dose: 125 mg Documented By: SONAM Vital Signs Vital signs: Vital Signs - 8 hr 08/20/23 03:47 08/20/23 04:21 08/20/23 04:50 Temperature 98.3 F Pulse Rate 99 H 93 H 90 Respiratory Rate 20 20 21 Blood Pressure 124/66 Pulse Oximetry 97 95 93 Oxygen Delivery Method Room Air Room Air Oxygen Flow Rate 0 Fraction of Inspired Oxygen 08/20/23 05:00 08/20/23 05:00 08/20/23 05:30 Temperature Pulse Rate 89 85 Respiratory Rate 16 16 Blood Pressure 114/69 Pulse Oximetry 92 92 Oxygen Delivery Method Oxygen Flow Rate Fraction of Inspired Oxygen 08/20/23 05:30 08/20/23 05:55 08/20/23 06:00 Temperature Pulse Rate 83 Respiratory Rate 16 Blood Pressure 113/65 105/56 L Pulse Oximetry 93 Oxygen Delivery Method Nasal Cannula Oxygen Flow Rate 1 Fraction of Inspired Oxygen 08/20/23 06:00 08/20/23 06:30 08/20/23 07:00 Temperature Pulse Rate 84 86 85 Respiratory Rate 24 17 15 Blood Pressure Pulse Oximetry 92 87 L 91 Oxygen Delivery Method Oxygen Flow Rate Fraction of Inspired Oxygen 08/20/23 07:29 08/20/23 07:29 08/20/23 07:30 Temperature Pulse Rate 84 85 Respiratory Rate 22 19 Blood Pressure 99/54 L Pulse Oximetry 88 L 87 L Oxygen Delivery Method Room Air Nasal Cannula Oxygen Flow Rate 2 Fraction of Inspired Oxygen 08/20/23 07:41 08/20/23 07:45 08/20/23 07:45 Temperature Pulse Rate 85 Respiratory Rate 20 Blood Pressure 107/58 L Pulse Oximetry 91 90 L Oxygen Delivery Method Nasal Cannula Nasal Cannula Oxygen Flow Rate 2 2 Fraction of Inspired Oxygen MDM - SOB/Dyspnea <Roseanna Hayes, - Last Filed: 08/20/23 20:25> Lab Data 08/20/23 04:00 08/20/23 04:00 Labs: Lab Results 08/20/23 08/20/23 Range/Units 04:00 06:15 WBC 7.7 (4.5-11.0) X10^3/uL RBC 4.68 (4.0-5.2) X10^6/uL Hgb 14.8 (12.0-16.0) g/dL Hct 44.2 (36-46) % MCV 94.4 (80-100) fL MCH 31.6 (26-34) PG MCHC 33.5 (30-36) % RDW 13.4 (11.6-14.8) % Plt Count 202 (150-400) X10^3/uL Neut % (Auto) 59.5 (50-75) % Lymph % (Auto) 31.0 (25-40) % [place] % (Auto) 7.3 (3-14) % Eos % (Auto) 1.6 L (2-4) % Baso % (Auto) 0.6 (0-2) % Neut # (Auto) 4600 (9970-3123) /uL Lymph # (Auto) 2400 (6616-5749) /uL [place] # (Auto) 600 (0-900) /uL Eos # (Auto) 100 (0-450) /uL Baso # (Auto) 0 (0-100) /uL D-Dimer 751 H (<500) ng/ml Sodium 138 (137-145) mmol/L Potassium 4.3 (3.4-5.1) mmol/L Chloride 104 (98-107) mmol/L Carbon Dioxide 28 (22-32) mmol/L BUN 33 H (7-17) mg/dL Creatinine 0.81 (0.52-1.04) mg/dL Estimated GFR > 60 (>60) mL/min BUN/Creatinine Ratio 40.7 H (6-22) Glucose 124 H (80-110) mg/dL Calcium 8.7 (8.4-10.2) mg/dL Total Bilirubin 0.5 (0.2-1.3) mg/dL AST 68 H (14-36) IU/L ALT 43 H (<35) IU/L Alkaline Phosphatase 80 (38-126) U/L Total Creatine Kinase 62 (30-135) U/L Troponin I 0.049 H 0.047 H (0.01-0.034) ng/mL NT-Pro-B Natriuret Pep 5680 H (<125) pg/mL Total Protein 7.3 (6.3-8.2) g/dL Albumin 4.3 (3.5-5.0) g/dL Globulin 3.0 (1.7-4.1) g/dL Albumin/Globulin Ratio 1.4 (1.0-2.8) Lipase 187 D (23-300) U/L Procalcitonin 0.053 (<0.5) ng/mL Imaging Data Chest x-ray: Radiologist's Impression: Preliminary report: No acute cardiopulmonary abnormality is identified cardiomegaly ECG Data Attestation: I personally reviewed and interpreted this ECG as follows: Prior ECG tracings: available for review Interpretation: Sinus rhythm rate 90 WI interval 160 Q RS 152 QTC 551 previous EKGs show prolonged QTC so significant ST depression in V6 which is chronic no acute ST elevations MDM Narrative Medical decision making narrative: Patient is 68-year-old female history of COPD CHF not on home oxygen presenting today with ongoing shortness of breath. She was seen and evaluated here last week she states that she has been taking her Lasix twice a day but still feels really short of breath mostly with exertion and down. She has no significant peripheral edema. Blood work has been reviewed BNP is actually improved from previously today it is 5680 previously is 80 40. She was chronic troponin today is 0.049 previously 0.043. Creatinine is within normal limits 0.81 GFR greater than 60 Chest x-ray does not show any evidence of pneumothorax or pneumonia EKG reviewed as above in appears stable from previous Patient is having improved symptoms after DuoNeb. Her lung sounds are clear BNP is improved no evidence of pleural effusion or pulmonary edema. I think today maybe more COPD exacerbation and CHF. Although she has both and they are both quite bad. She is given Lasix as well. She has no leukocytosis fever chills or cough. I dont see any indication for antibiotics now. Dalton, 08/20/2023, 07, transfer care note. Chart reviewed, patient seen and examined by me independently. 68-year-old female with history of COPD and CHF, seen here last month for COPD exacerbation with BNP 8000, EF known 15-20% range, having shortness of breath, 88% room-air sat on this visit today, EKG shows LVH with repolarization sinus rhythm, troponin indeterminate range as it has been previous evaluations, no ongoing chest pain or recent chest pain, given steroid, 2 breathing treatments, Lasix, feeling improved. Repeat troponin similar slightly decreased, no chest pain. Patient further improved, 92% on room air, she would like to go home. We will send prednisone pulse steroid to her pharmacy. She has inhalers to use, she has Lasix to take, she has her other chronic medications. Advised to follow up with her regular doctor Thursday after this holiday weekend, return precautions discussed, stable/improved, discharged per patient request <Rl Hoffman MD - Last Filed: 08/21/23 08:39> Lab Data Labs: Lab Results 08/20/23 08/20/23 Range/Units 04:00 06:15 WBC 7.7 (4.5-11.0) X10^3/uL RBC 4.68 (4.0-5.2) X10^6/uL Hgb 14.8 (12.0-16.0) g/dL Hct 44.2 (36-46) % MCV 94.4 (80-100) fL MCH 31.6 (26-34) PG MCHC 33.5 (30-36) % RDW 13.4 (11.6-14.8) % Plt Count 202 (150-400) X10^3/uL Neut % (Auto) 59.5 (50-75) % Lymph % (Auto) 31.0 (25-40) % [place] % (Auto) 7.3 (3-14) % Eos % (Auto) 1.6 L (2-4) % Baso % (Auto) 0.6 (0-2) % Neut # (Auto) 4600 (6524-7473) /uL Lymph # (Auto) 2400 (3648-9585) /uL [place] # (Auto) 600 (0-900) /uL Eos # (Auto) 100 (0-450) /uL Baso # (Auto) 0 (0-100) /uL D-Dimer 751 H (<500) ng/ml Sodium 138 (137-145) mmol/L Potassium 4.3 (3.4-5.1) mmol/L Chloride 104 (98-107) mmol/L Carbon Dioxide 28 (22-32) mmol/L BUN 33 H (7-17) mg/dL Creatinine 0.81 (0.52-1.04) mg/dL Estimated GFR > 60 (>60) mL/min BUN/Creatinine Ratio 40.7 H (6-22) Glucose 124 H (80-110) mg/dL Calcium 8.7 (8.4-10.2) mg/dL Total Bilirubin 0.5 (0.2-1.3) mg/dL AST 68 H (14-36) IU/L ALT 43 H (<35) IU/L Alkaline Phosphatase 80 (38-126) U/L Total Creatine Kinase 62 (30-135) U/L Troponin I 0.049 H 0.047 H (0.01-0.034) ng/mL NT-Pro-B Natriuret Pep 5680 H (<125) pg/mL Total Protein 7.3 (6.3-8.2) g/dL Albumin 4.3 (3.5-5.0) g/dL Globulin 3.0 (1.7-4.1) g/dL Albumin/Globulin Ratio 1.4 (1.0-2.8) Lipase 187 D (23-300) U/L Procalcitonin 0.053 (<0.5) ng/mL MDM Narrative Medical decision making narrative: Patient is 68-year-old female history of COPD CHF not on home oxygen presenting today with ongoing shortness of breath. She was seen and evaluated here last week she states that she has been taking her Lasix twice a day but still feels really short of breath mostly with exertion and down. She has no significant peripheral edema. Blood work has been reviewed BNP is actually improved from previously today it is 5680 previously is 80 40. She was chronic troponin today is 0.049 previously 0.043. Creatinine is within normal limits 0.81 GFR greater than 60 Chest x-ray does not show any evidence of pneumothorax or pneumonia EKG reviewed as above in appears stable from previous Patient is having improved symptoms after DuoNeb. Her lung sounds are clear BNP is improved no evidence of pleural effusion or pulmonary edema. I think today maybe more COPD exacerbation and CHF. Although she has both and they are both quite bad. She is given Lasix as well. She has no leukocytosis fever chills or cough. I dont see any indication for antibiotics now. Dalton, 08/20/2023, 0700, transfer care note. Chart reviewed, patient seen and examined by me independently. 68-year-old female with history of COPD and CHF, seen here last month for COPD exacerbation with BNP 8000, EF known 15-20% range, having shortness of breath, 88% room-air sat on this visit today, EKG shows LVH with repolarization sinus rhythm, troponin indeterminate range as it has been previous evaluations, no ongoing chest pain or recent chest pain, given steroid, 2 breathing treatments, Lasix, feeling improved. Repeat troponin similar, slightly decreased, no chest pain. Patient symptoms further improved, 92% on room air, she would like to go home. We will send prednisone pulse steroid to her pharmacy. She has inhalers to use, she has Lasix to take, she has her other chronic medications. Advised to follow up with her regular doctor Thursday after this holiday weekend, return precautions discussed, stable/improved, discharged per patient request Critical Care Time <Rl Hoffman MD - Last Filed: 08/21/23 08:39> Critical Care Time Critical Care Time: Yes Total Critical Care Time: 31 Attestation: The high probability of a clinically significant, sudden or life threatening deterioration of the [cardiopulmonary] system(s) required my full and direct attention, intervention and personal management. The aggregate critical care time was [31] minutes. This time is in addition to time spent performing reported procedures but includes the following: [x] Data Review and interpretation [x] Patient assessment and monitoring of vital signs [x] Documentation [x] Medication orders and management Discharge Plan Departure Patient Disposition: Home Clinical Impression: Acute dyspnea, Congestive heart failure, COPD exacerbation Activity Restrictions/Additional Instructions: History of congestive heart failure, history of COPD, shortness of breath, given breathing treatments and steroids by initial treating physician, as well as IV Lasix, symptoms improved, studies reassuring, no evidence for heart attack or pneumonia at this time. No fever. Weaned off of oxygen was 92% room air sat. You felt better and wanted to go home. You had medications at home to use her inhaler, and for Lasix continue dosing. We will send prescription for steroid oral course 5 days to your pharmacy, take steroids as directed daily for full course. Recheck exam and symptoms with your regular doctor Thursday or early next week. Return to this/nearest emergency department for any change worsening symptoms or any concerns prior Prescriptions: New prednisone 20 mg tablet 40 mg PO DAILY 5 Days Qty: 10 0RF No Action fluticasone propionate [Flonase Allergy Relief] 50 mcg/actuation spray,suspension 1 spray intranasal Q12H Qty: 16 0RF Rx Instructions: administer into each nostril multivitamin [Multiple Vitamins] 1 EACH tablet 1 tab PO QDAY Qty: 0 fluticasone propion-salmeterol [Advair Diskus] 500-50 mcg/dose blister with device 1 inh inhalation BID Qty: 60 11RF spironolactone 25 mg tablet 12.5 mg PO DAILY ibuprofen 800 mg tablet 800 mg PO Q8H PRN (Reason: pain) Qty: 90 3RF Rx Instructions: with food hydroxyzine HCl 10 mg tablet 10 - 20 mg PO DAILY PRN (Reason: anxiety/panic) Qty: 30 10RF albuterol sulfate [Ventolin HFA] 90 mcg/actuation HFA aerosol inhaler 1 - 2 puff INHALATION Q4-6H PRN (Reason: asthma) Qty: 8 11RF Rx Instructions: administer with spacer as needed for wheezing tramadol 50 mg tablet 50 mg PO TID PRN (Reason: pain) Qty: 30 0RF methocarbamol 500 mg tablet 500 mg PO TID Qty: 30 0RF furosemide [Lasix] 20 mg tablet 20 mg PO DAILY Qty: 30 0RF metoprolol succinate 25 mg Tablet Extended Release 24 Hr 12.5 mg PO BID Qty: 30 0RF lidocaine 5 % adhesive patch,medicated 1 patch topical DAILY Qty: 15 0RF Rx Instructions: leave on most painful area for up to 12 hrs pantoprazole 40 mg tablet,delayed release (DR/EC) 40 mg PO DAILY Qty: 14 0RF ondansetron 4 mg tablet,disintegrating 4 mg PO Q8H PRN (Reason: nausea and vomiting) Qty: 10 0RF dicyclomine 10 mg capsule 10 mg PO TID PRN (Reason: abdominal pain) Qty: 14 0RF lidocaine [Lidoderm] 5 % adhesive patch,medicated 1 patch topical DAILY Qty: 15 0RF Rx Instructions: leave on most painful area for up to 12 hrs Referrals: Tasha Chamberlain DO [Primary Care Provider] - Stand Alone Forms: Patient Portal/API
--- NOTE | 2023-08-20 03:59 | DI.RAD.S_ITS ---
PROCEDURE: XR CHEST 1V INDICATIONS: short of breath TECHNIQUE: One view of the chest was acquired. COMPARISON: [facility], CR, XR CHEST 1V, 08/12/2023, 10:15. FINDINGS: Surgical changes and devices: None. Lungs and pleura: Minimal linear bibasilar atelectasis. Lungs are otherwise clear. No pleural effusions or pneumothorax. Mediastinum: Mediastinal contours appear normal. Severe cardiomegaly. Bones and chest wall: No suspicious bony lesions. Overlying soft tissues appear unremarkable. IMPRESSION: Severe cardiomegaly. No evidence acute pulmonary process. Comment: Final report is concordant with preliminary interpretation provided by [facility]. Dictated by: Sundar Martin M.D. on 08/20/2023 at 7:31 Approved by: Sundar Martin M.D. on 08/20/2023 at 7:32
--- NOTE | 2023-08-20 04:06 | EKG_ITS ---
[address] [address] [place] [address] Test Date: 2023-08-20 Pat Name: Katlyn Pichardo Department: [facility] Room: Gender: Female [employer]: : [id number] Requested By: Order Number: [id number] Reading MD: Phillip Garnica Measurements Intervals [place] Rate: 98 P: 73 NE: 168 QRS: -68 QRSD: 152 T: 98 QT: 432 QTc: 551 Interpretive Statements Normal sinus rhythm Possible Left atrial enlargement Left axis deviation Left ventricular hypertrophy with QRS widening and repolarization abnormality ( Sokolow-Panchal , Jeffrey product , Romhilt-Sun ) Electronically Signed On 08-25-2023 8:59:28 PDT by Phillip Garnica
[2023-08-20 04:07] LABS: Add Manual Diff / Slide Review NO; Basophils Absolute Auto 0 /uL (0-100); Basophils Percent Auto 0.6 % (0-2); Eosinophils Absolute Auto 100 /uL (0-450); Eosinophils Percent Auto 1.6 % (2-4); Hematocrit 44.2 % (36-46); Hemoglobin 14.8 g/dL (12.0-16.0); Lymphocytes Absolute Auto 2400 /uL (1100-4500); Mean Corpuscular HGB Conc 33.5 % (30-36); Mean Corpuscular Hemoglobin 31.6 PG (26-34); Mean Corpuscular Volume 94.4 fL (80-100); Monocytes Absolute Auto 600 /uL (0-900); Monocytes Percent Auto 7.3 % (3-14); Neutrophils Absolute Auto 4600 /uL (1500-7000); Neutrophils Percent Auto 59.5 % (50-75); Platelet Count 202 X10^3/uL (150-400); Red Blood Cell Count 4.68 X10^6/uL (4.0-5.2); Red Cell Distribution Width 13.4 % (11.6-14.8); White Blood Cell Count 7.7 X10^3/uL (4.5-11.0)
[2023-08-20 04:20] LABS: Alanine Aminotransferase 43 IU/L (<35); Albumin 4.3 g/dL (3.5-5.0); Albumin Globulin Ratio 1.4 (1.0-2.8); Alkaline Phosphatase 80 U/L (38-126); Aspartate Aminotransferase 68 IU/L (14-36); BUN Creatinine Ratio 40.7 (6-22); Bilirubin Total 0.5 mg/dL (0.2-1.3); Blood Urea Nitrogen 33 mg/dL (7-17); Calcium 8.7 mg/dL (8.4-10.2); Carbon Dioxide 28 mmol/L (22-32); Chloride 104 mmol/L (98-107); Creatine Kinase 62 U/L (30-135); Estimated Glomerular Filt Rate > 60 mL/min (>60); Glucose 124 mg/dL (80-110); HEMOLYSIS < 15 (0-50); Lipase 187 U/L (23-300); Potassium 4.3 mmol/L (3.4-5.1); Sodium 138 mmol/L (137-145); Total Protein 7.3 g/dL (6.3-8.2)
[2023-08-20] MEDS: ALBUTEROL/IPRATROPIUM 3 ML AMPUL INH ×3 (04:21→09:07)
[2023-08-20 04:24] LABS: D Dimer 751 ng/ml (<500)
[2023-08-20 04:29] LABS: NT-proBNP (BNP-Adult 18+) 5680 pg/mL (<125)
[2023-08-20 04:32] LABS: Troponin I 0.049 ng/mL (0.01-0.034)
[2023-08-20 04:36] LABS: Procalcitonin 0.053 ng/mL (<0.5)
[2023-08-20] MEDS: FUROSEMIDE 40 MG/4 ML VIAL IV (05:37)
[2023-08-20] MEDS: methylPREDNISolone 125 MG/2 ML VIAL IV (05:37)
[2023-08-20 07:16] LABS: Troponin I 0.047 ng/mL (0.01-0.034)
== END 2023-08-20 09:29 | disposition home or self-care (01) ==
PROVIDERS: Emergency Medicine; Emergency Provider Emergency Medicine; PCP Family Medicine
DX: J44.1 Chronic obstructive pulmonary disease with (acute) exacerbation (principal); I50.9 Heart failure, unspecified; Z87.891 Personal history of nicotine dependence
CPT/HCPCS: 36415; 71045; 80053; 82550; 83690; 83880; 84145; 84484; 85025; 85379; 93005; 94640; 96374; 96375; 99284; 99285; J1940; J2919

== ENCOUNTER 2023-10-17 15:12 | Emergency (ER) | payer OTHER, SELFPAY ==
[2023-02-28 12:08] VITALS: BMI 18.9
[2023-10-17] VITALS (11 sets, daily range): BP systolic 98–133; BP diastolic 55–76; PULSE 80–88; RESP 23–36; TEMP 37.3; O2SAT 95–98; BMI 18.6
--- NOTE | 2023-10-17 15:15 | DI.RAD.S_ITS ---
PROCEDURE: XR CHEST 1V INDICATIONS: Shortness of breath TECHNIQUE: One view of the chest was acquired. COMPARISON: [facility], , XR CHEST 1V, 08/20/2023, 4:00. FINDINGS: Surgical changes and devices: None. Lungs and pleura: Lungs are clear. No pleural effusions or pneumothorax. Mediastinum: Mediastinal contours appear normal. Heart size is is enlarged. Bones and chest wall: No suspicious bony lesions. Overlying soft tissues appear unremarkable. IMPRESSION: Cardiomegaly. Approved by: Adri Gomez M.D.,Ph.D. on 10/17/2023 at 17:31
--- NOTE | 2023-10-17 15:32 | ED_ITS ---
HPI - SOB/Dyspnea General Chief Complaint: Shortness of Breath/Dyspnea Stated Complaint: short of breath, chf Time Seen by Provider: 10/17/23 15:31 Source: patient Mode of arrival: Ambulatory History of Present Illness HPI Narrative: Patient is 68-year-old female with past medical history of CHF, hypertension, comes into the ED from home for evaluation of shortness of breath. States her symptoms started on Thursday10/14/2023 after she came [id number], states that it was a 6 [address] plane ride. States that this all started when she missed her flight and had to ?run around everywhere states that she has had similar symptoms like this in the past and required increased diuresis therefore she has been taking double dose of her Lasix but states that she has had much relief therefore decided come into the ED for further evaluation treatment. Not on any blood thinners, she has not complaining of any other symptoms such as headache visual disturbances fever chills nausea vomiting abdominal pain or any other GI/ symptoms at this time. Related Data Home Medications Medication Instructions Recorded Confirmed multivitamin (Multiple Vitamins 1 tab PO QDAY ##0 01/01/16 09/07/23 tablet) spironolactone 25 mg tablet 12.5 mg PO DAILY 03/18/23 09/07/23 Previous Rx's Medication Instructions Recorded furosemide 20 mg tablet (Lasix) 20 mg PO DAILY #30 tabs 01/16/23 metoprolol succinate 25 mg 12.5 mg (1/2 x 25 mg) PO BID #30 03/01/23 tablet,extended release 24 hr tabs albuterol sulfate 90 mcg/actuation 1 - 2 puff inhalation Q4-6H PRN 03/03/23 aerosol inhaler (Ventolin HFA) asthma #8 grams lidocaine 5 % topical patch 1 patch topical DAILY #15 ea 03/28/23 hydroxyzine HCl 10 mg tablet 10 - 20 mg (1 - 2 x 10 mg) PO 07/06/23 DAILY PRN anxiety/panic #30 tabs budesonide-formoterol HFA 160 2 puff inhalation Q12H #10.2 grams 09/07/23 mcg-4.5 mcg/actuation aerosol inhaler (Symbicort) sacubitril 49 mg-valsartan 51 mg 1 tab PO BID #60 tabs 09/07/23 tablet (Entresto) Allergies Allergy/AdvReac Type Severity Reaction Status Date / Time Sulfa (Sulfonamide Allergy Severe SOB/DYSPNEA Verified 09/07/23 16:33 Antibiotics) alprazolam AdvReac Severe MANIC Verified 09/07/23 16:33 SYMPTOMS codeine AdvReac Severe NAUSEA/VOMI Verified 09/07/23 16:33 TING Review of Systems Review of Systems Narrative: HEENT: Denies headache, eye drainage, eye irritation, head trauma, sore throat, voice change Cardiovascular: Denies any chest pain, palpitations, shortness of breath, tachycardia Respiratory: Positive for shortness of breath Denies cough, wheeze, stridor GI/: Denies any abdominal pain, nausea, vomiting, diarrhea, bright red blood per rectum, melanotic stools, urinary frequency, urinary retention, dysuria, hematuria MSK: Denies any joint pain, muscle pains, swelling Skin: Denies any rashes, lesions, discoloration Neuro: Denies any headache, lightheadedness, dizziness, fainting, weakness Psych: Denies SI/HI Patient History Medical History CHF (congestive heart failure) Claudication of both lower extremities Tobacco dependence Juvenile rheumatoid arthritis Current every day smoker LBBB (left bundle branch block) Cardiomyopathy Hip pain Shoulder pain (~06/2012) GERD (gastroesophageal reflux disease) Hyperthyroidism Depression Migraines Osteoarthritis Skin cancer (09/2016) Surgical History History of surgery (~2009) Hx of cardiac cath (04/06/19) History of tonsillectomy (1959) Status post appendectomy (1988) History of hip replacement (2004) Family History Mother Heart disease Personal history of stroke with residual effects Father No problems noted. Social History household members: none Smoking Status: Former smoker Tobacco: How many years used: 50 second hand exposure: Yes alcohol intake: never substance use type: marijuana Smoking Status: Former smoker tobacco type: cigarettes alcohol intake frequency: holidays/special occasions only Substance Use Type: marijuana Exam Narrative Exam Narrative: General: Cooperative, comfortable, well-developed, not in acute distress HEENT: Normocephalic, atraumatic, PERRLA, normal sclera, eyelids normal, Neck: Active full range of motion, atraumatic Chest: Normal to inspection, negative crepitus, no overlying erythema ecchymosis Respiratory: Patient mild tachypnea with conversation but speaking in full sentences protecting airway, not in acute respiratory distress, clear to auscultation bilaterally negative cough, wheeze, tachypnea, rhonchi, rales Cardiology: Regular rate rhythm negative gallop, murmur, rubs GI/: Normal to inspection, soft, nonrigid, no tenderness to palpation, exam deferred MSK: Full range of active range of motion of all 4 extremities, atraumatic Skin: No rashes lesions noted Neuro: Alert awake oriented x3, moves all 4 extremities spontaneously, cranial nerves intact, able to answer all questions appropriately follows commands appropriately Psych: Cooperative, negative suicidal or homicidal ideations Initial Vital Signs Initial Vital Signs: Vital Signs Temperature 99.1 F 10/17/23 15:17 Pulse Rate 88 10/17/23 15:17 Respiratory Rate 32 H 10/17/23 15:17 Blood Pressure 105/70 10/17/23 15:17 Pulse Oximetry 96 10/17/23 15:17 Oxygen Delivery Method Room Air 10/17/23 15:17 Course Orders Ordered: ED Orders 10/17/23 15:15 XR chest 1V Stat EKG-12 Lead Stat Measure peak expiratory flow ONCE RT Consult Eval and Treat NOW 10/17/23 15:42 CT angio chest PE protocol Stat 10/17/23 15:50 Complete Blood Count AUTO DIFF Stat Comprehensive Metabolic Panel Stat Lactate (Lactic Acid) Stat MAG [Magnesium] Stat NT-proBNP (BNP-Adult 18+) Stat Prothrombin Time INR Stat Troponin I Stat 10/17/23 15:56 Covid-19 + FLU A/B + RSV - PCR Stat Albuterol (Albuterol 2.5 Mg/3 Ml Neb (Adult)) 2.5 mg INH [id number] PRN PRN Reason: Shortness Of Breath Discontinued Medications Furosemide (Furosemide 40 Mg/4 Ml Vial) 20 mg IV NOW ONE Stop: 10/17/23 17:59 Vital Signs Vital signs: Vital Signs - 8 hr 10/17/23 15:17 10/17/23 15:28 10/17/23 15:30 Temperature 99.1 F Pulse Rate 88 84 Respiratory Rate 32 H Blood Pressure 105/70 133/62 Pulse Oximetry 96 95 Oxygen Delivery Method Room Air Oxygen Flow Rate 10/17/23 15:30 10/17/23 15:43 10/17/23 16:00 Temperature Pulse Rate 85 81 Respiratory Rate 36 H 24 Blood Pressure 99/55 L Pulse Oximetry 96 96 Oxygen Delivery Method Nasal Cannula Oxygen Flow Rate 2 10/17/23 16:00 10/17/23 16:28 10/17/23 16:28 Temperature Pulse Rate 80 81 Respiratory Rate 24 28 H Blood Pressure 100/67 Pulse Oximetry 95 97 Oxygen Delivery Method Oxygen Flow Rate 10/17/23 16:30 10/17/23 16:30 Temperature Pulse Rate 82 Respiratory Rate 23 Blood Pressure 98/59 L Pulse Oximetry 98 Oxygen Delivery Method Oxygen Flow Rate MDM - SOB/Dyspnea Differential Diagnosis Differential diagnosis: Likely congestive heart failure, community acquired pneumonia, pulmonary embolism and other (COVID) Condition is:: Well Controlled Medical Records Attestation: I reviewed the patient's medical records. Lab Data Attestation: I reviewed the patient's lab results. 10/17/23 15:50 10/17/23 15:50 Labs: Lab Results 10/17/23 10/17/23 Range/Units 15:50 15:56 WBC 6.7 (4.5-11.0) X10^3/uL RBC 4.97 (4.0-5.2) X10^6/uL Hgb 15.5 (12.0-16.0) g/dL Hct 46.4 H (36-46) % MCV 93.3 (80-100) fL MCH 31.2 (26-34) PG MCHC 33.4 (30-36) % RDW 13.6 (11.6-14.8) % Plt Count 163 (150-400) X10^3/uL Neut % (Auto) 63.2 (50-75) % Lymph % (Auto) 26.2 (25-40) % Dade % (Auto) 9.5 (3-14) % Eos % (Auto) 0.7 L (2-4) % Baso % (Auto) 0.4 (0-2) % Neut # (Auto) 4200 (2637-5938) /uL Lymph # (Auto) 1700 (5051-2223) /uL Dade # (Auto) 600 (0-900) /uL Eos # (Auto) 0 (0-450) /uL Baso # (Auto) 0 (0-100) /uL PT 11.6 (9.4-12.5) SECONDS INR 1.0 (0.9-1.3) Sodium 135 L (137-145) mmol/L Potassium 3.7 (3.4-5.1) mmol/L Chloride 101 (98-107) mmol/L Carbon Dioxide 28 (22-32) mmol/L BUN 18 H (7-17) mg/dL Creatinine 0.85 (0.52-1.04) mg/dL Estimated GFR > 60 (>60) mL/min BUN/Creatinine Ratio 21.2 (6-22) Glucose 84 (80-110) mg/dL Lactate 1.2 (0.7-2.1) mmol/L Calcium 8.6 (8.4-10.2) mg/dL Magnesium 1.8 (1.6-2.3) mg/dL Total Bilirubin 0.7 (0.2-1.3) mg/dL AST 49 H (14-36) IU/L ALT 28 (<35) IU/L Alkaline Phosphatase 76 (38-126) U/L Troponin I 0.034 (0.01-0.034) ng/mL NT-Pro-B Natriuret Pep 6040 H (<125) pg/mL Total Protein 7.1 (6.3-8.2) g/dL Albumin 4.0 (3.5-5.0) g/dL Globulin 3.1 (1.7-4.1) g/dL Albumin/Globulin Ratio 1.3 (1.0-2.8) SARS-CoV-2 (PCR) Positive H (Negative) Influenza A (RT-PCR) Flu a negative (NEGATIVE) Influenza B (RT-PCR) Flu b negative (NEGATIVE) RSV (PCR) Negative (Negative) ECG Data Attestation: I personally reviewed and interpreted this ECG as follows: MDM Narrative Medical decision making narrative: Patient is a 68-year-old female past medical history of CHF presenting with persistent shortness of breath ongoing persistent for the past 3 days, states that this happens whenever she has an acute CHF exacerbation, follows with radiation physicist at [facility], said she has been doubling up on her Lasix but has had persistent symptoms. Lab work showing BNP 6040, chest x-ray showing pleural effusion, patient not requiring any supplemental oxygen but is consistent with acute CHF exacerbation. Patient also had CTA chest to rule out PE which was negative. Patient was found to be COVID positive. I informed patient of need for admission for diuresis and symptom control, however she states that she does not want to be admitted, states that she would rather continue taking her Lasix in an outpatient setting and follow up with her radiation physicist and primary care doctor. I informed her this will be leaving against medical advice. She understands and agrees with leaving against medical advice We have discussed and explained the clinical examination, laboratory results, and imaging studies so far with the patient, both with full medical disclosure and layman's terms. The patient is an adult and is of sound mind. The patient appears to have intact insight, judgement and reason. Is alert and oriented x4. The patient is clinically sober and appears free from any distracting injury. The patient verbalized understanding. Despite incomplete workup the patient expresses a wish to leave. We have explained to the patient that leaving now would be leaving against medical advice. We have explained that leaving against medical advice without a complete workup and/or identification of pathology may lead to worsening of symptoms and even the possibility of disability or . The patient understands that the only way to safely avoid this is to complete the workup as leaving the grounds of the hospital would be leaving the care of trained medical assistant dermatology, specialists, and resources that were available to the patient. We have expressed the need for the patient to stay in the hospital, considering the constellation of symptoms of breath the patient here. Despite this lengthy conversation the patient still expresses desire to leave against medical advice and demonstrates a full capacity to make their own medical decisions. We have informed the patient to call 911 or to seek immediate medical attention at their nearest emergency department if there are symptoms were to worsen/or change their mind. Discharge Plan Departure Patient Disposition: Left Against Medical Advice Clinical Impression: COVID-19, Left against medical advice CHF exacerbation Qualifiers: Heart failure type: unspecified Qualified Code(s): I50.9 - Heart failure, unspecified Activity Restrictions/Additional Instructions: We have discussed and explained the clinical examination, laboratory results, and imaging studies so far with the patient, both with full medical disclosure and layman's terms. The patient is an adult and is of sound mind. The patient appears to have intact insight, judgement and reason. Is alert and oriented x4. The patient is clinically sober and appears free from any distracting injury. The patient verbalized understanding. Despite incomplete workup the patient expresses a wish to leave. We have explained to the patient that leaving now would be leaving against medical advice. We have explained that leaving against medical advice without a complete workup and/or identification of pathology may lead to worsening of symptoms and even the possibility of disability or . The patient understands that the only way to safely avoid this is to complete the workup as leaving the grounds of the hospital would be leaving the care of trained medical assistant dermatology, specialists, and resources that were available to the patient. We have expressed the need for the patient to stay in the hospital, considering the constellation of symptoms of breath the patient here. Despite this lengthy conversation the patient still expresses desire to leave against medical advice and demonstrates a full capacity to make their own medical decisions. We have informed the patient to call 911 or to seek immediate medical attention at their nearest emergency department if there are symptoms were to worsen/or change their mind. Prescriptions: No Action multivitamin [Multiple Vitamins] 1 EACH tablet 1 tab PO QDAY Qty: 0 spironolactone 25 mg tablet 12.5 mg PO DAILY hydroxyzine HCl 10 mg tablet 10 - 20 mg PO DAILY PRN (Reason: anxiety/panic) Qty: 30 10RF Entresto 49-51 mg tablet 1 tab PO BID Qty: 60 5RF budesonide-formoterol [Symbicort] 160-4.5 mcg/actuation HFA aerosol inhaler 2 puff inhalation Q12H Qty: 10.2 11RF albuterol sulfate [Ventolin HFA] 90 mcg/actuation HFA aerosol inhaler 1 - 2 puff INHALATION Q4-6H PRN (Reason: asthma) Qty: 8 11RF Rx Instructions: administer with spacer as needed for wheezing furosemide [Lasix] 20 mg tablet 20 mg PO DAILY Qty: 30 0RF metoprolol succinate 25 mg Tablet Extended Release 24 Hr 12.5 mg PO BID Qty: 30 0RF lidocaine 5 % adhesive patch,medicated 1 patch topical DAILY Qty: 15 0RF Rx Instructions: leave on most painful area for up to 12 hrs Referrals: Tasha Chamberlain DO [Primary Care Provider] - Stand Alone Forms: Patient Portal/API, Against Medical Advice
--- NOTE | 2023-10-17 15:42 | DI.CT.S_ITS ---
PROCEDURE: CT ANGIO CHEST PE PROTOCOL INDICATIONS: sob TECHNIQUE: After the administration of intravenous contrast, 2 mm thick sections acquired from the pulmonary apices to the posterior costophrenic angles. 3-dimensional maximum intensity projection (MIP) coronal and sagittal reformats were then acquired through the thorax. For radiation dose reduction, the following was used: automated exposure control, adjustment of mA and/or kV according to patient size. COMPARISON: [facility], CT, CT ANGIO CHEST PE PROTOCOL, 01/16/2023, 15:29. FINDINGS: Image quality: Diagnostic. Pulmonary arteries: Pulmonary arteries are normal in size, and demonstrate no intraluminal filling defects to suggest central pulmonary embolism. Lower Neck: No enlarged lymph nodes. Thyroid: No thyroid nodules which require sonographic follow up, per consensus guidelines. Axillae: No enlarged lymph nodes. Chest Wall: Unremarkable. Bones: Unremarkable. Lungs and Pleura: No pneumothorax or pleural effusions. No consolidation or suspicious nodules. Heart: Heart size is enlarged. No pericardial effusion. Thoracic Vessels: No aortic aneurysm. Mediastinum and Karla: No enlarged lymph nodes. Esophagus: No wall thickening. No hiatal hernia. Upper Abdomen: Visualized upper abdomen solid organs and bowel loops appear normal. IMPRESSION: No pulmonary embolus. Cardiomegaly, as before Approved by: Adri Gomez M.D.,Ph.D. on 10/17/2023 at 17:29
[2023-10-17 15:56] LABS: Add Manual Diff / Slide Review NO; Basophils Absolute Auto 0 /uL (0-100); Basophils Percent Auto 0.4 % (0-2); Eosinophils Absolute Auto 0 /uL (0-450); Eosinophils Percent Auto 0.7 % (2-4); Hematocrit 46.4 % (36-46); Hemoglobin 15.5 g/dL (12.0-16.0); Lymphocytes Absolute Auto 1700 /uL (1100-4500); Lymphocytes Percent Auto 26.2 % (25-40); Mean Corpuscular HGB Conc 33.4 % (30-36); Mean Corpuscular Hemoglobin 31.2 PG (26-34); Mean Corpuscular Volume 93.3 fL (80-100); Monocytes Absolute Auto 600 /uL (0-900); Monocytes Percent Auto 9.5 % (3-14); Neutrophils Absolute Auto 4200 /uL (1500-7000); Neutrophils Percent Auto 63.2 % (50-75); Platelet Count 163 X10^3/uL (150-400); Red Blood Cell Count 4.97 X10^6/uL (4.0-5.2); Red Cell Distribution Width 13.6 % (11.6-14.8); White Blood Cell Count 6.7 X10^3/uL (4.5-11.0)
[2023-10-17 16:03] LABS: Prothrombin Time 11.6 SECONDS (9.4-12.5)
[2023-10-17 16:09] LABS: Alanine Aminotransferase 28 IU/L (<35); Albumin Globulin Ratio 1.3 (1.0-2.8); Alkaline Phosphatase 76 U/L (38-126); Aspartate Aminotransferase 49 IU/L (14-36); BUN Creatinine Ratio 21.2 (6-22); Bilirubin Total 0.7 mg/dL (0.2-1.3); Blood Urea Nitrogen 18 mg/dL (7-17); Calcium 8.6 mg/dL (8.4-10.2); Carbon Dioxide 28 mmol/L (22-32); Chloride 101 mmol/L (98-107); Estimated Glomerular Filt Rate > 60 mL/min (>60); Globulin 3.1 g/dL (1.7-4.1); Glucose 84 mg/dL (80-110); HEMOLYSIS 23 (0-50); Lactate (Lactic Acid) 1.2 mmol/L (0.7-2.1); Magnesium 1.8 mg/dL (1.6-2.3); Potassium 3.7 mmol/L (3.4-5.1); Sodium 135 mmol/L (137-145); Total Protein 7.1 g/dL (6.3-8.2)
[2023-10-17 16:21] LABS: NT-proBNP (BNP-Adult 18+) 6040 pg/mL (<125); Troponin I 0.034 ng/mL (0.01-0.034)
[2023-10-17 16:38] LABS: Influenza A - CEPHEID Flu A NEGATIVE (NEGATIVE); Influenza B - CEPHEID Flu B NEGATIVE (NEGATIVE); Respiratory Syncytial Virus Negative (Negative)
[2023-10-17 16:41] LABS: COVID-19 CEPHEID 4-PLEX PCR POSITIVE (Negative)
[2023-10-17] MEDS: FUROSEMIDE 40 MG/4 ML VIAL 20 MG IV (18:08)
== END 2023-10-17 18:30 | disposition left against medical advice (07) ==
PROVIDERS: Emergency Provider Student in an Organized Health Care Education/Training Program; PCP Family Medicine
DX: U07.1 COVID-19 (principal); I50.9 Heart failure, unspecified; R06.02 Shortness of breath; I51.7 Cardiomegaly
CPT/HCPCS: 0241U; 36415; 71045; 71275; 80053; 83605; 83735; 83880; 84484; 85025; 85610; 94640; 96374; 99284; J1940; Q9967

== ENCOUNTER → 2023-12-08 17:24 | Outpatient (CLI) | payer OTHER, SELFPAY ==
[2023-02-28 12:08] VITALS: BMI 18.9
[2023-12-08 18:50] LABS: BUN Creatinine Ratio 24.7 (6-22); Blood Urea Nitrogen 24 mg/dL (7-17); Calcium 9.4 mg/dL (8.4-10.2); Carbon Dioxide 34 mmol/L (22-32); Chloride 100 mmol/L (98-107); Estimated Glomerular Filt Rate > 60 mL/min (>60); Glucose 100 mg/dL (80-110); HEMOLYSIS < 15 (0-50); Potassium 4.3 mmol/L (3.4-5.1); Sodium 139 mmol/L (137-145)
[2023-12-09 16:28] LABS: Hep C Virus Ab w/Reflex Quant NEGATIVE s/c (NEGATIVE)
== END ==
LOC: LAB 17:25
PROVIDERS: PCP Family Medicine; Referring Provider Family Medicine; Visit Provider Family Medicine
DX: I50.9 Heart failure, unspecified (principal); J44.9 Chronic obstructive pulmonary disease, unspecified
CPT/HCPCS: 36415; 80048; 86803

== ENCOUNTER 2023-12-10 10:52 | Emergency (ER) | payer OTHER, SELFPAY ==
[2023-02-28 12:08] VITALS: BMI 18.9
[2023-12-10] VITALS (12 sets, daily range): BP systolic 85–103; BP diastolic 52–66; PULSE 86–116; RESP 18–27; TEMP 36.8; O2SAT 88–97; BMI 18.0
--- NOTE | 2023-12-10 11:13 | EKG_ITS ---
[facility] [address] [place] [address] Test Date: 2023-12-10 Pat Name: Katlyn Pichardo Department: [facility] Room: Gender: Female Clinical Nurse: LUIGI : 1955 Requested By: Order Number: [id number] Reading MD: Joey Desir Measurements Intervals [place] Rate: 92 P: 67 GA: 156 QRS: -37 QRSD: 120 T: 114 QT: 412 QTc: 509 Interpretive Statements Normal sinus rhythm Left atrial enlargement Left axis deviation Left ventricular hypertrophy with QRS widening and repolarization abnormality ( Sokolow-Panchal , [place] product , Romhilt-Sun ) Inferior infarct , age undetermined Anterior infarct , age undetermined Electronically Signed On 12-10-2023 13:45:38 PDT by Joey Desir
[2023-12-10] MEDS: PANTOPRAZOLE 40 MG VIAL 80 MG IV (11:39)
[2023-12-10] MEDS: ONDANSETRON 4 MG/2 ML INJ IV (11:39)
[2023-12-10 11:47] LABS: Add Manual Diff / Slide Review NO; Basophils Absolute Auto 0 /uL (0-100); Basophils Percent Auto 0.5 % (0-2); Eosinophils Absolute Auto 100 /uL (0-450); Eosinophils Percent Auto 1.1 % (2-4); Lymphocytes Absolute Auto 1600 /uL (1100-4500); Lymphocytes Percent Auto 19.1 % (25-40); Mean Corpuscular HGB Conc 33.3 % (30-36); Mean Corpuscular Hemoglobin 31.5 PG (26-34); Mean Corpuscular Volume 94.6 fL (80-100); Monocytes Absolute Auto 500 /uL (0-900); Monocytes Percent Auto 6.3 % (3-14); Neutrophils Absolute Auto 6000 /uL (1500-7000); Platelet Count 214 X10^3/uL (150-400); Red Blood Cell Count 4.76 X10^6/uL (4.0-5.2); White Blood Cell Count 8.2 X10^3/uL (4.5-11.0)
[2023-12-10 11:54] LABS: Prothrombin Time 11.3 SECONDS (9.4-12.5)
[2023-12-10 11:57] LABS: PTT Partial Thromboplastin Tim 32 SECONDS (25.1-36.5)
[2023-12-10 11:59] LABS: Alanine Aminotransferase 28 IU/L (<35); Albumin 4.4 g/dL (3.5-5.0); Albumin Globulin Ratio 1.6 (1.0-2.8); Alkaline Phosphatase 67 U/L (38-126); Aspartate Aminotransferase 43 IU/L (14-36); BUN Creatinine Ratio 30.1 (6-22); Bilirubin Total 0.9 mg/dL (0.2-1.3); Blood Urea Nitrogen 25 mg/dL (7-17); Calcium 9.5 mg/dL (8.4-10.2); Carbon Dioxide 31 mmol/L (22-32); Chloride 103 mmol/L (98-107); Estimated Glomerular Filt Rate > 60 mL/min (>60); Globulin 2.8 g/dL (1.7-4.1); Glucose 103 mg/dL (80-110); HEMOLYSIS < 15 (0-50); Potassium 4.8 mmol/L (3.4-5.1); Sodium 139 mmol/L (137-145); Total Protein 7.2 g/dL (6.3-8.2)
--- NOTE | 2023-12-10 12:21 | PC.NURSE ---
last oral intake coffee at 0930, denies food today.
[2023-12-10] MEDS: SODIUM CHLORIDE 0.9% 1,000 ML 1000 ML IV (12:30)
[2023-12-10 12:37] LABS: Urine Volume Low Vol <10mL (spun)
[2023-12-10 12:38] LABS: Bacteria Urine None Seen; RBC Urine 0-1/HPF (0-5/HPF); Squamous Epithelial Cell Urine 0-1 /HPF (0-5/HPF); WBC Urine 0-1/HPF (0-5/HPF)
[2023-12-10 12:39] LABS: Culture Indicated Urine Cult Not Indicated
[2023-12-10 13:17] LABS: NT-proBNP (BNP-Adult 18+) 5700 pg/mL (<125)
[2023-12-10 13:20] LABS: Troponin I 0.027 ng/mL (0.01-0.034)
--- NOTE | 2023-12-10 13:44 | ED_ITS ---
HPI - GI Bleed General Chief complaint: GI Bleed Stated complaint: bleeding rectum x1 day Time Seen by Provider: 12/10/23 11:43 Source: patient Mode of arrival: Ambulatory History of Present Illness HPI Narrative: 68-year-old woman with a history of significant heart failure and COPD with chronic exertional dyspnea began having diarrhea last night started with the fully formed regular stool and then looser stools than frankly bloody stools that she describes as looking like cranberry jelly. This is associated with some discomfort in her upper abdomen. She is somewhat nauseated but has not actually vomited. She would go to bed after this episode and then had some mucousy bright red blood without a bowel movement this morning. Still having some rumbling in her tummy. She has not on blood thinners when asked if she is having dizziness orthopnea or dyspnea she states these are chronic and have not gotten any worse. Patient does not have a history of upper or lower GI bleedin. Not currently on prednisone. She states she has been having episodes with significant upper chest shoulder back of her neck pain increasing over the last week or so. She has taken a total of 2 doses of ibuprofen when she has these symptoms and finds it very effective. She has not using other nonsteroidal anti-inflammatories Related Data Home Medications Medication Instructions Recorded Confirmed multivitamin (Multiple Vitamins 1 tab PO QDAY ##0 01/01/16 09/07/23 tablet) Previous Rx's Medication Instructions Recorded albuterol sulfate 90 mcg/actuation 1 - 2 puff inhalation Q4-6H PRN 03/03/23 aerosol inhaler (Ventolin HFA) asthma #8 grams lidocaine 5 % topical patch 1 patch topical DAILY #15 ea 03/28/23 hydroxyzine HCl 10 mg tablet 10 - 20 mg (1 - 2 x 10 mg) PO 07/06/23 DAILY PRN anxiety/panic #30 tabs budesonide-formoterol HFA 160 2 puff inhalation Q12H #10.2 grams 09/07/23 mcg-4.5 mcg/actuation aerosol inhaler (Symbicort) sacubitril 49 mg-valsartan 51 mg 1 tab PO BID #60 tabs 09/07/23 tablet (Entresto) furosemide 20 mg tablet (Lasix) 20 mg PO BID #180 tabs 12/04/23 ibuprofen 400 mg tablet 400 mg PO Q8H PRN pain #60 tabs 12/04/23 metoprolol succinate 25 mg 12.5 mg (1/2 x 25 mg) PO BID #90 12/04/23 tablet,extended release 24 hr tabs spironolactone 25 mg tablet 12.5 mg (1/2 x 25 mg) PO DAILY #45 12/04/23 tabs Allergies Allergy/AdvReac Type Severity Reaction Status Date / Time Sulfa (Sulfonamide Allergy Severe SOB/DYSPNEA Verified 12/10/23 11:06 Antibiotics) alprazolam AdvReac Severe MANIC Verified 12/10/23 11:06 SYMPTOMS codeine AdvReac Severe NAUSEA/VOMI Verified 12/10/23 11:06 TING Review of Systems Review of Systems Narrative: Pertinent positive and negative findings as per HPI Patient History Medical History CHF (congestive heart failure) Claudication of both lower extremities Tobacco dependence Juvenile rheumatoid arthritis Current every day smoker LBBB (left bundle branch block) Cardiomyopathy Hip pain Shoulder pain (~06/2012) GERD (gastroesophageal reflux disease) Hyperthyroidism Depression Migraines Osteoarthritis Skin cancer (09/2016) Surgical History History of surgery (~2009) Hx of cardiac cath (04/06/19) History of tonsillectomy (1959) Status post appendectomy (1988) History of hip replacement (2004) Family History Mother Heart disease Personal history of stroke with residual effects Father No problems noted. Social History household members: none Smoking Status: Former smoker Tobacco: How many years used: 50 second hand exposure: Yes alcohol intake: never substance use type: marijuana Smoking Status: Former smoker tobacco type: cigarettes alcohol intake frequency: holidays/special occasions only Substance Use Type: marijuana Exam Initial Vital Signs Initial Vital Signs: Vital Signs Temperature 98.2 F 12/10/23 11:06 Pulse Rate 91 H 12/10/23 11:06 Respiratory Rate 20 12/10/23 11:06 Pulse Oximetry 97 12/10/23 11:06 Oxygen Delivery Method Room Air 12/10/23 11:06 General: Chronically ill-appearing somewhat pale soler but able to speak in full sentences is alert and appropriate HEENT: Moist mucous membranes, normal sclera with reactive pupils, Neck: No JVD, Respiratory: Lungs minor wheeze in all lung preciado crackles bibasilar Cardiac: Regular rate and rhythm no murmurs no bruits Abdomen: Soft, minor epigastric tenderness without rebound or guarding Skin: Pale, no diaphoresis Neurologic: Globally weak but otherwise Grossly neurologically intact with no obvious asymmetries or abnormalities Extremities: No trauma, Psych: Cooperative, appropriate insight and affect Course Orders Ordered: ED Orders 12/10/23 11:13 EKG-12 Lead Stat 12/10/23 11:34 BNP [NT-proBNP (BNP-Adult 18+)] Stat Complete Blood Count AUTO DIFF Stat Comprehensive Metabolic Panel Stat PTT Partial Thromboplastin Jaret Stat Prothrombin Time INR Stat Trop I [Troponin I] Stat Type and Screen Stat 12/10/23 11:57 Urine Microscopic Stat 12/10/23 13:38 Hemoglobin and Hematocrit Stat Discontinued Medications Sodium Chloride (Normal Saline 0.9%) 1,000 mls @ 1,000 mls/hr IV BOLUS ONE Stop: 12/10/23 12:48 Last Infusion: 12/10/23 13:36 Dose: Infused Documented By: Admin: 12/10/23 12:30 Dose: 1,000 mls/hr Documented By: SUE Sodium Chloride (Normal Saline 0.9%) 1,000 mls @ 1,000 mls/hr IV BOLUS ONE Stop: 12/10/23 13:54 Last Admin: 12/10/23 15:12 Dose: Not Given Documented By: ALONA Ondansetron HCl (Ondansetron 4 Mg/2 Ml Inj) 4 mg IV NOW PRN PRN Reason: Nausea And Vomiting Last Admin: 12/10/23 11:39 Dose: 4 mg Documented By: NII Ondansetron HCl (Ondansetron 4 Mg Odt) 4 mg SL NOW PRN PRN Reason: Nausea And Vomiting Pantoprazole Sodium (Pantoprazole 40 Mg Vial) 80 mg IV NOW ONE Stop: 12/10/23 11:29 Last Admin: 12/10/23 11:39 Dose: 80 mg Documented By: NII Vital Signs Vital signs: Vital Signs - 8 hr 12/10/23 11:06 12/10/23 11:18 12/10/23 12:20 Temperature 98.2 F Pulse Rate 91 H 91 H Respiratory Rate 20 18 Blood Pressure 90/66 Pulse Oximetry 97 92 Oxygen Delivery Method Room Air 12/10/23 12:30 12/10/23 12:30 12/10/23 13:00 Temperature Pulse Rate 91 H Respiratory Rate 21 Blood Pressure 95/61 103/56 L Pulse Oximetry Oxygen Delivery Method 12/10/23 13:00 12/10/23 13:30 12/10/23 13:30 Temperature Pulse Rate 94 H 88 Respiratory Rate 18 22 Blood Pressure 86/52 L Pulse Oximetry 88 L 95 Oxygen Delivery Method Room Air 12/10/23 13:32 12/10/23 13:32 12/10/23 13:45 Temperature Pulse Rate 88 Respiratory Rate 25 H Blood Pressure 85/56 L 89/53 L Pulse Oximetry 93 Oxygen Delivery Method 12/10/23 13:45 12/10/23 14:00 12/10/23 14:00 Temperature Pulse Rate 87 93 H Respiratory Rate 27 H 26 H Blood Pressure 94/57 L Pulse Oximetry 89 L 93 Oxygen Delivery Method 12/10/23 14:15 12/10/23 14:15 12/10/23 14:30 Temperature Pulse Rate 86 Respiratory Rate 18 Blood Pressure 93/56 L 91/57 L Pulse Oximetry 95 Oxygen Delivery Method 12/10/23 14:30 12/10/23 15:07 Temperature Pulse Rate 92 H 116 H Respiratory Rate 22 26 H Blood Pressure Pulse Oximetry 94 93 Oxygen Delivery Method MDM - GI Bleed Lab Data 12/10/23 13:38 12/10/23 11:34 Labs: Lab Results 12/10/23 12/10/23 12/10/23 Range/Units 11:34 11:57 13:38 WBC 8.2 (4.5-11.0) X10^3/uL RBC 4.76 (4.0-5.2) X10^6/uL Hgb 15.0 13.6 (12.0-16.0) g/dL Hct 45.0 41.3 (36-46) % MCV 94.6 (80-100) fL MCH 31.5 (26-34) PG MCHC 33.3 (30-36) % RDW 14.0 (11.6-14.8) % Plt Count 214 (150-400) X10^3/uL Neut % (Auto) 73.0 (50-75) % Lymph % (Auto) 19.1 L (25-40) % [place] % (Auto) 6.3 (3-14) % Eos % (Auto) 1.1 L (2-4) % Baso % (Auto) 0.5 (0-2) % Neut # (Auto) 6000 (8181-4832) /uL Lymph # (Auto) 1600 (2248-3815) /uL [place] # (Auto) 500 (0-900) /uL Eos # (Auto) 100 (0-450) /uL Baso # (Auto) 0 (0-100) /uL PT 11.3 (9.4-12.5) SECONDS INR 1.0 (0.9-1.3) APTT 32 (25.1-36.5) SECONDS Sodium 139 (137-145) mmol/L Potassium 4.8 (3.4-5.1) mmol/L Chloride 103 (98-107) mmol/L Carbon Dioxide 31 (22-32) mmol/L BUN 25 H (7-17) mg/dL Creatinine 0.83 (0.52-1.04) mg/dL Estimated GFR > 60 (>60) mL/min BUN/Creatinine Ratio 30.1 H (6-22) Glucose 103 (80-110) mg/dL Calcium 9.5 (8.4-10.2) mg/dL Total Bilirubin 0.9 (0.2-1.3) mg/dL AST 43 H (14-36) IU/L ALT 28 (<35) IU/L Alkaline Phosphatase 67 (38-126) U/L Troponin I 0.027 (0.01-0.034) ng/mL NT-Pro-B Natriuret Pep 5700 H (<125) pg/mL Total Protein 7.2 (6.3-8.2) g/dL Albumin 4.4 (3.5-5.0) g/dL Globulin 2.8 (1.7-4.1) g/dL Albumin/Globulin Ratio 1.6 (1.0-2.8) Urine RBC 0-1/hpf (0-5/HPF) Urine WBC 0-1/hpf (0-5/HPF) Ur Squamous Epith Cells 0-1 /hpf (0-5/HPF) Urine Bacteria None seen (None) Ur Culture Indicated? Cult not indicated Vol Urine Centrifuged Low vol <10ml (spun) A Blood Type O Positive Antibody Screen Negative Urine Dip Bedside Urine Glucose Negative Bedside Urine Bilirubin - Negative Bedside Urine Ketone - Negative Urine Specific [place] 1.015 Bedside Urine Occult Blood +/- Bedside Urine pH 6.0 Bedside Urine Protein +/- 15 Bedside Urine Urobilinogen - Negative Bedside Urine Nitrite - Negative Bedside Urine Leukocytes +/- 15 Esterase MDM Narrative Medical decision making narrative: CC: Red blood per rectum Complicating co-morbidities: Congestive heart failure, COPD, no prior GI bleed. No prior upper or lower endoscopies, reflux not currently on proton pump inhibitors Data collected from: patient Medical records reviewed: Primary care notes from December 03 are reviewed primary focus was on congestive heart failure. She is found that she typically does better if she takes an extra dose of 10-20 mg of Lasix in the evening. Most recent ejection fraction was 15%. She has been prescribed Entresto but has not yet filled it. POLST form documented in the chart this the patient as DNR with conservative management as of February of this year Differential considered: Upper GI bleed, diverticular bleed, no bleeding with abnormally colored stool Exam documented above, pertinent findings include: Patient appears somewhat pale, chronically weak she states this is her baseline. She has not tachycardic minor wheezes in all lung preciado bibasilar crackles, midepigastric tenderness without rebound or guarding. She has stool sample that is bright red mucousy blood that occurred without any stool today. Lab Test results independently reviewed as above. Pertinent findings: Initial H and H is unremarkable with a white count of 8.2 an initial hemoglobin of 15 PT and PTT are appropriate Chemistries are reassuring. Creatinine is 0.83. BNP is elevated at 5700 Troponin is undetectable Repeat H&H with 1 L of fluid volume has hemoglobin decreasing from 15-13.6 and hematocrit decreasing from 45-41.3 Independently reviewed EKG: Rate 92, sinus rhythm, left ventricular hypertrophy with repolarization abnormalities. Treatments: L of fluid, IV Protonix Discussion: 68-year-old woman with end-stage congestive heart failure ejection fraction at 15% presents with what appears to be upper GI bleeding describing diarrhea yesterday with stool that eventually looked like cranberry sauce. Today she is having bright red blood mixed with mucus but minimal amounts. She describes some discomfort in her upper epigastrium and a sense that her ?tummy is gurgly? and notes that continues. She has not had any vomiting. In the emergency department she was given Protonix. I believe she is extra vascularly volume overloaded and intravascularly dry. At this point she is not showing signs of hemodynamic collapse and while I believe she is still having some bleeding I do not think that she needs blood products at this point. I am reluctant to continue with significant crystalloid given her congestive heart failure. She is currently requiring 2 L of oxygen with saturations decreasing down to 84%. She is relatively hypotensive and is tolerating this well without a tachycardic response otherwise. No signs of infection. We will discuss with both surgery as well as admitting hospitalist 3pm patient is increasingly tachycardic, now requiring 2 L of oxygen, increasingly short of breath still complains of abdominal pain no additional bloody stools since the ER. She does not want to stay in the hospital. Explained to her that she could go home however possibility of actually dying in her her sleep tonight if symptoms continue in this direction are very real. She indicated that she ?lives [place] across the [place]? and could come back. I pointed out that she might be too weak or unconscious to be able to come back. We negotiated trying and oxygen free monitored walk in the emergency department to see how she felt and we will discuss more. 315 patient feels without her oxygen she is at her baseline. She is significantly more tachycardic. She does not want to ?sit and stare the larry'. We again had significant discussion regarding treatment of GI bleeding, importance of maintaining your hematocrit with her degree of heart failure, treatment of heart failure and very real possibility of dying if she chooses to go home. Did make it very clear that if she does choose to go home she is 100% welcome to return at any point. She does choose to go home and signs Against Medical Advice papers. Discharge Plan Departure Patient Disposition: Left Against Medical Advice Clinical Impression: Acute GI bleeding, Left against medical advice CHF (congestive heart failure) Qualifiers: Heart failure type: unspecified Heart failure chronicity: acute on chronic Q ualified Code(s): I50.9 - Heart failure, unspecified COPD (chronic obstructive pulmonary disease) Qualifiers: COPD type: unspecified COPD Qualified Code(s): J44.9 - Chronic obstructive pulmonary disease, unspecified Prescriptions: No Action multivitamin [Multiple Vitamins] 1 EACH tablet 1 tab PO QDAY Qty: 0 hydroxyzine HCl 10 mg tablet 10 - 20 mg PO DAILY PRN (Reason: anxiety/panic) Qty: 30 10RF Entresto 49-51 mg tablet 1 tab PO BID Qty: 60 5RF budesonide-formoterol [Symbicort] 160-4.5 mcg/actuation HFA aerosol inhaler 2 puff inhalation Q12H Qty: 10.2 11RF spironolactone 25 mg tablet 12.5 mg PO DAILY Qty: 45 3RF metoprolol succinate 25 mg tablet extended release 24 hr 12.5 mg PO BID Qty: 90 3RF furosemide [Lasix] 20 mg tablet 20 mg PO BID Qty: 180 3RF ibuprofen 400 mg tablet 400 mg PO Q8H PRN (Reason: pain) Qty: 60 5RF albuterol sulfate [Ventolin HFA] 90 mcg/actuation HFA aerosol inhaler 1 - 2 puff INHALATION Q4-6H PRN (Reason: asthma) Qty: 8 11RF Rx Instructions: administer with spacer as needed for wheezing lidocaine 5 % adhesive patch,medicated 1 patch topical DAILY Qty: 15 0RF Rx Instructions: leave on most painful area for up to 12 hrs Referrals: Tasha Chamberlain DO [Primary Care Provider] - Stand Alone Forms: Patient Portal/API, Against Medical Advice
[2023-12-10 13:53] LABS: Hematocrit 41.3 % (36-46); Hemoglobin 13.6 g/dL (12.0-16.0)
--- NOTE | 2023-12-10 15:04 | PC.NURSE ---
Dr. Pizarro has been aware of continued VS. Pt was placed on 2L [address] Pizarro, patient wishes to go home. Completed walk around ED per provider request. Pt reached 116 HR, able to main 93% on RA. Some increased work of breathing but pt reports consistent with baseline. Provider notified.
== END 2023-12-10 15:16 | disposition left against medical advice (07) ==
PROVIDERS: Emergency Provider Emergency Medicine; PCP Family Medicine
DX: K92.2 Gastrointestinal hemorrhage, unspecified (principal); I50.9 Heart failure, unspecified; J44.9 Chronic obstructive pulmonary disease, unspecified; R00.0 Tachycardia, unspecified
CPT/HCPCS: 36415; 80053; 81003; 81015; 83880; 84484; 85014; 85018; 85025; 85610; 85730; 86850; 86900; 86901; 93005; 96361; 96374; 96375; 99284; J2405; J2470

== ENCOUNTER 2024-01-25 12:09 | Emergency (ER) | payer MEDICAID, SELFPAY ==
[2023-02-28 12:08] VITALS: BMI 18.9
[2024-01-25] VITALS (16 sets, daily range): BP systolic 94–127; BP diastolic 52–71; PULSE 66–88; RESP 20–25; TEMP 36.6; O2SAT 87–98; BMI 18.6
--- NOTE | 2024-01-25 12:18 | EKG_ITS ---
[address] [address] Test Date: 2024-01-25 Pat Name: Katlyn Pichardo Department: Room: Gender: Female [employer] Worker: ENA MOODYB: 1955 Requested By: Order Number: [id number] Reading MD: Sherwin Mancilla MD Measurements Intervals [place] Rate: 91 P: 77 LA: 176 QRS: -37 QRSD: 110 T: 99 QT: 404 QTc: 496 Interpretive Statements Normal sinus rhythm Left atrial enlargement Left axis deviation Left ventricular hypertrophy with repolarization abnormality ( Sokolow-Panchal , [place] product , Romhilt-Sun ) Cannot rule out Inferior infarct , age undetermined Anterior infarct , age undetermined NO SIGNIFICANT CHANGE FROM PRIOR TRACING Electronically Signed On 01-26-2024 6:50:32 PST by Sherwin Mancilla MD
--- NOTE | 2024-01-25 12:18 | DI.RAD.S_ITS ---
PROCEDURE: XR CHEST 1V INDICATIONS: Shortness of breath TECHNIQUE: One view of the chest was acquired. COMPARISON: [facility], CR, XR CHEST 1V, 10/17/2023, 15:39. FINDINGS: Surgical changes and devices: None. Lungs and pleura: Lungs are clear. No pleural effusions or pneumothorax. Mediastinum: Mediastinal contours appear normal. Unchanged moderate cardiomegaly.. Bones and chest wall: No suspicious bony lesions. Overlying soft tissues appear unremarkable. IMPRESSION: Unchanged moderate cardiomegaly. No acute pulmonary process. Dictated by: Sundar Martin M.D. on 01/25/2024 at 13:06 Approved by: Sundar Martin M.D. on 01/25/2024 at 13:24
[2024-01-25 12:32] LABS: Add Manual Diff / Slide Review NO; Basophils Absolute Auto 0 /uL (0-100); Basophils Percent Auto 0.6 % (0-2); Eosinophils Absolute Auto 0 /uL (0-450); Eosinophils Percent Auto 0.7 % (2-4); Hematocrit 48.5 % (36-46); Hemoglobin 15.9 g/dL (12.0-16.0); Lymphocytes Absolute Auto 1700 /uL (1100-4500); Mean Corpuscular HGB Conc 32.7 % (30-36); Mean Corpuscular Hemoglobin 31.1 PG (26-34); Mean Corpuscular Volume 94.9 fL (80-100); Monocytes Absolute Auto 400 /uL (0-900); Neutrophils Absolute Auto 4900 /uL (1500-7000); Neutrophils Percent Auto 68.7 % (50-75); Platelet Count 224 X10^3/uL (150-400); Red Blood Cell Count 5.11 X10^6/uL (4.0-5.2); Red Cell Distribution Width 13.9 % (11.6-14.8); White Blood Cell Count 7.1 X10^3/uL (4.5-11.0)
[2024-01-25 12:45] LABS: Alanine Aminotransferase 32 IU/L (<35); Albumin 4.6 g/dL (3.5-5.0); Albumin Globulin Ratio 1.4 (1.0-2.8); Alkaline Phosphatase 72 U/L (38-126); Aspartate Aminotransferase 50 IU/L (14-36); BUN Creatinine Ratio 28.1 (6-22); Bilirubin Total 0.9 mg/dL (0.2-1.3); Blood Urea Nitrogen 25 mg/dL (7-17); Calcium 9.5 mg/dL (8.4-10.2); Carbon Dioxide 31 mmol/L (22-32); Chloride 100 mmol/L (98-107); Creatine Kinase 52 U/L (30-135); Estimated Glomerular Filt Rate > 60 mL/min (>60); Globulin 3.2 g/dL (1.7-4.1); Glucose 100 mg/dL (80-110); HEMOLYSIS 18 (0-50); Lipase 104 U/L (23-300); Potassium 4.3 mmol/L (3.4-5.1); Sodium 138 mmol/L (137-145); Total Protein 7.8 g/dL (6.3-8.2)
[2024-01-25 12:55] LABS: NT-proBNP (BNP-Adult 18+) 8880 pg/mL (<125)
[2024-01-25 12:57] LABS: Troponin I 0.047 ng/mL (0.01-0.034)
--- NOTE | 2024-01-25 13:05 | ED_ITS ---
HPI - General Adult General Chief complaint: Shortness of Breath/Dyspnea Stated complaint: having a bad time with CHF Time Seen by Provider: 01/25/24 12:17 Source: patient Mode of arrival: Ambulatory History of Present Illness HPI narrative: Patient is a 68-year-old female. Has a history of heart failure. Is on 20 mg of Lasix in the morning. Is also on metoprolol. Does have a significant smoking history but does not have a diagnosis of COPD. Has albuterol that she uses at home occasionally. She was here for evaluation of worsening shortness of breath, dyspnea on exertion/orthopnea. Her symptoms have been progressively worsened over the past 2 weeks. She has been taking all of her medications as directed. No lower extremity edema. She did have chest discomfort yesterday but nothing today. No fevers. Does not have a productive cough. She states she feels fatigued and weak because of the shortness of breath. Had an echocardiogram in February which showed an ejection fraction of 15-25%. She states that occasionally her albuterol helps and sometimes it does not. She was no longer smoking. Related Data Home Medications Medication Instructions Recorded Confirmed multivitamin (Multiple Vitamins 1 tab PO QDAY ##0 01/01/16 09/07/23 tablet) Previous Rx's Medication Instructions Recorded albuterol sulfate 90 mcg/actuation 1 - 2 puff inhalation Q4-6H PRN 03/03/23 aerosol inhaler (Ventolin HFA) asthma #8 grams lidocaine 5 % topical patch 1 patch topical DAILY #15 ea 03/28/23 hydroxyzine HCl 10 mg tablet 10 - 20 mg (1 - 2 x 10 mg) PO 07/06/23 DAILY PRN anxiety/panic #30 tabs budesonide-formoterol HFA 160 2 puff inhalation Q12H #10.2 grams 09/07/23 mcg-4.5 mcg/actuation aerosol inhaler (Symbicort) sacubitril 49 mg-valsartan 51 mg 1 tab PO BID #60 tabs 09/07/23 tablet (Entresto) furosemide 20 mg tablet (Lasix) 20 mg PO BID #180 tabs 12/04/23 ibuprofen 400 mg tablet 400 mg PO Q8H PRN pain #60 tabs 12/04/23 metoprolol succinate 25 mg 12.5 mg (1/2 x 25 mg) PO BID #90 12/04/23 tablet,extended release 24 hr tabs spironolactone 25 mg tablet 12.5 mg (1/2 x 25 mg) PO DAILY #45 12/04/23 tabs Allergies Allergy/AdvReac Type Severity Reaction Status Date / Time Sulfa (Sulfonamide Allergy Severe SOB/DYSPNEA Verified 01/25/24 12:19 Antibiotics) alprazolam AdvReac Severe MANIC Verified 01/25/24 12:19 SYMPTOMS codeine AdvReac Severe NAUSEA/VOMI Verified 01/25/24 12:19 TING Review of Systems Review of Systems ROS Unobtainable: All systems reviewed & are unremarkable except as noted in HPI and below Patient History Medical History CHF (congestive heart failure) Claudication of both lower extremities Tobacco dependence Juvenile rheumatoid arthritis Current every day smoker LBBB (left bundle branch block) Cardiomyopathy Hip pain Shoulder pain (~06/2012) GERD (gastroesophageal reflux disease) Hyperthyroidism Depression Migraines Osteoarthritis Skin cancer (09/2016) Surgical History History of surgery (~2009) Hx of cardiac cath (04/06/19) History of tonsillectomy (1959) Status post appendectomy (1988) History of hip replacement (2004) Family History Mother Heart disease Personal history of stroke with residual effects Father No problems noted. Social History household members: none Smoking Status: Former smoker Tobacco: How many years used: 50 second hand exposure: Yes alcohol intake: never substance use type: marijuana Smoking Status: Former smoker tobacco type: cigarettes alcohol intake frequency: holidays/special occasions only Exam Initial Vital Signs Initial Vital Signs: Vital Signs Temperature 98 F 01/25/24 12:16 Pulse Rate 66 01/25/24 12:16 Respiratory Rate 24 01/25/24 12:16 Blood Pressure 127/67 01/25/24 12:16 Pulse Oximetry 98 01/25/24 12:16 Oxygen Delivery Method Room Air 01/25/24 12:16 Const General: cooperative, comfortable and No ill appearing HENMT Head: normal to inspection and normocephalic Resp Effort & Inspection: normal respiratory effort, no cough and not tachypneic Auscultation: clear to auscultation bilaterally Cardio Rate: regular rate Rhythm: regular rhythm GI Inspection: normal to inspection Skin General: no rashes or lesions noted Neuro General: patient alert, patient awake and moves all extremities Extrem General: No edema Course Orders Ordered: ED Orders 01/25/24 12:18 XR chest 1V Stat EKG-12 Lead Stat 01/25/24 12:20 BNP [NT-proBNP (BNP-Adult 18+)] Stat Complete Blood Count AUTO DIFF Stat Comprehensive Metabolic Panel Stat Lipase Stat Troponin & CK Cardiac Panel Stat Discontinued Medications Furosemide 60 mg/ Sodium (Chloride) 56 mls @ 112 mls/hr IV NOW ONE Stop: 01/25/24 13:23 Last Infusion: 01/25/24 14:24 Dose: Infused Documented By: Admin: 01/25/24 13:39 Dose: 112 mls/hr Documented By: DOV Vital Signs Vital signs: Vital Signs - 8 hr 01/25/24 12:16 01/25/24 12:16 01/25/24 12:17 Temperature 98 F Pulse Rate 66 66 Respiratory Rate 24 Blood Pressure 127/67 127/67 Pulse Oximetry 98 93 Oxygen Delivery Method Room Air Oxygen Flow Rate 01/25/24 12:17 01/25/24 12:30 01/25/24 12:30 Temperature Pulse Rate 83 81 Respiratory Rate Blood Pressure 109/59 L Pulse Oximetry 96 Oxygen Delivery Method Oxygen Flow Rate 01/25/24 13:00 01/25/24 13:00 01/25/24 13:38 Temperature Pulse Rate 82 77 Respiratory Rate 22 Blood Pressure 109/64 Pulse Oximetry 94 Oxygen Delivery Method Oxygen Flow Rate 01/25/24 13:42 01/25/24 13:42 01/25/24 14:00 Temperature Pulse Rate 76 Respiratory Rate 23 Blood Pressure 107/57 L 107/61 Pulse Oximetry 93 Oxygen Delivery Method Oxygen Flow Rate 01/25/24 14:00 01/25/24 14:23 01/25/24 14:23 Temperature Pulse Rate 77 86 Respiratory Rate 20 Blood Pressure 105/52 L Pulse Oximetry 91 93 Oxygen Delivery Method Oxygen Flow Rate 01/25/24 14:30 01/25/24 14:30 01/25/24 15:00 Temperature Pulse Rate 81 Respiratory Rate Blood Pressure 98/54 L 94/71 Pulse Oximetry 94 Oxygen Delivery Method Oxygen Flow Rate 01/25/24 15:00 01/25/24 15:30 01/25/24 15:30 Temperature Pulse Rate 75 79 Respiratory Rate 24 23 Blood Pressure 98/59 L Pulse Oximetry 93 Oxygen Delivery Method Oxygen Flow Rate 01/25/24 15:38 01/25/24 15:38 01/25/24 15:56 Temperature Pulse Rate 88 Respiratory Rate Blood Pressure 103/59 L Pulse Oximetry 87 L Oxygen Delivery Method Room Air Oxygen Flow Rate 01/25/24 16:00 01/25/24 16:00 Temperature Pulse Rate 77 Respiratory Rate 25 H Blood Pressure 108/59 L Pulse Oximetry 94 Oxygen Delivery Method Nasal Cannula Oxygen Flow Rate 2 Medical Decision Making Lab Data Lab results reviewed: Yes I reviewed the patient's lab results. 01/25/24 12:20 01/25/24 12:20 Labs: Lab Results 01/25/24 Range/Units 12:20 WBC 7.1 (4.5-11.0) X10^3/uL RBC 5.11 (4.0-5.2) X10^6/uL Hgb 15.9 (12.0-16.0) g/dL Hct 48.5 H (36-46) % MCV 94.9 (80-100) fL MCH 31.1 (26-34) PG MCHC 32.7 (30-36) % RDW 13.9 (11.6-14.8) % Plt Count 224 (150-400) X10^3/uL Neut % (Auto) 68.7 (50-75) % Lymph % (Auto) 24.0 L (25-40) % Sharkey % (Auto) 6.0 (3-14) % Eos % (Auto) 0.7 L (2-4) % Baso % (Auto) 0.6 (0-2) % Neut # (Auto) 4900 (9390-4164) /uL Lymph # (Auto) 1700 (5597-9663) /uL Sharkey # (Auto) 400 (0-900) /uL Eos # (Auto) 0 (0-450) /uL Baso # (Auto) 0 (0-100) /uL Sodium 138 (137-145) mmol/L Potassium 4.3 (3.4-5.1) mmol/L Chloride 100 (98-107) mmol/L Carbon Dioxide 31 (22-32) mmol/L BUN 25 H (7-17) mg/dL Creatinine 0.89 (0.52-1.04) mg/dL Estimated GFR > 60 (>60) mL/min BUN/Creatinine Ratio 28.1 H (6-22) Glucose 100 (80-110) mg/dL Calcium 9.5 (8.4-10.2) mg/dL Total Bilirubin 0.9 (0.2-1.3) mg/dL AST 50 H (14-36) IU/L ALT 32 (<35) IU/L Alkaline Phosphatase 72 (38-126) U/L Total Creatine Kinase 52 (30-135) U/L Troponin I 0.047 H (0.01-0.034) ng/mL NT-Pro-B Natriuret Pep 8880 H (<125) pg/mL Total Protein 7.8 (6.3-8.2) g/dL Albumin 4.6 (3.5-5.0) g/dL Globulin 3.2 (1.7-4.1) g/dL Albumin/Globulin Ratio 1.4 (1.0-2.8) Lipase 104 (23-300) U/L Imaging Data Chest x-ray: Radiologist's Impression: PROCEDURE: XR CHEST 1V INDICATIONS: Shortness of breath TECHNIQUE: One view of the chest was acquired. COMPARISON: [facility], , XR CHEST 1V, 10/17/2023, 15:39. FINDINGS: Surgical changes and devices: None. Lungs and pleura: Lungs are clear. No pleural effusions or pneumothorax. Mediastinum: Mediastinal contours appear normal. Unchanged moderate cardiomegaly.. Bones and chest wall: No suspicious bony lesions. Overlying soft tissues appear unremarkable. IMPRESSION: Unchanged moderate cardiomegaly. No acute pulmonary process. ECG Data Attestation: I personally reviewed and interpreted this ECG as follows: Interpretation: Sinus rhythm Ventricular rate 91 Left axis deviation LVH Artifact noted in limb leads Nonspecific ST T wave changes MDM Narrative Medical decision making narrative: Patient was had progressively worsening shortness of breath for the past 2 weeks. Has a history of heart failure. Her last echocardiogram was in February which shows a significantly reduced ejection fraction. She was not overtly fluid overloaded she does not have any lower extremity edema. Has no crackles. Chest x-ray is relatively unremarkable however the patient was hypoxic with ambulation. She was given Lasix. She did diurese. States she was feeling better however still became somewhat tachypneic and hypoxic upon ambulation. She denies chest pain. We discussed admission to the hospital. She was accepted by Dr. Desir however patient stated that she does not want to be admitted. She understands the concern about her oxygen saturations dropping. She understands why we admit her to the hospital to include IV diuresis and most likely repeat echocardiogram. She expressed understanding of all this. She was alert and oriented x3. GCS of 15. In my opinion has capacity to make decisions. Is not clinically intoxicated. Patient would like to be discharged home and follow up as an outpatient. We will increase her Lasix from 20 mg just in the morning to 20 mg twice a day. I informed her that she can go up to 40 mg in the morning with 20 mg at night if needed but if she still is having shortness of breath with exertion after this she does not need to return to the emergency department. She expressed understanding and agreement with plan. Discharge Plan Departure Patient Disposition: Left Against Medical Advice Clinical Impression: CHF (congestive heart failure), Hypoxia, Short of breath on exertion Instructions: Congestive Heart Failure (Alternative Therapy) Activity Restrictions/Additional Instructions: I do recommend that you increase your Lasix/furosemide from 20 mg just in the morning to 20 mg in the morning and 20 mg at night. If you continue to have shortness of breath with exertion you can increase this once again to 40 mg in the morning and 20 mg at night. If you continue to have shortness of breath despite this change you do need to return to the emergency department. I recommend that you contact your primary care doctor for a follow-up within the next week. Return to the emergency department for worsening symptoms like we discussed. Prescriptions: No Action multivitamin [Multiple Vitamins] 1 EACH tablet 1 tab PO QDAY Qty: 0 hydroxyzine HCl 10 mg tablet 10 - 20 mg PO DAILY PRN (Reason: anxiety/panic) Qty: 30 10RF Entresto 49-51 mg tablet 1 tab PO BID Qty: 60 5RF budesonide-formoterol [Symbicort] 160-4.5 mcg/actuation HFA aerosol inhaler 2 puff inhalation Q12H Qty: 10.2 11RF spironolactone 25 mg tablet 12.5 mg PO DAILY Qty: 45 3RF metoprolol succinate 25 mg tablet extended release 24 hr 12.5 mg PO BID Qty: 90 3RF furosemide [Lasix] 20 mg tablet 20 mg PO BID Qty: 180 3RF ibuprofen 400 mg tablet 400 mg PO Q8H PRN (Reason: pain) Qty: 60 5RF albuterol sulfate [Ventolin HFA] 90 mcg/actuation HFA aerosol inhaler 1 - 2 puff INHALATION Q4-6H PRN (Reason: asthma) Qty: 8 11RF Rx Instructions: administer with spacer as needed for wheezing lidocaine 5 % adhesive patch,medicated 1 patch topical DAILY Qty: 15 0RF Rx Instructions: leave on most painful area for up to 12 hrs Referrals: Tasha Chamberlain DO [Primary Care Provider] - Stand Alone Forms: Patient Portal/API, Against Medical Advice
[2024-01-25] MEDS: FUROSEMIDE 60 MG in SODIUM CHLORIDE 0.9% 50 ML 112 MG IV (13:39)
--- NOTE | 2024-01-25 16:47 | PM.HP.1 ---
History of Present Illness History of Present Illness Date Patient Seen: 01/25/24 Chief complaint: having a bad time with CHF Narrative: The patient was a 68-year-old female with a history of heart failure, cardiomyopathy, chronic left bundle, tobacco use, claudication, GERD, hyperthyroidism, and depression who presents with progressive dyspnea. She was primarily had dyspnea with exertion as well as orthopnea. In the emergency department, she was hypoxemic at rest and with exertion. She would evidence on exam of fluid overload and BNP was elevated at 8800. She was given IV Lasix with some initial diuresis and felt to be appropriate for inpatient a diuresis. The patient denies recent chest pain. She has a history of smoking but no previous clear history of COPD. [facility] Medical History CHF (congestive heart failure) Claudication of both lower extremities Tobacco dependence Juvenile rheumatoid arthritis Current every day smoker LBBB (left bundle branch block) Cardiomyopathy Hip pain Shoulder pain (~06/2012) GERD (gastroesophageal reflux disease) Hyperthyroidism Depression Migraines Osteoarthritis Skin cancer (09/2016) Surgical History History of surgery (~2009) Hx of cardiac cath (04/06/19) History of tonsillectomy (1959) Status post appendectomy (1988) History of hip replacement (2004) Family History Mother Heart disease Personal history of stroke with residual effects Father No problems noted. Social History household members: none Smoking Status: Former smoker Tobacco: How many years used: 50 second hand exposure: Yes alcohol intake: never substance use type: marijuana Meds Home Medications and Allergies Home Medications Medication Instructions Recorded Confirmed Type multivitamin (Multiple Vitamins 1 tab PO QDAY ##0 01/01/16 09/07/23 History tablet) albuterol sulfate 90 mcg/actuation 1 - 2 puff inhalation Q4-6H PRN 03/03/23 09/07/23 Rx aerosol inhaler (Ventolin HFA) asthma #8 grams lidocaine 5 % topical patch 1 patch topical DAILY #15 ea 03/28/23 09/07/23 Rx hydroxyzine HCl 10 mg tablet 10 - 20 mg (1 - 2 x 10 mg) PO 07/06/23 09/07/23 Rx DAILY PRN anxiety/panic #30 tabs budesonide-formoterol HFA 160 2 puff inhalation Q12H #10.2 grams 09/07/23 09/07/23 Rx mcg-4.5 mcg/actuation aerosol inhaler (Symbicort) sacubitril 49 mg-valsartan 51 mg 1 tab PO BID #60 tabs 09/07/23 09/07/23 Rx tablet (Entresto) furosemide 20 mg tablet (Lasix) 20 mg PO BID #180 tabs 12/04/23 12/04/23 Rx ibuprofen 400 mg tablet 400 mg PO Q8H PRN pain #60 tabs 12/04/23 12/04/23 Rx metoprolol succinate 25 mg 12.5 mg (1/2 x 25 mg) PO BID #90 12/04/23 12/04/23 Rx tablet,extended release 24 hr tabs spironolactone 25 mg tablet 12.5 mg (1/2 x 25 mg) PO DAILY #45 12/04/23 12/04/23 Rx tabs Allergies Allergy/AdvReac Type Severity Reaction Status Date / Time Sulfa (Sulfonamide Allergy Severe SOB/DYSPNEA Verified 01/25/24 12:19 Antibiotics) alprazolam AdvReac Severe MANIC Verified 01/25/24 12:19 SYMPTOMS codeine AdvReac Severe NAUSEA/VOMI Verified 01/25/24 12:19 TING Review of Systems Review of Systems Narrative: All else reviewed and otherwise unremarkable except as noted in the history and physical. Exam Vital Signs (past 8 hours): - 01/25/24 12:16 01/25/24 12:16 01/25/24 12:17 Temperature 98 F Pulse Rate 66 66 Respiratory Rate 24 Blood Pressure 127/67 127/67 Pulse Oximetry 98 93 Oxygen Delivery Method Room Air Oxygen Flow Rate 01/25/24 12:17 01/25/24 12:30 01/25/24 12:30 Temperature Pulse Rate 83 81 Respiratory Rate Blood Pressure 109/59 L Pulse Oximetry 96 Oxygen Delivery Method Oxygen Flow Rate 01/25/24 13:00 01/25/24 13:00 01/25/24 13:38 Temperature Pulse Rate 82 77 Respiratory Rate 22 Blood Pressure 109/64 Pulse Oximetry 94 Oxygen Delivery Method Oxygen Flow Rate 01/25/24 13:42 01/25/24 13:42 01/25/24 14:00 Temperature Pulse Rate 76 Respiratory Rate 23 Blood Pressure 107/57 L 107/61 Pulse Oximetry 93 Oxygen Delivery Method Oxygen Flow Rate 01/25/24 14:00 01/25/24 14:23 01/25/24 14:23 Temperature Pulse Rate 77 86 Respiratory Rate 20 Blood Pressure 105/52 L Pulse Oximetry 91 93 Oxygen Delivery Method Oxygen Flow Rate 01/25/24 14:30 01/25/24 14:30 01/25/24 15:00 Temperature Pulse Rate 81 Respiratory Rate Blood Pressure 98/54 L 94/71 Pulse Oximetry 94 Oxygen Delivery Method Oxygen Flow Rate 01/25/24 15:00 01/25/24 15:30 01/25/24 15:30 Temperature Pulse Rate 75 79 Respiratory Rate 24 23 Blood Pressure 98/59 L Pulse Oximetry 93 Oxygen Delivery Method Oxygen Flow Rate 01/25/24 15:38 01/25/24 15:38 01/25/24 15:56 Temperature Pulse Rate 88 Respiratory Rate Blood Pressure 103/59 L Pulse Oximetry 87 L Oxygen Delivery Method Room Air Oxygen Flow Rate 01/25/24 16:00 01/25/24 16:00 Temperature Pulse Rate 77 Respiratory Rate 25 H Blood Pressure 108/59 L Pulse Oximetry 94 Oxygen Delivery Method Nasal Cannula Oxygen Flow Rate 2 Oxygen Delivery Method Nasal Cannula Oxygen Flow Rate 2 Narrative Exam Narrative: NAD, alert and oriented, fluent speech, calm. Normocephalic skull, EOMI, anicteric sclera, symmetric pupils. Oropharynx unremarkable, no droop. Neck supple, midline trachea, no adenopathy. Lungs clear, normal rate and effort. Heart regular, no murmur gallop or rub. Abdomen is soft, non distended and non tender. Extremities are free of edema. Skin is free of rash or lesions. Joints are not swollen or deformed. Judgment appears to be normal. Objective ECG Impression: Normal sinus rhythm Left atrial enlargement Left axis deviation Left ventricular hypertrophy with repolarization abnormality ( Sokolow-Panchal , [place] product , Romhilt-Sun ) Cannot rule out Inferior infarct , age undetermined Anterior infarct , age undetermined Imaging Chest x-ray: Radiologist's impression: Unchanged moderate cardiomegaly. No acute pulmonary process. Labs 01/25/24 12:20 01/25/24 12:20 Labs: Laboratory Results - last 24 hr 01/25/24 12:20 WBC 7.1 RBC 5.11 Hgb 15.9 Hct 48.5 H MCV 94.9 MCH 31.1 MCHC 32.7 RDW 13.9 Plt Count 224 Neut % (Auto) 68.7 Lymph % (Auto) 24.0 L Snyder % (Auto) 6.0 Eos % (Auto) 0.7 L Baso % (Auto) 0.6 Neut # (Auto) 4900 Lymph # (Auto) 1700 Snyder # (Auto) 400 Eos # (Auto) 0 Baso # (Auto) 0 Sodium 138 Potassium 4.3 Chloride 100 Carbon Dioxide 31 BUN 25 H Creatinine 0.89 Estimated GFR > 60 BUN/Creatinine Ratio 28.1 H Glucose 100 Calcium 9.5 Total Bilirubin 0.9 AST 50 H ALT 32 Alkaline Phosphatase 72 Total Creatine Kinase 52 Troponin I 0.047 H NT-Pro-B Natriuret Pep 8880 H Total Protein 7.8 Albumin 4.6 Globulin 3.2 Albumin/Globulin Ratio 1.4 Lipase 104 Assessment & Plan Assessment & Plan narrative: 1. Acute on chronic CHF with a known EF of 30-35% in 2020. Present on admission and active. 2. Cardiomyopathy, present on admission and active. 3. Chronic left bundle branch block, present on admission and active. 4. Forty-nine pack year history of tobacco use, present on admission and active. 5. History of hyperthyroidism, present on admission and not active. Plan: -diuresis Lasix 60 IV q.12 hours. -monitor ins and outs. -trend troponins -2D echo to reassess her current EF. -add oral prednisone and bronchodilators in case a component of her dyspnea relates to her pulmonary . Time-Based Coding :: [TOTAL MINUTES] spent with patient and on the chart (including review of chart, obtaining history, exam, reviewing outside data, placing orders, documenting exam and treatment plan, and counseling patient) on [DATE].
--- NOTE | 2024-01-25 17:35 | PC.NURSE ---
At 1600 Pt O2 saturations 87-90% on RA, placed on 2L NC. Dr. Shaw aware. Pt currently opting to discharge home. RN educated pt that she was requiring oxygen while here in ED. Pt states she understands and would still like to go home. Dr. Shaw cleared pt for d/c. RN explained to pt to return to ED with any new or worsening symptoms. Pt verbalized understanding.
== END 2024-01-25 17:39 | disposition left against medical advice (07) ==
PROVIDERS: Emergency Provider Emergency Medicine; PCP Family Medicine
DX: I50.9 Heart failure, unspecified (principal); R09.02 Hypoxemia; R05.9 Cough, unspecified; R06.02 Shortness of breath; F17.210 Nicotine dependence, cigarettes, uncomplicated
CPT/HCPCS: 36415; 71045; 80053; 82550; 83690; 83880; 84484; 85025; 93005; 93010; 96365; 99284; J1940

== ENCOUNTER 2024-04-19 14:12 | Emergency (ER) | payer MEDICAID, SELFPAY ==
[2023-02-28 12:08] VITALS: BMI 18.9
[2024-04-19] VITALS (14 sets, daily range): BP systolic 99–117; BP diastolic 52–60; PULSE 77–102; RESP 18–33; TEMP 36.4; O2SAT 90–98; BMI 19.3
--- NOTE | 2024-04-19 14:21 | EKG_ITS ---
[address] [address] Test Date: 2024-04-19 Pat Name: Katlyn Pichadro Department: Room: Gender: Female Home Health Caregiver: ENA MOODYB: 1955 Requested By: Order Number: [id number] Reading MD: Joey Desir Measurements Intervals [place] Rate: 101 P: 80 [place]: 226 QRS: -36 QRSD: 110 T: 97 QT: 372 QTc: 482 Interpretive Statements Sinus tachycardia with 1st degree AV block Left atrial enlargement Left axis deviation Left ventricular hypertrophy with repolarization abnormality ( R in aVL , Sokolow-Panchal , [place] product , Romhilt-Sun ) Anterior infarct , age undetermined Electronically Signed On 04-20-2024 13:46:40 PST by Joey Desir
--- NOTE | 2024-04-19 14:23 | DI.RAD.S_ITS ---
PROCEDURE: XR CHEST 1V INDICATIONS: Shortness of breath TECHNIQUE: One view of the chest was acquired. COMPARISON: [facility], CR, XR CHEST 1V, 01/25/2024, 12:18. FINDINGS: Surgical changes and devices: None. Lungs and pleura: Lungs are clear. No pleural effusions or pneumothorax. Mediastinum: Mediastinal contours appear normal. Heart size is enlarged. Bones and chest wall: No suspicious bony lesions. Overlying soft tissues appear unremarkable. IMPRESSION: No acute pulmonary process. Dictated by: Nya Rodriguez M.D. on 04/19/2024 at 15:13 Approved by: Nya Rodriguez M.D. on 04/19/2024 at 15:13
[2024-04-19 14:36] LABS: Add Manual Diff / Slide Review NO; Basophils Absolute Auto 0 /uL (0-100); Basophils Percent Auto 0.6 % (0-2); Eosinophils Absolute Auto 0 /uL (0-450); Eosinophils Percent Auto 0.7 % (2-4); Hematocrit 45.4 % (36-46); Hemoglobin 15.3 g/dL (12.0-16.0); Lymphocytes Absolute Auto 1900 /uL (1100-4500); Lymphocytes Percent Auto 25.9 % (25-40); Mean Corpuscular HGB Conc 33.7 % (30-36); Mean Corpuscular Hemoglobin 31.6 PG (26-34); Mean Corpuscular Volume 93.8 fL (80-100); Monocytes Absolute Auto 400 /uL (0-900); Monocytes Percent Auto 5.3 % (3-14); Neutrophils Absolute Auto 4900 /uL (1500-7000); Neutrophils Percent Auto 67.5 % (50-75); Platelet Count 179 X10^3/uL (150-400); Red Blood Cell Count 4.83 X10^6/uL (4.0-5.2); Red Cell Distribution Width 13.7 % (11.6-14.8); White Blood Cell Count 7.3 X10^3/uL (4.5-11.0)
--- NOTE | 2024-04-19 14:40 | EKG_ITS ---
[id number] [place] [address] Test Date: 2024-04-19 Pat Name: Katlyn Pichardo Department: [facility] Room: Gender: Female Clinical Cytogenetics Director: LUIGI : 1955 Requested By: Order Number: [id number] Reading MD: Phillip Garnica Measurements Intervals [place] Rate: 86 P: 70 [place]: 174 QRS: -42 QRSD: 108 T: 89 QT: 402 QTc: 481 Interpretive Statements Normal sinus rhythm Biatrial enlargement Left axis deviation Left ventricular hypertrophy ( Sokolow-Panchal , Jeffrey product , Romhilt-Sun ) Anterior infarct , age undetermined ST & T wave abnormality, consider lateral ischemia Electronically Signed On 04-19-2024 18:29:26 PST by Phillip Garnica
[2024-04-19 14:43] LABS: Prothrombin Time 11.6 SECONDS (9.4-12.5)
--- NOTE | 2024-04-19 14:44 | ED_ITS ---
HPI - Chest Pain General Chief Complaint: Chest Pain Stated Complaint: diff breathing, chest pain Time Seen by Provider: 04/19/24 14:29 Source: patient Mode of arrival: Ambulatory Limitations: no limitations History of Present Illness HPI narrative: this is a 69-year-old female presenting with shortness of breath. Patient has a history of congestive heart failure related to cardiomyopathy and has a long smoking history although presently does not smoke. She reports that she has been short of breath for months with increasing shortness of breath progressive and 0. She says that her chest feels tight all the time and has felt tight all the time for quite some time. No fevers, she has a nonproductive cough. She has been compliant with her medications including spironolactone 20 mg a day furosemide, albuterol, spironolactone. She sees Dr. Rojas for Cardiology. I reviewed his note from June Of 2019. At that time she had a left bundle-branch block of cardiomyopathy with a 30-35% ejection fraction has had a cardiac catheterization that showed no significant coronary disease. Related Data Home Medications Medication Instructions Recorded Confirmed multivitamin (Multiple Vitamins 1 tab PO QDAY ##0 01/01/16 09/07/23 tablet) Previous Rx's Medication Instructions Recorded lidocaine 5 % topical patch 1 patch topical DAILY #15 ea 03/28/23 hydroxyzine HCl 10 mg tablet 10 - 20 mg (1 - 2 x 10 mg) PO 07/06/23 DAILY PRN anxiety/panic #30 tabs budesonide-formoterol HFA 160 2 puff inhalation Q12H #10.2 grams 09/07/23 mcg-4.5 mcg/actuation aerosol inhaler (Symbicort) sacubitril 49 mg-valsartan 51 mg 1 tab PO BID #60 tabs 09/07/23 tablet (Entresto) furosemide 20 mg tablet (Lasix) 20 mg PO BID #180 tabs 12/04/23 ibuprofen 400 mg tablet 400 mg PO Q8H PRN pain #60 tabs 12/04/23 metoprolol succinate 25 mg 12.5 mg (1/2 x 25 mg) PO BID #90 12/04/23 tablet,extended release 24 hr tabs spironolactone 25 mg tablet 12.5 mg (1/2 x 25 mg) PO DAILY #45 12/04/23 tabs albuterol sulfate 90 mcg/actuation 1 - 2 puff inhalation Q4-6H PRN 03/28/24 aerosol inhaler (Ventolin HFA) asthma #8 grams hydrocodone 5 mg-acetaminophen 325 1 tab PO Q6H PRN pain #10 tabs 04/19/24 mg tablet Allergies Allergy/AdvReac Type Severity Reaction Status Date / Time Sulfa (Sulfonamide Allergy Severe SOB/DYSPNEA Verified 04/19/24 14:32 Antibiotics) alprazolam AdvReac Severe MANIC Verified 04/19/24 14:32 SYMPTOMS codeine AdvReac Severe NAUSEA/VOMI Verified 04/19/24 14:32 TING Patient History Medical History CHF (congestive heart failure) Claudication of both lower extremities Tobacco dependence Juvenile rheumatoid arthritis Current every day smoker LBBB (left bundle branch block) Cardiomyopathy Hip pain Shoulder pain (~06/2012) GERD (gastroesophageal reflux disease) Hyperthyroidism Depression Migraines Osteoarthritis Skin cancer (09/2016) Surgical History History of surgery (~2009) Hx of cardiac cath (04/06/19) History of tonsillectomy (1959) Status post appendectomy (1988) History of hip replacement (2004) Family History Mother Heart disease Personal history of stroke with residual effects Father No problems noted. Social History household members: none Smoking Status: Former smoker Tobacco: How many years used: 50 second hand exposure: Yes alcohol intake: never substance use type: marijuana Smoking Status: Former smoker tobacco type: cigarettes alcohol intake frequency: holidays/special occasions only Exam Initial Vital Signs Initial Vital Signs: Vital Signs Temperature 97.6 F 04/19/24 14:17 Pulse Rate 102 H 04/19/24 14:17 Respiratory Rate 24 04/19/24 14:17 Blood Pressure 117/54 L 04/19/24 14:17 Pulse Oximetry 97 04/19/24 14:17 Oxygen Delivery Method Room Air 04/19/24 14:17 Tachycardic and tachypneic Const Other: thin female who appears anxious. She does appear to be Neck Other: neck is supple with jugular venous distention Resp Other: diminished air movement throughout, no wheezes really no rales appreciated Cardio Other: tachycardic without murmur I do believe Skin Other: warm and dry warm and dry Neuro Other: alert, fully oriented no gross neurologic deficits Course Orders Ordered: ED Orders 04/19/24 14:23 XR chest 1V Stat EKG-12 Lead Stat Measure peak expiratory flow ONCE RT Consult Eval and Treat NOW 04/19/24 14:28 Complete Blood Count AUTO DIFF Stat Comprehensive Metabolic Panel Stat Lactate (Lactic Acid) Stat NT-proBNP (BNP-Adult 18+) Stat Prothrombin Time INR Stat Troponin I Stat 04/19/24 14:32 Magnesium Stat 04/19/24 15:26 EC echo doppler complete Stat 04/19/24 16:40 Troponin I Stat Discontinued Medications Albuterol/Ipratropium (Albuterol/Ipratropium 3 Ml Ampul) 3 ml INH NOW ONE Stop: 04/19/24 14:44 Last Admin: 04/19/24 14:46 Dose: 3 ml Documented By: JOSE MIGUEL Prednisone (Prednisone 20 Mg Tablet) 40 mg PO NOW ONE Stop: 04/19/24 14:42 Last Admin: 04/19/24 15:29 Dose: 40 mg Documented By: PEG Reevaluation(s) Reevaluation #1: Patient does not want to be transferred. She is advised that she is at risk of sudden , she is aware reports that she is DNR status and at this point wants to go home. She appears fully able to make an informed decision regarding her medical care. Patient was advised that she is welcome to return at any point however in this situation and may be better if she presents to the [facility] emergency department since cardiology is available they are 247. Also requested a prescription for hydrocodone for his chest tightness splinted prescribe a few of these. Consultations Consultation #1: Patient was discussed with Cardiology Dr. Merida. she is able to review a more recent echocardiogram that I have available shows the patient has an EF of 15-20% severe mitral regurg aortic regurg and tricuspid regurg. Given her elevated proBNP, the patient does appear to have an acute exacerbation of heart failure however her blood pressure does not allow diuresis. recommendation is for transfer to a facility where patient can be given inotropes and diuresed. this was discussed with the patient, she is reluctant and has not at this point agreed to transfer at 3:45 p.m. Vital Signs Vital signs: Vital Signs - 8 hr 04/19/24 14:17 04/19/24 14:18 04/19/24 14:19 Temperature 97.6 F Pulse Rate 102 H 102 H Respiratory Rate 24 Blood Pressure 117/54 L Pulse Oximetry 97 96 98 Oxygen Delivery Method Room Air Oxygen Flow Rate 04/19/24 14:19 04/19/24 14:30 04/19/24 14:31 Temperature Pulse Rate 91 H 89 Respiratory Rate 33 H 33 H Blood Pressure 117/54 L Pulse Oximetry 94 93 Oxygen Delivery Method Oxygen Flow Rate 04/19/24 14:31 04/19/24 14:46 04/19/24 15:00 Temperature Pulse Rate 87 Respiratory Rate 22 Blood Pressure 101/59 L 99/60 Pulse Oximetry 94 Oxygen Delivery Method Room Air Oxygen Flow Rate 04/19/24 15:00 04/19/24 15:30 04/19/24 15:30 Temperature Pulse Rate 85 82 Respiratory Rate 33 H 24 Blood Pressure 99/54 L Pulse Oximetry 90 L 93 Oxygen Delivery Method Nasal Cannula Oxygen Flow Rate 2 04/19/24 16:00 04/19/24 16:26 04/19/24 16:26 Temperature Pulse Rate 91 H 83 Respiratory Rate 26 H 32 H Blood Pressure 99/60 Pulse Oximetry 96 92 Oxygen Delivery Method Nasal Cannula Oxygen Flow Rate 2 04/19/24 16:30 04/19/24 16:30 04/19/24 17:00 Temperature Pulse Rate 83 Respiratory Rate 25 H Blood Pressure 102/55 L 99/54 L Pulse Oximetry 93 Oxygen Delivery Method Oxygen Flow Rate 04/19/24 17:00 04/19/24 17:30 04/19/24 17:30 Temperature Pulse Rate 79 77 Respiratory Rate 21 18 Blood Pressure 107/52 L Pulse Oximetry 92 92 Oxygen Delivery Method Oxygen Flow Rate MDM - Chest Pain Lab Data Lab results narrative: ProBNP is trending upward, troponin is stable. 04/19/24 14:28 04/19/24 14:28 Labs: Lab Results 04/19/24 04/19/24 04/19/24 Range/Units 14:28 14:32 16:40 WBC 7.3 (4.5-11.0) X10^3/uL RBC 4.83 (4.0-5.2) X10^6/uL Hgb 15.3 (12.0-16.0) g/dL Hct 45.4 (36-46) % MCV 93.8 (80-100) fL MCH 31.6 (26-34) PG MCHC 33.7 (30-36) % RDW 13.7 (11.6-14.8) % Plt Count 179 (150-400) X10^3/uL Neut % (Auto) 67.5 (50-75) % Lymph % (Auto) 25.9 (25-40) % [place] % (Auto) 5.3 (3-14) % Eos % (Auto) 0.7 L (2-4) % Baso % (Auto) 0.6 (0-2) % Neut # (Auto) 4900 (3437-3090) /uL Lymph # (Auto) 1900 (0426-7674) /uL [place] # (Auto) 400 (0-900) /uL Eos # (Auto) 0 (0-450) /uL Baso # (Auto) 0 (0-100) /uL PT 11.6 (9.4-12.5) SECONDS INR 1.0 (0.9-1.3) Sodium 141 (137-145) mmol/L Potassium 4.6 (3.4-5.1) mmol/L Chloride 101 (98-107) mmol/L Carbon Dioxide 31 (22-32) mmol/L BUN 24 H (7-17) mg/dL Creatinine 0.87 (0.52-1.04) mg/dL Estimated GFR > 60 (>60) mL/min BUN/Creatinine Ratio 27.6 H (6-22) Glucose 108 (80-110) mg/dL Lactate 1.4 (0.7-2.1) mmol/L Calcium 8.9 (8.4-10.2) mg/dL Magnesium 1.8 (1.6-2.3) mg/dL Total Bilirubin 0.7 (0.2-1.3) mg/dL AST 50 H (14-36) IU/L ALT 37 H (<35) IU/L Alkaline Phosphatase 75 (38-126) U/L Troponin I 0.046 H 0.044 H (0.01-0.034) ng/mL NT-Pro-B Natriuret Pep 61347 H (<125) pg/mL Total Protein 7.7 (6.3-8.2) g/dL Albumin 4.5 (3.5-5.0) g/dL Globulin 3.2 (1.7-4.1) g/dL Albumin/Globulin Ratio 1.4 (1.0-2.8) Imaging Data Chest x-ray: My Impression: Independent review of chest x-ray, cardiomegaly no acute findings Radiologist's Impression: radiology report reviewed, cardiomegaly no acute findings with cardiomegaly ECG Data Interpretation: ECG shows sinus rhythm at 86. LVH with repolarization abnormalities lateral T- wave inversions very similar to EKG from January 25, 2020 [facility] Narrative Medical decision making narrative: 61-year-old female with the advanced heart failure, Cardiomyopathy and valvular disease. She has chronically and progressively short of breath. Patient is not presently hypoxic or blood pressures are tenuous her proBNP is elevated her troponin is elevated but baseline. Overall I think her picture is compatible with worsening heart failure. I spoke with Cardiology in the recommended transfer so she could receive inotropics support and diuresis. Patient declined this. She is requesting discharge she is discharged Against Medical Advice she is fully capable of making this decision. I prescribed a short course of hydrocodone for her chest tightness which is chronic. She had an episode of nonsustained ventricular tachycardia, the patient understands that she is at risk for sudden cardiac and still wants to be discharged. She is in fact DNR. Recommended that she follow up at [facility]. She was charged with echocardiogram pending, did not want to wait for those results Discharge Plan Departure Patient Disposition: Left Against Medical Advice Clinical Impression: Congestive heart failure Qualifiers: Heart failure type: systolic Heart failure chronicity: acute on chronic Q ualified Code(s): I50.23 - Acute on chronic systolic (congestive) heart failure Activity Restrictions/Additional Instructions: we are discharging you against medical advice. It is clear that your heart failure is worsening and after discussion with Cardiology it is recommended that you be transferred to a higher level of care for diuresis with medications that support your blood pressure. You are risk for sudden . I recommend that you continue previous outpatient medications and have prescribed Vicodin which you may use cautiously for your chest tightness. I recommend that if you decide to seek further medical care for your condition. Present to the [facility] Emergency Department where cardiology is more available. Prescriptions: New hydrocodone-acetaminophen 5-325 mg tablet 1 tab PO Q6H PRN (Reason: pain) Qty: 10 0RF No Action multivitamin [Multiple Vitamins] 1 EACH tablet 1 tab PO QDAY Qty: 0 albuterol sulfate [Ventolin HFA] 90 mcg/actuation HFA aerosol inhaler 1 - 2 puff INHALATION Q4-6H PRN (Reason: asthma) Qty: 8 11RF Rx Instructions: administer with spacer as needed for wheezing hydroxyzine HCl 10 mg tablet 10 - 20 mg PO DAILY PRN (Reason: anxiety/panic) Qty: 30 10RF Entresto 49-51 mg tablet 1 tab PO BID Qty: 60 5RF budesonide-formoterol [Symbicort] 160-4.5 mcg/actuation HFA aerosol inhaler 2 puff inhalation Q12H Qty: 10.2 11RF spironolactone 25 mg tablet 12.5 mg PO DAILY Qty: 45 3RF metoprolol succinate 25 mg tablet extended release 24 hr 12.5 mg PO BID Qty: 90 3RF furosemide [Lasix] 20 mg tablet 20 mg PO BID Qty: 180 3RF ibuprofen 400 mg tablet 400 mg PO Q8H PRN (Reason: pain) Qty: 60 5RF lidocaine 5 % adhesive patch,medicated 1 patch topical DAILY Qty: 15 0RF Rx Instructions: leave on most painful area for up to 12 hrs Referrals: Tasha Chamberlain DO [Primary Care Provider] - Stand Alone Forms: Patient Portal/API, Against Medical Advice
[2024-04-19] MEDS: ALBUTEROL/IPRATROPIUM 3 ML AMPUL INH (14:46)
[2024-04-19 14:47] LABS: Lactate (Lactic Acid) 1.4 mmol/L (0.7-2.1)
[2024-04-19 14:48] LABS: Alanine Aminotransferase 37 IU/L (<35); Albumin 4.5 g/dL (3.5-5.0); Albumin Globulin Ratio 1.4 (1.0-2.8); Alkaline Phosphatase 75 U/L (38-126); Aspartate Aminotransferase 50 IU/L (14-36); BUN Creatinine Ratio 27.6 (6-22); Bilirubin Total 0.7 mg/dL (0.2-1.3); Blood Urea Nitrogen 24 mg/dL (7-17); Calcium 8.9 mg/dL (8.4-10.2); Carbon Dioxide 31 mmol/L (22-32); Chloride 101 mmol/L (98-107); Estimated Glomerular Filt Rate > 60 mL/min (>60); Globulin 3.2 g/dL (1.7-4.1); Glucose 108 mg/dL (80-110); HEMOLYSIS 18 (0-50); Potassium 4.6 mmol/L (3.4-5.1); Sodium 141 mmol/L (137-145); Total Protein 7.7 g/dL (6.3-8.2)
[2024-04-19 14:59] LABS: NT-proBNP (BNP-Adult 18+) 11800 pg/mL (<125); Troponin I 0.046 ng/mL (0.01-0.034)
--- NOTE | 2024-04-19 15:25 | PC.NURSE ---
Patient desatted to 88%, this RN placed the patient on 2L to maintain sats above 92%
--- NOTE | 2024-04-19 15:26 | DI.ECHO.S_ITS ---
[facility] : : [address] : [place] : : [id number] : : Phone: [phone] Echocardiogram Report + + :Name: DUSTIN ESPINOZA Study Date: 04/19/2024 Height: 63 in : :[facility] ReadingLocation: Weight: 109 lb: : Gender: Female BSA: 1.5 m2 : :: 1955 Age: 69 yrs BP: 99/54 mmHg: :Reason For Study: DYSPNEA, CHF : :Ordering Physician: CARRIE, : :DAVID Performed By: Julianna Zapien : :Referring: DAVID BUTLER : + + Interpretation Summary The left ventricle is markedly dilated. The ejection fraction is estimated to be 10-15%. Diastolic parameters suggest a restrictive filling pattern consistent with probable significantly elevated filling pressures. The left atrium is severely dilated. The right ventricle is mildly dilated. Right ventricular systolic function is moderately reduced. The right atrium is mildly dilated. There is moderate to severe mitral regurgitation. There is moderate aortic regurgitation. There is moderate tricuspid regurgitation. The right ventricular systolic pressure is estimated to be at least 50 mmHg based on an estimated right atrial pressure of 8 mm Hg. Compared to the prior study 02/28/2023, the left ventricle appears even more dilated and the global EF has declined. The right ventricle also appears dilated with reduced free wall function. Procedure: A two-dimensional transthoracic echocardiogram with color flow and Doppler was performed. The study quality was technically good. Comparison is made with the echocardiogram of 02/28/2023. Patient was scanned in a supine and seated position. The patient had occasional PVCs during the exam. The heart rate ranged between 83-100 bpm during the study. Left Ventricle: The left ventricle is markedly dilated. There is normal left ventricular wall thickness. The estimated left ventricular end diastolic volume is 342 ml. Left ventricular end diastolic volume index to BSA of 194ml/m2. There is no thrombus. The ejection fraction is estimated to be 10- 15%. Diastolic parameters suggest a restrictive filling pattern consistent with probable significantly elevated filling pressures. Right Ventricle: The right ventricle is mildly dilated. Right ventricular systolic function is moderately reduced. Atria: The left atrium is severely dilated. The right atrium is mildly dilated. There is no Doppler evidence for an interatrial shunt. Mitral Valve: The mitral valve leaflets appear moderately thickened, but open well. Mitral valve leaflets appear tented. There is moderate to severe mitral regurgitation. Aortic Valve: The aortic valve opens well. There is no aortic valve stenosis. There is moderate aortic regurgitation. Tricuspid Valve: The tricuspid valve leaflets are thickened and/or calcified, but open well. There is moderate tricuspid regurgitation. The right ventricular systolic pressure is estimated to be at least 50 mmHg based on an estimated right atrial pressure of 8 mm Hg. Pulmonic Valve: The pulmonic valve leaflets are thin and pliable; valve motion is normal. There is mild pulmonic regurgitation. Great Vessels: The aortic root is normal size. The dimensions of the ascending aorta are normal. The IVC is dilated (diameter is greater than 2.1 cm) yet it collapses greater than 50% with a sniff. This suggests a right atrial pressure of 8 mm Hg. Pericardium/ Pleura There is a trivial pericardial effusion noted. There is no pleural effusion. MMode/2D Measurements & Calculations LVIDd: 7.3 cm LVOT diam: 1.9 cm LVIDs: 7.0 cm Ao root diam: 3.0 cm FS: 4.4 % asc Aorta Diam: 3.3 cm EPSS: 3.5 cm Ao Arch Diam (Prox Trans): 2.3 cm IVSd: 0.89 cm LVPWd: 0.95 cm LV dejesus. diameter/BSA (cm/m^2): 4.9 LV sys. diameter/BSA (cm/m^2): 4.7 LA A2 area: 25.6 cm2 RA long axis: 4.2 cm LA A4 area: 22.1 cm2 RA area: 15.7 cm2 LA length (vol): 5.9 cm RA vol: 50.3 ml LA vol: 81.9 ml RA : 33.7 ml/m2 LA vol index: 54.8 ml/m2 IVC diam: 2.4 cm RVD1 (basal): 4.5 cm RVD2 (mid): 3.4 cm TAPSE: 1.8 cm Doppler Measurements & Calculations Ao V2 max: 163.5 cm/sec LVOT Max Sergio: 60.1 cm/sec Ao V2 mean: 106.5 cm/sec LV V1 max P.4 mmHg Ao max P.7 mmHg LV V1 VTI: 8.9 cm Ao mean P.3 mmHg LEATHA(I,D): 1.1 cm2 Ao V2 VTI: 23.5 cm LEATHA(V,D): 1.0 cm2 sev ratio: 0.38 LEATHA indexed to BSA (cm^2/m^2): 0.70 AI P1/2t: 563.3 msec AI dec slope: 204.6 cm/sec2 MV E max sergio: 156.1 cm/sec TR max sergio: 323.1 cm/sec MV A max sergio: 19.9 cm/sec TR max P.7 mmHg MV E/A: 7.9 PA V2 max: 78.0 cm/sec Med Peak E' Sergio: 5.3 cm/sec PA V2 mean: 55.2 cm/sec E/E' med: 29.7 PA mean P.4 mmHg Lat Peak E' Sergio: 10.6 cm/sec PA pr(Accel): 40.5 mmHg E/E' lat: 14.8 E/e' average: 22.2 MV dec time: 0.11 sec MVA(VTI): 1.3 cm2 MV V2 mean: 96.3 cm/sec SV(LVOT): 24.8 ml MV mean P.6 mmHg MV V2 VTI: 19.8 cm Reading Physician:05:02 PM
[2024-04-19] MEDS: predniSONE 20 MG TABLET 40 MG PO (15:29)
--- NOTE | 2024-04-19 16:28 | PC.NURSE ---
1624- patient had a run of Vtach while having echo done endorses some dizziness, Provider Slack is aware, strip is printed and in the chart
[2024-04-19 16:39] LABS: Magnesium 1.8 mg/dL (1.6-2.3)
[2024-04-19 17:10] LABS: Troponin I 0.044 ng/mL (0.01-0.034)
--- NOTE | 2024-04-21 12:56 | PC.NURSE ---
Reached out to Dr. Chamberlain via [place], (Pt's PCP) to request his team reach out to patient for follow up. Informed the patient left AMA from 3 visit.
== END 2024-04-19 18:32 | disposition left against medical advice (07) ==
PROVIDERS: Emergency Provider Emergency Medicine; PCP Family Medicine
DX: I50.23 Acute on chronic systolic (congestive) heart failure (principal); R00.0 Tachycardia, unspecified; I44.0 Atrioventricular block, first degree; Z86.79 Personal history of other diseases of the circulatory system; Z87.891 Personal history of nicotine dependence
CPT/HCPCS: 36415; 71045; 80053; 83605; 83735; 83880; 84484; 85025; 85610; 93005; 93306; 94640; 99284; 99285